=== PATIENT | male | born 1970 | race Caucasian/White ===

== ENCOUNTER 2022-03-02 21:10 | Inpatient (IN) | payer OTHER, SELFPAY ==
--- NOTE | ~2022-03-02 | MR_ITS ---
EXAMINATION: MR lumbar spine wo con DATE: 03/08/2022 12:06 INDICATION: Cauda equina syndrome. TECHNIQUE: Magnetic resonance imaging (MRI) of the lumbar spine was performed without intravenous con trast. Sequences included sagittal T2-weighted FSE, sagittal T2-weighted FS FSE, sagittal T1-weighted FSE, and axial T2-weighted FSE. COMPARISON: CT abdomen and pelvis 03/06/2022 FINDINGS: Bone alignment is normal. There are Schmorl's nodes at multiple levels. There are innumerab le scattered lesions of bone marrow replacement involving all bones. There is mildly decreased disc h eight at T11-T12, L1-L2, L3-L4, and L4-L5. At T10, the osseous metastatic disease extends into the ep idural space resulting in severe central canal stenosis, cord compression, and increased T2-weighted signal intensity in the spinal cord. There is a small focus of increased T2-weighted signal intensity in the spinal cord at L1. The conus medullaris is at L1-L2. The following disc levels are specifical ly discussed: L1-L2: There is a central extrusion. There is mild bilateral facet joint osteoarthritis. There is mil d left neural foraminal stenosis. There is mild central canal stenosis. L2-L3: The disc does not extend beyond the endplate margin. There is severe bilateral facet joint ost eoarthritis. There is no neural foraminal stenosis. There is no central canal stenosis. L3-L4: The disc is bulging. There is severe right and moderate left facet joint osteoarthritis. There is mild bilateral neural foraminal stenosis. There is mild central canal stenosis. L4-L5: The disc is bulging and has an annular fissure. There is mild bilateral facet joint osteoarthr itis. There is moderate bilateral neural foraminal stenosis. There is mild central canal stenosis. L5-S1: The disc does not extend beyond the endplate margin. There is mild bilateral facet joint osteo arthritis. There is no neural foraminal stenosis. There is no central canal stenosis. IMPRESSION: 1. Widespread osseous metastatic disease with epidural extension and spinal cord compression at T10. Increased signal in the cord at T10 may be edema or myelomalacia. Increased signal in the spinal cord at L1 is likely myelomalacia. I discussed this case with Dr. Quezada. Reviewed, dictated and finalized at location A. IMPRESSION: 1. Widespread osseous metastatic disease with epidural extension and spinal cor d compression at T10. Increased signal in the cord at T10 may be edema or myelo malacia. Increased signal in the spinal cord at L1 is likely myelomalacia. I di scussed this case with Dr. Quezada.
--- NOTE | ~2022-03-02 | CT_ITS ---
EXAMINATION: CT abdomen pelvis wo con DATE: 03/06/2022 11:27 INDICATION: Prostate cancer TECHNIQUE: Computed tomography (CT) of the abdomen and pelvis was performed without intravenous contr ast. Automated exposure control and iterative reconstruction technique were employed. The dose-length product was 1280.15 mGy-cm. COMPARISON: None FINDINGS: Small right pleural effusion. Regions of consolidation in the bilateral lower lobes with bronchovascu lar crowding consistent with atelectasis. Mild cardiomegaly. No pericardial effusion. Liver, gallblad kaylan, spleen, pancreas, bilateral adrenal glands and right kidney are normal. 5 mm U-shaped stone or p air of stones in a lower pole calyx of the left kidney. There is mild left hydroureteronephrosis extending to the ureterovesicular junction where there is a 1 mm stone. There is also thickening of the inferior bladder wall overlying the enlarged prostate and extending to the left ureterovesicular junction. Horne catheter in the bladder. There is subtle hazi ness to the fat abutting the enlarged prostate. Bowels including the appendix are normal. Small bilat eral fat-containing inguinal hernias. No free intraperitoneal gas or fluid. Pelvic lymphadenopathy in the bilateral obturator, internal, external and common iliac chains suspicious for metastatic diseas e. For reference there is a 4.2 x 4.0 cm lymph node/conglomeration of lymph nodes along the right ext ernal iliac chain and 3.6 x 2.6 cm lymph node along the left external iliac chain. Prominent expansil e mixed lytic and sclerotic bone lesions at the posterior right 10th rib. Likely pathologic fracture and a mixed lytic and sclerotic lesion at the lateral right eighth rib. Multiple additional subtle ly tic lesions at the T9, T10 and L1 vertebral bodies and in the pelvis IMPRESSION: 1. Prostatomegaly consistent with given history of prostate cancer and likely metastatic lymphadenopa thy in the pelvis and multiple metastatic bone lesions. 2. Atelectasis in the bilateral lower lobes with small right pleural effusion. 3. Mild cardiac likely. 4. Left-sided nephrolithiasis with 1 mm likely obstructing stone at the left ureterovesicular junctio n with mild left hydronephrosis. There is however also some wall thickening at the base of the bladde r extending to the left inguinal region which could also contribute to the obstruction and which coul d be related to local invasion of prostatic cancer. Reviewed, dictated and finalized at location B. IMPRESSION: 1. Prostatomegaly consistent with given history of prostate cancer and likely m etastatic lymphadenopathy in the pelvis and multiple metastatic bone lesions. 2. Atelectasis in the bilateral lower lobes with small right pleural effusion. 3. Mild cardiac likely. 4. Left-sided nephrolithiasis with 1 mm likely obstructing stone at the left ur eterovesicular junction with mild left hydronephrosis. There is however also so me wall thickening at the base of the bladder extending to the left inguinal re gion which could also contribute to the obstruction and which could be related to local invasion of prostatic cancer.
--- NOTE | ~2022-03-02 | NM_ITS ---
EXAMINATION: NM bone scan whole body DATE: 03/06/2022 14:27 INDICATION: Prostate cancer. TECHNIQUE: 25.3 mCi Tc-99m HDP was administered intravenously. Delayed whole-body scintigrams were o btained. COMPARISON: CT abdomen and pelvis 03/06/2022 FINDINGS: There are greater than 40 scattered foci of increased activity in the bones in the involvin g the spine, ribs, pelvis, proximal femora, scapulae, and right humerus correlating with predominantl y lytic bone lesions by CT, consistent with metastatic disease. IMPRESSION: 1. Widespread osseous metastatic disease. Reviewed, dictated and finalized at location A.
--- NOTE | ~2022-03-02 | CT_ITS ---
EXAMINATION: CT lumbar spine wo con DATE: 03/02/2022 21:48 INDICATION: Fall. Low back pain. TECHNIQUE: Computed tomography (CT) of the lumbar spine was performed without intravenous contrast. A utomated exposure control and iterative reconstruction technique were employed. Exam dose: 1189.63 m Gy-cm total exam DLP. COMPARISON: None FINDINGS: The lumbar vertebrae are normally aligned. No fracture or suspicious osteolytic or osteobla stic lesion is noted. There is mildly severe degenerative disc disease at L1-2, with prominent Schmorl's node at the left s uperior vertebral endplate of L2. Superimposed fracture at this area is not definitively excluded; co nsider MR lumbar spine correlation. Rounded approximately 1 cm subtle lucent area at the right anterosuperior aspect of the L4 vertebral body is noted, of uncertain significance. Consider MRI correlation. Small Schmorl's nodes are noted at L2-3 and L3-4. There is mild degenerative disc disease at L2-3 thr ough L5-S1. The sacroiliac joints are intact. IMPRESSION: Possible fracture of the left superior vertebral endplate at L2 at site of probable prom inent Schmorl's node. Consider MRI correlation. Moderately severe degenerative disc disease at L1-2. Mild degenerative disc disease of the remaining lumbar interspaces Nonspecific 1 cm subtle lucent area at right anterosuperior L4 vertebral body; MR correlation would b e helpful. Reviewed, dictated and finalized at Location A. Reviewed, dictated and finalized at location A. IMPRESSION: Possible fracture of the left superior vertebral endplate at L2 at site of probable prominent Schmorl's node. Consider MRI correlation. Moderately severe degenerative disc disease at L1-2. Mild degenerative disc dis ease of the remaining lumbar interspaces Nonspecific 1 cm subtle lucent area at right anterosuperior L4 vertebral body; MR correlation would be helpful.
[2022-03-02 21:10] VITALS: BP 143/82; PULSE 106; RESP 18; O2SAT 95
--- NOTE | 2022-03-02 21:18 | ED.FALL ---
HPI - Fall General Chief Complaint: Fall Stated Complaint: fall from walker onto buttocks and back pain History of Present Illness HPI Narrative: 51-year-old male presents the emergency room for cute onset of low back pain patient states about 2 weeks ago he was moving a with his family member, woke up the following day experiencing low back pain. Patient states at that time he was evaluated at another local emergency room, and was told that there were no acute findings. Patient states over the last few weeks, he has developed increasing lower back pain that radiates into both legs. Patient states the pain is worse with movement. Patient states 2 days ago he bought a walker to assist and ambulation. Patient also remarks that he is relying on his family to help with ADLs. Prior to arrival, patient states that he misstepped and fell on landing in a sitting position. Patient was nonambulatory at the scene of the fall. Patient states he also has a indwelling catheter, for urinary obstruction. States he is being evaluated for possible prostate cancer. Related Data Allergies Allergy/AdvReac Type Severity Reaction Status Date / Time No Known Allergies Allergy Unverified 03/07/17 10:47 Review of Systems Review of Systems: CONSTITUTIONAL: Denies fever, chills, or sweats. EYES: Denies visual changes, redness, or discharge. ENT: Denies rhinorrhea, congestion, sore throat, or otalgia. CARDIOVASCULAR: Denies chest pain, palpitations, or edema. RESPIRATORY: Denies cough or dyspnea. GASTROINTESTINAL: Denies abdominal pain, nausea, vomiting, or diarrhea. GENITOURINARY: Denies dysuria or hematuria. SKIN: Denies rash or itching. MUSCULOSKELETAL: Reports lower back pain NEUROLOGIC: Reports bilateral lower extremity paresthesias he is PSYCHIATRIC: Denies anxiety or depression. [facility] Past Medical History Medical History (Updated 03/02/22 @ 23:21 by Thai Grey, NGUYEN) BPH (benign prostatic hyperplasia) COPD (chronic obstructive pulmonary disease) Exam Narrative: GENERAL: Well-appearing, well-nourished, and in moderate distress. HEAD: Normocephalic, atraumatic. EYES: PERRLA and EOMI. CHEST: Clear to auscultation. No respiratory distress. No wheezes rales or rhonchi, 2 L nasal cannula HEART: Regular rate and rhythm. No murmur heard. Normal peripheral pulses. ABDOMEN: Soft, nontender, morbidly obese normal active bowel sounds. EXTREMITIES: Normal range of motion. No edema. BACK: Lumbar spine: Midline tenderness over L1-L3, no bony abnormalities, no step-offs, range of motion limited due to pain SKIN: Warm, dry, no rash. NEURO: No focal deficits. Alert and oriented x3. Cranial nerves II through XII intact; DTR's +2, no saddle anesthesia PSYCH: Normal mood and affect. Course Vital Signs Vital signs: Vital Signs Pulse Rate 106 H 03/02/22 21:10 Respiratory Rate 18 03/02/22 21:10 Blood Pressure 143/82 H 03/02/22 21:10 Pulse Oximetry 95 03/02/22 21:10 Oxygen Delivery Nasal Cannula 03/02/22 21:10 Oxygen Flow Rate 3 03/02/22 21:10 Pulse Rate 106 H 03/02/22 21:10 Respiratory Rate 18 03/02/22 21:10 Blood Pressure 143/82 H 03/02/22 21:10 Pulse Oximetry 95 03/02/22 21:10 Oxygen Delivery Nasal Cannula 03/02/22 21:10 Oxygen Flow Rate 3 03/02/22 21:10 MDM - Fall MDM Narrative Medical decision making narrative: 51-year-old male presented to emergency room for evaluation of low back pain following a fall. Patient states over the past couple of weeks he has been experiencing worsening low back pain that radiates down both legs. Patient states he recently has had to use a walker to get around, and is having difficulty performing his ADLs. Patient also states that he is being evaluated for possible prostate cancer, reporting that back in September of last year he was found to have a urinary obstruction with an elevated PSA. Patient states that he did not follow-up with those results and has since had a
[2022-03-02] MEDS: MORPHINE SULFATE (*CRX) 4 MG/ML INJ IV PUSH (21:52)
[2022-03-02] MEDS: ONDANSETRON INJ 4 MG/2 ML VIAL IV PUSH (21:52)
[2022-03-02] MEDS: SODIUM CHLORIDE 0.9% IV 1,000 ML 150 ML IV CONT (21:52)
[2022-03-02 22:00] LABS: Basophils Absolute Auto 0.1 K/mm3 (0.0-0.1); Eosinophils Absolute Auto 0.2 K/mm3 (0-0.3); Eosinophils Percent Auto 1.3 % (0-4.4); Hematocrit 42.8 % (42.0-52.0); Hemoglobin 13.4 g/dL (14.0-18.0); Immature Granulocyte Absolute 0.16 K/mm3 (0.00-0.031); Immature Granulocyte Percent A 1.3 % (0-0.5); Lymphocytes Absolute Auto 1.72 K/mm3 (0.9-3.2); Lymphocytes Percent Auto 13.6 % (18.3-44.2); Mean Corpuscular HGB Conc 31.3 g/dl (32-36); Mean Platelet Volume 9.7 fl (7.4-10.4); Monocytes Absolute Auto 0.9 K/mm3 (0.1-0.6); Monocytes Percent Auto 6.7 % (2.6-8.5); Neutrophils Absolute Auto 9.6 K/mm3 (1.3-6.7); Neutrophils Percent Auto 76.1 % (45.5-73.1); Platelet Count Result 257 k/mm3 (150-375); Red Blood Count 4.46 M/mm3 (4.6-6.20); Red Cell Distribution Width 16.3 % (11.5-14.5); White Blood Count 12.6 K/mm3 (4.5-10.0)
[2022-03-02 22:32] LABS: Alanine Aminotransferase 16 U/L (6-50); Albumin Level 4.3 g/dL (3.5-5.1); Alkaline Phosphatase 173 U/L (38-126); Anion Gap 11 mmol/L (8-16); Aspartate Amino Transferase 27 U/L (17-59); Bilirubin,Total 0.5 mg/dL (0.2-1.3); Blood Urea Nitrogen 15 mg/dL (9-20); Calcium 9.5 mg/dL (8.4-10.2); Carbon Dioxide 23 mmol/L (22-30); Chloride 104 mmol/L (98-107); Estimated CRCL calculation 114 ml/min; Estimated Glomerular Filt Rate > 60; Glucose 102 mg/dL (65-110); Potassium 4.1 mmol/L (3.4-5.0); Sodium 138 mmol/L (137-145)
[2022-03-02 23:00] LABS: Appearance Urine Cloudy (Clear); Bilirubin Urine Negative (Negative); Blood Urine 3+ (Negative); Color Urine Yellow (Yellow); Glucose Urine UA Negative (Negative); Ketones Urine Negative (Negative); Leukocyte Esterase Ur 1+ LEU/UL (Negative); Nitrate Urine Negative (Negative); Protein Urine 2+ mg/dL (Negative); Urobilinogen Urine 0.2 mg/dL (<2.0); pH Urine 5.5 (5.0-9.0)
[2022-03-02 23:06] LABS: Bacteria Urine 2+ /hpf; Budding Yeast Urine Present /hpf; Mucus Urine Rare /lpf; RBC Urine >75 /hpf (0-2); WBC Urine >75 /hpf
[2022-03-02] MEDS: MORPHINE SULFATE (*CRX) 2 MG/ML INJ IV PUSH (23:48)
[2022-03-03] VITALS (10 sets, daily range): BP systolic 102–133; BP diastolic 70–76; PULSE 89–111; RESP 14–25; TEMP 36.3–37.3; O2SAT 90–98; BMI 36.8
[2022-03-03 00:25] LABS: Add Urine Microscopic? YES
--- NOTE | 2022-03-03 01:05 | PC.NURSE ---
03/03/22 0103 baldo at pt's bedside verbal orders given.
--- NOTE | 2022-03-03 01:11 | PM.IMHP ---
H&P: [facility] History of Present Illness Date/Time: 03/03/22 01:11 Chief Complaint: low back pain Narrative: 51-year-old male with past medical history significant for BPH with severely elevated PSA in the past, COPD is presenting with about a 2 week history of progressively worsening low back pain. He states he has been to another ER couple different times in been sent home because there were no acute findings. He states the pain does radiate down into his legs and is worse with movement. It is quite severe in his mid back. About 2 days ago he actually about a walker due to his difficulty ambulating. He states he has also relying on his family take care of his ADLs secondary to the severe pain. Patient states he also has an indwelling Horne catheter secondary to chronic urinary obstruction. Patient states his PSA was severely elevated he is being worked up for possible prostate cancer. Patient had mild leukocytosis of 12.6. CMP was essentially benign with an elevation in the alkaline phosphatase of 173. Urinalysis was abnormal and suggestive of possible UTI. Follow-up urine culture. Lumbar spine CT was ordered and report is pending. Patient states he is unable to get MRI due to his claustrophobia. He insists he would need an open MRI have any further evaluation of his lumbar spine with MRI. Review of Systems Review of Systems: Twelve point review of systems was reviewed and is negative except as noted in the HPI [facility] Past Medical History Medical History BPH (benign prostatic hyperplasia) COPD (chronic obstructive pulmonary disease) Social History Social History Smoking status: Former smoker Second hand tobacco smoke exposure: No Alcohol intake: former Substance use: former Spiritual care concerns: No Meds Home Medications and Allergies Home Medications Medication Instructions Recorded Confirmed Type albuterol sulfate 90 mcg/actuation 2 inh inhalation BID PRN Shortness 03/03/22 03/03/22 History aerosol inhaler Of Breath Or Wheezing fluticasone propionate 45 2 inh inhalation BID 03/03/22 03/03/22 History mcg-salmeterol 21 mcg/actuation HFA inhaler (Advair HFA) tamsulosin 0.4 mg capsule 0.4 cap PO BID 03/03/22 03/03/22 History Allergies Allergy/AdvReac Type Severity Reaction Status Date / Time No Known Allergies Allergy Unverified 03/07/17 10:47 Vital Signs Vital Signs - 24 hr 03/02/22 21:10 03/03/22 00:26 03/03/22 00:34 Temperature 98.3 F Pulse Rate 106 H 100 105 H Respiratory Rate 18 20 25 H Blood Pressure 143/82 H 133/70 102/74 Pulse Oximetry 95 95 97 Oxygen Delivery Nasal Cannula Oxygen Flow Rate 3 Exam Narrative: General: Patient resting comfortably in bed, no acute distress, Does appear to be uncomfortable when asked to participate and lower extremity testing HEENT: Atraumatic, normocephalic, mucous membranes moist CV: Regular rate and rhythm, S1, S2, no murmurs rubs or gallops noted Lungs: Clear to auscultation bilaterally, no rales or crackles noted, no wheezes, good air entry Abdomen: Soft, nontender, nondistended Extremities: Normal to inspection, no edema noted Skin: No rashes noted, no lesions or wounds seen Psych: Euthymic, normal affect Neuro: Cranial nerves 2-12 grossly intact, strength 5/5 upper and lower extremities noted H&P: Results Labs Labs: Short CBC 03/02/22 Range/Units 21:55 WBC 12.6 H (4.5-10.0) K/mm3 Hgb 13.4 L (14.0-18.0) g/dL Hct 42.8 (42.0-52.0) % Plt Count 257 (150-375) k/mm3 BMP 03/02/22 22:17 Sodium 138 Potassium 4.1 Chloride 104 Carbon Dioxide 23 BUN 15 Creatinine 0.80 Glucose 102 Calcium 9.5 Liver Function 03/02/22 Range/Units 22:17 Total Bilirubin 0.5 (0.2-1.3) mg/dL AST 27 (17-59) U/L ALT 16 (6-50) U/L Alkaline Phosphatase 173 H (38-1
--- NOTE | 2022-03-03 01:13 | ADMGEN ---
This patient, [place], was admitted to 3 Med Surg Room 328-01. Patient/family oriented to hospital policies and general routines including ID bracelet, bed and alarms, visiting hours, pain management, procedures, bathroom and other care routines, personal items, smoking policy, room service/diet, and visiting hours. Information on how to activate the Rapid Response Team has been discussed. Patient/Family are encouraged to report perceived risks to care and to ask questions if they do not understand what they are told or what they should do.
--- NOTE | 2022-03-03 01:32 | PC.NURSE ---
03/03/22 0103 while in pt's room baldo informed of yeast in pt's groin area.
[2022-03-03] MEDS: methocarbamoL 750 MG TABLET PO ×4 (02:51→21:01)
--- NOTE | 2022-03-03 03:50 | PC.NURSE ---
03/03/22 0350 kpad not available on floor at this time.
[2022-03-03] MEDS: ALBUTEROL SULFATE (*SP) AEROSOL 1 PUFF 2 PUFF INHALATION ×2 (07:52→20:51)
[2022-03-03] MEDS: FLUTICASONE/SALMETEROL 45-21 MCG INHALER 1 PUFF 2 PUFF INHALATION ×2 (07:53→20:42)
[2022-03-03] MEDS: MICONAZOLE NITRATE 2% CREAM 30 GM TUBE 1 APPLIC TOPICAL ×2 (08:11→21:01)
[2022-03-03] MEDS: LIDOCAINE 5% PATCH 1 PATCH TRANSDERM (08:11)
[2022-03-03] MEDS: TAMSULOSIN HCL 0.4 MG CAPSULE PO ×2 (08:11→21:01)
--- NOTE | 2022-03-03 08:39 | PM.IMPN ---
Progress Note: A&P Assessment and Plan (1) Abnormal urinalysis: Code(s): R82.90 - Unspecified abnormal findings in urine <Lucretia Maki PA-C - Last Filed: 03/03/22 15:41> Status: Acute <Lucretia Maki PA-C - Last Filed: 03/03/22 15:41> Assessment and Plan: UA with protein, blood, leuk esterase, more than 75 WBC/RBC, bacteria, and budding yeast. Patient given 1 dose of Rocephin in the ER, will continue empirically until cultures and sensitivities returned. -03/03- Mild Leukocytosis on admission. Continue IV rocephin pending C&S. Patient's last catheter change was approximately 1 month ago, will have this changed while here. Consulted urology, as patient had a coude placed by urology previously. Dr. Montero advised to obtain PSA and testosterone, they will exchange coude catheter in the AM. Repeat labs in AM. <Lucretia Maki PA-C - Last Filed: 03/03/22 15:41> (2) Low back pain: Code(s): M54.50 - Low back pain, unspecified <Lucretia Maki PA-C - Last Filed: 03/03/22 15:41> Status: Acute <Lucretia Maki PA-C - Last Filed: 03/03/22 15:41> Assessment and Plan: - 03/02- Lidoderm patch, heating pad, robaxin, check MRI lumbar spine. - 03/03- CT Lumbar spine showed: Possible fracture of the left superior vertebral endplate at L2 at site of probable prominent Schmorl's node. Consider MRI correlation. Moderately severe degenerative disc disease at L1-2. Mild degenerative disc disease of the remaining lumbar interspaces Nonspecific 1 cm subtle lucent area at right anterosuperior L4 vertebral body; MR correlation would be helpful. Patient has refused MRI unless he can obtain an open MRI, even with sedation offered. Pain is under control at this time. Will continue to monitor overnight. Will reapproach patient in the morning, may need to consider transfer to tertiary care center. <Lucretia Maki PA-C - Last Filed: 03/03/22 15:41> (3) BPH (benign prostatic hyperplasia): Code(s): N40.0 - Benign prostatic hyperplasia without lower urinary tract symptoms <Lucretia Maki PA-C - Last Filed: 03/03/22 15:41> Status: Acute <MAGDY RoldanC - Last Filed: 03/03/22 15:41> Assessment and Plan: -03/02- Check PSA, concern for PMH PSA CA -03/03- Following PSA, testosterone ordered, pending. <Lucretia Maki PA-C - Last Filed: 03/03/22 15:41> (4) COPD (chronic obstructive pulmonary disease): Code(s): J44.9 - Chronic obstructive pulmonary disease, unspecified <Lucretia Maki PA-C - Last Filed: 03/03/22 15:41> Status: Acute <MAGDY RoldanC - Last Filed: 03/03/22 15:41> Assessment and Plan: -03/02- breathing treatments + IS, hold off on steroids, no wheezing noted, appears at baseline, uses 3L at home with exertion at baseline -03/03- Patient at baseline using 3 L supplemental O2 as he does at home, Continue home inhaler therapy. <Lucretia Maki PA-C - Last Filed: 03/03/22 15:41> (5) DVT prophylaxis: Code(s): Z29.9 - Encounter for prophylactic measures, unspecified <MAGDY RoldanC - Last Filed: 03/03/22 15:41> Status: Acute <Lucretia Maki PA-C - Last Filed: 03/03/22 15:41> Assessment and Plan: Lovenox. Renal Functions normal. <Lucretia Maki PA-C - Last Filed: 03/03/22 15:41> Subjective Date/time seen: 03/03/22 08:39 51-year-old male with past medical history significant for?BPH with severely elevated PSA in the past, COPD is presenting with about a 2 week history of progressively worsening low back pain.? Patient reports worsening back pain over the past week. Specifically muscle spasms of lower back that seemed to radiate from the legs up to the lower back. He states his lower extremities are numb, he does endorse saddle anesthesia, but denies incontinence. He denies any precipitating event, fall, injury, etc. he denies chest pain, shortness a breath, fev
[2022-03-03] MEDS: ENOXAPARIN 40 MG/0.4 ML SYRINGE SUB-Q (09:33)
--- NOTE | 2022-03-03 09:43 | PCPTNOTE ---
Addendum entered by Magaly Baird, PT 03/03/22 09:48: 950- Zuly reports she talked with dr and they want the results of the CT scan before they take off the bed rest orders Original Note: attempted PT evaluation 2x this AM: 830 was sleeping and unarousable; at 945- pt refused, stated having spasms and pain in his legs and does not want to do anything; stated cannot move his legs and wants dr to check him; discussed pt with GITA De Jesus;
--- NOTE | 2022-03-03 10:02 | PCOTNOTE ---
OT orders received. Per RN, patient to have a CT of his back before bedrest orders are removed and therapy attempts to get him up. Will follow.
[2022-03-03 13:28] LABS: Basophils Absolute Auto 0.1 K/mm3 (0.0-0.1); Basophils Percent Auto 0.8 % (0.2-1.2); Eosinophils Absolute Auto 0.2 K/mm3 (0-0.3); Eosinophils Percent Auto 2.1 % (0-4.4); Hematocrit 40.8 % (42.0-52.0); Hemoglobin 12.4 g/dL (14.0-18.0); Immature Granulocyte Absolute 0.12 K/mm3 (0.00-0.031); Immature Granulocyte Percent A 1.2 % (0-0.5); Lymphocytes Absolute Auto 1.33 K/mm3 (0.9-3.2); Lymphocytes Percent Auto 13.8 % (18.3-44.2); Mean Corpuscular HGB Conc 30.4 g/dl (32-36); Mean Corpuscular Hemoglobin 29.7 pg (26-34); Mean Corpuscular Volume 97.6 fl (80-100); Mean Platelet Volume 9.6 fl (7.4-10.4); Monocytes Absolute Auto 0.9 K/mm3 (0.1-0.6); Monocytes Percent Auto 8.8 % (2.6-8.5); Neutrophils Absolute Auto 7.1 K/mm3 (1.3-6.7); Neutrophils Percent Auto 73.3 % (45.5-73.1); Platelet Count Result 240 k/mm3 (150-375); Red Blood Count 4.18 M/mm3 (4.6-6.20); Red Cell Distribution Width 16.5 % (11.5-14.5); White Blood Count 9.7 K/mm3 (4.5-10.0)
[2022-03-03 13:39] LABS: Alanine Aminotransferase 13 U/L (6-50); Albumin Level 4.4 g/dL (3.5-5.1); Alkaline Phosphatase 158 U/L (38-126); Anion Gap 7 mmol/L (8-16); Aspartate Amino Transferase 24 U/L (17-59); Bilirubin,Total 0.5 mg/dL (0.2-1.3); Blood Urea Nitrogen 13 mg/dL (9-20); Carbon Dioxide 29 mmol/L (22-30); Chloride 101 mmol/L (98-107); Estimated CRCL calculation 100 ml/min; Estimated Glomerular Filt Rate > 60; Glucose 113 mg/dL (65-110); Potassium 4.1 mmol/L (3.4-5.0); Sodium 137 mmol/L (137-145)
[2022-03-04] VITALS (7 sets, daily range): BP systolic 117–129; BP diastolic 64–79; PULSE 95–114; RESP 14–18; TEMP 36.3–36.9; O2SAT 93–97
[2022-03-04] MEDS: methocarbamoL 750 MG TABLET PO ×3 (04:11→20:11)
[2022-03-04 05:57] LABS: Basophils Absolute Auto 0.1 K/mm3 (0.0-0.1); Basophils Percent Auto 0.8 % (0.2-1.2); Eosinophils Absolute Auto 0.3 K/mm3 (0-0.3); Eosinophils Percent Auto 2.5 % (0-4.4); Hematocrit 38.8 % (42.0-52.0); Hemoglobin 12.3 g/dL (14.0-18.0); Immature Granulocyte Absolute 0.12 K/mm3 (0.00-0.031); Immature Granulocyte Percent A 1.2 % (0-0.5); Lymphocytes Absolute Auto 1.58 K/mm3 (0.9-3.2); Lymphocytes Percent Auto 15.6 % (18.3-44.2); Mean Corpuscular HGB Conc 31.7 g/dl (32-36); Mean Corpuscular Hemoglobin 30.2 pg (26-34); Mean Corpuscular Volume 95.3 fl (80-100); Mean Platelet Volume 9.7 fl (7.4-10.4); Monocytes Absolute Auto 0.8 K/mm3 (0.1-0.6); Monocytes Percent Auto 7.5 % (2.6-8.5); Neutrophils Absolute Auto 7.3 K/mm3 (1.3-6.7); Neutrophils Percent Auto 72.4 % (45.5-73.1); Platelet Count Result 228 k/mm3 (150-375); Red Blood Count 4.07 M/mm3 (4.6-6.20); Red Cell Distribution Width 16.3 % (11.5-14.5); White Blood Count 10.1 K/mm3 (4.5-10.0)
[2022-03-04 06:12] LABS: Alanine Aminotransferase 14 U/L (6-50); Alkaline Phosphatase 164 U/L (38-126); Anion Gap 11 mmol/L (8-16); Aspartate Amino Transferase 21 U/L (17-59); Bilirubin,Total 0.3 mg/dL (0.2-1.3); Blood Urea Nitrogen 12 mg/dL (9-20); Calcium 9.1 mg/dL (8.4-10.2); Carbon Dioxide 23 mmol/L (22-30); Chloride 102 mmol/L (98-107); Estimated CRCL calculation 112 ml/min; Estimated Glomerular Filt Rate > 60; Glucose 154 mg/dL (65-110); Potassium 3.9 mmol/L (3.4-5.0); Sodium 136 mmol/L (137-145)
[2022-03-04] MEDS: FLUTICASONE/SALMETEROL 45-21 MCG INHALER 1 PUFF 2 PUFF INHALATION ×2 (07:58→21:08)
[2022-03-04] MEDS: ENOXAPARIN 40 MG/0.4 ML SYRINGE SUB-Q (08:26)
[2022-03-04] MEDS: TAMSULOSIN HCL 0.4 MG CAPSULE PO ×2 (08:26→20:02)
[2022-03-04] MEDS: MICONAZOLE NITRATE 2% CREAM 30 GM TUBE 1 APPLIC TOPICAL ×2 (08:27→20:03)
[2022-03-04] MEDS: LIDOCAINE 5% PATCH 1 PATCH TRANSDERM ×2 (08:27→10:09)
--- NOTE | 2022-03-04 09:57 | PC.NURSE ---
Spoke with doctor Ross about patients pain. Mention that I had already applied the lidocaine patch per MAR instruction. Doctor Vandana said that it is okay to apply up to 3 patches and was going to add another order for two more patches to be applied this morning.
--- NOTE | 2022-03-04 10:04 | PCOTNOTE ---
PT Spoke with Dr. Ross. Per Dr. Ross hold off on therapy for today. Per RN, patient's pain not well controlled at this time. Will follow.
[2022-03-04] MEDS: GABAPENTIN 300 MG CAPSULE PO ×3 (10:08→16:58)
[2022-03-04] MEDS: DOCUSATE SODIUM 100 MG CAPSULE PO ×2 (10:08→20:02)
--- NOTE | 2022-03-04 13:14 | PM.IMPN ---
Progress Note: A&P Assessment and Plan (1) Abnormal urinalysis: Code(s): R82.90 - Unspecified abnormal findings in urine Status: Acute Assessment and Plan: UA with protein, blood, leuk esterase, more than 75 WBC/RBC, bacteria, and budding yeast. Patient given 1 dose of Rocephin in the ER, will continue empirically until cultures and sensitivities returned. -03/03- Mild Leukocytosis on admission. Continue IV rocephin pending C&S. Patient's last catheter change was approximately 1 month ago, will have this changed while here. Consulted urology, as patient had a coude placed by urology previously. Dr. Montero advised to obtain PSA and testosterone, they will exchange coude catheter in the AM. Repeat labs in AM. 03/04/2022 interval history: patient continue to complain of low back pain and numbness in lower extremity, is refusing MRI, because is unable to lay flat due to his pain month the pain is controlled we may be able to do MRI, to controlled patient pain start the patient on methylprednisone 60 mg q.8, gabapentin 300 mg q.8, apply 3 Lidoderm patches, and Colace, patient also has a history of COPD will continue steroid inhaler and add DuoNeb, will continue to monitor (2) Low back pain: Code(s): M54.50 - Low back pain, unspecified Status: Acute Assessment and Plan: - 03/02- Lidoderm patch, heating pad, robaxin, check MRI lumbar spine. - 03/03- CT Lumbar spine showed: Possible fracture of the left superior vertebral endplate at L2 at site of probable prominent Schmorl's node. Consider MRI correlation. Moderately severe degenerative disc disease at L1-2. Mild degenerative disc disease of the remaining lumbar interspaces Nonspecific 1 cm subtle lucent area at right anterosuperior L4 vertebral body; MR correlation would be helpful. Patient has refused MRI unless he can obtain an open MRI, even with sedation offered. Pain is under control at this time. Will continue to monitor overnight. Will reapproach patient in the morning, may need to consider transfer to tertiary care center. (3) BPH (benign prostatic hyperplasia): Code(s): N40.0 - Benign prostatic hyperplasia without lower urinary tract symptoms Status: Acute Assessment and Plan: -03/02- Check PSA, concern for PMH PSA CA -03/03- Following PSA, testosterone ordered, pending. (4) COPD (chronic obstructive pulmonary disease): Code(s): J44.9 - Chronic obstructive pulmonary disease, unspecified Status: Acute Assessment and Plan: -03/02- breathing treatments + IS, hold off on steroids, no wheezing noted, appears at baseline, uses 3L at home with exertion at baseline -03/03- Patient at baseline using 3 L supplemental O2 as he does at home, Continue home inhaler therapy. (5) DVT prophylaxis: Code(s): Z29.9 - Encounter for prophylactic measures, unspecified Status: Acute Assessment and Plan: Lovenox. Renal Functions normal. Subjective Date/time seen: 03/04/22 13:14 ?03/03- Sensation was intact in bilateral lower extremities during physical exam. Patient is able to move lower extremities against light resistance, but he does so with some tenderness and pain.?Pain is under control at this time.?Patient denies loss of bowel continence? though he does endorse a sensation of 'being swollen' around his hips and groin. CT Lumbar spine showed:?Possible fracture of the left superior vertebral endplate at L2 at site of probable prominent Schmorl's node. Consider MRI correlation. Moderately severe degenerative disc disease at L1-2. Mild degenerative disc disease of the remaining lumbar interspaces. Nonspecific 1 cm subtle lucent area at right anterosuperior L4 vertebral body; MR correlation would be helpful. 03/04/2022 interval history: patient continue to complain of low back pain and numbness in lower extremity, is refusing MRI, because is unable to lay flat due to his pain month the pain is controlled we may b
[2022-03-04] MEDS: methylPREDNISolone SOD SUCC 125 MG VIAL 60 MG IV PUSH (13:57)
--- NOTE | 2022-03-04 14:01 | WPDURCON ---
Assessment and Plan Assessment and plan (1) BPH (benign prostatic hyperplasia): Code(s): N40.0 - Benign prostatic hyperplasia without lower urinary tract symptoms Status: Acute (2) Elevated PSA: Code(s): R97.20 - Elevated prostate specific antigen [PSA] Status: Acute (3) Urinary retention: Code(s): R33.9 - Retention of urine, unspecified Status: Acute (4) Yeast UTI: Code(s): B37.49 - Other urogenital candidiasis Status: Acute Plan 51-year-old gentleman with indwelling catheter and urinary tract infection with yeast. I am concerned that he has metastatic prostate cancer that are the underlying cause of his urinary retention as well as possibly also his fracture. - Horne catheter exchanged at bedside today. - Recommend treatment of yeast UTI with antifungal - PSA and testosterone ordered, results pending. based on these results, consider prostate biopsy and/or androgen deprivation therapy - consider medical oncology and neurosurgical consultation Urology Consult Note HPI Date Seen: 03/04/22 Requesting Physician: Lucretia Maki PA-C Primary Care Provider: SALES ADMINISTRATOR PHYSICIAN Consult Narrative Narrative: [place] is a 51 year old male who presented to the emergency department with a 2 week history of back pain and recent fall. The patient has been admitted to [facility] intermittently over the course of the past 6 months. upon my review of records it appears he was seen by Urology in December of 2020 when he was admitted for hematuria. The patient was found to have a very high PSA at that time ( 396ng/dL). the patient was subsequently admitted in February of [address] scan showed retroperitoneal lymphadenopathy concerning for possible metastatic disease, it does not appear that Urology was consulted at that time. patient states he is scheduled in the next 2 weeks for outpatient prostate biopsy with Dr. Gonzalez. upon admission the patient was found to have a possible fracture at L2. The patient has been managed with a coude catheter to your to urinary retention and Urology was consulted to evaluate the patient for Horne catheter change and assessment. [facility] Past Medical History Medical History BPH (benign prostatic hyperplasia) COPD (chronic obstructive pulmonary disease) Social History Social History Smoking status: Former smoker Second hand tobacco smoke exposure: No Alcohol intake: former Substance use: former Spiritual care concerns: No Meds Home Medications and Allergies Home Medications Medication Instructions Recorded Confirmed Type albuterol sulfate 90 mcg/actuation 2 inh inhalation BID PRN Shortness 03/03/22 03/03/22 History aerosol inhaler Of Breath Or Wheezing fluticasone propionate 45 2 inh inhalation BID 03/03/22 03/03/22 History mcg-salmeterol 21 mcg/actuation HFA inhaler (Advair HFA) tamsulosin 0.4 mg capsule 0.4 cap PO BID 03/03/22 03/03/22 History Allergies Allergy/AdvReac Type Severity Reaction Status Date / Time No Known Allergies Allergy Unverified 03/07/17 10:47 Vital Signs Vital Signs - 24 hr 03/03/22 20:43 03/03/22 22:00 03/03/22 20:00 Temperature 37.3 C Pulse Rate 99 Respiratory Rate 20 Blood Pressure 129/72 Pulse Oximetry 95 98 98 Oxygen Delivery Nasal Cannula Oxygen Flow Rate 3 3 03/04/22 06:00 03/04/22 07:58 Temperature 36.9 C Pulse Rate 95 Respiratory Rate 16 Blood Pressure 129/79 Pulse Oximetry 97 95 Oxygen Delivery Oxygen Flow Rate 3 Exam Narrative: the patient is awake he is alert. His breathing is unlabored. His abdomen is soft non distended. The patient has a Horne catheter in place. Digital rectal exam reveals a firm /nodular prostate procedure: The patient has pre-existing Horne cathet
[2022-03-04] MEDS: FLUCONAZOLE 100 MG/NACL 50 ML 100 MG/50 ML BTL 50 MG IVPB (14:50)
[2022-03-04 16:37] LABS: Glucose Point of Care 172 mg/dl (65-105)
[2022-03-04 20:30] LABS: Glucose Point of Care 244 mg/dl (65-105)
[2022-03-04] MEDS: ALBUTEROL SULFATE NEB 2.5 MG/3 ML INH INHALATION (21:08)
[2022-03-04] MEDS: IPRATROPIUM BR 0.02% INH SOLN 0.5 MG/2.5 ML VIAL INHALATION (21:08)
[2022-03-04] MEDS: HYDROcodone/acetaminophen (*CRX) 5-325 MG TABLET 1 TAB PO (21:59)
[2022-03-05] VITALS (18 sets, daily range): BP systolic 105–123; BP diastolic 60–92; PULSE 90–105; RESP 13–22; TEMP 36.2–36.9; O2SAT 94–100
--- NOTE | 2022-03-05 04:40 | PC.NURSE ---
03/05/22 0440 entered pt's room while making rounds pt noncompliant with keeping nasal cannula on. asked pt if he would like to have a nebulizer treatment pt states maybe later. pt denies sob. pt requesting pain med at this time.
[2022-03-05] MEDS: HYDROcodone/acetaminophen (*CRX) 5-325 MG TABLET 1 TAB PO ×2 (04:44→15:57)
[2022-03-05 07:04] LABS: Basophils Percent Auto 0.2 % (0.2-1.2); Hematocrit 37.9 % (42.0-52.0); Hemoglobin 11.7 g/dL (14.0-18.0); Immature Granulocyte Absolute 0.12 K/mm3 (0.00-0.031); Immature Granulocyte Percent A 1.2 % (0-0.5); Lymphocytes Absolute Auto 0.78 K/mm3 (0.9-3.2); Lymphocytes Percent Auto 8.1 % (18.3-44.2); Mean Corpuscular HGB Conc 30.9 g/dl (32-36); Mean Corpuscular Hemoglobin 29.7 pg (26-34); Mean Corpuscular Volume 96.2 fl (80-100); Mean Platelet Volume 10.1 fl (7.4-10.4); Monocytes Absolute Auto 0.7 K/mm3 (0.1-0.6); Monocytes Percent Auto 7.2 % (2.6-8.5); Neutrophils Percent Auto 83.3 % (45.5-73.1); Platelet Count Result 233 k/mm3 (150-375); Red Blood Count 3.94 M/mm3 (4.6-6.20); Red Cell Distribution Width 15.9 % (11.5-14.5); White Blood Count 9.6 K/mm3 (4.5-10.0)
[2022-03-05 07:17] LABS: Alanine Aminotransferase 14 U/L (6-50); Alkaline Phosphatase 149 U/L (38-126); Anion Gap 8 mmol/L (8-16); Aspartate Amino Transferase 18 U/L (17-59); Bilirubin,Total 0.3 mg/dL (0.2-1.3); Blood Urea Nitrogen 15 mg/dL (9-20); Calcium 8.9 mg/dL (8.4-10.2); Carbon Dioxide 26 mmol/L (22-30); Chloride 101 mmol/L (98-107); Estimated CRCL calculation 112 ml/min; Estimated Glomerular Filt Rate > 60; Glucose 196 mg/dL (65-110); Potassium 4.2 mmol/L (3.4-5.0); Sodium 135 mmol/L (137-145)
[2022-03-05 07:38] LABS: Glucose Point of Care 201 mg/dl (65-105)
--- NOTE | 2022-03-05 08:25 | PCOTNOTE ---
Attempted to see pt. for evaluation. Per nurse, pt. currently being taken for procedure. Following.
--- NOTE | 2022-03-05 08:42 | WPDUROPN2 ---
Progress Note: A&P Assessment and Plan (1) Urinary retention: Code(s): R33.9 - Retention of urine, unspecified Status: Acute Assessment and Plan: Keep hernandez in place at this time, continue Tamsulosin. (2) Elevated PSA: Code(s): R97.20 - Elevated prostate specific antigen [PSA] Status: Acute Assessment and Plan: Will proceed with a prostate biopsy this morning with Dr. Abbott to confirm what is suspected prostate cancer with metastatic disease per discussion and recommendation with Dr. Maria C Montero. The patient understands the risks of the procedure and wishes to proceed. Will await the biopsy results and consultation recommendations from oncology. (3) BPH (benign prostatic hyperplasia): Code(s): N40.0 - Benign prostatic hyperplasia without lower urinary tract symptoms Status: Acute Subjective Subjective Date/Time Seen: 03/05/22 08:42 The patient and I have discussed the need for a prostate biopsy this morning at the bedside. He has one scheduled as an outpatient, however while in house, we will proceed to get a definitive diagnosis. Oncology has also been consulted to see the patient for further recommendation. Review of Systems Cardiovascular: Comments: No chest Pain Respiratory: Comments: No difficulty breathing, patient has nasal 02. Gastrointestinal: Comments: Denies Abdominal Pain. Genitourinary: Comments: Has a hernandez catheter in place, draining to gravity. Exam Resp: Effort & Inspection: normal respiratory effort (with nasal cannula 02) Cardio: Rate: tachycardic GI: GI Palp: Yes Soft to palpation and No Tenderness to palpation present (GI) Urinary Catheter: Urinary Catheter: patent and draining and urine clear Objective Data Vital Signs Vital Signs: Vital Signs - 24 hr 03/04/22 14:00 03/04/22 20:00 03/04/22 21:09 Temperature 97.4 F L Pulse Rate 103 H Respiratory Rate 18 Blood Pressure 117/79 Pulse Oximetry 95 95 93 Oxygen Delivery Nasal Cannula Oxygen Flow Rate 3 3 03/04/22 21:09 03/04/22 21:20 03/04/22 22:00 Temperature 98.0 F Pulse Rate 106 H 103 H 114 H Respiratory Rate 16 14 16 Blood Pressure 118/64 Pulse Oximetry 94 Oxygen Delivery Oxygen Flow Rate 03/05/22 06:00 03/05/22 08:30 Temperature 97.2 F L Pulse Rate 103 H Respiratory Rate 16 Blood Pressure 116/64 Pulse Oximetry 96 94 Oxygen Delivery Oxygen Flow Rate 3 Intake/Output Intake/Output: Intake & Output 03/02/22 03/03/22 03/04/22 03/05/22 23:59 23:59 23:59 23:59 Intake Total 694 1220 750 Output Total 1050 975 750 Balance -356 245 0 Meds/Results Medications: Active Medications Generic Name Dose Route Start Last Admin Trade Name Freq PRN Reason Stop Dose Admin Acetaminophen 650 mg 03/04/22 21:20 Acetaminophen 325 Mg Tablet PO Q6H PRN Mild Pain (1-3) or Fever Hydrocodone Bitart/Acetaminophen 1 tab 03/04/22 21:29 03/05/22 04:44 Hydrocodone/Acetaminophen (*Crx) 5-325 Mg Tablet PO 1 tab Q6H PRN Administration Pain Rated 4-6 Albuterol 2 puff 03/03/22 01:11 03/03/22 20:51 Albuterol Sulfate (*Sp) Aerosol 1 Puff INHALATION 2 puff BID PRN Administration Shortness Of Breath Or Wheezing Albuterol 2.5 mg 03/04/22 09:44 03/04/22 21:08 Albuterol Sulfate Neb 2.5 Mg/3 Ml Inh INHALATION 2.5 mg Q6HRT PRN Administration Shortness Of Breath Dextrose 12.5 gm 03/04/22 13:38 Dextrose 50% 25 Gm/50 Ml Syringe IV PUSH PRN PRN Hypoglycemia Protocol Docusate Sodium 100 mg 03/04/22 09:00 03/04/22 20:02 Docusate Sodium 100 Mg Capsule PO 100 mg Q12HR NAWAF Administration Enoxaparin Sodium 40 mg 03/03/22 09:00 03/04/22 08:26 Enoxaparin 40 Mg/0.4 Ml Syringe SUB-Q 40 mg DAILY NAWAF Administration Gabapentin 300 mg 03/04/22 09:00 03/04/22 16:58 Gabapentin 300 Mg Capsule PO 300 mg TID NAWAF Administration Glucagon 1
--- NOTE | 2022-03-05 08:45 | PC.NURSE ---
To OR via bed.
--- NOTE | 2022-03-05 08:56 | WPDANESEPPF ---
Anes - Initial Pre Proc Eval Procedure: Operation Date: 03/05/22 09:00 Proposed Procedures p Prostate Biopsy - Chaparro Abbott MD Date/Time: 03/05/22 08:56 Surgeon: Lucretia Maki PA-C Pre Op Diagnosis: Failure to Thrive Patient Data Age: 51 Gender: M Height: 1.73 m Weight: 109.8 kg Last Vital Signs Temp 36.2 C L 03/05/22 06:00 Pulse 103 H 03/05/22 06:00 Resp 16 03/05/22 06:00 BP 116/64 03/05/22 06:00 Pulse Ox 94 03/05/22 08:30 O2 Del Method Nasal Cannula 03/04/22 20:00 O2 Flow Rate 3 03/05/22 08:30 Allergies Allergy/AdvReac Type Severity Reaction Status Date / Time No Known Allergies Allergy Unverified 03/07/17 10:47 Home Medications Medication Instructions Recorded Confirmed Type albuterol sulfate 90 mcg/actuation 2 inh inhalation BID PRN Shortness 03/03/22 03/03/22 History aerosol inhaler Of Breath Or Wheezing fluticasone propionate 45 2 inh inhalation BID 03/03/22 03/03/22 History mcg-salmeterol 21 mcg/actuation HFA inhaler (Advair HFA) tamsulosin 0.4 mg capsule 0.4 cap PO BID 03/03/22 03/03/22 History Laboratory Tests 03/04/22 03/04/22 03/05/22 16:25 20:22 06:22 WBC 9.6 K/mm3 K/mm3 (4.5-10.0) RBC 3.94 M/mm3 L M/mm3 (4.6-6.20) Hgb 11.7 g/dL L g/dL (14.0-18.0) Hct 37.9 % L % (42.0-52.0) MCV 96.2 fl fl (80-100) MCH 29.7 pg pg (26-34) MCHC 30.9 g/dl L g/dl (32-36) RDW 15.9 % H % (11.5-14.5) Plt Count 233 k/mm3 k/mm3 (150-375) MPV 10.1 fl fl (7.4-10.4) Immature Gran % (Auto) 1.2 % H % (0-0.5) Neut % (Auto) 83.3 % H % (45.5-73.1) Lymph % (Auto) 8.1 % L % (18.3-44.2) Morrow % (Auto) 7.2 % % (2.6-8.5) Eos % (Auto) 0.0 % % (0-4.4) Baso % (Auto) 0.2 % % (0.2-1.2) Lymph # (Auto) 0.78 K/mm3 L K/mm3 (0.9-3.2) Morrow # (Auto) 0.7 K/mm3 H K/mm3 (0.1-0.6) Eos # (Auto) 0.0 K/mm3 K/mm3 (0-0.3) Baso # (Auto) 0.0 K/mm3 K/mm3 (0.0-0.1) Abs Immat Gran (auto) 0.12 K/mm3 H K/mm3 (0.00-0.031) Absolute Neuts (auto) 8.0 K/mm3 H K/mm3 (1.3-6.7) Absolute Nucleated RBC 0.0 K/mm3 K/mm3 (0.0-0.012) Nucleated RBC % 0.0 % % (0.0-0.2) Sodium Potassium Chloride Carbon Dioxide Anion Gap BUN Creatinine Estim Creat Clear Calc Estimated GFR Glucose POC Capillary Glucose 172 mg/dl H mg/dl 244 mg/dl H mg/dl (65-105) (65-105) Calcium Total Bilirubin AST ALT Alkaline Phosphatase Total Protein Albumin 03/05/22 03/05/22 06:22 07:29 WBC RBC Hgb Hct MCV MCH MCHC RDW Plt Count MPV Immature Gran % (Auto) Neut % (Auto) Lymph % (Auto) Morrow % (Auto) Eos % (Auto) Baso % (Auto) Lymph # (Auto) Morrow # (Auto) Eos # (Auto) Baso # (Auto) Abs Immat Gran (auto) Absolute Neuts (auto) Absolute Nucleated RBC Nucleated RBC % Sodium 135 mmol/L L mmol/L (137-145) Potassium 4.2 mmol/L mmol/L (3.4-5.0) Chloride 101 mmol/L mmol/L (98-107) Carbon Dioxide 26 mmol/L mmol/L (22-30) Anion Gap 8 mmol/L mmol/L (8-16) BUN 15 mg/dL mg/dL (9-20) Creatinine 0.80 mg/dL mg/dL (0.7-1.3) Estim Creat Clear Calc 112 ml/min ml/min Estimated GFR > 60 (59 - ) Glucose 196 mg/dL H mg/dL (65-110) POC Capillary Glucose 201 mg/dl H mg/dl (65-105) Calcium 8.9 mg/dL mg/dL (8.4-10.2) Total Bilirubin 0.3
[2022-03-05] MEDS: LACTATED RINGERS 1,000 ML 30 ML IV CONT (09:00)
[2022-03-05] MEDS: FLUCONAZOLE 100 MG/NACL 50 ML 100 MG/50 ML BTL 50 MG IVPB (09:08)
--- NOTE | 2022-03-05 09:26 | WPDHPUPDATE1 ---
History and Physical Update Update Date/Time: 03/05/22 09:26 History and Physical has been reviewed, including an updated exam of the patient. There are NO changes in the patient's condition. Risks, benefits, and alternatives have been discussed and questions answered. Patient agrees to proceed with procedure. Proceed with trus , prostate biopsy
--- NOTE | 2022-03-05 09:33 | SUR.PREOP ---
[id number] DOES NOT WANT BROTHERAP NOTIFIED-STATES HE'S AT WORK AND CAN'T DO ANYTHING ANYWAY-I WILL CALL HIM WHEN I'M DONE.
--- NOTE | 2022-03-05 10:06 | W.PM.PROC2 ---
Procedure Note - Detailed Date of Procedure 03/05/22 Pre-op Diagnosis , elevated PSA Post-op Diagnosis Same Procedure Performed Transrectal ultrasound with prostate biopsy Surgeon Chaparro Abbott MD Anesthesia General Description of Procedure Patient is taken the operative suite placed in the lateral decubitus position. Once anesthesia was obtained he transrectal ultrasound probe was inserted. Volume was approximately 72 cc. Twelve cores were taken standard fashion. Patient tolerated procedure well without any complications taken recovery stable condition. Estimated Blood Loss 0 Urine Output 225 Pathology Yes Complications No immediate complications Condition Stable Disposition PACU
[2022-03-05 10:21] LABS: Glucose Point of Care 126 mg/dl (65-105)
[2022-03-05] MEDS: fentaNYL CITRATE INJ (*CRX) 100 MCG/2 ML VIAL 25 MCG IV PUSH ×2 (10:35→10:59)
--- NOTE | 2022-03-05 11:22 | PC.NURSE ---
Back from OR via bed.
[2022-03-05] MEDS: GABAPENTIN 300 MG CAPSULE PO ×3 (11:29→20:54)
[2022-03-05] MEDS: TAMSULOSIN HCL 0.4 MG CAPSULE PO ×2 (11:30→20:54)
[2022-03-05] MEDS: LIDOCAINE 5% PATCH 2 PATCH TRANSDERM (11:30)
[2022-03-05] MEDS: DOCUSATE SODIUM 100 MG CAPSULE PO ×2 (11:31→20:54)
[2022-03-05] MEDS: MICONAZOLE NITRATE 2% CREAM 30 GM TUBE 1 APPLIC TOPICAL ×2 (11:32→20:55)
[2022-03-05] MEDS: methocarbamoL 750 MG TABLET PO ×3 (11:35→23:05)
[2022-03-05 11:53] LABS: Glucose Point of Care 152 mg/dl (65-105)
--- NOTE | 2022-03-05 14:41 | PM.IMPN ---
Progress Note: A&P Assessment and Plan (1) Abnormal urinalysis: Code(s): R82.90 - Unspecified abnormal findings in urine Status: Acute Assessment and Plan: UA with protein, blood, leuk esterase, more than 75 WBC/RBC, bacteria, and budding yeast. Patient given 1 dose of Rocephin in the ER, will continue empirically until cultures and sensitivities returned. -03/03- Mild Leukocytosis on admission. Continue IV rocephin pending C&S. Patient's last catheter change was approximately 1 month ago, will have this changed while here. Consulted urology, as patient had a coude placed by urology previously. Dr. Montero advised to obtain PSA and testosterone, they will exchange coude catheter in the AM. Repeat labs in AM. 03/04/2022 interval history: patient continue to complain of low back pain and numbness in lower extremity, is refusing MRI, because is unable to lay flat due to his pain month the pain is controlled we may be able to do MRI, to controlled patient pain start the patient on methylprednisone 60 mg q.8, gabapentin 300 mg q.8, apply 3 Lidoderm patches, and Colace, patient also has a history of COPD will continue steroid inhaler and add DuoNeb, will continue to monitor. 03/05/2022 interval history: patient continue to complain of low back pain and numbness in lower extremity, is refusing MRI, because is unable to lay flat due to his pain, once the pain is controlled we may be able to do MRI, to controlled patient pain start the patient on methylprednisone 60 mg q.8, gabapentin 300 mg q.8, apply 3 Lidoderm patches, and Colace, stopped methylprednisone as patient urine is positive for yeast, patient also has a history of COPD will continue steroid inhaler and add DuoNeb, will continue to monitor, pn 03/[address] Montero suspect patient has prostate cancer to further evaluate ordered prostate biopsy which patient had it today, PSA and testosterone levels are pending. also consulted Dr. Pena oncologist for further recommendation. (2) Low back pain: Code(s): M54.50 - Low back pain, unspecified Status: Acute Assessment and Plan: - 03/02- Lidoderm patch, heating pad, robaxin, check MRI lumbar spine. - 03/03- CT Lumbar spine showed: Possible fracture of the left superior vertebral endplate at L2 at site of probable prominent Schmorl's node. Consider MRI correlation. Moderately severe degenerative disc disease at L1-2. Mild degenerative disc disease of the remaining lumbar interspaces Nonspecific 1 cm subtle lucent area at right anterosuperior L4 vertebral body; MR correlation would be helpful. Patient has refused MRI unless he can obtain an open MRI, even with sedation offered. Pain is under control at this time. Will continue to monitor overnight. Will reapproach patient in the morning, may need to consider transfer to tertiary care center. (3) BPH (benign prostatic hyperplasia): Code(s): N40.0 - Benign prostatic hyperplasia without lower urinary tract symptoms Status: Acute Assessment and Plan: -03/02- Check PSA, concern for PMH PSA CA -03/03- Following PSA, testosterone ordered, pending. (4) COPD (chronic obstructive pulmonary disease): Code(s): J44.9 - Chronic obstructive pulmonary disease, unspecified Status: Acute Assessment and Plan: -03/02- breathing treatments + IS, hold off on steroids, no wheezing noted, appears at baseline, uses 3L at home with exertion at baseline -03/03- Patient at baseline using 3 L supplemental O2 as he does at home, Continue home inhaler therapy. (5) DVT prophylaxis: Code(s): Z29.9 - Encounter for prophylactic measures, unspecified Status: Acute Assessment and Plan: Lovenox. Renal Functions normal. Subjective Date/time seen: 03/05/22 14:41 03/05/2022 interval history: patient continue to complain of low back pain and numbness in lower extremity, is refusing MRI, because is unable to lay flat due to
[2022-03-05 16:39] LABS: Glucose Point of Care 130 mg/dl (65-105)
--- NOTE | 2022-03-05 16:40 | PCPTNOTE ---
Unable to see patient until ortho consult - ortho consult needed to determine if Lumbar spine fracture is stable to move patient without back brace. RN aware and is going to contact hospitalist about possible ortho consult/directions on safely mobility. Will follow.
--- NOTE | 2022-03-05 18:29 | PDONCCN ---
HPI - Date of Consult Date/Time: 03/05/22 18:29 Requesting Physician: Lucretia Maki PA-C Primary Care Provider: RADIOCHEMICAL TECHNICIAN PHYSICIAN - Consult Narrative Reason for consult: Likely prostate cancer with bone metastasis. Narrative: [place] is a 51 year old male with history of smoking and COPD as well as history of BPH came into the hospital with sudden onset of bilateral lower extremity numbness and back pain. He remember episode of while and cough 3 weeks prior to that with resultant back pain. According to Urology note patient PSA was significantly elevated in the past. CT lumbar spine was done on March 02 that showed possible fracture of the left superior vertebral endplate at L2 with severe degenerative disc disease of L1-L2. According to Urology note patient was seen by Urology in December of 2020 due to hematuria and found to have PSA of 396 at that time. He was subsequently admitted to the hospital in February of [address] scan at that time showed retroperitoneal lymphadenopathy. Review of Systems - Review of Systems All systems reviewed & are unremarkable except as noted in [facility] and [facility] Medical History: Medical History (Last Reviewed 03/05/22 @ 08:59 by Narendra Doss MD) BPH (benign prostatic hyperplasia) COPD (chronic obstructive pulmonary disease) - Social History Social History: Social History (Last Reviewed 03/05/22 @ 08:59 by Narendra Doss MD) Alcohol Use: Alcohol intake: former Substance Use: Substance use: former Others: Spiritual care concerns: No Smoking Status: Smoking status: Former smoker Second hand tobacco smoke exposure: No Meds Home Medications Medication Instructions Recorded Confirmed Type albuterol sulfate 90 mcg/actuation 2 inh inhalation BID PRN Shortness 03/03/22 03/03/22 History aerosol inhaler Of Breath Or Wheezing fluticasone propionate 45 2 inh inhalation BID 03/03/22 03/03/22 History mcg-salmeterol 21 mcg/actuation HFA inhaler (Advair HFA) tamsulosin 0.4 mg capsule 0.4 cap PO BID 03/03/22 03/03/22 History Allergies Allergy/AdvReac Type Severity Reaction Status Date / Time No Known Allergies Allergy Unverified 03/07/17 10:47 Results - Labs CBC & Chem 7: 03/05/22 06:22 03/05/22 06:22 Labs: Short CBC 03/05/22 Range/Units 06:22 WBC 9.6 (4.5-10.0) K/mm3 Hgb 11.7 L (14.0-18.0) g/dL Hct 37.9 L (42.0-52.0) % Plt Count 233 (150-375) k/mm3 BMP 03/05/22 06:22 Sodium 135 L Potassium 4.2 Chloride 101 Carbon Dioxide 26 BUN 15 Creatinine 0.80 Glucose 196 H Calcium 8.9 Liver Function 03/05/22 Range/Units 06:22 Total Bilirubin 0.3 (0.2-1.3) mg/dL AST 18 (17-59) U/L ALT 14 (6-50) U/L Alkaline Phosphatase 149 H (38-126) U/L Albumin 4.0 (3.5-5.1) g/dL Assessment and Plan - Additional Plan Likely metastatic prostate cancer. Patient is a 51-year-old male with history of BPH. He now came into the hospital with bilateral lower extremity weakness and numbness as well as lower back pain that started after episode of while and cough [address] lumbar spine finding noted. According to the Urology note patient was seen by the Urology in December of 2020 with hematuria and found to have PSA of 396. CT scan done at that time showed retroperitoneal lymphadenopathy. Patient had prostate biopsy done today and pathology report is pending. PSA and Testosterone level has been ordered and pending. I have provided him my office information for follow-up and management of likely prostate cancer. I will also order bone scan as well as CT abdomen and pelvis at this time. I have answered all the questions to patient's satisfaction. Exam - Vital Signs Vital Signs - 24 hr 03/04/22 20:00 03/04/22 21:09 03/04/22 21:09 Temperature Pulse Rate 106 H Respiratory Rate 16 Blood Pressure Pulse Oximetry 95 93
[2022-03-05 19:49] LABS: PSA, Free >17.00 ng/mL
[2022-03-05] MEDS: ALBUTEROL SULFATE NEB 2.5 MG/3 ML INH INHALATION (20:33)
[2022-03-05] MEDS: IPRATROPIUM BR 0.02% INH SOLN 0.5 MG/2.5 ML VIAL INHALATION (20:33)
[2022-03-05] MEDS: FLUTICASONE/SALMETEROL 45-21 MCG INHALER 1 PUFF 2 PUFF INHALATION (20:33)
[2022-03-05 21:24] LABS: Glucose Point of Care 136 mg/dl (65-105)
[2022-03-06] VITALS (8 sets, daily range): BP systolic 101–124; BP diastolic 71–75; PULSE 98–103; RESP 16–22; TEMP 36.4–36.7; O2SAT 92–95
[2022-03-06] MEDS: HYDROcodone/acetaminophen (*CRX) 5-325 MG TABLET 1 TAB PO ×3 (04:02→17:58)
[2022-03-06 06:40] LABS: Basophils Absolute Auto 0.1 K/mm3 (0.0-0.1); Basophils Percent Auto 0.8 % (0.2-1.2); Eosinophils Absolute Auto 0.4 K/mm3 (0-0.3); Eosinophils Percent Auto 3.7 % (0-4.4); Hematocrit 37.7 % (42.0-52.0); Hemoglobin 11.4 g/dL (14.0-18.0); Immature Granulocyte Absolute 0.08 K/mm3 (0.00-0.031); Immature Granulocyte Percent A 0.8 % (0-0.5); Lymphocytes Absolute Auto 1.63 K/mm3 (0.9-3.2); Lymphocytes Percent Auto 16.3 % (18.3-44.2); Mean Corpuscular HGB Conc 30.2 g/dl (32-36); Mean Corpuscular Hemoglobin 30.1 pg (26-34); Mean Corpuscular Volume 99.5 fl (80-100); Mean Platelet Volume 10.1 fl (7.4-10.4); Monocytes Absolute Auto 0.8 K/mm3 (0.1-0.6); Neutrophils Percent Auto 70.4 % (45.5-73.1); Platelet Count Result 218 k/mm3 (150-375); Red Blood Count 3.79 M/mm3 (4.6-6.20); Red Cell Distribution Width 16.1 % (11.5-14.5)
[2022-03-06 06:54] LABS: Alanine Aminotransferase 25 U/L (6-50); Albumin Level 3.7 g/dL (3.5-5.1); Alkaline Phosphatase 146 U/L (38-126); Anion Gap 9 mmol/L (8-16); Aspartate Amino Transferase 30 U/L (17-59); Bilirubin,Total 0.3 mg/dL (0.2-1.3); Blood Urea Nitrogen 21 mg/dL (9-20); Calcium 8.8 mg/dL (8.4-10.2); Carbon Dioxide 26 mmol/L (22-30); Chloride 99 mmol/L (98-107); Estimated CRCL calculation 100 ml/min; Estimated Glomerular Filt Rate > 60; Glucose 116 mg/dL (65-110); Potassium 4.5 mmol/L (3.4-5.0); Sodium 134 mmol/L (137-145)
[2022-03-06 08:12] LABS: Glucose Point of Care 114 mg/dl (65-105)
--- NOTE | 2022-03-06 08:22 | PCOTNOTE ---
Spoke with Dr. Quezada regarding pt.'s possible fracture of the left superior vertebral endplate at L2 and additional likely prostate cancer with bone metastasis. Per Dr. Quezada, the is not contraindication for mobilizing pt. pending full body bone scan which was ordered yesterday
[2022-03-06] MEDS: ALBUTEROL SULFATE NEB 2.5 MG/3 ML INH INHALATION (08:35)
[2022-03-06] MEDS: IPRATROPIUM BR 0.02% INH SOLN 0.5 MG/2.5 ML VIAL INHALATION (08:35)
[2022-03-06] MEDS: FLUTICASONE/SALMETEROL 45-21 MCG INHALER 1 PUFF 2 PUFF INHALATION ×2 (08:36→21:07)
[2022-03-06] MEDS: GABAPENTIN 300 MG CAPSULE PO ×3 (09:53→17:54)
[2022-03-06] MEDS: methocarbamoL 750 MG TABLET PO ×2 (09:53→13:33)
[2022-03-06] MEDS: DOCUSATE SODIUM 100 MG CAPSULE PO ×2 (09:53→20:09)
[2022-03-06] MEDS: TAMSULOSIN HCL 0.4 MG CAPSULE PO ×2 (09:53→20:10)
[2022-03-06] MEDS: LIDOCAINE 5% PATCH 2 PATCH TRANSDERM (09:54)
[2022-03-06] MEDS: FLUCONAZOLE 100 MG/NACL 50 ML 100 MG/50 ML BTL 50 MG IVPB (09:54)
[2022-03-06] MEDS: ENOXAPARIN 40 MG/0.4 ML SYRINGE SUB-Q (09:55)
[2022-03-06] MEDS: MICONAZOLE NITRATE 2% CREAM 30 GM TUBE 1 APPLIC TOPICAL ×2 (09:55→20:09)
[2022-03-06 11:53] LABS: Glucose Point of Care 125 mg/dl (65-105)
--- NOTE | 2022-03-06 12:02 | PM.IMPN ---
Progress Note: A&P Assessment and Plan (1) Abnormal urinalysis: Code(s): R82.90 - Unspecified abnormal findings in urine Status: Acute Assessment and Plan: Continue IV antibiotics (2) Low back pain: Code(s): M54.50 - Low back pain, unspecified Status: Acute Assessment and Plan: CT Lumbar spine showed: Possible fracture of the left superior vertebral endplate at L2 at site of probable prominent Schmorl's node. Consider MRI correlation. Moderately severe degenerative disc disease at L1-2. Mild degenerative disc disease of the remaining lumbar interspaces Nonspecific 1 cm subtle lucent area at right anterosuperior L4 vertebral body; MR correlation would be helpful. Patient has refused MRI unless he can obtain an open MRI, even with sedation offered. Pain is under control at this time. ? metastatic disease - oncology consult (3) BPH (benign prostatic hyperplasia): Code(s): N40.0 - Benign prostatic hyperplasia without lower urinary tract symptoms Status: Acute Assessment and Plan: elevated psa sp bx - await results (4) COPD (chronic obstructive pulmonary disease): Code(s): J44.9 - Chronic obstructive pulmonary disease, unspecified Status: Acute Assessment and Plan: continue breathing treatments supplemental oxygen as needed (5) DVT prophylaxis: Code(s): Z29.9 - Encounter for prophylactic measures, unspecified Status: Acute Assessment and Plan: Lovenox. Renal Functions normal. Subjective Date/time seen: 03/06/22 12:02 Exam Narrative: moderately obese Patient is comfortable, NAD HEENT: eyes are clear and none icteric LUNGS: normal respiratory effort ABD: distended Lower extremities: no edema SKIN: nonjaundiced Neuro: grossly intact. Objective Data Vital Signs Vital Signs: Vital Signs - 24 hr 03/05/22 13:51 03/05/22 20:34 03/05/22 20:35 Temperature 98.0 F Pulse Rate 94 99 Respiratory Rate 20 18 Blood Pressure 123/72 Pulse Oximetry 97 95 Oxygen Delivery Nasal Cannula Oxygen Flow Rate 3 03/05/22 20:46 03/05/22 22:00 03/05/22 20:00 Temperature 97.4 F L Pulse Rate 101 H 99 Respiratory Rate 16 16 Blood Pressure 107/60 Pulse Oximetry 95 95 Oxygen Delivery Nasal Cannula Oxygen Flow Rate 3 03/06/22 05:39 03/06/22 08:36 03/06/22 08:38 Temperature 97.6 F Pulse Rate 98 98 98 Respiratory Rate 16 18 18 Blood Pressure 122/74 Pulse Oximetry 95 93 Oxygen Delivery Nasal Cannula Oxygen Flow Rate 3 03/06/22 08:47 Temperature Pulse Rate 100 Respiratory Rate 18 Blood Pressure Pulse Oximetry Oxygen Delivery Oxygen Flow Rate Intake/Output Intake/Output: Intake & Output 03/03/22 03/04/22 03/05/22 03/06/22 23:59 23:59 23:59 23:59 Intake Total 694 1270 3200 2160 Output Total 8594 212 0989 850 Balance -268 452 7677 1310 Meds/Results Medications: Active Medications Generic Name Dose Route Start Last Admin Trade Name Freq PRN Reason Stop Dose Admin Acetaminophen 650 mg 03/04/22 21:20 Acetaminophen 325 Mg Tablet PO Q6H PRN Mild Pain (1-3) or Fever Hydrocodone Bitart/Acetaminophen 1 tab 03/04/22 21:29 03/06/22 09:53 Hydrocodone/Acetaminophen (*Crx) 5-325 Mg Tablet PO 1 tab Q6H PRN Administration Pain Rated 4-6 Albuterol 2 puff 03/03/22 01:11 03/03/22 20:51 Albuterol Sulfate (*Sp) Aerosol 1 Puff INHALATION 2 puff BID PRN Administration Shortness Of Breath Or Wheezing Albuterol 2.5 mg 03/04/22 09:44 03/06/22 08:35 Albuterol Sulfate Neb 2.5 Mg/3 Ml Inh INHALATION 2.5 mg Q6HRT PRN Administration Shortness Of Breath Dextrose 12.5 gm 03/04/22 13:38 Dextrose 50% 25 Gm/50 Ml Syringe IV PUSH PRN PRN Hypoglycemia Protocol Docusate Sodium 100 mg 03/04/22 09:00 03/06/22 09:53 Docusate Sodium 100 Mg Capsule PO 100 mg Q12HR NAWAF Administration Enoxaparin Sod
--- NOTE | 2022-03-06 12:57 | PCOTNOTE ---
Attempted to see Pt. for occupational therapy evaluation. Pt. requests to hold off until tomorrow morning for evaluation, as he is still in considerable pain and has to go through multiple tests today, resulting in fatigue. Will follow.
[2022-03-06] MEDS: MORPHINE SULFATE (*CRX) 4 MG/ML INJ IV PUSH ×2 (13:34→18:33)
--- NOTE | 2022-03-06 14:40 | PCPTNOTE ---
Attempted to see Pt. for physical therapy evaluation. Pt. requests to hold off until tomorrow morning for evaluation, as he is still in considerable pain and has to go through multiple tests today, resulting in fatigue. Will follow.
--- NOTE | 2022-03-06 15:47 | WPDUROPN2 ---
Progress Note: A&P Assessment and Plan (1) Urinary retention: Code(s): R33.9 - Retention of urine, unspecified Status: Acute Assessment and Plan: Continue chronic hernandez with monthly changes. (2) BPH (benign prostatic hyperplasia): Code(s): N40.0 - Benign prostatic hyperplasia without lower urinary tract symptoms Status: Acute Assessment and Plan: Continue Tamsulosin. (3) Low back pain: Code(s): M54.50 - Low back pain, unspecified Status: Acute Assessment and Plan: Likely secondary to osseous metastatic disease as seen on bone scan. (4) Elevated PSA: Code(s): R97.20 - Elevated prostate specific antigen [PSA] Status: Acute Assessment and Plan: >500, prostate biopsy results pending. Oncology ordered a CT/Bone scan to stage, appreciate their recommendations. At this time, the patient will continue to follow with Oncology recommendations and f/u with Dr. Gonzalez and [place] for further urologic needs. No further evaluation from a urologic standpoint at this time. Subjective Subjective Date/Time Seen: 03/06/22 15:47 POD #1 Prostate Biopsy The patient is stable, he notes concern for having tingling and numbness in both lower extremities as well as inability to ambulate suddenly. He was ambulating prior to his admission and suddenly cannot move his legs. He also continues to c/o low back pain. Unfortunately his PSA came back at >500. Oncology has seen him and ordered a CT scan/Bone scan to stage him. He was scheduled to see DR. Gonzalez for a biopsy at our [place] location in two weeks. He denies gross hematuria at this time. Review of Systems Cardiovascular: Cardiovascular: Denies chest pain Respiratory: Respiratory: Denies dyspnea Gastrointestinal: Gastrointestinal: Denies abdominal pain, Denies nausea and Denies vomiting Genitourinary: Genitourinary: Denies hematuria and Denies flank pain Musculoskeletal: Musculoskeletal: Reports back pain Neurologic: Reports frequent falls, Reports lack of coordination, Reports numbness, Reports radicular pain, Reports tingling and Reports other Exam Resp: Effort & Inspection: normal respiratory effort Cardio: Rate: regular rate GI: GI Palp: No Soft to palpation and No Tenderness to palpation present (GI) : General: Yes no CVA tenderness Urinary Catheter: Urinary Catheter: patent and draining and urine clear Neuro: Sensory Exam: Abnormal lower extremity sensory exam (decreased sensation bilaterally, left >right) Extrem: Right lower extremity: lower leg Details: other (unable to move his legs upon examination); no tenderness; no edema Left lower extremity: no edema Objective Data Vital Signs Vital Signs: Vital Signs - 24 hr 03/05/22 20:34 03/05/22 20:35 03/05/22 20:46 Temperature Pulse Rate 99 101 H Respiratory Rate 18 16 Blood Pressure Pulse Oximetry 95 Oxygen Delivery Nasal Cannula Oxygen Flow Rate 3 03/05/22 22:00 03/05/22 20:00 03/06/22 05:39 Temperature 97.4 F L 97.6 F Pulse Rate 99 98 Respiratory Rate 16 16 Blood Pressure 107/60 122/74 Pulse Oximetry 95 95 95 Oxygen Delivery Nasal Cannula Oxygen Flow Rate 3 03/06/22 08:36 03/06/22 08:38 03/06/22 08:47 Temperature Pulse Rate 98 98 100 Respiratory Rate 18 18 18 Blood Pressure Pulse Oximetry 93 Oxygen Delivery Nasal Cannula Oxygen Flow Rate 3 03/06/22 09:53 03/06/22 14:00 Temperature 97.7 F Pulse Rate 103 H Respiratory Rate 22 H Blood Pressure 124/71 Pulse Oximetry 93 94 Oxygen Delivery Nasal Cannula Oxygen Flow Rate 3 Intake/Output Intake/Output: Intake & Output 03/03/22 03/04/22 03/05/22 03/06/22 23:59 23:59 23:59 23:59 Intake Total 694 1270 3200 2400 Output Total 9196 762 2968 1500 Balance -952 468 2474 900 Meds/Results Medications: Active Medications Generic Name Dose Route Start Last Admin Trade Name Freq PRN Reason Stop Dose Admin
[2022-03-06 16:55] LABS: Glucose Point of Care 125 mg/dl (65-105)
[2022-03-06] MEDS: ALBUTEROL SULFATE (*SP) AEROSOL 1 PUFF 2 PUFF INHALATION (21:08)
[2022-03-06 21:16] LABS: Glucose Point of Care 113 mg/dl (65-105)
[2022-03-07] VITALS (8 sets, daily range): BP systolic 102–131; BP diastolic 61–62; PULSE 92–104; RESP 16–20; TEMP 36.6–36.9; O2SAT 90–95
[2022-03-07] MEDS: methocarbamoL 750 MG TABLET PO ×5 (00:38→20:37)
[2022-03-07] MEDS: HYDROcodone/acetaminophen (*CRX) 5-325 MG TABLET 1 TAB PO ×3 (00:39→18:27)
[2022-03-07] MEDS: MORPHINE SULFATE (*CRX) 4 MG/ML INJ IV PUSH ×2 (03:35→09:33)
[2022-03-07 06:55] LABS: Basophils Absolute Auto 0.1 K/mm3 (0.0-0.1); Basophils Percent Auto 0.6 % (0.2-1.2); Eosinophils Absolute Auto 0.5 K/mm3 (0-0.3); Eosinophils Percent Auto 4.8 % (0-4.4); Hematocrit 37.8 % (42.0-52.0); Hemoglobin 11.9 g/dL (14.0-18.0); Immature Granulocyte Absolute 0.11 K/mm3 (0.00-0.031); Immature Granulocyte Percent A 1.2 % (0-0.5); Lymphocytes Absolute Auto 1.69 K/mm3 (0.9-3.2); Lymphocytes Percent Auto 18.1 % (18.3-44.2); Mean Corpuscular HGB Conc 31.5 g/dl (32-36); Mean Corpuscular Hemoglobin 30.4 pg (26-34); Mean Corpuscular Volume 96.4 fl (80-100); Mean Platelet Volume 10.1 fl (7.4-10.4); Monocytes Absolute Auto 0.7 K/mm3 (0.1-0.6); Monocytes Percent Auto 7.8 % (2.6-8.5); Neutrophils Absolute Auto 6.3 K/mm3 (1.3-6.7); Neutrophils Percent Auto 67.5 % (45.5-73.1); Platelet Count Result 235 k/mm3 (150-375); Red Blood Count 3.92 M/mm3 (4.6-6.20); Red Cell Distribution Width 16.2 % (11.5-14.5); White Blood Count 9.4 K/mm3 (4.5-10.0)
[2022-03-07] MEDS: IPRATROPIUM BR 0.02% INH SOLN 0.5 MG/2.5 ML VIAL INHALATION (08:03)
[2022-03-07] MEDS: ALBUTEROL SULFATE NEB 2.5 MG/3 ML INH INHALATION (08:03)
[2022-03-07] MEDS: FLUTICASONE/SALMETEROL 45-21 MCG INHALER 1 PUFF 2 PUFF INHALATION ×2 (08:03→20:34)
[2022-03-07 08:24] LABS: Glucose Point of Care 143 mg/dl (65-105)
[2022-03-07] MEDS: FLUCONAZOLE 100 MG/NACL 50 ML 100 MG/50 ML BTL 50 MG IVPB (09:39)
[2022-03-07] MEDS: ENOXAPARIN 40 MG/0.4 ML SYRINGE SUB-Q (09:40)
[2022-03-07] MEDS: DOCUSATE SODIUM 100 MG CAPSULE PO ×2 (09:40→20:38)
[2022-03-07] MEDS: TAMSULOSIN HCL 0.4 MG CAPSULE PO ×2 (09:40→20:38)
[2022-03-07] MEDS: MICONAZOLE NITRATE 2% CREAM 30 GM TUBE 1 APPLIC TOPICAL ×2 (09:41→20:38)
--- NOTE | 2022-03-07 10:24 | PCOTNOTE ---
Attempted OT evaluation, patient declined participating with therapy at this time reports not feeling well. Patient reports wants to attempt therapy this afternoon. Will follow.
--- NOTE | 2022-03-07 10:28 | PCPTNOTE ---
Attempted PT evaluation, patient declined participating with therapy at this time reports not feeling well. Patient reports wants to attempt therapy this afternoon. Will follow.
--- NOTE | 2022-03-07 11:16 | PM.IMPN ---
Progress Note: A&P Assessment and Plan (1) Abnormal urinalysis: Code(s): R82.90 - Unspecified abnormal findings in urine Status: Acute Assessment and Plan: Continue IV antibiotics (2) Low back pain: Code(s): M54.50 - Low back pain, unspecified Status: Acute Assessment and Plan: Again, patient has refused MRI secondary to pain and anxiety. Likely metastatic disease from prostate- oncology consult will await their plans. (3) BPH (benign prostatic hyperplasia): Code(s): N40.0 - Benign prostatic hyperplasia without lower urinary tract symptoms Status: Acute Assessment and Plan: Biopsy results pending. (4) COPD (chronic obstructive pulmonary disease): Code(s): J44.9 - Chronic obstructive pulmonary disease, unspecified Status: Acute Assessment and Plan: continue breathing treatments supplemental oxygen as needed Appears stable (5) DVT prophylaxis: Code(s): Z29.9 - Encounter for prophylactic measures, unspecified Status: Acute Assessment and Plan: Lovenox. Renal Functions normal. Subjective Date/time seen: 03/07/22 11:16 Pain is a little better still unable to stand or get out of bed. Exam Narrative: moderately obese Patient is comfortable, NAD HEENT: eyes are clear and none icteric LUNGS: normal respiratory effort ABD: distended Lower extremities: no edema SKIN: nonjaundiced Neuro: grossly intact. Objective Data Vital Signs Vital Signs: Vital Signs - 24 hr 03/06/22 14:00 03/06/22 21:10 03/06/22 22:00 Temperature 97.7 F 98.0 F Pulse Rate 103 H 100 Respiratory Rate 22 H 20 Blood Pressure 124/71 101/75 Pulse Oximetry 94 92 93 Oxygen Delivery Nasal Cannula Oxygen Flow Rate 3 03/07/22 05:53 03/07/22 08:07 03/07/22 08:07 Temperature 98.5 F Pulse Rate 103 H 99 Respiratory Rate 18 20 Blood Pressure 102/61 Pulse Oximetry 91 90 Oxygen Delivery Nasal Cannula Oxygen Flow Rate 3 03/07/22 08:24 Temperature Pulse Rate 104 H Respiratory Rate 20 Blood Pressure Pulse Oximetry Oxygen Delivery Oxygen Flow Rate Intake/Output Intake/Output: Intake & Output 03/04/22 03/05/22 03/06/22 03/07/22 23:59 23:59 23:59 23:59 Intake Total 1270 3200 2690 410 Output Total 975 1800 3300 1000 Balance 295 5079 -924 -142 Meds/Results Medications: Active Medications Generic Name Dose Route Start Last Admin Trade Name Freq PRN Reason Stop Dose Admin Acetaminophen 650 mg 03/04/22 21:20 Acetaminophen 325 Mg Tablet PO Q6H PRN Mild Pain (1-3) or Fever Hydrocodone Bitart/Acetaminophen 1 tab 03/04/22 21:29 03/07/22 00:39 Hydrocodone/Acetaminophen (*Crx) 5-325 Mg Tablet PO 1 tab Q6H PRN Administration Pain Rated 4-6 Albuterol 2 puff 03/03/22 01:11 03/06/22 21:08 Albuterol Sulfate (*Sp) Aerosol 1 Puff INHALATION 2 puff BID PRN Administration Shortness Of Breath Or Wheezing Albuterol 2.5 mg 03/04/22 09:44 03/07/22 08:03 Albuterol Sulfate Neb 2.5 Mg/3 Ml Inh INHALATION 2.5 mg Q6HRT PRN Administration Shortness Of Breath Dextrose 12.5 gm 03/04/22 13:38 Dextrose 50% 25 Gm/50 Ml Syringe IV PUSH PRN PRN Hypoglycemia Protocol Docusate Sodium 100 mg 03/04/22 09:00 03/07/22 09:40 Docusate Sodium 100 Mg Capsule PO 100 mg Q12HR NAWAF Administration Enoxaparin Sodium 40 mg 03/03/22 09:00 03/07/22 09:40 Enoxaparin 40 Mg/0.4 Ml Syringe SUB-Q 40 mg DAILY NAWAF Administration Gabapentin 300 mg 03/04/22 09:00 03/07/22 09:41 Gabapentin 300 Mg Capsule PO Not Given TID NAWAF Glucagon 1 mg 03/04/22 13:38 Glucagon For Inj 1 Mg Vial IM PRN PRN Hypoglycemia Protocol Glucose 15 gm 03/04/22 13:38 Glucose Oral Gel 15 Gm Of Glucse In 37.5 Gm Tube PO PRN PRN Hypoglycemia Protocol Ceftriaxone Sodium/Dextrose 1 gm in 50 mls @ 100 mls/hr
[2022-03-07 11:59] LABS: Glucose Point of Care 111 mg/dl (65-105)
--- NOTE | 2022-03-07 13:19 | PDRADONCCN ---
Recommendations Would recommend MRI lumbar spine and sacrum--under sedation if necessary--to rule out cauda equina syndrome. If cauda equina is confirmed, neurosurgical or ortho-spine consult should be obtained. Despite his diabetes, I think he might benefit from initiating dexamethasone (4 mg TID). He will eventually require a course of radiotherapy as an outpatient. I would recommend 30 Gy in 10 fractions. We discussed the logistics of therapy, including the acute and chronic side effects of fatigue, skin reaction, diarrhea, kidney damage, bowel damage, and fibrosis. Call with questions, Guzman Hansen MD, PhD [phone] Impression Presumed stage IV prostate cancer. Osseous metastasis in the lumbar spine and current neurologic symptoms raise concern for cauda equine syndrome. [facility] - Date/Time Seen 03/07/22 13:19 - Identifying Data 51 y/o with presumed stage IV prostate cancer. - History of Present Illness Patient's history dates to late last year when he developed urinary obstruction on two occasions. This was managed with catheterization, but he had difficulty following up with Urology for insurance and a multitude of other reasons. He was told there was concern for prostate cancer at that time. Subsequently, he experienced the onset of significant low back pain that was accompanied with leg numbness bilaterally. He also has right leg weakness, though admits this might be from pain. He has been admitted to pain control and imaging workup has revealed an enlarged prostate gland, significant adenopathy, and multifocal osseous metastasis, including disease in the lumbar spine. He denies bowel or bladder incontinence. He has refused an MRI because of anxiety and leg spasm. - Medical History Medical History (Last Reviewed 03/05/22 @ 08:59 by Narendra Doss MD) BPH (benign prostatic hyperplasia) COPD (chronic obstructive pulmonary disease) - Social History Social History (Last Reviewed 03/05/22 @ 08:59 by Narendra Doss MD) Alcohol Use: Alcohol intake: former Substance Use: Substance use: former Others: Spiritual care concerns: No Smoking Status: Smoking status: Former smoker Second hand tobacco smoke exposure: No - Medications Active Medications Generic Name Dose Route Start Last Admin Trade Name Freq PRN Reason Stop Dose Admin Acetaminophen 650 mg 03/04/22 21:20 Acetaminophen 325 Mg Tablet PO Q6H PRN Mild Pain (1-3) or Fever Hydrocodone Bitart/Acetaminophen 1 tab 03/04/22 21:29 03/07/22 12:23 Hydrocodone/Acetaminophen (*Crx) 5-325 Mg Tablet PO 1 tab Q6H PRN Administration Pain Rated 4-6 Albuterol 2 puff 03/03/22 01:11 03/06/22 21:08 Albuterol Sulfate (*Sp) Aerosol 1 Puff INHALATION 2 puff BID PRN Administration Shortness Of Breath Or Wheezing Albuterol 2.5 mg 03/04/22 09:44 03/07/22 08:03 Albuterol Sulfate Neb 2.5 Mg/3 Ml Inh INHALATION 2.5 mg Q6HRT PRN Administration Shortness Of Breath Bicalutamide 50 mg 03/08/22 09:00 Bicalutamide (*Chemo) 50 Mg Tablet PO QAM NAWAF Dextrose 12.5 gm 03/04/22 13:38 Dextrose 50% 25 Gm/50 Ml Syringe IV PUSH PRN PRN Hypoglycemia Protocol Docusate Sodium 100 mg 03/04/22 09:00 03/07/22 09:40 Docusate Sodium 100 Mg Capsule PO 100 mg Q12HR NAWAF Administration Enoxaparin Sodium 40 mg 03/03/22 09:00 03/07/22 09:40 Enoxaparin 40 Mg/0.4 Ml Syringe SUB-Q 40 mg DAILY NAWAF Administration Gabapentin 300 mg 03/04/22 09:00 03/07/22 12:24 Gabapentin 300 Mg Capsule PO Not Given TID NAWAF Glucagon 1 mg 03/04/22 13:38 Glucagon For Inj 1 Mg Vial IM PRN PRN Hypoglycemia Protocol Glucose 15 gm 03/04/22 13:38 Glucose Oral Gel 15 Gm Of Glucse In 37.5 Gm Tube PO PRN PRN Hypoglycemia Protocol Ceftriaxone Sodium/Dextrose 1 gm in 50 mls @ 100 mls/hr 05
[2022-03-07] MEDS: MORPHINE SULFATE (*CRX) 15 MG TABCR PO ×2 (15:07→20:38)
[2022-03-07 16:41] LABS: Glucose Point of Care 116 mg/dl (65-105)
[2022-03-07 17:41] LABS: Testosterone Free 21.8 pg/mL (35.0-155.0); Testosterone Total 104 ng/dL (250-1100)
[2022-03-07 21:07] LABS: Glucose Point of Care 124 mg/dl (65-105)
[2022-03-08] VITALS (7 sets, daily range): BP systolic 105–131; BP diastolic 70–86; PULSE 96–100; RESP 16–20; TEMP 36.4–37.2; O2SAT 93–96; BMI 11.0
[2022-03-08] MEDS: HYDROcodone/acetaminophen (*CRX) 5-325 MG TABLET 1 TAB PO (01:51)
[2022-03-08] MEDS: methocarbamoL 750 MG TABLET PO ×2 (04:02→09:38)
[2022-03-08 06:16] LABS: Basophils Absolute Auto 0.1 K/mm3 (0.0-0.1); Basophils Percent Auto 0.5 % (0.2-1.2); Eosinophils Absolute Auto 0.4 K/mm3 (0-0.3); Eosinophils Percent Auto 4.3 % (0-4.4); Hematocrit 37.9 % (42.0-52.0); Hemoglobin 11.7 g/dL (14.0-18.0); Immature Granulocyte Absolute 0.12 K/mm3 (0.00-0.031); Immature Granulocyte Percent A 1.2 % (0-0.5); Lymphocytes Absolute Auto 1.81 K/mm3 (0.9-3.2); Lymphocytes Percent Auto 18.8 % (18.3-44.2); Mean Corpuscular HGB Conc 30.9 g/dl (32-36); Mean Corpuscular Hemoglobin 29.6 pg (26-34); Mean Corpuscular Volume 95.9 fl (80-100); Monocytes Absolute Auto 0.8 K/mm3 (0.1-0.6); Monocytes Percent Auto 7.8 % (2.6-8.5); Neutrophils Absolute Auto 6.5 K/mm3 (1.3-6.7); Neutrophils Percent Auto 67.4 % (45.5-73.1); Platelet Count Result 223 k/mm3 (150-375); Red Blood Count 3.95 M/mm3 (4.6-6.20); White Blood Count 9.6 K/mm3 (4.5-10.0)
[2022-03-08 08:21] LABS: Glucose Point of Care 112 mg/dl (65-105)
[2022-03-08] MEDS: IPRATROPIUM BR 0.02% INH SOLN 0.5 MG/2.5 ML VIAL INHALATION ×2 (08:48→15:31)
[2022-03-08] MEDS: ALBUTEROL SULFATE NEB 2.5 MG/3 ML INH INHALATION ×2 (08:49→15:31)
[2022-03-08] MEDS: FLUTICASONE/SALMETEROL 45-21 MCG INHALER 1 PUFF 2 PUFF INHALATION (08:50)
[2022-03-08] MEDS: MORPHINE SULFATE (*CRX) 15 MG TABCR PO (09:36)
[2022-03-08] MEDS: ENOXAPARIN 40 MG/0.4 ML SYRINGE SUB-Q (09:38)
[2022-03-08] MEDS: GABAPENTIN 300 MG CAPSULE PO ×2 (09:38→13:47)
[2022-03-08] MEDS: FLUCONAZOLE 100 MG/NACL 50 ML 100 MG/50 ML BTL 50 MG IVPB (09:38)
[2022-03-08] MEDS: DOCUSATE SODIUM 100 MG CAPSULE PO (09:39)
[2022-03-08] MEDS: polyethylene glycoL 3350 17 GM POWD.PACK PO (09:39)
[2022-03-08] MEDS: BICALUTAMIDE (*CHEMO) 50 MG TABLET PO (09:39)
[2022-03-08] MEDS: TAMSULOSIN HCL 0.4 MG CAPSULE PO (09:41)
--- NOTE | 2022-03-08 10:51 | PM.IMPN ---
Progress Note: A&P Assessment and Plan (1) Abnormal urinalysis: Code(s): R82.90 - Unspecified abnormal findings in urine Status: Acute Assessment and Plan: Continue IV antibiotics Continue IV antifungal (2) Low back pain: Code(s): M54.50 - Low back pain, unspecified Status: Acute Assessment and Plan: Likely metastatic disease from prostate- oncology consult will await their plans. Discussed with patient today pretreating him with pain medication prior to MRI is agreeable to try in get MRI again. (3) BPH (benign prostatic hyperplasia): Code(s): N40.0 - Benign prostatic hyperplasia without lower urinary tract symptoms Status: Acute Assessment and Plan: Biopsy results pending. Per Oncology (4) COPD (chronic obstructive pulmonary disease): Code(s): J44.9 - Chronic obstructive pulmonary disease, unspecified Status: Acute Assessment and Plan: continue breathing treatments supplemental oxygen as needed Appears stable (5) DVT prophylaxis: Code(s): Z29.9 - Encounter for prophylactic measures, unspecified Status: Acute Assessment and Plan: Lovenox. Renal Functions normal. Subjective Date/time seen: 03/08/22 10:51 Pain is slightly better controlled Exam Narrative: moderately obese Patient is comfortable, NAD HEENT: eyes are clear and none icteric LUNGS: normal respiratory effort ABD: distended Lower extremities: no edema SKIN: nonjaundiced Neuro: grossly intact. Objective Data Vital Signs Vital Signs: Vital Signs - 24 hr 03/07/22 14:18 03/07/22 20:37 03/07/22 20:37 Temperature 97.9 F Pulse Rate 98 93 93 Respiratory Rate 20 18 Blood Pressure 131/62 Pulse Oximetry 92 93 Oxygen Delivery Nasal Cannula Oxygen Flow Rate 2 03/07/22 21:54 03/07/22 20:00 03/08/22 05:42 Temperature 98.0 F 99.0 F Pulse Rate 92 92 96 Respiratory Rate 16 16 16 Blood Pressure 122/62 131/86 Pulse Oximetry 95 95 93 Oxygen Delivery Nasal Cannula Oxygen Flow Rate 3 03/08/22 08:51 03/08/22 08:53 03/08/22 08:58 Temperature Pulse Rate 100 100 100 Respiratory Rate 20 20 20 Blood Pressure Pulse Oximetry 96 Oxygen Delivery Nasal Cannula Oxygen Flow Rate 3 Intake/Output Intake/Output: Intake & Output 05/31/22 03/06/22 03/07/22 03/08/22 23:59 23:59 23:59 23:59 Intake Total 3200 2690 1440 1350 Output Total 1800 3300 9488 1754 Balance 6414 -214 -210 -023 Meds/Results Medications: Active Medications Generic Name Dose Route Start Last Admin Trade Name Freq PRN Reason Stop Dose Admin Acetaminophen 650 mg 03/04/22 21:20 Acetaminophen 325 Mg Tablet PO Q6H PRN Mild Pain (1-3) or Fever Hydrocodone Bitart/Acetaminophen 1 tab 03/04/22 21:29 03/08/22 01:51 Hydrocodone/Acetaminophen (*Crx) 5-325 Mg Tablet PO 1 tab Q6H PRN Administration Pain Rated 4-6 Albuterol 2 puff 03/03/22 01:11 03/06/22 21:08 Albuterol Sulfate (*Sp) Aerosol 1 Puff INHALATION 2 puff BID PRN Administration Shortness Of Breath Or Wheezing Albuterol 2.5 mg 03/04/22 09:44 03/08/22 08:49 Albuterol Sulfate Neb 2.5 Mg/3 Ml Inh INHALATION 2.5 mg Q6HRT PRN Administration Shortness Of Breath Bicalutamide 50 mg 03/08/22 09:00 03/08/22 09:39 Bicalutamide (*Chemo) 50 Mg Tablet PO 50 mg QAM NAWAF Administration Dexamethasone 6 mg 03/08/22 08:00 Dexamethasone 2 Mg Tablet PO 03/17/22 08:01 DAILY@0800 NAWAF Dextrose 12.5 gm 03/04/22 13:38 Dextrose 50% 25 Gm/50 Ml Syringe IV PUSH PRN PRN Hypoglycemia Protocol Docusate Sodium 100 mg 03/04/22 09:00 03/08/22 09:39 Docusate Sodium 100 Mg Capsule PO 100 mg Q12HR NAWAF Administration Enoxaparin Sodium 40 mg 03/03/22 09:00 03/08/22 09:38 Enoxaparin 40 Mg/0.4 Ml Syringe SUB-Q 40 mg DAILY NAWAF Administration Gabapentin 300 mg 03/04/22 09:00 03/08/22 09:38
[2022-03-08] MEDS: HYDROmorphone HCL INJ (*CRX) 1 MG/ML SYR IV PUSH (11:23)
[2022-03-08] MEDS: DEXAMETHASONE 2 MG TABLET 6 MG PO (11:23)
--- NOTE | 2022-03-08 12:47 | PC.NURSE ---
Stephenie with [facility] in [place], [place] called to confirm transfer per Dr. Hansen request. RN provided date of admission, set of vital signs, and phone number for unit.
--- NOTE | 2022-03-08 13:10 | PM.TDS ---
Transfer Discharge Sum: Prov Provider Date of admission: 03/04/22 14:53 Primary care physician: CLIENT DIRECTOR PHYSICIAN Admitting clinician: Flaca Nelson DO Consults: 03/03/22 Consult to Physician Routine Comment: SPOKE TO COLTEN@[phone]([place],)md called back Consulting Provider: Maria C Montero scallop cutter/MD group to consult: Urology Reason for consultation: Coude catheter placement/ UTI Has provider been notified: Yes 03/04/22 14:22 Consult to Physician Routine Comment: Spoke w/ 08:20 (, ) Consulting Provider: Andrew Pena scallop cutter/MD group to consult: Dr. Pena oncologist Reason for consultation: prostate cancer Has provider been notified: Yes 03/07/22 Consult to Physician Routine Comment: spoke to dr @[phone] (,) Consulting Provider: Guzman Hansen scallop cutter/MD group to consult: Dr Oswaldo Hansen (Rad/Onc) Reason for consultation: bone mets with pain Has provider been notified: Yes DS: Admitting Diagnosis Discharge Date March 08, 2022 Admitting Diagnosis Prostate cancer with metastatic disease DS: Discharge Diagnosis Discharge Diagnosis (1) Abnormal urinalysis: Code(s): R82.90 - Unspecified abnormal findings in urine Status: Acute Assessment and Plan: Continue IV antibiotics -Rocephin day 5 completed Have written already received 5 days of IV fluconazole. Urine culture did grow Letty. Question significance. (2) Low back pain: Code(s): M54.50 - Low back pain, unspecified Status: Acute Assessment and Plan: Likely metastatic disease from prostate- oncology consult will await their plans. MRI noted showed T10 soft tissue mass with spinal cord compression. Transfer to [facility] for evaluation by Radiation Oncology and Neurosurgery (3) BPH (benign prostatic hyperplasia): Code(s): N40.0 - Benign prostatic hyperplasia without lower urinary tract symptoms Status: Acute Assessment and Plan: Biopsy results pending. Per Oncology prostate cancer noted (4) COPD (chronic obstructive pulmonary disease): Code(s): J44.9 - Chronic obstructive pulmonary disease, unspecified Status: Acute Assessment and Plan: continue breathing treatments supplemental oxygen as needed Appears stable (5) DVT prophylaxis: Code(s): Z29.9 - Encounter for prophylactic measures, unspecified Status: Acute Assessment and Plan: Lovenox. Renal Functions normal. Transfer Discharge Sum: Med Medications Active and Home Medications: Home Medications albuterol sulfate 90 mcg/actuation aerosol inhaler 2 inh inhalation BID PRN Shortness Of Breath Or Wheezing 03/03/22 [History Confirmed 03/03/22] fluticasone propionate 45 mcg-salmeterol 21 mcg/actuation HFA inhaler (Advair HFA) 2 inh inhalation BID 03/03/22 [History Confirmed 03/03/22] tamsulosin 0.4 mg capsule 0.4 cap PO BID 03/03/22 [History Confirmed 03/03/22] hydrocodone 5 mg-acetaminophen 325 mg tablet 1 tablet PO Q6H 10 days #10 tabs 03/08/22 [Rx] morphine 15 mg tablet,extended release 15 mg PO Q12HR #10 tabs 03/08/22 [Rx] Active Medications Acetaminophen (Acetaminophen 325 Mg Tablet) 650 mg PO Q6H PRN PRN Reason: Mild Pain (1-3) or Fever Hydrocodone Bitart/Acetaminophen (Hydrocodone/Acetaminophen (*Crx) 5-325 Mg Tablet) 1 tab PO Q6H PRN PRN Reason: Pain Rated 4-6 Last Admin: 03/08/22 01:51 Dose: 1 tab Albuterol (Albuterol Sulfate (*Sp) Aerosol 1 Puff) 2 puff INHALATION BID PRN PRN Reason: Shortness Of Breath Or Wheezing Last Admin: 03/06/22 21:08 Dose: 2 puff Albuterol (Albuterol Sulfate Neb 2.5 Mg/3 Ml Inh) 2.5 mg INHALATION Q6HRT PRN PRN Reason: Shortness Of Breath Last Admin: 03/08/22 08:49 Dose: 2.5 mg Bicalutamide (Bicalutamide (*Chemo) 50 Mg Tablet) 50 mg PO QAM NAWAF Last Admin: 03/08/22 09:39 Dose: 50 mg Dexamethasone (Dexamethasone 4 Mg Tablet) 4 mg PO TID [facility] Stop: 03/11/22 13:01 Dextrose (Dextrose 50% 25 Gm/50 Ml Sy
[2022-03-08 13:44] LABS: Glucose Point of Care 163 mg/dl (65-105)
[2022-03-08] MEDS: MICONAZOLE NITRATE 2% CREAM 30 GM TUBE 1 APPLIC TOPICAL (13:48)
--- NOTE | 2022-03-08 14:56 | WPDUROPN2 ---
Progress Note: A&P Assessment and Plan (1) Elevated PSA: Code(s): R97.20 - Elevated prostate specific antigen [PSA] Status: Acute (2) Prostate cancer metastatic to bone: Code(s): C61 - Malignant neoplasm of prostate; C79.51 - Secondary malignant neoplasm of bone Status: Acute Assessment and Plan: Patient to start Casodex 50mg and follow up with Dr. Gonzalez for cancer consultation at [place]. He will also follow up with Onoclogy. No further evaluation from a urologic standpoint, ok to transfer to [facility] for further evaluation by neuro surgery for his spinal compression. He will keep hernandez in place and continue monthly catheter changes. Subjective Subjective Date/Time Seen: 03/08/22 14:56 Patient is s/p prostate biopsy. His pathology report unfortunately showed 12 out of 12 positive cores with irlanda scores measuring 8-9 in each one. He is being seen by radiation oncology and oncology for his diagnosed metastatic prostate cancer. He continues to have low back pain. I have had a discussion with Dr. Gonzalez about his case, and he states he has tried several times to schedule a prostate biopsy in the office at [place], but he continues to reschedule and is non compliant. Dr. Gonzalez is aware that his biopsy has been done and with the results. The patient had a lumbar spine MRI that shows compression at the T10 level. Review of Systems Cardiovascular: Cardiovascular: Denies chest pain Respiratory: Respiratory: Reports no additional respiratory complaints Gastrointestinal: Gastrointestinal: Denies nausea and Denies vomiting Genitourinary: Genitourinary: Denies hematuria Musculoskeletal: Musculoskeletal: Reports back pain Exam Resp: Effort & Inspection: normal respiratory effort Cardio: Rate: regular rate GI: GI Palp: Yes Soft to palpation and No Tenderness to palpation present (GI) : General: Yes no CVA tenderness Urinary Catheter: Urinary Catheter: patent and draining and urine clear Extrem: General: no edema Objective Data Vital Signs Vital Signs: Vital Signs - 24 hr 03/07/22 20:37 03/07/22 20:37 03/07/22 21:54 Temperature 98.0 F Pulse Rate 93 93 92 Respiratory Rate 18 16 Blood Pressure 122/62 Pulse Oximetry 93 95 Oxygen Delivery Nasal Cannula Oxygen Flow Rate 2 03/07/22 20:00 03/08/22 05:42 03/08/22 08:51 Temperature 99.0 F Pulse Rate 92 96 100 Respiratory Rate 16 16 20 Blood Pressure 131/86 Pulse Oximetry 95 93 Oxygen Delivery Nasal Cannula Oxygen Flow Rate 3 03/08/22 08:53 03/08/22 08:58 03/08/22 08:00 Temperature Pulse Rate 100 100 Respiratory Rate 20 20 Blood Pressure Pulse Oximetry 96 96 Oxygen Delivery Nasal Cannula Nasal Cannula Oxygen Flow Rate 3 3 Intake/Output Intake/Output: Intake & Output 03/05/22 03/06/22 03/07/22 03/08/22 23:59 23:59 23:59 23:59 Intake Total 3200 2690 1440 1590 Output Total 1800 3300 2275 1750 Balance 8244 -718 -835 -160 Meds/Results Medications: Active Medications Generic Name Dose Route Start Last Admin Trade Name Freq PRN Reason Stop Dose Admin Acetaminophen 650 mg 03/04/22 21:20 Acetaminophen 325 Mg Tablet PO Q6H PRN Mild Pain (1-3) or Fever Hydrocodone Bitart/Acetaminophen 1 tab 03/04/22 21:29 03/08/22 01:51 Hydrocodone/Acetaminophen (*Crx) 5-325 Mg Tablet PO 1 tab Q6H PRN Administration Pain Rated 4-6 Albuterol 2 puff 03/03/22 01:11 03/06/22 21:08 Albuterol Sulfate (*Sp) Aerosol 1 Puff INHALATION 2 puff BID PRN Administration Shortness Of Breath Or Wheezing Albuterol 2.5 mg 03/04/22 09:44 03/08/22 08:49 Albuterol Sulfate Neb 2.5 Mg/3 Ml Inh INHALATION 2.5 mg Q6HRT PRN Administration Shortness Of Breath Bicalutamide 50 mg 03/08/22 09:00 03/08/22 09:39 Bicalutamide (*Chemo) 50 Mg Tablet PO 50 mg QAM NAWAF Administration Dexamethasone 4 mg 03/08/22 17:00 Dexamethasone 4 Mg Tablet PO
--- NOTE | 2022-03-08 22:37 | PCCCNOTE ---
On 03/08/22, the student, Neli Castillo, provided care and completed [facility] documentation on this patient. I have reviewed the student's documentation and agree with the findings.
== END 2022-03-08 16:30 | disposition short-term general hospital (02) | DRG 723 ==
LOC: ANHED 23:21 → ANH3MEDSUR 03-03 00:14
PROVIDERS: Family Medicine; Student in an Organized Health Care Education/Training Program; Urology; Admitting Provider Student in an Organized Health Care Education/Training Program; Emergency Provider Nurse Practitioner Family; Visit Provider Chiropractor
PROC: 0VB08ZX Excision of Prostate, Via Natural or Artificial Opening Endoscopic, Diagnostic (ICD-10-PCS; CPT 55700; principal; 2022-03-05 09:00)
DX: C61 Malignant neoplasm of prostate (principal); N13.8 Other obstructive and reflux uropathy; B37.49 Other urogenital candidiasis; C79.51 Secondary malignant neoplasm of bone; G95.29 Other cord compression; M54.59 Other low back pain; N40.1 Benign prostatic hyperplasia with lower urinary tract symptoms; R33.8 Other retention of urine; J44.9 Chronic obstructive pulmonary disease, unspecified; F40.240 Claustrophobia; R97.20 Elevated prostate specific antigen [PSA]; R62.7 Adult failure to thrive; E11.9 Type 2 diabetes mellitus without complications; Z79.899 Other long term (current) drug therapy; Z87.891 Personal history of nicotine dependence
CPT/HCPCS: 36415; 72131; 72148; 74176; 78306; 80053; 81001; 82948; 84153; 84154; 84402; 84403; 85025; 87086; 87088; 87106; 94640; 96361; 96365; 96372; 96374; 96375; 96376; 97162; 97166; 99285; A9270; A9561; G0378; G0416; J0696; J1100; J1170; J1450; J1650; J2270; J2405; J2704; J2930; J3010; J7030; J7120; J8540

== ENCOUNTER 2022-05-12 09:02 | Inpatient (IN) | payer OTHER, SELFPAY ==
[2022-05-12] VITALS (14 sets, daily range): BP systolic 103–121; BP diastolic 71–79; PULSE 86–110; RESP 15–24; TEMP 35.9–37.3; O2SAT 91–96; BMI 35.2
--- NOTE | ~2022-05-12 | XR_ITS ---
XR chest 2V DATE: 05/12/2022 09:51 INDICATION: . Weakness, shortness of breath. History of COPD. TECHNIQUE: 11/04/2016 PA and lateral chest COMPARISON: 11/04/2016 PA and lateral chest FINDINGS: Cardiomegaly. There is left ventricular enlargement. Mild infiltrate or atelectasis at the lung bases. Pedicle screws and rods are noted in the lower thoracic spine from T8 to T12. Diffuse osteopenia. IMPRESSION: Cardiomegaly Mild infiltrate or atelectasis at the lung bases Reviewed, dictated and finalized at location [facility].
--- NOTE | ~2022-05-12 | CT_ITS ---
EXAMINATION: CT brain wo con DATE: 05/12/2022 10:21 INDICATION: Altered mental state. History of metastatic bone cancer. TECHNIQUE: Computed tomography (CT) of the head was performed without intravenous contrast. The mA wa s adjusted according to patient size. Iterative reconstruction technique was employed. Exam dose: 60 5.33 mGy-cm total exam DLP. COMPARISON: None FINDINGS: There is a prominent subacute or old infarct in the posterior left temporal, occipital and parietal region within the middle cerebral artery distribution. No intracranial mass lesion or hemorrhage, midline shift or mass effect. Cerebral atherosclerosis. Nonspecific diminished attenuation cerebral white matter, likely due to chr onic small vessel ischemic changes. No subdural or epidural hematoma. Partial opacification of the mastoid air cells. Included paranasal sinuses are unremarkable. No skull fracture is detected. IMPRESSION: Posterior left temporal, parietal and occipital infarct, subacute or old, within middle cerebral artery territory Cerebral atherosclerosis and chronic small vessel ischemic changes of the cerebral white matter Reviewed, dictated and finalized at [facility]. Reviewed, dictated and finalized at location [facility]. IMPRESSION: Posterior left temporal, parietal and occipital infarct, subacute or old, within middle cerebral artery territory Cerebral atherosclerosis and chronic small vessel ischemic changes of the cereb ral white matter
--- NOTE | 2022-05-12 09:16 | ECG_ITS ---
Measurements Intervals [place] Rate: 109 P: 39 NM: 139 QRS: -14 QRSD: 107 T: 69 QT: 358 QTc: 483 Interpretive Statements SINUS TACHYCARDIA WITH FREQUENT VENTRICULAR PREMATURE COMPLEXES NONSPECIFIC INTRAVENTRICULAR CONDUCTION DELAY NONSPECIFIC T-WAVE ABNORMALITY ABNORMAL RHYTHM ECG NO PREVIOUS ECG AVAILABLE FOR COMPARISON Electronically Signed On 05-13-2022 14:08:27 CDT by Danis Alonso M.D.
[2022-05-12 09:47] LABS: Basophils Absolute Auto 0.1 K/mm3 (0.0-0.1); Basophils Percent Auto 0.6 % (0.2-1.2); Eosinophils Percent Auto 0.1 % (0-4.4); Hematocrit 30.6 % (42.0-52.0); Hemoglobin 8.9 g/dL (14.0-18.0); Immature Granulocyte Percent A 1.9 % (0-0.5); Lymphocytes Absolute Auto 1.15 K/mm3 (0.9-3.2); Lymphocytes Percent Auto 10.7 % (18.3-44.2); Mean Corpuscular HGB Conc 29.1 g/dl (32-36); Mean Corpuscular Hemoglobin 28.7 pg (26-34); Mean Corpuscular Volume 98.7 fl (80-100); Monocytes Absolute Auto 1.2 K/mm3 (0.1-0.6); Monocytes Percent Auto 10.9 % (2.6-8.5); Neutrophils Absolute Auto 8.1 K/mm3 (1.3-6.7); Neutrophils Percent Auto 75.8 % (45.5-73.1); Nucleated Red Blood Cells Perc 0.3 % (0.0-0.2); Platelet Count Result 393 k/mm3 (150-375); Red Cell Distribution Width 21.3 % (11.5-14.5); White Blood Count 10.7 K/mm3 (4.5-10.0)
[2022-05-12 09:50] LABS: Add Urine Microscopic? YES; Appearance Urine Turbid (Clear); Bilirubin Urine 3+ (Negative); Blood Urine 3+ (Negative); Color Urine Red (Yellow); Glucose Urine UA Trace mg/dL (Negative); Ketones Urine 2+ mg/dL (Negative); Leukocyte Esterase Ur 3+ LEU/UL (Negative); Nitrate Urine Positive (Negative); Protein Urine 3+ mg/dL (Negative); pH Urine 8.5 (5.0-9.0)
[2022-05-12 09:59] LABS: Alanine Aminotransferase 40 U/L (6-50); Albumin Level 3.7 g/dL (3.5-5.1); Alkaline Phosphatase 881 U/L (38-126); Anion Gap 13 mmol/L (8-16); Aspartate Amino Transferase 82 U/L (17-59); Blood Urea Nitrogen 50 mg/dL (9-20); Calcium 7.1 mg/dL (8.4-10.2); Carbon Dioxide 25 mmol/L (22-30); Chloride 94 mmol/L (98-107); Estimated CRCL calculation 68 ml/min; Estimated Glomerular Filt Rate 49; Glucose 130 mg/dL (65-110); Potassium 3.8 mmol/L (3.4-5.0); RBC Urine >75 /hpf (0-2); Sodium 132 mmol/L (137-145); WBC Urine >75 /hpf
--- NOTE | 2022-05-12 10:13 | ED.GENADULT ---
HPI - General Adult General Chief complaint: Weakness Stated complaint: AMS Time Seen by Provider: 05/12/22 09:29 Source: patient and old records reviewed Mode of arrival: EMS Limitations: no limitations History of Present Illness HPI narrative: Patient is a 51 y/o male who presents to the ED via EMS w/ c/o AMS. Patient is a resident of local assisted living facility. Per records, patient was recently admitted here for possible fdc placement, back pain, increased risk of falls. He was found to have diffuse metastatic lung cancer via lumbar spine MRI. He was transferred to [facility] for neurosurgery evaluation d/t spinal cord compression. He had surgery on his thoracic spine while there. Patient was noted to have a stroke later throughout his hospitalization in the left MCA territory. Patient presents to ED today with report of altered mental status. Assisted living facility reported patient was altered, tachypneic, diaphoretic. He does chronically wear 3 L nasal cannula which was increased to 4 L by fdc. EMS was then called. Patient currently A&O x3. He has no complaints at this time. Does report pain to buttocks. Has chronic wounds. Patient has chronic indwelling Horne catheter. Changed upon arrival. Related Data Home Medications Medication Instructions Recorded Confirmed albuterol sulfate 90 mcg/actuation 2 inh inhalation BID PRN Shortness 03/03/22 05/12/22 aerosol inhaler Of Breath Or Wheezing apixaban 5 mg tablet (Eliquis) 5 mg PO BID 05/12/22 05/12/22 ascorbate calcium (vitamin C) 500 500 mg PO BID 05/12/22 05/12/22 mg capsule atorvastatin 40 mg tablet 80 mg PO HS 05/12/22 05/12/22 clopidogrel 75 mg tablet (Plavix) 75 mg PO DAILY 05/12/22 05/12/22 colchicine 0.6 mg capsule 0.6 mg PO BID 05/12/22 05/12/22 cyclobenzaprine 10 mg tablet 10 mg PO TID 05/12/22 05/12/22 fluticasone furoate 200 1 inh inhalation DAILY 05/12/22 05/12/22 mcg-vilanterol 25 mcg/dose inhalation powder (Breo Ellipta) furosemide 20 mg tablet (Lasix) 20 mg PO DAILY 05/12/22 05/12/22 lactulose 10 gram/15 mL oral 15 ml PO BID 05/12/22 05/12/22 solution mirtazapine 15 mg tablet (Remeron) 15 mg PO HS 05/12/22 05/12/22 Allergies Allergy/AdvReac Type Severity Reaction Status Date / Time No Known Allergies Allergy Unverified 03/07/17 10:47 Review of Systems Review of Systems: CONSTITUTIONAL: Reports diaphoresis. RESPIRATORY: Reports SOB. MUSCULOSKELETAL: Reports back pain/ buttock pain. NEUROLOGIC: Reports AMS. All systems reviewed & are unremarkable except as noted in HPI and below PMFSH Past Medical History Medical History BPH (benign prostatic hyperplasia) COPD (chronic obstructive pulmonary disease) Prostate cancer metastatic to bone Surgical History Surgical History (Updated 05/12/22 @ 10:13 by Bing Maldonado PA-C) History of spinal surgery Social History Social History Smoking status: Former smoker Second hand tobacco smoke exposure: No Alcohol intake: former Substance use: former Spiritual care concerns: No Exam Narrative: GENERAL: Chronically ill appearing, well-nourished, non-toxic, in no acute distress. HEAD: Normocephalic, atraumatic. EYES: PERRL/EOMI, conjunctivae clear bilaterally. NECK: Supple. No adenopathy, no masses. RESPIRATORY: Airway patent, respirations nonlabored. Borderline tachypneic. Clear to auscultation bilaterally, no rales, rhonchi, wheezing. CARDIOVASCULAR: Tachycardic with regular rhythm without murmurs, rubs, or gallops. Peripheral pulses 2+ and equal bilaterally. ABDOMINAL: Soft, nontender, nondistended, no hepatosplenomegaly. Normoactive BS. MUSCULOSKELETAL: Moves all extremities. Strength/ROM intact without gross deformities. Decreased strength in LLE, which patient reports is residual from recent stroke. TSLO brace. SKIN: Warm, diaphoretic, normal
[2022-05-12 10:27] LABS: Anisocytosis 1+ (NORMAL); Ovalocytes 1+ (NORMAL); Platelet Estimate Adequate (Adequate)
[2022-05-12 10:53] LABS: SARS-CoV-2 RNA PCR Negative
[2022-05-12] MEDS: SODIUM CHLORIDE 0.9% IV 1,000 ML 999 ML IV CONT (11:38)
--- NOTE | 2022-05-12 18:16 | PM.IMHP ---
H&P: HPI History of Present Illness Date/Time: 05/12/22 18:16 Chief Complaint: AMS Narrative: ED-HPI narrative: Patient is a 51 y/o male who presents to the ED via EMS w/ c/o AMS.? Patient is a resident of local assisted living facility.? Per records, patient was recently admitted here for possible halfway placement, back pain, increased risk of falls.? He was found to have diffuse metastatic lung cancer via lumbar spine MRI.? He was transferred to [facility] for neurosurgery evaluation.? He had surgery on his thoracic spine while there.? Patient was noted to have a stroke later throughout his hospitalization and left MCA territory.? Patient presents to ED today with report of altered mental status.? Assisted living facility reported patient was altered, tachypneic, diaphoretic.? He does chronically wear 3 L nasal cannula which was increased to 4 L by halfway.? EMS was then called.? Patient currently A&O x3.? He has no complaints at this time. Does report pain to buttocks. Patient has chronic indwelling Horne catheter. Changed upon arrival. up in to see the patient twice he is quite somnolent unable to provide any review of symptom or history most of the history is recorded from electronic chart and ER notes, patient is resident of assisted living, and sent to ER for AMS, etiology is uncertain, his CT of head does not any acute injury, he CXR does not show any acute cardiopulmonary process, his Bun and creatinine are elevated suggesting patient is dehydrated and patient being hydrated, will continue to monitor, have wound nurse evalute patient as patient has sacral wound, will have PT/ OT evaluate the patient and treat. Patient has malignant neoplasm of prostate and chronic Horne which was replaced in ER, his urine is positive for nitrate and significant WBC patient being treated with ceftriaxone, will follow up on urine and blood culture, will have PT/OT evaluate the patient, will continue to monitor and follow up. patient admitted as observation status Review of Systems Review of Systems: ROS unobtainable: Yes unobtainable due to medical condition PMFSH Past Medical History Medical History BPH (benign prostatic hyperplasia) COPD (chronic obstructive pulmonary disease) Prostate cancer metastatic to bone Surgical History Surgical History (Updated 05/12/22 @ 10:13 by Bing Maldonado PA-C) History of spinal surgery Social History Social History Smoking status: Former smoker Second hand tobacco smoke exposure: No Alcohol intake: former Substance use: former Spiritual care concerns: No Meds Home Medications and Allergies Home Medications Medication Instructions Recorded Confirmed Type albuterol sulfate 90 mcg/actuation 2 inh inhalation BID PRN Shortness 03/03/22 05/12/22 History aerosol inhaler Of Breath Or Wheezing docusate sodium 100 mg capsule 100 mg PO Q12HR PRN Constipation 03/08/22 05/12/22 Rx #10 caps hydrocodone 5 mg-acetaminophen 325 1 tablet PO Q6H 10 days #10 tabs 03/08/22 05/12/22 Rx mg tablet apixaban 5 mg tablet (Eliquis) 5 mg PO BID 05/12/22 05/12/22 History ascorbate calcium (vitamin C) 500 500 mg PO BID 05/12/22 05/12/22 History mg capsule atorvastatin 40 mg tablet 80 mg PO HS 05/12/22 05/12/22 History clopidogrel 75 mg tablet (Plavix) 75 mg PO DAILY 05/12/22 05/12/22 History colchicine 0.6 mg capsule 0.6 mg PO BID 05/12/22 05/12/22 History cyclobenzaprine 10 mg tablet 10 mg PO TID 05/12/22 05/12/22 History fluticasone furoate 200 1 inh inhalation DAILY 05/12/22 05/12/22 History mcg-vilanterol 25 mcg/dose inhalation powder (Breo Ellipta) furosemide 20 mg tablet (Lasix) 20 mg PO DAILY 05/12/22 05/12/22 History lactulose 10 gram/15 mL oral 15 ml PO BID 05/12/22 05/12/22 History solution mirtazapine 15 mg tablet (Remeron) 15 mg PO HS 05/12/22 05/12/22 Hist
[2022-05-12] MEDS: HYDROcodone/acetaminophen (*CRX) 5-325 MG TABLET 1 TAB PO (18:59)
[2022-05-12] MEDS: MIRTAZAPINE 15 MG TABLET PO (20:37)
[2022-05-12] MEDS: ATORVASTATIN 40 MG TABLET 80 MG PO (20:37)
[2022-05-12] MEDS: APIXABAN 5 MG TABLET PO (20:38)
[2022-05-13] VITALS (12 sets, daily range): BP systolic 101–125; BP diastolic 55–79; PULSE 91–95; RESP 14–18; TEMP 36.3–36.8; O2SAT 94–95; BMI 35.2
[2022-05-13] MEDS: HYDROcodone/acetaminophen (*CRX) 5-325 MG TABLET 1 TAB PO ×5 (00:34→23:58)
[2022-05-13 06:47] LABS: Hematocrit 29.7 % (42.0-52.0); Hemoglobin 8.5 g/dL (14.0-18.0); Mean Corpuscular HGB Conc 28.6 g/dl (32-36); Mean Corpuscular Hemoglobin 28.1 pg (26-34); Mean Corpuscular Volume 98.3 fl (80-100); Mean Platelet Volume 10.1 fl (7.4-10.4); Platelet Count Result 355 k/mm3 (150-375); Red Blood Count 3.02 M/mm3 (4.6-6.20); Red Cell Distribution Width 21.2 % (11.5-14.5); White Blood Count 8.2 K/mm3 (4.5-10.0)
[2022-05-13 06:53] LABS: Alanine Aminotransferase 48 U/L (6-50); Albumin Level 3.3 g/dL (3.5-5.1); Alkaline Phosphatase 770 U/L (38-126); Anion Gap 11 mmol/L (8-16); Aspartate Amino Transferase 70 U/L (17-59); Bilirubin,Total 0.5 mg/dL (0.2-1.3); Blood Urea Nitrogen 36 mg/dL (9-20); Calcium 7.7 mg/dL (8.4-10.2); Carbon Dioxide 27 mmol/L (22-30); Chloride 95 mmol/L (98-107); Estimated CRCL calculation 123 ml/min; Estimated Glomerular Filt Rate > 60; Glucose 117 mg/dL (65-110); Magnesium 2.2 mg/dL (1.6-2.3); Potassium 3.2 mmol/L (3.4-5.0); Sodium 133 mmol/L (137-145)
[2022-05-13] MEDS: POTASSIUM CHLORIDE 20 MEQ TABLET 40 MEQ PO (08:33)
[2022-05-13] MEDS: CYCLOBENZAPRINE HCL 10 MG TABLET PO ×3 (08:34→17:06)
[2022-05-13] MEDS: COLCHICINE 0.6 MG TABLET PO ×2 (08:34→17:07)
[2022-05-13] MEDS: APIXABAN 5 MG TABLET PO ×2 (08:34→20:17)
[2022-05-13] MEDS: LACTULOSE 20 GM/30 ML UDC 15 GM PO ×2 (08:34→17:06)
[2022-05-13] MEDS: CLOPIDOGREL BISULFATE 75 MG TABLET PO (08:34)
[2022-05-13] MEDS: FUROSEMIDE 20 MG TABLET PO (08:34)
[2022-05-13] MEDS: ASCORBIC ACID 500 MG TABLET PO ×2 (08:34→17:06)
--- NOTE | 2022-05-13 11:48 | PM.IMPN ---
Progress Note: A&P Assessment and Plan (1) Altered mental status: Qualifiers: Altered mental status type: unspecified Qualified Code(s): R41.82 - Altered mental status, unspecified Code(s): R41.82 - Altered mental status, unspecified Status: Acute Assessment and Plan: ED-[facility] narrative: Patient is a 51 y/o male who presents to the ED via EMS w/ c/o AMS.? Patient is a resident of local assisted living facility.? Per records, patient was recently admitted here for possible custodial placement, back pain, increased risk of falls.? He was found to have diffuse metastatic lung cancer via lumbar spine MRI.? He was transferred to [facility] for neurosurgery evaluation.? He had surgery on his thoracic spine while there.? Patient was noted to have a stroke later throughout his hospitalization and left MCA territory.? Patient presents to ED today with report of altered mental status.? Assisted living facility reported patient was altered, tachypneic, diaphoretic.? He does chronically wear 3 L nasal cannula which was increased to 4 L by custodial.? EMS was then called.? Patient currently A&O x3.? He has no complaints at this time. Does report pain to buttocks. Patient has chronic indwelling Horne catheter. Changed upon arrival. up in to see the patient twice he is quite somnolent unable to provide any review of symptom or history most of the history is recorded from electronic chart and ER notes, patient is resident of assisted living, and sent to ER for AMS, etiology is uncertain, his CT of head does not any acute injury, he CXR does not show any acute cardiopulmonary process, his Bun and creatinine are elevated suggesting patient is dehydrated and patient being hydrated, will continue to monitor, have wound nurse evalute patient as patient has sacral wound, will have PT/ OT evaluate the patient and treat. Patient has malignant neoplasm of prostate and chronic Horne which was replaced in ER, his urine is positive for nitrate and significant WBC patient being treated with ceftriaxone, will follow up on urine and blood culture, will have PT/OT evaluate the patient, will continue to monitor and follow up. 05/13/2022 interval history: today patient is awake he is poor historain unable to provide any review of symptom or history most of the history is recorded from electronic chart and ER notes, patient is resident of assisted living, and sent to ER for AMS, etiology is uncertain, his CT of head does not any acute injury, he CXR does not show any acute cardiopulmonary process, his Bun and creatinine are elevated suggesting patient is dehydrated and patient being hydrated, patient BUN and creatine are improving today 36/0.8 compared to 50/1.5 upon arrival will continue to monitor, will have wound nurse evalaute patient as patient has a sacral wound, will have PT/ OT evaluate the patient and treat. Patient has malignant neoplasm of prostate and chronic Horne which was replaced in ER, his urine is positive for nitrate and significant WBC patient being treated with ceftriaxone, will follow up on urine and blood culture, will have PT/OT evaluate the patient, will continue to monitor and follow up. (2) Urinary tract infection: Qualifiers: Hematuria presence: with hematuria Urinary tract infection type: acute cystitis Qualified Code(s): N30.01 - Acute cystitis with hematuria Code(s): N39.0 - Urinary tract infection, site not specified Status: Acute Assessment and Plan: patient with history of prostate cancer chronic indwelling catheter urine is suspicious for UTI being treated with Rocephin will follow-up on urine culture sensitivity (3) Acute kidney injury: Code(s): N17.9 - Acute kidney failure, unspecified Status: Acute Assessment and Plan: patient with elevated BUN and creatinine pre renal azotemia most likely secondary to dehydration patient is being hydrated (4) Hypocalcemia: C
[2022-05-13 11:53] LABS: Anion Gap 7 mmol/L (8-16); Blood Urea Nitrogen 31 mg/dL (9-20); Calcium 7.8 mg/dL (8.4-10.2); Carbon Dioxide 31 mmol/L (22-30); Chloride 95 mmol/L (98-107); Estimated CRCL calculation 160 ml/min; Estimated Glomerular Filt Rate > 60; Glucose 122 mg/dL (65-110); Potassium 3.5 mmol/L (3.4-5.0); Sodium 133 mmol/L (137-145)
[2022-05-13] MEDS: CALCIUM CARBONATE (TUMS) 500 MG (200 MG ELEMENTAL) PO (12:09)
[2022-05-13 12:16] LABS: Troponin I 0.041 ng/mL (0.000-0.034)
--- NOTE | 2022-05-13 13:26 | PC.NURSE ---
at 1113 this nurse was alerted by fire extinguisher charger, Columba Nelson that monitor was showing vtach on pt. This nursed assessed pt and found him to be asymptomatic besides slightly diaphoretic, in which pt has been since my shift. was called at 1116 to make aware. MD ordered labs STAT on pt. Labs were performed. MD aware of results. No new orders beside to monitor pt.
[2022-05-13] MEDS: FLUTICASONE/SALMETEROL 230-21 MCG INHALER 1 PUFF 2 PUFF INHALATION ×2 (14:35→19:52)
--- NOTE | 2022-05-13 19:35 | PM.CNGS ---
Assessment and Plan Assessment and plan (1) Decubitus ulcer of sacral area: Qualifiers: Pressure injury stage: unspecified pressure injury stage Qualified Code(s): L89.159 - Pressure ulcer of sacral region, unspecified stage Code(s): L89.159 - Pressure ulcer of sacral region, unspecified stage Status: Acute Assessment and Plan: The sacral decubitus ulcer does not appear to require surgical debridement at this time. Will continue with enzymatic debridement with Santyl and treatment to the ariane-area with antifungal skin barrier. I will continue to follow along with the wound care and discuss any further treatment if wound is changing. (2) Altered mental status: Qualifiers: Altered mental status type: unspecified Qualified Code(s): R41.82 - Altered mental status, unspecified Code(s): R41.82 - Altered mental status, unspecified Status: Acute (3) Urinary tract infection: Qualifiers: Hematuria presence: with hematuria Urinary tract infection type: acute cystitis Qualified Code(s): N30.01 - Acute cystitis with hematuria Code(s): N39.0 - Urinary tract infection, site not specified Status: Acute (4) Prostate cancer metastatic to bone: Code(s): C61 - Malignant neoplasm of prostate; C79.51 - Secondary malignant neoplasm of bone Status: Acute History of Present Illness Consult details Consult date: 05/13/22 Reason for consult: wound care (Sacral wound) Requesting physician: Esperanza Ross MD Narrative: This is a 51-year-old man who I am asked to see for assistance with wound care. He presented to the emergency department yesterday from his assisted living facility with complaints of weakness. He was complaining of some pain in the sacral region and has a known wound that has been treated. He was hospitalized 2 months ago with metastatic cancer and was treated at [facility] in [place]. He suffered a stroke while hospitalized and has some limited mobility since then. He denies any fevers or any other complaints with the wound at this time. Review of Systems Review of Systems: All systems reviewed & are unremarkable except as noted in HPI and below Constitutional: Constitutional: Denies chills and Denies fever(s) Cardiovascular: Cardiovascular: Denies chest pain and Denies dyspnea Respiratory: Respiratory: Denies dyspnea Gastrointestinal: Gastrointestinal: Denies abdominal pain and Denies change in bowel habits Integumentary/Breasts: Skin/Breast: Reports as per [facility] Past Medical History Medical History BPH (benign prostatic hyperplasia) COPD (chronic obstructive pulmonary disease) Prostate cancer metastatic to bone Surgical History Surgical History History of spinal surgery Social History Social History Smoking status: Former smoker Second hand tobacco smoke exposure: No Alcohol intake: former Substance use: former Spiritual care concerns: No Meds Home Medications and Allergies Home Medications Medication Instructions Recorded Confirmed Type albuterol sulfate 90 mcg/actuation 2 inh inhalation BID PRN Shortness 03/03/22 05/12/22 History aerosol inhaler Of Breath Or Wheezing docusate sodium 100 mg capsule 100 mg PO Q12HR PRN Constipation 03/08/22 05/12/22 Rx #10 caps hydrocodone 5 mg-acetaminophen 325 1 tablet PO Q6H 10 days #10 tabs 03/08/22 05/12/22 Rx mg tablet apixaban 5 mg tablet (Eliquis) 5 mg PO BID 05/12/22 05/12/22 History ascorbate calcium (vitamin C) 500 500 mg PO BID 05/12/22 05/12/22 History mg capsule atorvastatin 40 mg tablet 80 mg PO HS 05/12/22 05/12/22 History clopidogrel 75 mg tablet (Plavix) 75 mg PO DAILY 05/12/22 05/12/22 History colchicine 0.6 mg capsule 0.6 mg PO BID 05/12/22 05/12/22 Histor
[2022-05-13] MEDS: MIRTAZAPINE 15 MG TABLET PO (20:17)
[2022-05-13] MEDS: ATORVASTATIN 40 MG TABLET 80 MG PO (20:17)
[2022-05-14] VITALS (11 sets, daily range): BP systolic 111–124; BP diastolic 59–61; PULSE 89–104; RESP 17–20; TEMP 36.2–37; O2SAT 93–98
[2022-05-14] MEDS: HYDROcodone/acetaminophen (*CRX) 5-325 MG TABLET 1 TAB PO ×2 (05:50→23:50)
[2022-05-14 06:27] LABS: Alanine Aminotransferase 41 U/L (6-50); Albumin Level 3.2 g/dL (3.5-5.1); Alkaline Phosphatase 669 U/L (38-126); Anion Gap 8 mmol/L (8-16); Aspartate Amino Transferase 56 U/L (17-59); Bilirubin,Total 0.6 mg/dL (0.2-1.3); Blood Urea Nitrogen 17 mg/dL (9-20); Calcium 8.1 mg/dL (8.4-10.2); Carbon Dioxide 31 mmol/L (22-30); Chloride 96 mmol/L (98-107); Estimated CRCL calculation 189 ml/min; Estimated Glomerular Filt Rate > 60; Glucose 103 mg/dL (65-110); Magnesium 2.1 mg/dL (1.6-2.3); Sodium 135 mmol/L (137-145)
[2022-05-14 06:34] LABS: Hematocrit 28.9 % (42.0-52.0); Hemoglobin 8.5 g/dL (14.0-18.0); Mean Corpuscular HGB Conc 29.4 g/dl (32-36); Mean Corpuscular Volume 98.6 fl (80-100); Mean Platelet Volume 10.4 fl (7.4-10.4); Platelet Count Result 317 k/mm3 (150-375); Red Blood Count 2.93 M/mm3 (4.6-6.20); Red Cell Distribution Width 21.2 % (11.5-14.5); White Blood Count 7.7 K/mm3 (4.5-10.0)
[2022-05-14] MEDS: POTASSIUM CHLORIDE 20 MEQ TABLET 40 MEQ PO (09:16)
[2022-05-14] MEDS: ASCORBIC ACID 500 MG TABLET PO (09:19)
[2022-05-14] MEDS: CALCIUM CARBONATE (TUMS) 500 MG (200 MG ELEMENTAL) PO (09:19)
[2022-05-14] MEDS: CYCLOBENZAPRINE HCL 10 MG TABLET PO (09:19)
[2022-05-14] MEDS: COLLAGENASE OINT 30 GM TUBE 1 APPLIC TOPICAL (09:19)
[2022-05-14] MEDS: APIXABAN 5 MG TABLET PO (09:19)
[2022-05-14] MEDS: FUROSEMIDE 20 MG TABLET PO (09:20)
[2022-05-14] MEDS: COLCHICINE 0.6 MG TABLET PO (09:20)
[2022-05-14] MEDS: CLOPIDOGREL BISULFATE 75 MG TABLET PO (09:20)
[2022-05-14] MEDS: LACTULOSE 20 GM/30 ML UDC 15 GM PO (09:20)
[2022-05-14] MEDS: cefTRIAXone 2 GM in SODIUM CHLORIDE 0.9% IV 100 ML 200 ML IVPB (09:21)
--- NOTE | 2022-05-14 11:46 | PC.NURSE ---
at 0950, while this nurse was doing rounds, I noticed pt was slightly more diaphoretic than he was yesterday. I made a statement about him being sweaty and pt made the statement that he doesn't want to . I did a neuro assessment and found pt to be confused and fearful. Pt became agitated and ripped out IV in front of me stating that he was denying all care since I wanted him to . Even though pt was confused, I tried to educate pt that I was just in there to check on him for his safety and the IV was there to make sure he could get his antibiotics. Pt eventually calmed down and I was able to place a new IV. New IV is charted.
--- NOTE | 2022-05-14 12:34 | PM.IMPN ---
Progress Note: A&P Assessment and Plan (1) Altered mental status: Qualifiers: Altered mental status type: unspecified Qualified Code(s): R41.82 - Altered mental status, unspecified Code(s): R41.82 - Altered mental status, unspecified Status: Acute Assessment and Plan: ED-[facility] narrative: Patient is a 51 y/o male who presents to the ED via EMS w/ c/o AMS.? Patient is a resident of local assisted living facility.? Per records, patient was recently admitted here for possible prison placement, back pain, increased risk of falls.? He was found to have diffuse metastatic lung cancer via lumbar spine MRI.? He was transferred to [facility] for neurosurgery evaluation.? He had surgery on his thoracic spine while there.? Patient was noted to have a stroke later throughout his hospitalization and left MCA territory.? Patient presents to ED today with report of altered mental status.? Assisted living facility reported patient was altered, tachypneic, diaphoretic.? He does chronically wear 3 L nasal cannula which was increased to 4 L by prison.? EMS was then called.? Patient currently A&O x3.? He has no complaints at this time. Does report pain to buttocks. Patient has chronic indwelling Horne catheter. Changed upon arrival. up in to see the patient twice he is quite somnolent unable to provide any review of symptom or history most of the history is recorded from electronic chart and ER notes, patient is resident of assisted living, and sent to ER for AMS, etiology is uncertain, his CT of head does not any acute injury, he CXR does not show any acute cardiopulmonary process, his Bun and creatinine are elevated suggesting patient is dehydrated and patient being hydrated, will continue to monitor, have wound nurse evalute patient as patient has sacral wound, will have PT/ OT evaluate the patient and treat. Patient has malignant neoplasm of prostate and chronic Horne which was replaced in ER, his urine is positive for nitrate and significant WBC patient being treated with ceftriaxone, will follow up on urine and blood culture, will have PT/OT evaluate the patient, will continue to monitor and follow up. 05/13/2022 interval history: today patient is awake he is poor historain unable to provide any review of symptom or history most of the history is recorded from electronic chart and ER notes, patient is resident of assisted living, and sent to ER for AMS, etiology is uncertain, his CT of head does not any acute injury, he CXR does not show any acute cardiopulmonary process, his Bun and creatinine are elevated suggesting patient is dehydrated and patient being hydrated, patient BUN and creatine are improving today 36/0.8 compared to 50/1.5 upon arrival will continue to monitor, will have wound nurse evalaute patient as patient has a sacral wound, will have PT/ OT evaluate the patient and treat. Patient has malignant neoplasm of prostate and chronic Horne which was replaced in ER, his urine is positive for nitrate and significant WBC patient being treated with ceftriaxone, will follow up on urine and blood culture, will have PT/OT evaluate the patient, will continue to monitor and follow up. 05/14/2022 interval history: today patient is awake he is poor historain unable to provide any review of symptom or history most of the history is recorded from electronic chart and ER notes, patient is resident of assisted living, and sent to ER for AMS, etiology is uncertain, his CT of head does not any acute injury, he CXR does not show any acute cardiopulmonary process, his Bun and creatinine are elevated suggesting patient is dehydrated and patient being hydrated, patient BUN and creatine are improving today 17/0.5 compared to 50/1.5 upon arrival will continue to monitor, will have wound nurse evalaute patient as patient has a sacral wound, will have PT/ OT evaluate the patient and treat. Patient has malignant neoplasm of prostate and chronic Horne whi
--- NOTE | 2022-05-14 17:10 | PC.NURSE ---
at 1320 found pt with iv in bed discontinued with catheter intact. pt states he needed it out of him. a new iv was place at 1355. at 1700 when this nurse was passing meds, i noticed iv was discontinued and sitting on bedside table. md aware pt has no IV access
[2022-05-14] MEDS: OLANZapine 10 MG INJ VIAL 5 MG IM (17:34)
[2022-05-14] MEDS: WATER, STERILE FOR INJECTION 10 ML VIAL XX (17:56)
--- NOTE | 2022-05-14 18:08 | PC.NURSE ---
pt has been increasingly confused, combative, and agitated and refusing all care and meds today. at [address] Ross to inform him about pt screaming help , and how pt was fearful and agitated. pt states he is scared because you are trying to kill me and give me someone else's meds. Dr. Ross gave me an order for 5mg IM injection for zyprexa. zyprexa was administered at 1734. will continue to monitor pt
[2022-05-14] MEDS: FLUTICASONE/SALMETEROL 230-21 MCG INHALER 1 PUFF 2 PUFF INHALATION (20:11)
[2022-05-15] VITALS (10 sets, daily range): BP systolic 103–144; BP diastolic 54–81; PULSE 81–100; RESP 16–18; TEMP 36.1–36.8; O2SAT 92–100
--- NOTE | 2022-05-15 04:37 | PC.NURSE ---
Pt is being confused all night. Unable to perform pt care, he was combative for part of the shift. will continue to monitor
[2022-05-15] MEDS: HYDROcodone/acetaminophen (*CRX) 5-325 MG TABLET 1 TAB PO (05:24)
[2022-05-15] MEDS: COLLAGENASE OINT 30 GM TUBE 1 APPLIC TOPICAL (07:00)
[2022-05-15 07:26] LABS: Mean Corpuscular HGB Conc 29.4 g/dl (32-36); Mean Corpuscular Hemoglobin 28.6 pg (26-34); Mean Corpuscular Volume 97.1 fl (80-100); Mean Platelet Volume 10.2 fl (7.4-10.4); Platelet Count Result 377 k/mm3 (150-375); Red Cell Distribution Width 20.9 % (11.5-14.5)
[2022-05-15 07:53] LABS: Alanine Aminotransferase 39 U/L (6-50); Albumin Level 3.4 g/dL (3.5-5.1); Alkaline Phosphatase 751 U/L (38-126); Anion Gap 8 mmol/L (8-16); Aspartate Amino Transferase 51 U/L (17-59); Bilirubin,Total 0.8 mg/dL (0.2-1.3); Blood Urea Nitrogen 7 mg/dL (9-20); Calcium 8.4 mg/dL (8.4-10.2); Carbon Dioxide 33 mmol/L (22-30); Chloride 97 mmol/L (98-107); Estimated CRCL calculation 189 ml/min; Estimated Glomerular Filt Rate > 60; Glucose 117 mg/dL (65-110); Magnesium 2.1 mg/dL (1.6-2.3); Potassium 2.5 mmol/L (3.4-5.0); Sodium 138 mmol/L (137-145)
[2022-05-15] MEDS: FLUTICASONE/SALMETEROL 230-21 MCG INHALER 1 PUFF 2 PUFF INHALATION ×2 (08:15→20:03)
[2022-05-15] MEDS: HALOPERIDOL LACTATE 5 MG/ML VIAL IM (08:32)
[2022-05-15] MEDS: POTASSIUM CHLORIDE 20 MEQ PACKET (FOR LIQUID) 40 MEQ PO (08:33)
--- NOTE | 2022-05-15 10:00 | PC.NURSE ---
at 0945 pt was heard yelling out from his room. LEVEL VIAL SETTER Georgette Hernández went into room and found pt to have a butter knife to neck actively trying to cut himself. The LEVEL VIAL SETTER took knife away from pt. this nurse was called in and immediately assessed pt. pt was found to have slight redness to the anterior neck but no open areas. His curtain and bedside table were then moved away from bed. I did a columbia scale on pt and he scored high risk. LEVEL VIAL SETTER stayed in room to watch pt as I called and spoke to Dr. Quezada to inform him of the situation. Damien asked that I called the household appliance assembler, Brianna and ask that she call him. I called Brianna, told her of the situation and then informed her that Damien wants her to call him. She stated that she will call him at that time. The LEVEL VIAL SETTER has been sitting in there watching him since the SI attempt. Brianna, household appliance assembler, called back after she spoke with Damien and she informed the charge that he will still be on our floor with suicide precautions. Pt behavior has been increasingly agitated since yesterday 05/14/22 and refusing all care, including meds. Pt is refusing IV access and takes them out when inserted. Pt has no IV access. Pt had a critical lab on k+ 2.5. I have an order for IV potassium which pt refuses and refuses any IV insertion. He has pulled out many IVs since yesterday which have been charted. Damien was notified that pt does not have IV access and refuses to have one placed. Once aware, Damien made the potassium order to 40meq PO. Will attempt to have pt take PO potassium and will continue to monitor pt.
--- NOTE | 2022-05-15 10:40 | PC.NURSE ---
At 1040 I called pt MADELINE, González Hernandez, and informed him of the SI attempt by pt this morning. MADELINE said that he will he at the hospital this afternoon after he gets off of work.
--- NOTE | 2022-05-15 13:06 | PM.IMPN ---
Progress Note: A&P Assessment and Plan (1) Altered mental status: Qualifiers: Altered mental status type: unspecified Qualified Code(s): R41.82 - Altered mental status, unspecified Code(s): R41.82 - Altered mental status, unspecified Status: Acute Assessment and Plan: Still having some agitation. (2) Urinary tract infection: Qualifiers: Hematuria presence: with hematuria Urinary tract infection type: acute cystitis Qualified Code(s): N30.01 - Acute cystitis with hematuria Code(s): N39.0 - Urinary tract infection, site not specified Status: Acute Assessment and Plan: patient with history of prostate cancer chronic indwelling catheter urine is suspicious for UTI being treated with Rocephin will follow-up on urine culture sensitivity (3) Acute kidney injury: Code(s): N17.9 - Acute kidney failure, unspecified Status: Acute Assessment and Plan: Monitor electrolytes. Monitor creatinine (4) Hypocalcemia: Code(s): E83.51 - Hypocalcemia Status: Acute Assessment and Plan: Monitor (5) Prostate cancer metastatic to bone: Code(s): C61 - Malignant neoplasm of prostate; C79.51 - Secondary malignant neoplasm of bone Status: Acute Assessment and Plan: patient is seen by Urology and Oncology remains clinically stable no acute management needed. Subjective Date/time seen: 05/15/22 13:06 No complaints Exam Narrative: Appears chronically ill Patient is comfortable, NAD HEENT: eyes are clear and none icteric LUNGS: normal respiratory effort ABD: distended Lower extremities: no edema SKIN: nonjaundiced Neuro: grossly intact. Objective Data Vital Signs Vital Signs: Vital Signs - 24 hr 05/14/22 16:00 05/14/22 20:11 05/14/22 20:00 Temperature Pulse Rate 104 H 98 Respiratory Rate Blood Pressure Pulse Oximetry 96 Oxygen Delivery High Flow Nasal Cannula Oxygen Flow Rate 6 05/14/22 23:15 05/15/22 00:00 05/15/22 04:00 Temperature 97.1 F L Pulse Rate 97 98 90 Respiratory Rate 17 Blood Pressure 124/61 Pulse Oximetry 98 Oxygen Delivery Oxygen Flow Rate 05/15/22 06:00 05/14/22 20:50 05/15/22 08:16 Temperature 97.0 F L Pulse Rate 100 Respiratory Rate 16 Blood Pressure 144/81 H Pulse Oximetry 92 94 92 Oxygen Delivery High Flow Nasal Cannula High Flow Nasal Cannula Oxygen Flow Rate 5 5 05/15/22 08:00 Temperature Pulse Rate Respiratory Rate Blood Pressure Pulse Oximetry 92 Oxygen Delivery High Flow Nasal Cannula Oxygen Flow Rate 5 Intake/Output Intake/Output: Intake & Output 05/12/22 05/13/22 05/14/22 05/15/22 23:59 23:59 23:59 23:59 Intake Total 2024 1094 1000 350 Output Total 500 1450 1650 1000 Balance 1524 -356 -650 -650 Meds/Results Medications: Active Medications Generic Name Dose Route Start Last Admin Trade Name Freq PRN Reason Stop Dose Admin Hydrocodone Bitart/Acetaminophen 1 tab 05/12/22 18:20 05/15/22 05:24 Hydrocodone/Acetaminophen (*Crx) 5-325 Mg Tablet PO 1 tab Q6HR NAWAF Administration Albuterol 2 puff 05/12/22 18:18 Albuterol Sulfate (*Sp) Aerosol 1 Puff INHALATION Q12HRT PRN Shortness Of Breath Or Wheezing Apixaban 5 mg 05/12/22 21:00 05/14/22 21:18 Apixaban 5 Mg Tablet PO Not Given Q12HR NAWAF Ascorbic Acid 500 mg 05/13/22 09:00 05/14/22 17:17 Ascorbic Acid 500 Mg Tablet PO 06/12/22 08:59 Not Given BID NAWAF Atorvastatin Calcium 80 mg 05/12/22 21:00 05/14/22 21:18 Atorvastatin 40 Mg Tablet PO Not Given HS NAWAF Calcium Carbonate 200 mg 05/13/22 12:00 05/14/22 09:19 Calcium Carbonate (Tums) 500 Mg (200 Mg Elemental) PO 200 mg DAILY@0800 NAWAF Administration Clopidogrel Bisulfate 75 mg 05/13/22 09:00 05/14/22 09:20 Clopidogrel Bisulfate 75 Mg Tablet PO 75 mg DAILY NAWAF Administration Colchicine 0.6 mg 05/13/22 09:00
[2022-05-15 16:10] LABS: Potassium 2.6 mmol/L (3.4-5.0)
[2022-05-15] MEDS: POTASSIUM CHLORIDE 20 MEQ TABLET 40 MEQ PO (18:11)
[2022-05-15] MEDS: MIRTAZAPINE 15 MG TABLET PO (20:20)
[2022-05-15] MEDS: ATORVASTATIN 40 MG TABLET 80 MG PO (20:20)
[2022-05-15] MEDS: APIXABAN 5 MG TABLET PO (20:20)
[2022-05-16] VITALS (11 sets, daily range): BP systolic 105–118; BP diastolic 64–71; PULSE 92–104; RESP 16–20; TEMP 36.1–36.6; O2SAT 95–100
[2022-05-16] MEDS: HYDROcodone/acetaminophen (*CRX) 5-325 MG TABLET 1 TAB PO ×5 (00:45→23:42)
[2022-05-16 07:20] LABS: Hematocrit 33.5 % (42.0-52.0); Hemoglobin 9.7 g/dL (14.0-18.0); Mean Corpuscular Hemoglobin 28.4 pg (26-34); Mean Corpuscular Volume 98.2 fl (80-100); Mean Platelet Volume 10.6 fl (7.4-10.4); Platelet Count Result 409 k/mm3 (150-375); Red Blood Count 3.41 M/mm3 (4.6-6.20); Red Cell Distribution Width 20.9 % (11.5-14.5); White Blood Count 8.9 K/mm3 (4.5-10.0)
[2022-05-16 07:55] LABS: Alanine Aminotransferase 32 U/L (6-50); Alkaline Phosphatase 711 U/L (38-126); Anion Gap 6 mmol/L (8-16); Aspartate Amino Transferase 40 U/L (17-59); Bilirubin,Total 0.6 mg/dL (0.2-1.3); Blood Urea Nitrogen 7 mg/dL (9-20); Calcium 7.9 mg/dL (8.4-10.2); Carbon Dioxide 36 mmol/L (22-30); Chloride 99 mmol/L (98-107); Estimated CRCL calculation 189 ml/min; Estimated Glomerular Filt Rate > 60; Glucose 97 mg/dL (65-110); Magnesium 2.2 mg/dL (1.6-2.3); Sodium 141 mmol/L (137-145)
[2022-05-16] MEDS: CLOPIDOGREL BISULFATE 75 MG TABLET PO (09:10)
[2022-05-16] MEDS: POTASSIUM CHLORIDE 20 MEQ TABLET 40 MEQ PO (09:10)
[2022-05-16] MEDS: APIXABAN 5 MG TABLET PO ×2 (09:10→20:08)
[2022-05-16] MEDS: FUROSEMIDE 20 MG TABLET PO (09:10)
[2022-05-16] MEDS: COLCHICINE 0.6 MG TABLET PO ×2 (09:12→17:30)
[2022-05-16] MEDS: CYCLOBENZAPRINE HCL 10 MG TABLET PO ×3 (09:12→17:30)
[2022-05-16] MEDS: LACTULOSE 20 GM/30 ML UDC 15 GM PO ×2 (09:13→17:29)
[2022-05-16] MEDS: COLLAGENASE OINT 30 GM TUBE 1 APPLIC TOPICAL (09:14)
[2022-05-16] MEDS: FLUTICASONE/SALMETEROL 230-21 MCG INHALER 1 PUFF 2 PUFF INHALATION ×2 (09:18→20:43)
--- NOTE | 2022-05-16 11:49 | PM.IMPN ---
Progress Note: A&P Assessment and Plan (1) Altered mental status: Qualifiers: Altered mental status type: unspecified Qualified Code(s): R41.82 - Altered mental status, unspecified Code(s): R41.82 - Altered mental status, unspecified Status: Acute Assessment and Plan: Agitation is improved. (2) Urinary tract infection: Qualifiers: Hematuria presence: with hematuria Urinary tract infection type: acute cystitis Qualified Code(s): N30.01 - Acute cystitis with hematuria Code(s): N39.0 - Urinary tract infection, site not specified Status: Acute Assessment and Plan: patient with history of prostate cancer chronic indwelling catheter urine is suspicious for UTI being treated with Rocephin will follow-up on urine culture sensitivity Rocephin and transitioned to Omnicef (3) Acute kidney injury: Code(s): N17.9 - Acute kidney failure, unspecified Status: Acute Assessment and Plan: Monitor electrolytes. Monitor creatinine (4) Hypocalcemia: Code(s): E83.51 - Hypocalcemia Status: Acute Assessment and Plan: Monitor (5) Prostate cancer metastatic to bone: Code(s): C61 - Malignant neoplasm of prostate; C79.51 - Secondary malignant neoplasm of bone Status: Acute Assessment and Plan: patient is seen by Urology and Oncology remains clinically stable no acute management needed. (6) Hypokalemia: Code(s): E87.6 - Hypokalemia Status: Acute Assessment and Plan: Replace and monitor Subjective Date/time seen: 05/16/22 11:49 Less agitated today. Agreeable to have the IV placed. Exam Narrative: Appears chronically ill Patient is comfortable, NAD HEENT: eyes are clear and none icteric LUNGS: normal respiratory effort ABD: distended Lower extremities: no edema SKIN: nonjaundiced Neuro: grossly intact. Objective Data Vital Signs Vital Signs: Vital Signs - 24 hr 05/15/22 14:42 05/15/22 16:00 05/15/22 20:06 Temperature 98.3 F Pulse Rate 95 81 Respiratory Rate 16 Blood Pressure 133/75 Pulse Oximetry 100 93 Oxygen Delivery High Flow Nasal Cannula Oxygen Flow Rate 6 05/15/22 20:21 05/15/22 20:00 05/16/22 00:00 Temperature 97.3 F L Pulse Rate 94 93 Respiratory Rate 18 Blood Pressure 103/54 L Pulse Oximetry 99 99 Oxygen Delivery High Flow Nasal Cannula Oxygen Flow Rate 5 05/15/22 20:00 05/16/22 05:30 05/16/22 04:00 Temperature 97.6 F Pulse Rate 96 100 104 H Respiratory Rate 20 Blood Pressure 118/64 Pulse Oximetry 95 Oxygen Delivery Oxygen Flow Rate 05/16/22 09:23 05/16/22 08:00 Temperature Pulse Rate 96 Respiratory Rate Blood Pressure Pulse Oximetry 95 95 Oxygen Delivery High Flow Nasal Cannula High Flow Nasal Cannula Oxygen Flow Rate 5 4 Intake/Output Intake/Output: Intake & Output 05/13/22 05/14/22 05/15/22 05/16/22 23:59 23:59 23:59 23:59 Intake Total 1094 1000 350 300 Output Total 1450 1650 2159 450 Balance -356 -650 -1650 -150 Meds/Results Medications: Active Medications Generic Name Dose Route Start Last Admin Trade Name Freq PRN Reason Stop Dose Admin Hydrocodone Bitart/Acetaminophen 1 tab 05/12/22 18:20 05/16/22 06:22 Hydrocodone/Acetaminophen (*Crx) 5-325 Mg Tablet PO 1 tab Q6HR NAWAF Administration Albuterol 2 puff 05/12/22 18:18 Albuterol Sulfate (*Sp) Aerosol 1 Puff INHALATION Q12HRT PRN Shortness Of Breath Or Wheezing Apixaban 5 mg 05/12/22 21:00 05/16/22 09:10 Apixaban 5 Mg Tablet PO 5 mg Q12HR NAWAF Administration Ascorbic Acid 500 mg 05/13/22 09:00 05/16/22 09:16 Ascorbic Acid 500 Mg Tablet PO 06/12/22 08:59 Not Given BID NAWAF Atorvastatin Calcium 80 mg 05/12/22 21:00 05/15/22 20:20 Atorvastatin 40 Mg Tablet PO 80 mg HS NAWAF Administration Calcium Carbonate 200 mg 05/13/22 12:00 05/16/22 09:17 Calcium Carbonate
[2022-05-16] MEDS: POTASSIUM CHLORIDE INJ 40 MEQ in SODIUM CHLORIDE 0.9% IV 500 ML 130 MEQ IVPB (12:43)
[2022-05-16] MEDS: CEFDINIR 300 MG CAPSULE PO ×2 (13:03→20:08)
--- NOTE | 2022-05-16 14:20 | PC.NURSE ---
pt much more cooperative today. pt calm in bed and has been accepting of all care.
[2022-05-16] MEDS: ASCORBIC ACID 500 MG TABLET PO (17:30)
[2022-05-16] MEDS: ATORVASTATIN 40 MG TABLET 80 MG PO (20:08)
[2022-05-16] MEDS: MIRTAZAPINE 15 MG TABLET PO (20:08)
[2022-05-16 20:54] LABS: Potassium 3.2 mmol/L (3.4-5.0)
[2022-05-17] VITALS (9 sets, daily range): BP systolic 114–115; BP diastolic 75–85; PULSE 95–103; RESP 16–18; TEMP 36.5–36.7; O2SAT 94–96
[2022-05-17] MEDS: HYDROcodone/acetaminophen (*CRX) 5-325 MG TABLET 1 TAB PO ×2 (05:49→12:08)
[2022-05-17 06:22] LABS: Hematocrit 33.3 % (42.0-52.0); Hemoglobin 9.4 g/dL (14.0-18.0); Mean Corpuscular HGB Conc 28.2 g/dl (32-36); Mean Corpuscular Hemoglobin 28.4 pg (26-34); Mean Corpuscular Volume 100.6 fl (80-100); Mean Platelet Volume 10.1 fl (7.4-10.4); Platelet Count Result 388 k/mm3 (150-375); Red Blood Count 3.31 M/mm3 (4.6-6.20); Red Cell Distribution Width 21.4 % (11.5-14.5); White Blood Count 7.4 K/mm3 (4.5-10.0)
[2022-05-17 06:38] LABS: Alanine Aminotransferase 27 U/L (6-50); Alkaline Phosphatase 863 U/L (38-126); Anion Gap 5 mmol/L (8-16); Aspartate Amino Transferase 31 U/L (17-59); Bilirubin,Total 0.6 mg/dL (0.2-1.3); Blood Urea Nitrogen 8 mg/dL (9-20); Calcium 7.4 mg/dL (8.4-10.2); Carbon Dioxide 35 mmol/L (22-30); Chloride 100 mmol/L (98-107); Estimated CRCL calculation 160 ml/min; Estimated Glomerular Filt Rate > 60; Glucose 86 mg/dL (65-110); Potassium 3.1 mmol/L (3.4-5.0); Sodium 140 mmol/L (137-145)
[2022-05-17 07:30] LABS: Potassium 2.5 mmol/L (3.4-5.0)
[2022-05-17] MEDS: FLUTICASONE/SALMETEROL 230-21 MCG INHALER 1 PUFF 2 PUFF INHALATION (08:06)
[2022-05-17] MEDS: CYCLOBENZAPRINE HCL 10 MG TABLET PO ×2 (08:25→12:10)
[2022-05-17] MEDS: POTASSIUM CHLORIDE 20 MEQ PACKET (FOR LIQUID) 40 MEQ PO (08:25)
[2022-05-17] MEDS: CALCIUM CARBONATE (TUMS) 500 MG (200 MG ELEMENTAL) PO (08:25)
[2022-05-17] MEDS: CEFDINIR 300 MG CAPSULE PO (08:25)
[2022-05-17] MEDS: COLCHICINE 0.6 MG TABLET PO (08:25)
[2022-05-17] MEDS: APIXABAN 5 MG TABLET PO (08:25)
[2022-05-17] MEDS: ASCORBIC ACID 500 MG TABLET PO (08:26)
[2022-05-17] MEDS: LACTULOSE 20 GM/30 ML UDC 15 GM PO (08:26)
[2022-05-17] MEDS: FUROSEMIDE 20 MG TABLET PO (08:26)
[2022-05-17] MEDS: CLOPIDOGREL BISULFATE 75 MG TABLET PO (08:26)
[2022-05-17] MEDS: COLLAGENASE OINT 30 GM TUBE 1 APPLIC TOPICAL (08:27)
--- NOTE | 2022-05-17 09:40 | PCNFU ---
Nutrition Follow-Up Complete: Increased nutrient needs related to wound healing as evidenced by pressure ulcer to buttocks Goal:Promote wound healing PO intake 75% of meals Pt current nutrition is Regular, YUNG BID for wound healing. Nutrition recommendation: Add Ensure compact BID Last recorded weight is 118 kg - stable. Bowel Motility: +BM 05/16 Labs Reviewed: hgb:9.4, HCT:33.3, alb:3.0, K:3.1, BUN:8, Cr:0.6 Meds Noted: eliquis, lasix, remeron Skin: unstageable to Left buttocks Additional Notes: Pt continues on a regular diet, intake 25% of meals. Recommend to add Ensure compact BID for an additional 220kcals, 9g protein per shake to increase caloric intake. Monitor intake, wt, labs, skin. Follow up in 5 days.
[2022-05-17 11:12] LABS: Potassium 3.7 mmol/L (3.4-5.0)
--- NOTE | 2022-05-17 12:20 | PM.DS ---
DS: Admitting Diagnosis Discharge Date May 17, 2022 Admitting Diagnosis UTI DS: Discharge Diagnosis Discharge Diagnosis (1) Altered mental status: Qualifiers: Altered mental status type: unspecified Qualified Code(s): R41.82 - Altered mental status, unspecified Code(s): R41.82 - Altered mental status, unspecified Status: Acute Assessment and Plan: Agitation is improved. (2) Urinary tract infection: Qualifiers: Hematuria presence: with hematuria Urinary tract infection type: acute cystitis Qualified Code(s): N30.01 - Acute cystitis with hematuria Code(s): N39.0 - Urinary tract infection, site not specified Status: Acute Assessment and Plan: patient with history of prostate cancer chronic indwelling catheter urine is suspicious for UTI being treated with Rocephin will follow-up on urine culture sensitivity Rocephin and transitioned to Omnicef (3) Acute kidney injury: Code(s): N17.9 - Acute kidney failure, unspecified Status: Acute Assessment and Plan: Monitor electrolytes. Monitor creatinine (4) Hypocalcemia: Code(s): E83.51 - Hypocalcemia Status: Acute Assessment and Plan: Monitor (5) Prostate cancer metastatic to bone: Code(s): C61 - Malignant neoplasm of prostate; C79.51 - Secondary malignant neoplasm of bone Status: Acute Assessment and Plan: patient is seen by Urology and Oncology remains clinically stable no acute management needed. (6) Hypokalemia: Code(s): E87.6 - Hypokalemia Status: Acute Assessment and Plan: Replace and monitor DS: Summary Hospital Course Hospital Course: Patient was admitted for altered mental status found have a UTI. Patient was started on Rocephin and improved he was discharged Omnicef on discharge. also to note the patient's poor oral intake and has hypokalemia. He will be started on potassium on discharge. Time Spent with Patient Time attestation: Total time spent providing and/or coordinating discharge services: Exam Narrative: Appears chronically ill Patient is comfortable, NAD HEENT: eyes are clear and none icteric LUNGS: normal respiratory effort ABD: distended Lower extremities: no edema SKIN: nonjaundiced Neuro: grossly intact. DS: Data Data Completed and Pending Labs on day of discharge: Labs from last 24 hours 05/17/22 05/17/22 05/17/22 10:52 05:49 05:49 WBC 7.4 RBC 3.31 L Hgb 9.4 L Hct 33.3 L MCV 100.6 H MCH 28.4 MCHC 28.2 L RDW 21.4 H Plt Count 388 H MPV 10.1 Sodium 140 Potassium 3.7 3.1 L Chloride 100 Carbon Dioxide 35 H Anion Gap 5 L BUN 8 L Creatinine 0.60 L Estim Creat Clear Calc 160 Estimated GFR > 60 Glucose 86 Calcium 7.4 L Magnesium 2.0 Total Bilirubin 0.6 AST 31 ALT 27 Alkaline Phosphatase 863 H Total Protein 6.0 L Albumin 3.0 L 05/16/22 05/16/22 20:33 06:26 WBC RBC Hgb Hct MCV MCH MCHC RDW Plt Count MPV Sodium Potassium 3.2 L 2.5 L* Chloride Carbon Dioxide Anion Gap BUN Creatinine Estim Creat Clear Calc Estimated GFR Glucose Calcium Magnesium Total Bilirubin AST ALT Alkaline Phosphatase Total Protein Albumin Preliminary micro results at discharge 05/12/22 10:03 Blood Culture - Preliminary Blood Discharge Plan Discharge Attending physician on discharge: Danis Quezada Consulting providers: Amado Cisneros Discharging Clinician: Danis Quezada Patient Disposition: SNF Activity: no preference Diet: as tolerated Patient Instructions: Urinary Tract Infection in Men (DC), Altered Mental Status (GEN) Stand Alone Forms: General Discharge Information Discharge Medications: New cefdinir 300 mg Capsule 300 mg PO Q12HR 5 Days Qty: 10 0RF potassium chloride [K-Tab
[2022-05-17 13:08] LABS: EDCOVIDSCREEN Negative (Negative)
== END 2022-05-17 14:20 | DRG 690 ==
LOC: ANHED 11:35 → ANH3MEDSUR 12:37
PROVIDERS: Family Medicine; Physician Assistant; Admitting Provider Internal Medicine; Emergency Provider Emergency Medicine; PCP Internal Medicine; Visit Provider Chiropractor
DX: N30.01 Acute cystitis with hematuria (principal); N17.9 Acute kidney failure, unspecified; C78.00 Secondary malignant neoplasm of unspecified lung; C79.51 Secondary malignant neoplasm of bone; C61 Malignant neoplasm of prostate; L89.159 Pressure ulcer of sacral region, unspecified stage; E83.51 Hypocalcemia; B96.20 Unspecified Escherichia coli [E. coli] as the cause of diseases classified elsewhere; N40.0 Benign prostatic hyperplasia without lower urinary tract symptoms; J44.9 Chronic obstructive pulmonary disease, unspecified; E87.6 Hypokalemia; Z20.822 Contact with and (suspected) exposure to COVID-19; Z79.01 Long term (current) use of anticoagulants; Z79.899 Other long term (current) drug therapy; Z86.73 Personal history of transient ischemic attack (TIA), and cerebral infarction without residual deficits; Z91.81 History of falling; Z97.8 Presence of other specified devices
CPT/HCPCS: 36415; 70450; 71046; 80048; 80053; 81001; 83605; 83735; 84132; 84484; 85025; 85027; 87040; 87077; 87086; 87088; 87186; 87426; 93005; 94640; 96365; 96366; 96367; 99285; A9270; C9803; G0378; J0131; J0696; J1630; J3480; J7030; J7040; U0003; U0005

== ENCOUNTER 2022-05-31 06:08 | Emergency (ER) | payer OTHER, SELFPAY ==
[2022-05-31 06:11] VITALS: BP 163/93; PULSE 108; RESP 16; O2SAT 100
--- NOTE | 2022-05-31 06:20 | PC.NURSE ---
Upon arrival to ED pts hernandez by the Y insertion was cut. PT abd distended and c/o pain. Pt bladder scanned with urine noted greater then 800. This RN and Walker RN attempted to deflate balloon. No saline noted. Catheter was met with resistance. ERP Lispmeyer called to bedside. ERP removed catheter. Ballon still inflated. Blood noted. New hernandez placed under ERP verbal order. Pt tolerated well. 300mL urine noted. Hernandez clamped for 10 minutes then released with the remaining 400 drained.
--- NOTE | 2022-05-31 06:43 | PC.NURSE ---
[facility]icare peformed on pt. Pt had liquid BM. Pressure Ulcer noted to coccyx.
[2022-05-31] MEDS: LIDOCAINE HCL 2% GEL UROJET 10 ML PKG MUCOUS MEM (06:45)
--- NOTE | 2022-05-31 06:46 | ED.GENADULT ---
HPI - General Adult General Chief complaint: Urogenital-Male Stated complaint: lower abd pain, hernandez issues Time Seen by Provider: 05/31/22 06:28 History of Present Illness HPI narrative: Patient is a 51-year-old gentleman who presents the emergency department with chief complaint of stuck Hernandez. The patient had a catheter that was being changed out the patient reports he feels as though he needs to urinate. Patient reports symptoms are not improved by anything. Related Data Home Medications Medication Instructions Recorded Confirmed albuterol sulfate 90 mcg/actuation 2 inh inhalation BID PRN Shortness 03/03/22 05/12/22 aerosol inhaler Of Breath Or Wheezing apixaban 5 mg tablet (Eliquis) 5 mg PO BID 05/12/22 05/12/22 ascorbate calcium (vitamin C) 500 500 mg PO BID 05/12/22 05/12/22 mg capsule atorvastatin 40 mg tablet 80 mg PO HS 05/12/22 05/12/22 clopidogrel 75 mg tablet (Plavix) 75 mg PO DAILY 05/12/22 05/12/22 colchicine 0.6 mg capsule 0.6 mg PO BID 05/12/22 05/12/22 cyclobenzaprine 10 mg tablet 10 mg PO TID 05/12/22 05/12/22 fluticasone furoate 200 1 inh inhalation DAILY 05/12/22 05/12/22 mcg-vilanterol 25 mcg/dose inhalation powder (Breo Ellipta) furosemide 20 mg tablet (Lasix) 20 mg PO DAILY 05/12/22 05/12/22 lactulose 10 gram/15 mL oral 15 ml PO BID 05/12/22 05/12/22 solution mirtazapine 15 mg tablet (Remeron) 15 mg PO HS 05/12/22 05/12/22 Allergies Allergy/AdvReac Type Severity Reaction Status Date / Time No Known Allergies Allergy Unverified 03/07/17 10:47 Review of Systems Review of Systems: A 10 system review of systems was completed on the patient and is negative except for what is stated in the HPI. Nursing and ancillary documentation was reviewed. [facility] Past Medical History Medical History BPH (benign prostatic hyperplasia) COPD (chronic obstructive pulmonary disease) Prostate cancer metastatic to bone Surgical History Surgical History History of spinal surgery Social History Social History Smoking status: Former smoker Second hand tobacco smoke exposure: No Alcohol intake: former Substance use: former Spiritual care concerns: No Exam Narrative: GENERAL: Well-appearing, well-nourished, and in no acute distress. HEAD: Normocephalic, atraumatic. EYES: PERRLA and EOMI. ENT: Nares clear, no rhinorrhea or epistaxis. Mucous membranes moist. NECK: Supple. CHEST: Clear to auscultation. No respiratory distress. HEART: Regular rate and rhythm. No murmur heard. Normal peripheral pulses. ABDOMEN: Soft, nontender, nondistended, normal active bowel sounds. : There is a fragment of a Hernandez catheter hanging out of the urethra. EXTREMITIES: Normal range of motion. No edema. SKIN: Warm, dry, no rash. NEURO: No focal deficits. Alert and oriented x3. PSYCH: Normal mood and affect. Course Course Emergency Course: The nursing staff was unable to remove the catheter. Upon examination the catheter fragment was there using gentle traction the fragment of the Hernandez catheter was removed from the urethra with a slightly inflated Hernandez ball. Nursing staff was then able to replace a new Hernandez catheter. Vital Signs Vital signs: Vital Signs Pulse Rate 108 H 05/31/22 06:11 Respiratory Rate 16 05/31/22 06:11 Blood Pressure 163/93 H 05/31/22 06:11 Pulse Oximetry 100 05/31/22 06:11 Oxygen Delivery Room Air 05/31/22 06:11 Pulse Rate 108 H 05/31/22 06:11 Respiratory Rate 16 05/31/22 06:11 Blood Pressure 163/93 H 05/31/22 06:11 Pulse Oximetry 100 05/31/22 06:11 Oxygen Delivery Room Air 05/31/22 06:11 Medical Decision Making Vital Signs Vital Signs: Vital Signs Pulse Rate 108 H 05/31/22 06:11 Respiratory Rate 16 05/31/22 06:11 Blood Pressure 163/93 H
--- NOTE | 2022-05-31 07:23 | PC.NURSE ---
BSSR to [facility]. Pt resting waiting for ride back to [facility].
[2022-05-31 07:31] VITALS: BP 125/78; PULSE 105; RESP 13; O2SAT 98
[2022-05-31 07:46] VITALS: BP 122/75; PULSE 106; RESP 12; O2SAT 97
[2022-05-31 08:01] VITALS: BP 113/80; PULSE 103; RESP 11; O2SAT 97
== END 2022-05-31 09:02 ==
LOC: ANHED 06:52
PROVIDERS: Emergency Provider Emergency Medicine; PCP Internal Medicine
DX: T83.098A Other mechanical complication of other urinary catheter, initial encounter (principal); N40.0 Benign prostatic hyperplasia without lower urinary tract symptoms; J44.9 Chronic obstructive pulmonary disease, unspecified; Z85.46 Personal history of malignant neoplasm of prostate; Z85.830 Personal history of malignant neoplasm of bone; Z79.02 Long term (current) use of antithrombotics/antiplatelets; Z79.01 Long term (current) use of anticoagulants; Z87.891 Personal history of nicotine dependence; Y84.6 Urinary catheterization as the cause of abnormal reaction of the patient, or of later complication, without mention of misadventure at the time of the procedure
CPT/HCPCS: 51702; 99283

== ENCOUNTER 2022-06-26 14:22 | Inpatient (IN) | payer OTHER, SELFPAY ==
--- NOTE | ~2022-06-26 | US_ITS ---
EXAMINATION: US renal BI DATE: 06/28/2022 11:44 INDICATION: Hydronephrosis TECHNIQUE: Multiple grayscale and Doppler ultrasound images of the kidneys were obtained. COMPARISON: CT from yesterday FINDINGS: The right kidney measures 12.4 x 4.9 x 4.6 cm. The left kidney measures 11.1 x 4.6 x 5.2 cm . The kidneys demonstrate normal parenchymal echogenicity. There is mild bilateral hydronephrosis, im proved since yesterday's CT. The bladder is decompressed by Horne catheter. IMPRESSION: 1. Mild bilateral hydronephrosis with improvement since the comparison CT. Reviewed, dictated and finalized at location A.
--- NOTE | ~2022-06-26 | XR_ITS ---
XR chest 1V portable 06/29/2022 12:27 Indication: Chest pain Procedure: AP portable chest Comparison: Comparison to multiple prior studies sequentially, with oldest reviewed study dated 11/04. Findings: Heart size upper normal. Patchy bilateral airspace disease, most likely pneumonia. No signi ficant effusion. No pneumothorax. There are spinal rods transfixing the lower thoracic spine, partial ly visualized. No acute osseous abnormality. Impression: 1: Persistent patchy bilateral air space disease, most likely pneumonia. Reviewed, dictated and finalized at location A. Impression: 1: Persistent patchy bilateral air space disease, most likely pneumonia.
--- NOTE | ~2022-06-26 | CT_ITS ---
EXAMINATION: CT abdomen pelvis wo con DATE: 06/27/2022 05:35 INDICATION: Abdominal pain. TECHNIQUE: Computed tomography (CT) of the abdomen and pelvis was performed without intravenous contr ast. Automated exposure control and iterative reconstruction technique were employed. The dose-length product was 810.90 mGy-cm. COMPARISON: CT abdomen and pelvis 03/06/2022 FINDINGS: The visualized portions of the lung bases demonstrate mild atelectasis. There is mild chron ic lung disease including bronchiectasis in left lower lobe. No pleural effusion. The heart size is n ormal. No pericardial effusion. The liver, gallbladder, spleen, pancreas, and adrenal glands are norm al. There is moderate right hydronephrosis and hydroureter. There is a 2 mm stone in left kidney. The re is a 3 mm stone in left renal pelvis. There is severe left hydronephrosis and hydroureter. There i s a 2 mm stone in distal left ureter. The bladder is markedly distended. There is a Horne catheter in expected position. There are multiple stones in the bladder measuring up to 12 mm. The prostate is m oderately enlarged. There is a left inguinal hernia containing fat. There are no dilated loops of bow el. The appendix is normal. There is bilateral internal and external iliac lymphadenopathy and left c ommon iliac lymphadenopathy. For example, a right external iliac node measures 1.6 x 3.0 cm, improved from 4.2 x 4.3 cm. There is no free intraperitoneal fluid. There are widespread sclerotic lesions of bone, consistent with metastatic disease. There are changes of posterior fusion procedure from the t horacic spine. T12 from T8 to T12. There is a lytic lesion in T10. There are laminectomies from T8 to T10. There is a left-sided sacral decubitus ulcer with erosions of bone, consistent with osteomyelit is. IMPRESSION: 1. Markedly distended bladder with Horne catheter in expected position. 2. Moderate right hydronephrosis and hydroureter and severe left hydronephrosis and hydroureter. 3. Small nonobstructing stones in the left kidney and left ureter. Bladder stones. 4. Pelvic lymphadenopathy with interval improvement, consistent with metastatic disease. 5. Widespread bone lesions, which are now predominantly sclerotic and were previously lytic, consiste nt with metastatic disease with interval healing. 6. Left-sided sacral decubitus ulcer with sacral osteomyelitis. Reviewed, dictated and finalized at location A. IMPRESSION: 1. Markedly distended bladder with Horne catheter in expected position. 2. Moderate right hydronephrosis and hydroureter and severe left hydronephrosis and hydroureter. 3. Small nonobstructing stones in the left kidney and left ureter. Bladder ston es. 4. Pelvic lymphadenopathy with interval improvement, consistent with metastatic disease. 5. Widespread bone lesions, which are now predominantly sclerotic and were prev iously lytic, consistent with metastatic disease with interval healing. 6. Left-sided sacral decubitus ulcer with sacral osteomyelitis.
--- NOTE | ~2022-06-26 | XR_ITS ---
XR chest 2V 06/26/2022 16:26 Indication: Cough. History of COPD. Prostate cancer. Procedure: AP and lateral views of the chest Comparison: 05/12/2022 Findings: There are sclerotic lesions involving the right fourth and left fifth ribs, suspicious for osseous metastases. There is pleural thickening bilaterally in the mid thorax. Heart size normal. Int erval improvement of bibasilar infiltrates which may represent atelectasis/scarring. There are surgic al changes consistent with fusion of the lower thoracic spine. Impression: 1: Bilateral sclerotic lesions of the ribs, suspicious for metastases. 2: Improving bibasilar infiltrates which may represent atelectasis or scarring. Residual pneumonia le ss favored. 3: Persistent bilateral pleural thickening, nonspecific. Reviewed, dictated and finalized at location A. Impression: 1: Bilateral sclerotic lesions of the ribs, suspicious for metastases. 2: Improving bibasilar infiltrates which may represent atelectasis or scarring. Residual pneumonia less favored. 3: Persistent bilateral pleural thickening, nonspecific.
[2022-06-26 14:51] VITALS: BP 124/66; PULSE 115; RESP 18; TEMP 36.5; O2SAT 94
--- NOTE | 2022-06-26 17:02 | ED.MALEGU ---
HPI - Male Genitourinary General Chief complaint: Urogenital-Male Stated complaint: urinary catheter problem, constipated Time Seen by Provider: 06/26/22 15:47 History of Present Illness HPI Narrative: Pt complains of suprpubic and groin pain for a few days. Pt has chronic indwelling hernandez last changes two weeks ago. Pt just discharged from rehab facility to home after prolonged stay after CVA. Related Data Home Medications Medication Instructions Recorded Confirmed albuterol sulfate 90 mcg/actuation 2 inh inhalation BID PRN Shortness 03/03/22 05/12/22 aerosol inhaler Of Breath Or Wheezing apixaban 5 mg tablet (Eliquis) 5 mg PO BID 05/12/22 05/12/22 ascorbate calcium (vitamin C) 500 500 mg PO BID 05/12/22 05/12/22 mg capsule atorvastatin 40 mg tablet 80 mg PO HS 05/12/22 05/12/22 clopidogrel 75 mg tablet (Plavix) 75 mg PO DAILY 05/12/22 05/12/22 colchicine 0.6 mg capsule 0.6 mg PO BID 05/12/22 05/12/22 cyclobenzaprine 10 mg tablet 10 mg PO TID 05/12/22 05/12/22 fluticasone furoate 200 1 inh inhalation DAILY 05/12/22 05/12/22 mcg-vilanterol 25 mcg/dose inhalation powder (Breo Ellipta) furosemide 20 mg tablet (Lasix) 20 mg PO DAILY 05/12/22 05/12/22 lactulose 10 gram/15 mL oral 15 ml PO BID 05/12/22 05/12/22 solution mirtazapine 15 mg tablet (Remeron) 15 mg PO HS 05/12/22 05/12/22 Allergies Allergy/AdvReac Type Severity Reaction Status Date / Time No Known Allergies Allergy Unverified 03/07/17 10:47 Review of Systems Review of Systems: All systems reviewed & are unremarkable except as noted in HPI and below PMFSH Past Medical History Medical History (Updated 06/26/22 @ 20:02 by Francheska Corona NP) BPH (benign prostatic hyperplasia) Cataract COPD (chronic obstructive pulmonary disease) CVA (cerebral vascular accident) Hyperlipidemia due to dietary fat intake Prostate cancer metastatic to bone Surgical History Surgical History (Updated 06/26/22 @ 20:02 by Francheska Corona NP) H/O eye surgery History of spinal surgery History of tonsillectomy and adenoidectomy S/P TURP Family History Family History (Updated 06/26/22 @ 20:03 by Francheska Corona NP) Unknown No problems noted. Social History Social History (Updated 06/26/22 @ 20:05 by Francheska Corona NP) Social History: brother and . 2 daughters disabled Smoking status: Former smoker Second hand tobacco smoke exposure: No Alcohol intake: former Substance use: former Spiritual care concerns: No Exam Const: General: ill appearing Limitations: no limitations Eyes: Conjunctivae: conjunctivae normal EOM: EOMs intact bilaterally Neck: Neck: normal visual inspection Chest: Chest palpation & inspection: normal inspection of the chest Resp: Effort & Inspection: normal respiratory effort Auscultation: clear to auscultation bilaterally Cardio: Rate: tachycardic Rhythm: regular rhythm GI: GI Palp: Yes Soft to palpation and Yes Tenderness to palpation present (GI) (suprapubic) Auscultation: normal bowel sounds Back/Spine/Pelvis: Back: no CVA tenderness Skin: General skin exam: normal color Rashes: no rashes Neuro: General: patient oriented x3 Speech: normal speech Extrem: General: normal to inspection and no clubbing, cyanosis or edema Psych: Mental Status: mental status grossly normal Affect: normal affect Attitude: cooperative Course Vital Signs Vital signs: Vital Signs Temperature 97.7 F 06/26/22 14:51 Pulse Rate 115 H 06/26/22 14:51 Respiratory Rate 18 06/26/22 14:51 Blood Pressure 124/66 06/26/22 14:51 Pulse Oximetry 94 06/26/22 14:51 Oxygen Delivery Room Air 06/26/22 14:51 Temperature 97.7 F 06/26/22 14:51 Pulse Rate 115 H 06/26/22 18:56 Respiratory Rate 13 06/26/22 18:56 Blood Pressure 128/78 06/26/22 18:56 Pulse Oximetry 100 06/26/22 18:56 Oxygen Delivery Room Air 06/26/22 14:51 MDM - Male Genitourinary Lab Data
[2022-06-26 17:39] LABS: Appearance Urine Cloudy (Clear); Bilirubin Urine Negative (Negative); Blood Urine 3+ (Negative); Color Urine Yellow (Yellow); Glucose Urine UA Negative (Negative); Ketones Urine Negative (Negative); Leukocyte Esterase Ur 3+ LEU/UL (Negative); Nitrate Urine Negative (Negative); Protein Urine 2+ mg/dL (Negative); Specific Grav Ur 1.025 (1.001-1.035); Urobilinogen Urine 0.2 mg/dL (<2.0); pH Urine 5.5 (5.0-9.0)
[2022-06-26 18:02] LABS: Bacteria Urine 2+ /hpf; Mucus Urine Rare /lpf; RBC Urine >75 /hpf (0-2); WBC Urine >75 /hpf
[2022-06-26 18:03] LABS: Add Urine Microscopic? YES
[2022-06-26 18:22] VITALS: BP 119/81; PULSE 113; RESP 20; O2SAT 100
[2022-06-26 18:37] LABS: Basophils Absolute Auto 0.1 K/mm3 (0.0-0.1); Basophils Percent Auto 0.6 % (0.2-1.2); Eosinophils Absolute Auto 0.1 K/mm3 (0-0.3); Eosinophils Percent Auto 0.5 % (0-4.4); Hematocrit 35.2 % (42.0-52.0); Hemoglobin 10.4 g/dL (14.0-18.0); Immature Granulocyte Absolute 0.17 K/mm3 (0.00-0.031); Immature Granulocyte Percent A 1.2 % (0-0.5); Lymphocytes Absolute Auto 1.03 K/mm3 (0.9-3.2); Lymphocytes Percent Auto 7.4 % (18.3-44.2); Mean Corpuscular HGB Conc 29.5 g/dl (32-36); Mean Corpuscular Hemoglobin 29.3 pg (26-34); Mean Corpuscular Volume 99.2 fl (80-100); Mean Platelet Volume 9.2 fl (7.4-10.4); Monocytes Absolute Auto 1.2 K/mm3 (0.1-0.6); Monocytes Percent Auto 8.7 % (2.6-8.5); Neutrophils Absolute Auto 11.3 K/mm3 (1.3-6.7); Neutrophils Percent Auto 81.6 % (45.5-73.1); Platelet Count Result 469 k/mm3 (150-375); Red Blood Count 3.55 M/mm3 (4.6-6.20); Red Cell Distribution Width 20.1 % (11.5-14.5); White Blood Count 13.9 K/mm3 (4.5-10.0)
[2022-06-26 18:46] LABS: INR 1.5; Prothrombin Time 17.6 Seconds (11.1-14.7)
[2022-06-26 18:51] LABS: Lactic Acid Reflex 1.4 mmol/L (0.7-2.0)
[2022-06-26 18:56] VITALS: BP 128/78; PULSE 115; RESP 13; O2SAT 100
[2022-06-26 19:07] LABS: Anisocytosis 3+ (NORMAL); Hypochromasia 1+ (NORMAL); Platelet Estimate Increased (Adequate)
--- NOTE | 2022-06-26 19:58 | PM.IMHP ---
H&P: HPI History of Present Illness Date/Time: 06/26/22 19:58 Chief Complaint: Urinary symptoms, constipated Narrative: This is a 51-year-old male patient who has had a history of a CVA in the past. He still has some problems with word finding. The patient stated he has been weak to his lower extremities. He does have a chronic indwelling Horne catheter that was last changed about 2 weeks ago. The patient had been in a facility for rehab and recently started staying with his brother and [id number]. The patient stated that he had a long stay at the rehab facility but ran out of insurance stays and stated that he was meg that his brother allow him to stay there. Today his white count is noted to be 13.9. His H&H is 10.4 and 35.2 which appears to be his baseline. His sodium is slightly low at 130. His CRP is 5.2. Urine was found to be in affected. The patient was started on Rocephin. The patient is being admitted as inpatient on the date of service of 06/26/2022. Review of Systems Review of Systems: See HPI All systems reviewed & are unremarkable except as noted in HPI and below Constitutional: Constitutional: Reports as per HPI and Reports no additional constitutional complaints Eyes: Eyes: Reports as per HPI and Reports no additional eye complaints ENT: Reports system reviewed and no additional complaints, except as documented and Reports Normal hearing present Cardiovascular: Cardiovascular: Reports no additional cardiovascular complaints Respiratory: Respiratory: Reports no additional respiratory complaints and Reports no additional respiratory complaints Gastrointestinal: Gastrointestinal: Reports as per HPI and Reports no additional gastrointestinal complaints Musculoskeletal: Musculoskeletal: Reports no additional musculoskeletal complaints Integumentary/Breasts: Skin/Breast: Reports system reviewed and no additional complaints, except as docu and Reports as per HPI Neurologic: Reports system reviewed and no additional complaints, except as documented, Reports as per HPI and Reports Normal hearing present Psychiatric: Psychiatric: Reports no additional psychiatric complaints and Reports as per HPI Endocrine: Endocrine: Reports no additional endocrine complaints Hematologic/Lymphatic: Hematologic/Lymphatic: Reports no additional hematologic/lymphatic complaints Allergic/Immunologic: Allergic/Immunologic: Reports no additional allergic/immunologic complaints [facility] Past Medical History Medical History (Updated 06/26/22 @ 23:27 by Francheska Corona NP) BPH (benign prostatic hyperplasia) Cataract COPD (chronic obstructive pulmonary disease) CVA (cerebral vascular accident) Hyperlipidemia due to dietary fat intake Prostate cancer metastatic to bone Urinary tract infection Surgical History Surgical History (Updated 06/26/22 @ 23:27 by Francheska Corona NP) H/O cataract extraction H/O eye surgery History of spinal surgery History of tonsillectomy and adenoidectomy S/P TURP Family History Family History Unknown No problems noted. Social History Social History (Updated 06/26/22 @ 23:20 by Francheska Corona NP) Social History: The patient now lives with his brother and [id number]. He is and has 2 daughters. He is disabled. He is a former smoker. He does not use any alcohol marijuana or illicit drugs. His brother is his durable power contracts attorney for healthcare. Code status full code Smoking status: Former smoker Second hand tobacco smoke exposure: No Alcohol intake: former Substance use: never Spiritual care concerns: No Meds Home Medications and Allergies Home Medications Medication Instructions Recorded Confirmed Type albuterol sulfate 90 mcg/actuation 2 inh inhalation Q6-8H PRN 03/03/22 06/26/22 History aerosol inhaler Shortness Of Breath Or Wheezing apixaban 5 mg tablet (Eliquis) 5 mg PO
[2022-06-26 20:13] LABS: Alanine Aminotransferase 14 U/L (6-50); Albumin Level 3.4 g/dL (3.5-5.1); Alkaline Phosphatase 605 U/L (38-126); Anion Gap 9 mmol/L (8-16); Aspartate Amino Transferase 22 U/L (17-59); Bilirubin,Total 0.6 mg/dL (0.2-1.3); Blood Urea Nitrogen 14 mg/dL (9-20); CRP 5.2 mg/dL (<1.0); Calcium 9.4 mg/dL (8.4-10.2); Carbon Dioxide 23 mmol/L (22-30); Chloride 98 mmol/L (98-107); Estimated CRCL calculation 93 ml/min; Estimated Glomerular Filt Rate > 60; Glucose 113 mg/dL (65-110); Potassium 3.9 mmol/L (3.4-5.0); Sodium 130 mmol/L (137-145)
[2022-06-26] MEDS: HYDROcodone/acetaminophen (*CRX) 5-325 MG TABLET 1 TAB PO (20:52)
[2022-06-26 22:31] VITALS: BP 136/81; PULSE 113; RESP 18; TEMP 36.5; O2SAT 98; BMI 28.4
--- NOTE | 2022-06-26 22:35 | ADMGEN ---
This patient, [place], was admitted to Medical Room 344-01. Patient/family oriented to hospital policies and general routines including ID bracelet, bed and alarms, visiting hours, pain management, procedures, bathroom and other care routines, personal items, smoking policy, room service/diet, and visiting hours. Information on how to activate the Rapid Response Team has been discussed. Patient/Family are encouraged to report perceived risks to care and to ask questions if they do not understand what they are told or what they should do.
[2022-06-26] MEDS: ATORVASTATIN 40 MG TABLET 80 MG PO (23:54)
[2022-06-26] MEDS: MIRTAZAPINE 15 MG TABLET PO (23:54)
[2022-06-26] MEDS: oxyCODONE/ACETAMINOPHEN (*CRX) 5-325 MG TABLET 1 TABLET PO (23:54)
[2022-06-27 05:37] LABS: Basophils Absolute Auto 0.1 K/mm3 (0.0-0.1); Basophils Percent Auto 0.6 % (0.2-1.2); Eosinophils Percent Auto 0.2 % (0-4.4); Hematocrit 34.7 % (42.0-52.0); Hemoglobin 10.6 g/dL (14.0-18.0); Immature Granulocyte Absolute 0.17 K/mm3 (0.00-0.031); Immature Granulocyte Percent A 1.2 % (0-0.5); Lymphocytes Absolute Auto 0.83 K/mm3 (0.9-3.2); Lymphocytes Percent Auto 5.8 % (18.3-44.2); Mean Corpuscular HGB Conc 30.5 g/dl (32-36); Mean Corpuscular Hemoglobin 29.6 pg (26-34); Mean Corpuscular Volume 96.9 fl (80-100); Mean Platelet Volume 9.1 fl (7.4-10.4); Monocytes Absolute Auto 1.4 K/mm3 (0.1-0.6); Monocytes Percent Auto 9.5 % (2.6-8.5); Neutrophils Absolute Auto 11.8 K/mm3 (1.3-6.7); Neutrophils Percent Auto 82.7 % (45.5-73.1); Platelet Count Result 472 k/mm3 (150-375); Red Blood Count 3.58 M/mm3 (4.6-6.20); Red Cell Distribution Width 19.9 % (11.5-14.5); White Blood Count 14.2 K/mm3 (4.5-10.0)
[2022-06-27] MEDS: MORPHINE SULFATE (*CRX) 2 MG/ML INJ IV PUSH (05:49)
[2022-06-27 05:53] LABS: Alanine Aminotransferase 13 U/L (6-50); Albumin Level 3.5 g/dL (3.5-5.1); Alkaline Phosphatase 616 U/L (38-126); Anion Gap 10 mmol/L (8-16); Aspartate Amino Transferase 22 U/L (17-59); Bilirubin,Total 0.7 mg/dL (0.2-1.3); Blood Urea Nitrogen 17 mg/dL (9-20); Calcium 9.7 mg/dL (8.4-10.2); Carbon Dioxide 24 mmol/L (22-30); Chloride 97 mmol/L (98-107); Estimated CRCL calculation 67 ml/min; Estimated Glomerular Filt Rate > 60; Glucose 134 mg/dL (65-110); Magnesium 2.2 mg/dL (1.6-2.3); Potassium 3.9 mmol/L (3.4-5.0); Sodium 131 mmol/L (137-145)
[2022-06-27 05:58] VITALS: BP 143/87; PULSE 110; RESP 18; TEMP 36.2; O2SAT 98
--- NOTE | 2022-06-27 07:18 | WPDURCON ---
Assessment and Plan Assessment and plan (1) Prostate cancer metastatic to bone: Code(s): C61 - Malignant neoplasm of prostate; C79.51 - Secondary malignant neoplasm of bone Status: Acute (2) Urinary retention: Code(s): R33.9 - Retention of urine, unspecified Status: Acute Assessment and Plan: Check PSA Change Horne catheter Long-term care for metastatic prostate cancer and urinary retention with Dr. West Gonzalez in [facility] Consult Note HPI Date Seen: 06/27/22 Requesting Physician: Chris Nair MD Primary Care Provider: Ayan Lane, Consult Narrative Narrative: [place] is a 51 year old male known to our practice and cared for at our [place] office primarily by Dr. West Gonzalez. HeIs a difficult patient to care for because of his noncompliance He has several urological issues to attend to A. He has been diagnosed with metastatic prostate cancer. He had been known to have a markedly elevated PSA greater than 400 and during an admission at [facility] in March 2022 was found to have bone metastases. At that time a prostate biopsy demonstrated extensive high-grade prostate cancer. His care should include androgen deprivation and AR inhibitors. Uncertain as to the status of his care at the outside facility. B. 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 At some point he would benefit from urodynamics. C. he is currently admitted through the ER with pelvic and groin pain. This is likely due to a catheter that is not draining. His CT scan shows incomplete bladder emptying with bilateral hydronephrosis and there was no urinary drainage in his bag currently. Review of Systems Cardiovascular: Cardiovascular: Denies chest pain, Denies lightheadedness, Denies palpitations and Denies dyspnea Respiratory: Respiratory: Denies dyspnea Gastrointestinal: Gastrointestinal: Reports abdominal pain, Denies diarrhea, Denies nausea and Denies vomiting Genitourinary: Genitourinary: Denies hematuria and Denies dysuria Endocrine: Endocrine: Denies palpitations PMFSH Past Medical History Medical History (Updated 06/26/22 @ 23:27 by Francheska Corona NP) BPH (benign prostatic hyperplasia) Cataract COPD (chronic obstructive pulmonary disease) CVA (cerebral vascular accident) Hyperlipidemia due to dietary fat intake Prostate cancer metastatic to bone Urinary tract infection Surgical History Surgical History (Updated 06/26/22 @ 23:27 by Francheska Corona NP) H/O cataract extraction H/O eye surgery History of spinal surgery History of tonsillectomy and adenoidectomy S/P TURP Family History Family History Unknown No problems noted. Social History Social History (Updated 06/26/22 @ 23:20 by Francheska Corona NP) Social History: The patient now lives with his brother and [id number]. He is and has 2 daughters. He is disabled. He is a former smoker. He does not use any alcohol marijuana or illicit drugs. His brother is his durable power document review attorney for healthcare. Code status full code Smoking status: Former smoker Second hand tobacco smoke exposure: No Alcohol intake: former Substance use: never Spiritual care concerns: No Meds Home Medications and Allergies Home Medications Medication Instructions Recorded Confirmed Type albuterol sulfate 90 mcg/actuation 2 inh inhalation Q6-8H PRN 03/03/22 06/26/22 History aerosol inhaler Shortness Of Breath Or Wheezing apixaban 5 mg tablet (Eliquis) 5 mg PO BID 05/12/22 06/26/22 History ascorbate calcium (vitamin C) 500 500 mg PO BID 05/12/22 06/26/22 History mg capsule atorvastatin 40 mg tablet 80 mg PO HS 05/12/22 06/26/22 History clopidogrel 75 mg tablet (Plavix) 75 mg PO QAM 05/12/22 06/26/22 History cyclobenzaprine 10 mg tablet 10 mg PO TID 05/12/22
[2022-06-27] MEDS: FLUTICASONE/SALMETEROL 230-21 MCG INHALER 1 PUFF 2 PUFF INHALATION ×2 (08:07→20:14)
[2022-06-27 08:08] VITALS: O2SAT 94
[2022-06-27 08:19] LABS: Prostate Specific Antigen > 100.0 ng/mL (< OR = 4.0)
[2022-06-27] MEDS: oxyCODONE/ACETAMINOPHEN (*CRX) 5-325 MG TABLET 1 TABLET PO (08:52)
[2022-06-27] MEDS: APIXABAN 5 MG TABLET PO ×2 (08:53→21:20)
[2022-06-27] MEDS: FERROUS SULFATE 324 MG TABLET PO ×2 (08:53→16:10)
[2022-06-27] MEDS: LACTULOSE 20 GM/30 ML UDC 10 GM PO ×2 (08:53→14:38)
[2022-06-27] MEDS: ASCORBIC ACID 500 MG TABLET PO ×2 (08:53→16:10)
[2022-06-27] MEDS: CLOPIDOGREL BISULFATE 75 MG TABLET PO (08:54)
[2022-06-27] MEDS: POTASSIUM CHLORIDE 20 MEQ TABLET.ER 40 MEQ PO (08:54)
[2022-06-27] MEDS: FUROSEMIDE 20 MG TABLET PO (08:55)
[2022-06-27] MEDS: GABAPENTIN 100 MG CAPSULE 200 MG PO ×3 (08:55→16:11)
[2022-06-27] MEDS: SENNA/DOCUSATE SODIUM TABLET 1 TAB PO ×2 (08:55→16:10)
[2022-06-27] MEDS: CYCLOBENZAPRINE HCL 10 MG TABLET PO ×3 (10:44→16:11)
--- NOTE | 2022-06-27 11:00 | PM.IMPN ---
Progress Note: A&P Assessment and Plan (1) Acute UTI: Code(s): N39.0 - Urinary tract infection, site not specified Status: Acute Assessment and Plan: -urinary catheter changed -Urine is daily cloudy and thick in nature -Continue ceftriaxone at this time -Urine culture pending -Adjust antibiotics to urine culture sensitivities (2) CVA (cerebral vascular accident): Code(s): I63.9 - Cerebral infarction, unspecified Status: Chronic Assessment and Plan: -Head CT from 05/2022 Posterior left temporal, parietal and occipital infarct, subacute or old, within middle cerebral artery territory Cerebral atherosclerosis and chronic small vessel ischemic changes of the cerebral white matter -patient recently went to a rehab facility and ran out of days for insurance and is now living with his brother and [id number]. -continue with Plavix and atorvastatin (3) Hyperlipidemia due to dietary fat intake: Code(s): E78.49 - Other hyperlipidemia Status: Acute Assessment and Plan: -continue with Lipitor (4) Urinary retention: Code(s): R33.9 - Retention of urine, unspecified Status: Acute Assessment and Plan: -the patient has a chronic indwelling Horne catheter. -Chronic finding -Urology following -Trend urine output (5) BPH (benign prostatic hyperplasia): Code(s): N40.0 - Benign prostatic hyperplasia without lower urinary tract symptoms Status: Acute Assessment and Plan: -the patient has had a history of having prostate cancer in the past and had a TURP. -he now has a chronic indwelling Horne catheter. -Urology following (6) COPD (chronic obstructive pulmonary disease): Code(s): J44.9 - Chronic obstructive pulmonary disease, unspecified Status: Acute Assessment and Plan: -continue with patient albuterol -continue with Breo Ellipta -Not in an acute exacerbation (7) Prostate cancer metastatic to bone: Code(s): C61 - Malignant neoplasm of prostate; C79.51 - Secondary malignant neoplasm of bone Status: Acute Assessment and Plan: -the patient had a chest x-ray today that was read as the followin Bilateral sclerotic lesions of the ribs, suspicious for metastases. 2: Improving bibasilar infiltrates which may represent atelectasis or scarring. Residual pneumonia less favored. 3: Persistent bilateral pleural thickening, nonspecific. -chest x-ray from last month shows mild infiltrate or atelectasis at lung bases however there was no mention of lytic lesions on the ribs. -I did order CT of the chest abdomen and pelvis to determine metastasis -the patient was seen by Urology and Oncology outpatient. -Urology once again has been consulted. (8) Low back pain: Code(s): M54.50 - Low back pain, unspecified Status: Acute Assessment and Plan: -continue with Percocet that he takes at home. -continue with gabapentin (9) Decubitus ulcer of sacral area: Qualifiers: Pressure injury stage: unspecified pressure injury stage Qualified Code(s): L89.159 - Pressure ulcer of sacral region, unspecified stage Code(s): L89.159 - Pressure ulcer of sacral region, unspecified stage Status: Acute Assessment and Plan: -wound care consult would be placed. -continue with santal. -Wound care and dressing changes per wound care Time Spent With Patient Time with patient: Greater than 35 minutes Subjective Date/time seen: 06/27/22 11:00 Interval history: 06/27/22 1100 Patient seems to be doing well today. He denies any chest pain, shortness a breath, nausea, vomiting, diarrhea, constipation, weakness or fatigue. He did state that he was on growing pain however it has subsided. He also had his urinary catheter changed and it drained about a L of cloudy sediment daily urine. Urine was sent for culture.
[2022-06-27 14:12] VITALS: BMI 28.4
[2022-06-27 14:32] VITALS: BP 104/60; PULSE 110; RESP 18; TEMP 37.1; O2SAT 96
[2022-06-27 20:14] VITALS: O2SAT 95
[2022-06-27] MEDS: ATORVASTATIN 40 MG TABLET 80 MG PO (21:20)
[2022-06-27] MEDS: MIRTAZAPINE 15 MG TABLET PO (21:20)
[2022-06-27 22:00] VITALS: BP 100/57; PULSE 112; RESP 16; TEMP 36.9; O2SAT 99
[2022-06-28] VITALS (7 sets, daily range): BP systolic 102–110; BP diastolic 53–62; PULSE 78–124; RESP 14–20; TEMP 36.7–37.3; O2SAT 94–99
[2022-06-28 05:37] LABS: Basophils Absolute Auto 0.1 K/mm3 (0.0-0.1); Basophils Percent Auto 0.9 % (0.2-1.2); Eosinophils Absolute Auto 0.2 K/mm3 (0-0.3); Eosinophils Percent Auto 1.9 % (0-4.4); Hematocrit 29.8 % (42.0-52.0); Hemoglobin 9.1 g/dL (14.0-18.0); Immature Granulocyte Absolute 0.13 K/mm3 (0.00-0.031); Immature Granulocyte Percent A 1.3 % (0-0.5); Lymphocytes Absolute Auto 1.43 K/mm3 (0.9-3.2); Lymphocytes Percent Auto 14.2 % (18.3-44.2); Mean Corpuscular HGB Conc 30.5 g/dl (32-36); Mean Corpuscular Hemoglobin 29.7 pg (26-34); Mean Corpuscular Volume 97.4 fl (80-100); Mean Platelet Volume 9.2 fl (7.4-10.4); Monocytes Absolute Auto 1.1 K/mm3 (0.1-0.6); Monocytes Percent Auto 10.8 % (2.6-8.5); Neutrophils Absolute Auto 7.2 K/mm3 (1.3-6.7); Neutrophils Percent Auto 70.9 % (45.5-73.1); Platelet Count Result 422 k/mm3 (150-375); Red Blood Count 3.06 M/mm3 (4.6-6.20); White Blood Count 10.1 K/mm3 (4.5-10.0)
[2022-06-28 05:49] LABS: Alanine Aminotransferase 12 U/L (6-50); Alkaline Phosphatase 478 U/L (38-126); Anion Gap 7 mmol/L (8-16); Aspartate Amino Transferase 26 U/L (17-59); Bilirubin,Total 0.5 mg/dL (0.2-1.3); Blood Urea Nitrogen 15 mg/dL (9-20); Calcium 9.5 mg/dL (8.4-10.2); Carbon Dioxide 26 mmol/L (22-30); Chloride 102 mmol/L (98-107); Estimated CRCL calculation 73 ml/min; Estimated Glomerular Filt Rate > 60; Glucose 102 mg/dL (65-110); Magnesium 2.3 mg/dL (1.6-2.3); Potassium 3.7 mmol/L (3.4-5.0); Sodium 135 mmol/L (137-145)
--- NOTE | 2022-06-28 07:09 | WPDUROPN2 ---
Progress Note: A&P Assessment and Plan (1) Prostate cancer metastatic to bone: Code(s): C61 - Malignant neoplasm of prostate; C79.51 - Secondary malignant neoplasm of bone Status: Acute Assessment and Plan: Known metastatic prostate cancer with widespread maureen mets. Care, if he decides to comply, will need to be deliver thru Dr. West Gonzalez at our [place] [facility] - only our physicans at that office are on his insurance plan. Care should consist of androgen deprevation and AR inhibitor -> can be effective if he opts to treat. PSA >100 suggest he's not been compliant. (2) Urinary retention: Code(s): R33.9 - Retention of urine, unspecified Status: Acute Assessment and Plan: Atonic bladder / needs chronic indwelling Horne. Catheter changed and now draining well. Will repeat renal u/s to look for improvement. Subjective Subjective Date/Time Seen: 06/28/22 07:09 Catheter replaced and draining well. Pelvic/groin discomfort improved Review of Systems Cardiovascular: Cardiovascular: Denies chest pain, Denies lightheadedness, Denies palpitations and Denies dyspnea Respiratory: Respiratory: Denies dyspnea Gastrointestinal: Gastrointestinal: Denies diarrhea, Denies nausea and Denies vomiting Genitourinary: Genitourinary: Denies hematuria and Denies dysuria Endocrine: Endocrine: Denies palpitations Exam Const: General: no acute distress Resp: Effort & Inspection: normal respiratory effort GI: Inspection: non-distended GI Palp: No abdominal tenderness and No Guarding due to palpation present (GI) Auscultation: normal bowel sounds Urinary Catheter: Urinary Catheter: patent and draining and urine clear Objective Data Vital Signs Vital Signs: Vital Signs - 24 hr 06/27/22 08:08 06/27/22 14:32 06/27/22 20:14 Temperature 98.7 F Pulse Rate 110 H Respiratory Rate 18 Blood Pressure 104/60 Pulse Oximetry 94 96 95 Oxygen Delivery Nasal Cannula Nasal Cannula Oxygen Flow Rate 3.5 3.5 06/27/22 22:00 06/28/22 06:00 Temperature 98.4 F 99.1 F Pulse Rate 112 H 124 H Respiratory Rate 16 20 Blood Pressure 100/57 L 107/56 L Pulse Oximetry 99 94 Oxygen Delivery Oxygen Flow Rate Intake/Output Intake/Output: Intake & Output 06/25/22 06/26/22 06/27/22 09/23/22 23:59 23:59 23:59 23:59 Intake Total 50 1818 Output Total 4211 821 Balance 42 -503 -120 Meds/Results Medications: Active Medications Generic Name Dose Route Start Last Admin Trade Name Freq PRN Reason Stop Dose Admin Albuterol 2 puff 06/26/22 23:28 Albuterol Sulfate (*Sp) Aerosol 1 Puff INHALATION Q6-8H PRN Shortness Of Breath Or Wheezing Apixaban 5 mg 06/27/22 09:00 06/27/22 21:20 Apixaban 5 Mg Tablet PO 5 mg Q12HR NAWAF Administration Ascorbic Acid 500 mg 06/27/22 09:00 06/27/22 16:10 Ascorbic Acid 500 Mg Tablet PO 500 mg BID NAWAF Administration Atorvastatin Calcium 80 mg 06/26/22 23:35 06/27/22 21:20 Atorvastatin 40 Mg Tablet PO 80 mg HS NAWAF Administration Clopidogrel Bisulfate 75 mg 06/27/22 09:00 06/27/22 08:54 Clopidogrel Bisulfate 75 Mg Tablet PO 75 mg QAM NAWAF Administration Cyclobenzaprine HCl 10 mg 06/27/22 09:00 06/27/22 16:11 Cyclobenzaprine Hcl 10 Mg Tablet PO 10 mg TID NAWAF Administration Ferrous Sulfate 324 mg 06/27/22 08:30 06/27/22 16:10 Ferrous Sulfate 324 Mg Tablet PO 324 mg 0830,1630 NAWAF Administration Furosemide 20 mg 06/27/22 09:00 06/27/22 08:55 Furosemide 20 Mg Tablet PO 20 mg QAM NAWAF Administration Gabapentin 200 mg 06/27/22 09:00 06/27/22 16:11 Gabapentin 100 Mg Capsule PO 200 mg TID NAWAF Administration Ceftriaxone Sodium/Dextrose 1 gm in 50 mls @ 100 mls/hr 06/27/22 18:00 06/27/22 17:44 Rocephin 1 Gm/D5w 50 Ml IVPB Infused Q24H NAWAF Infusion Lactulose 10 gm 06/27/22 08:00 06/27/22 14:38 Lactulose 20 Gm/30 Ml Udc PO 10 gm
[2022-06-28] MEDS: FLUTICASONE/SALMETEROL 230-21 MCG INHALER 1 PUFF 2 PUFF INHALATION ×2 (08:15→20:30)
[2022-06-28] MEDS: CYCLOBENZAPRINE HCL 10 MG TABLET PO ×3 (10:02→16:54)
[2022-06-28] MEDS: GABAPENTIN 100 MG CAPSULE 200 MG PO ×3 (10:03→16:54)
[2022-06-28] MEDS: SODIUM CHLORIDE 0.9% IV 500 ML IV CONT (10:03)
[2022-06-28] MEDS: AMOXICILLIN/CLAVULANATE K 875-125 MG TAB 1 TABLET PO ×2 (10:03→21:45)
[2022-06-28] MEDS: APIXABAN 5 MG TABLET PO ×2 (10:03→21:45)
[2022-06-28] MEDS: LACTULOSE 20 GM/30 ML UDC 10 GM PO ×2 (10:04→13:29)
[2022-06-28] MEDS: POTASSIUM CHLORIDE 20 MEQ TABLET.ER 40 MEQ PO (10:04)
[2022-06-28] MEDS: FUROSEMIDE 20 MG TABLET PO (10:04)
[2022-06-28] MEDS: ASCORBIC ACID 500 MG TABLET PO ×2 (10:04→16:53)
[2022-06-28] MEDS: CLOPIDOGREL BISULFATE 75 MG TABLET PO (10:04)
[2022-06-28] MEDS: FERROUS SULFATE 324 MG TABLET PO ×2 (10:04→16:53)
[2022-06-28] MEDS: SENNA/DOCUSATE SODIUM TABLET 1 TAB PO ×2 (10:04→16:53)
--- NOTE | 2022-06-28 10:15 | PM.IMPN ---
Progress Note: A&P Assessment and Plan (1) Acute UTI: Code(s): N39.0 - Urinary tract infection, site not specified Status: Acute Assessment and Plan: -urinary catheter changed -Urine is daily cloudy and thick in nature -Change ceftriaxone to Augmentin -Urine culture grew enterococcus (2) CVA (cerebral vascular accident): Code(s): I63.9 - Cerebral infarction, unspecified Status: Chronic Assessment and Plan: -Head CT from 05/2022 Posterior left temporal, parietal and occipital infarct, subacute or old, within middle cerebral artery territory Cerebral atherosclerosis and chronic small vessel ischemic changes of the cerebral white matter -patient recently went to a rehab facility and ran out of days for insurance and is now living with his brother and [id number]. -continue with Plavix and atorvastatin (3) Hyperlipidemia due to dietary fat intake: Code(s): E78.49 - Other hyperlipidemia Status: Acute Assessment and Plan: -continue with Lipitor (4) Urinary retention: Code(s): R33.9 - Retention of urine, unspecified Status: Acute Assessment and Plan: -the patient has a chronic indwelling Horne catheter. -Chronic finding -Urology following -Trend urine output (5) BPH (benign prostatic hyperplasia): Code(s): N40.0 - Benign prostatic hyperplasia without lower urinary tract symptoms Status: Acute Assessment and Plan: -the patient has had a history of having prostate cancer in the past and had a TURP. -he now has a chronic indwelling Horne catheter. -Urology following (6) COPD (chronic obstructive pulmonary disease): Code(s): J44.9 - Chronic obstructive pulmonary disease, unspecified Status: Acute Assessment and Plan: -continue with patient albuterol -continue with Breo Ellipta -Not in an acute exacerbation (7) Prostate cancer metastatic to bone: Code(s): C61 - Malignant neoplasm of prostate; C79.51 - Secondary malignant neoplasm of bone Status: Acute Assessment and Plan: -the patient had a chest x-ray today that was read as the followin Bilateral sclerotic lesions of the ribs, suspicious for metastases. 2: Improving bibasilar infiltrates which may represent atelectasis or scarring. Residual pneumonia less favored. 3: Persistent bilateral pleural thickening, nonspecific. -chest x-ray from last month shows mild infiltrate or atelectasis at lung bases however there was no mention of lytic lesions on the ribs. -I did order CT of the chest abdomen and pelvis to determine metastasis -the patient was seen by Urology and Oncology outpatient. -Urology once again has been consulted. (8) Low back pain: Code(s): M54.50 - Low back pain, unspecified Status: Acute Assessment and Plan: -continue with Percocet that he takes at home. -continue with gabapentin (9) Decubitus ulcer of sacral area: Qualifiers: Pressure injury stage: unspecified pressure injury stage Qualified Code(s): L89.159 - Pressure ulcer of sacral region, unspecified stage Code(s): L89.159 - Pressure ulcer of sacral region, unspecified stage Status: Acute Assessment and Plan: -wound care consult would be placed. -continue with santal. -Wound care and dressing changes per wound care (10) Tachycardia: Code(s): R00.0 - Tachycardia, unspecified Status: Acute Assessment and Plan: HR current 94 Could be from dehydration, since he had a large amount of drainage with catheter change Bolus 500ml once Trend heart rate Time Spent With Patient Time with patient: Greater than 35 minutes Subjective Date/time seen: 06/28/22 1015 Interval history: 06/28/22 1015 Patient was lying in bed any feels comfortable today. He has no complaints. He denies any chest pain, shortness
--- NOTE | 2022-06-28 15:52 | P.CDI_ITS ---
CDI Query Clarification Request Risk Factors: UTI, Prostate cancer, urinary retention due to BPH and presumably atonic bladder following CVA. Clinical Indicators: UC grew enterococcus > 100,000 CFU/mL, chronic hernandez catheter. Treatment: IV Rocephin, PO Amoxicillin. UTI has been documented, chronic indwelling hernandez catheter documented. Please clarify if UTI is: * due to/associated with chronic indwelling hernandez catheter * not due to/associated with chronic indwelling hernandez catheter * unable to determine <ANGEL Wadsworth - Last Filed: 06/28/22 15:58> Clarified Diagnosis (1) Acute UTI: Code(s): N39.0 - Urinary tract infection, site not specified <ANGEL Wadsworth - Last Filed: 06/28/22 15:58> Status: Acute <ANGEL Wadsworth - Last Filed: 06/28/22 15:58> Assessment and Plan: UTI Probably associated to chronic catheter <SILAS Pino - Last Filed: 06/28/22 16:23>
[2022-06-28] MEDS: MIRTAZAPINE 15 MG TABLET PO (21:45)
[2022-06-28] MEDS: ATORVASTATIN 40 MG TABLET 80 MG PO (21:46)
[2022-06-29 05:58] LABS: Basophils Absolute Auto 0.1 K/mm3 (0.0-0.1); Basophils Percent Auto 0.6 % (0.2-1.2); Eosinophils Absolute Auto 0.3 K/mm3 (0-0.3); Eosinophils Percent Auto 2.7 % (0-4.4); Hematocrit 28.5 % (42.0-52.0); Hemoglobin 8.4 g/dL (14.0-18.0); Immature Granulocyte Absolute 0.16 K/mm3 (0.00-0.031); Immature Granulocyte Percent A 1.7 % (0-0.5); Lymphocytes Absolute Auto 1.56 K/mm3 (0.9-3.2); Lymphocytes Percent Auto 16.5 % (18.3-44.2); Mean Corpuscular HGB Conc 29.5 g/dl (32-36); Mean Corpuscular Hemoglobin 29.2 pg (26-34); Mean Platelet Volume 9.3 fl (7.4-10.4); Monocytes Absolute Auto 0.9 K/mm3 (0.1-0.6); Monocytes Percent Auto 9.3 % (2.6-8.5); Neutrophils Absolute Auto 6.6 K/mm3 (1.3-6.7); Neutrophils Percent Auto 69.2 % (45.5-73.1); Platelet Count Result 386 k/mm3 (150-375); Red Blood Count 2.88 M/mm3 (4.6-6.20); White Blood Count 9.5 K/mm3 (4.5-10.0)
[2022-06-29 06:00] VITALS: BP 116/67; PULSE 108; RESP 18; TEMP 36.5; O2SAT 100
[2022-06-29 06:10] LABS: Alanine Aminotransferase 14 U/L (6-50); Albumin Level 2.9 g/dL (3.5-5.1); Alkaline Phosphatase 381 U/L (38-126); Anion Gap 10 mmol/L (8-16); Aspartate Amino Transferase 24 U/L (17-59); Bilirubin,Total 0.3 mg/dL (0.2-1.3); Blood Urea Nitrogen 16 mg/dL (9-20); Calcium 8.8 mg/dL (8.4-10.2); Carbon Dioxide 26 mmol/L (22-30); Chloride 102 mmol/L (98-107); Estimated CRCL calculation 90 ml/min; Estimated Glomerular Filt Rate > 60; Glucose 116 mg/dL (65-110); Potassium 3.2 mmol/L (3.4-5.0); Sodium 138 mmol/L (137-145)
[2022-06-29 06:52] LABS: Anisocytosis 2+ (NORMAL); Platelet Estimate Increased (Adequate)
[2022-06-29 06:53] LABS: Schistocytes None Seen (NORMAL)
[2022-06-29 06:56] LABS: Hypochromasia 1+ (NORMAL)
[2022-06-29] MEDS: FLUTICASONE/SALMETEROL 230-21 MCG INHALER 1 PUFF 2 PUFF INHALATION (08:40)
[2022-06-29 08:41] VITALS: PULSE 74; RESP 20; O2SAT 95
--- NOTE | 2022-06-29 10:30 | PM.DS ---
DS: Admitting Diagnosis Discharge Date 06/29/22 1030 Admitting Diagnosis UTI DS: Discharge Diagnosis Discharge Diagnosis (1) CVA (cerebral vascular accident): Code(s): I63.9 - Cerebral infarction, unspecified Status: Chronic Assessment and Plan: -Head CT from 05/2022?Posterior left temporal, parietal and occipital infarct, subacute or old, within middle cerebral artery territory Cerebral atherosclerosis and chronic small vessel ischemic changes of the cerebral white matter -patient recently went to a rehab facility and ran out of days for insurance and is now living with his brother and [id number]. -continue with Plavix and atorvastatin (2) Acute UTI: Code(s): N39.0 - Urinary tract infection, site not specified Status: Acute Assessment and Plan: -urinary catheter changed -Urine is daily cloudy and thick in nature -Change ceftriaxone to Augmentin -Urine culture grew enterococcus (3) Hyperlipidemia due to dietary fat intake: Code(s): E78.49 - Other hyperlipidemia Status: Acute Assessment and Plan: -continue with Lipitor (4) Urinary retention: Code(s): R33.9 - Retention of urine, unspecified Status: Acute Assessment and Plan: -the patient has a chronic indwelling Horne catheter. -Chronic finding -Urology following -Trend urine output (5) BPH (benign prostatic hyperplasia): Code(s): N40.0 - Benign prostatic hyperplasia without lower urinary tract symptoms Status: Acute Assessment and Plan: -the patient has had a history of having prostate cancer in the past and had a TURP. -he now has a chronic indwelling Horne catheter. -Urology following (6) COPD (chronic obstructive pulmonary disease): Code(s): J44.9 - Chronic obstructive pulmonary disease, unspecified Status: Acute Assessment and Plan: -continue with patient albuterol -continue with Breo Ellipta -Not in an acute exacerbation (7) Prostate cancer metastatic to bone: Code(s): C61 - Malignant neoplasm of prostate; C79.51 - Secondary malignant neoplasm of bone Status: Acute Assessment and Plan: -the patient had a chest x-ray today that was read as the followin Bilateral sclerotic lesions of the ribs, suspicious for metastases. 2: Improving bibasilar infiltrates which may represent atelectasis or scarring. Residual pneumonia less favored. 3: Persistent bilateral pleural thickening, nonspecific. -chest x-ray from last month shows mild infiltrate or atelectasis at lung bases however there was no mention of lytic lesions on the ribs. -I did order CT of the chest abdomen and pelvis to determine metastasis -the patient was seen by Urology and Oncology outpatient. -Urology once again has been consulted. (8) Low back pain: Code(s): M54.50 - Low back pain, unspecified Status: Acute Assessment and Plan: -continue with Percocet that he takes at home. -continue with gabapentin (9) Decubitus ulcer of sacral area: Qualifiers: Pressure injury stage: unspecified pressure injury stage Qualified Code(s): L89.159 - Pressure ulcer of sacral region, unspecified stage Code(s): L89.159 - Pressure ulcer of sacral region, unspecified stage Status: Acute Assessment and Plan: -wound care consult would be placed. -continue with santal. -Wound care and dressing changes per wound care (10) Tachycardia: Code(s): R00.0 - Tachycardia, unspecified Status: Acute Assessment and Plan: HR current 94 Could be from dehydration, since he had a large amount of drainage with catheter change Bolus 500ml once Trend heart rate DS: Summary Hospital Course Hospital Course: patient is a 51-year-old male with a past medical history of BPH, CVA, hyperlipidemia, prostate cancer who presented to the ED with c
[2022-06-29] MEDS: CYCLOBENZAPRINE HCL 10 MG TABLET PO ×2 (10:31→13:00)
[2022-06-29] MEDS: CLOPIDOGREL BISULFATE 75 MG TABLET PO (10:31)
[2022-06-29] MEDS: APIXABAN 5 MG TABLET PO (10:31)
[2022-06-29] MEDS: ASCORBIC ACID 500 MG TABLET PO (10:31)
[2022-06-29] MEDS: GABAPENTIN 100 MG CAPSULE 200 MG PO ×2 (10:31→13:00)
[2022-06-29] MEDS: AMOXICILLIN/CLAVULANATE K 875-125 MG TAB 1 TABLET PO (10:31)
[2022-06-29] MEDS: SENNA/DOCUSATE SODIUM TABLET 1 TAB PO (10:31)
[2022-06-29] MEDS: FUROSEMIDE 20 MG TABLET PO (10:31)
[2022-06-29] MEDS: FERROUS SULFATE 324 MG TABLET PO (10:32)
[2022-06-29] MEDS: POTASSIUM CHLORIDE 20 MEQ TABLET.ER 40 MEQ PO (10:32)
[2022-06-29] MEDS: LACTULOSE 20 GM/30 ML UDC 10 GM PO (10:32)
[2022-06-29] MEDS: oxyCODONE/ACETAMINOPHEN (*CRX) 5-325 MG TABLET 1 TABLET PO (10:36)
[2022-06-29] MEDS: AZITHROMYCIN 250 MG TABLET 500 MG PO (14:30)
== END 2022-06-29 16:00 | disposition home or self-care (01) | DRG 690 ==
LOC: ANHED 19:23 → ANH3MED 20:53
PROVIDERS: Nurse Practitioner; Urology; Admitting Provider Internal Medicine; Emergency Provider Emergency Medicine; PCP Internal Medicine; Visit Provider Nurse Practitioner
DX: N39.0 Urinary tract infection, site not specified (principal); C79.51 Secondary malignant neoplasm of bone; C61 Malignant neoplasm of prostate; N40.1 Benign prostatic hyperplasia with lower urinary tract symptoms; R33.8 Other retention of urine; B95.2 Enterococcus as the cause of diseases classified elsewhere; E78.49 Other hyperlipidemia; J44.9 Chronic obstructive pulmonary disease, unspecified; M54.50 Low back pain, unspecified; L89.159 Pressure ulcer of sacral region, unspecified stage; R00.0 Tachycardia, unspecified; Z86.73 Personal history of transient ischemic attack (TIA), and cerebral infarction without residual deficits; Z87.891 Personal history of nicotine dependence; Z91.19 Patient's noncompliance with other medical treatment and regimen
CPT/HCPCS: 36415; 71045; 71046; 74176; 76775; 80053; 81001; 83605; 83735; 84153; 85025; 85610; 85730; 86140; 87040; 87086; 87147; 87181; 87186; 94640; 96365; 96375; 99285; A9270; G0378; J0696; J2270; J7040

== ENCOUNTER 2022-07-22 11:36 | Emergency (ER) | payer OTHER, SELFPAY ==
--- NOTE | ~2022-07-22 | CT_ITS ---
EXAMINATION: CT abdomen pelvis w con DATE: 07/22/2022 13:09 INDICATION: Abdominal pain. Metastatic prostate cancer. TECHNIQUE: Computed tomography (CT) of the abdomen and pelvis was performed with 100 mL Omnipaque-350 intravenous contrast. Automated exposure control and iterative reconstruction technique were employe d. The dose-length product was 806.68 mGy-cm. COMPARISON: 06/27/2022 FINDINGS: Small bilateral posterior layering pleural effusions with dependent passive atelectasis with associat ed volume loss in the bilateral lower lobes. Mild emphysema. Mild cardiomegaly. No pericardial effusi on. No interval change in a couple subcentimeter low-attenuation likely hepatic cysts in the right he patic lobe. Gallbladder, spleen, pancreas and bilateral adrenal glands are normal. 2.3 cm exophytic c yst at the lower pole of the right kidney. There is mild left hydroureteronephrosis which extends caudally to the region of the distalmost left ureter where there is thickened enhancing urothelium along the distal most 2 cm the ureter concerning for metastatic prostate cancer. There is nodular enlargement of the prostate and nodular wall thicke cesar along the posterior base of the bladder. The some soft tissue density material, potentially clot , along with calcification along the peripheral margins of a Horne catheter bulb in the bladder. Mild stranding in the fat surrounding the bladder which could be due to cystitis. There are enlarged and prominently enhancing likely metastatic bilateral obturator and common, external and internal iliac l ymph node chains, the largest measuring 2.0 cm at a left external iliac lymph node which is increased from 1.7 cm the time of the prior study. The majority of the additional pelvic lymph nodes also appe ar slightly increased in size. There are a few additional suspicious mildly prominent but still subce ntimeter perirectal and inferior mesenteric chain lymph nodes also suspicious for metastatic disease. Bowels including the appendix are normal. Small fat-containing left inguinal hernia. No free intraper itoneal gas or fluid. There are multiple scattered mixed lytic and sclerotic bone lesions consistent with metastatic disease. There are few nondisplaced bilateral pathologic rib fractures. Lower thoraci c posterior spinal fusion with bilateral vertical steven and pedicle screw fixation at T8, T9, T11 and T 12 spanning the T10 vertebral body where there is prominent right posterior lytic lesion. Unchanged m ild superior endplate compression fracture at L2. No significant interval change in a deep left sacra l decubitus ulcer with associated underlying osteolysis at the inferior aspect of the left sacral ala consistent with chronic osteomyelitis. IMPRESSION: 1. Persistent mild left hydroureteronephrosis likely resulting from obstruction at the level of the d istal left ureter where there is 2.5 cm segment with wall thickening suspicious for metastatic prosta te cancer. 2. Enlarged nodular and heterogeneously enhancing prostate which appears to invade the bladder consis tent with known history of prostate cancer. 3. Numerous mixed lytic and sclerotic lesions of bone and mild increase in size of multiple bilateral pelvic lymph nodes consistent with progression of metastatic disease. Consistent with metastatic dis ease. 4. Stable appearance of a left sacral decubitus ulcer with associated chronic osteoarthritis. 5. Mild emphysema. 6. Small bilateral pleural effusions with dependent atelectasis in the bilateral lower lobes. Reviewed, dictated and finalized at location A. IMPRESSION: 1. Persistent mild left hydroureteronephrosis likely resulting from obstruction at the level of the distal left ureter where there is 2.5 cm segment with wall thickening
[2022-07-22 11:40] VITALS: BP 118/68; PULSE 106; RESP 16; TEMP 36.4; O2SAT 78
[2022-07-22 11:48] VITALS: O2SAT 98
--- NOTE | 2022-07-22 12:19 | ED.ABDPAIN ---
HPI - Abdominal Pain General Chief Complaint: Abdominal Pain Stated Complaint: abd pain Time Seen by Provider: 07/22/22 12:19 Source: patient and EMS Mode of arrival: EMS History of Present Illness HPI narrative: 51 years old white male came from home by ambulance complaining of lower abdominal pain for the last 3 days and blood in the Horne catheter. He denies any fever, chills, nausea, vomiting. History of stage IV prostatic cancer with bone metastasis. Last time Horne catheter was exchanged over 1 month ago. I was able to speak to the power of staff attorney, González Farnsworth, patient's cousin, who is telling me that hospice was discussed and the patient declined and would like to try chemotherapy and radiation therapy first and he is scheduled to see some oncologist on the of this month. He does not know the name or the location of that doctor. Patient moved in with his cousin on June 06. Home visiting nurse was scheduled to see the patient in 30 to 60 days, patient's cousin is able to manage to take care of of the decubitus ulcer at home. Patient is bedridden and wheelchair ridden Related Data Home Medications Medication Instructions Recorded Confirmed albuterol sulfate 90 mcg/actuation 2 inh inhalation Q6-8H PRN 03/03/22 06/26/22 aerosol inhaler Shortness Of Breath Or Wheezing apixaban 5 mg tablet (Eliquis) 5 mg PO BID 05/12/22 06/26/22 ascorbate calcium (vitamin C) 500 500 mg PO BID 05/12/22 06/26/22 mg capsule atorvastatin 40 mg tablet 80 mg PO HS 05/12/22 06/26/22 clopidogrel 75 mg tablet (Plavix) 75 mg PO QAM 05/12/22 06/26/22 cyclobenzaprine 10 mg tablet 10 mg PO TID 05/12/22 06/26/22 fluticasone furoate 200 1 inh inhalation QAM 05/12/22 06/26/22 mcg-vilanterol 25 mcg/dose inhalation powder (Breo Ellipta) furosemide 20 mg tablet (Lasix) 20 mg PO QAM 05/12/22 06/26/22 lactulose 10 gram/15 mL oral 15 ml PO BID 05/12/22 06/26/22 solution mirtazapine 15 mg tablet (Remeron) 15 mg PO HS 05/12/22 06/26/22 collagenase clostridium histo. 250 1 applic topical DAILY 06/26/22 06/26/22 unit/gram topical ointment (Santyl) ferrous sulfate 325 mg (65 mg 325 mg PO BID 06/26/22 06/26/22 iron) tablet (Iron (ferrous sulfate)) gabapentin 100 mg tablet 200 mg PO TID 06/26/22 06/26/22 oxycodone-acetaminophen 5 mg-325 1 tablet PO Q6H PRN pain 06/26/22 06/26/22 mg tablet (Percocet) potassium chloride 20 mEq 40 meq PO QAM 06/26/22 06/26/22 tablet,extended release (K-Tab) sennosides 8.6 mg-docusate sodium 1 tab-cap PO BID 06/26/22 06/26/22 50 mg capsule (Senna Plus) Allergies Allergy/AdvReac Type Severity Reaction Status Date / Time No Known Allergies Allergy Unverified 03/07/17 10:47 Review of Systems Review of Systems: All systems reviewed & are unremarkable except as noted in HPI and below PMFSH Past Medical History Medical History BPH (benign prostatic hyperplasia) Cataract COPD (chronic obstructive pulmonary disease) CVA (cerebral vascular accident) Hyperlipidemia due to dietary fat intake Prostate cancer metastatic to bone Urinary tract infection Surgical History Surgical History H/O cataract extraction H/O eye surgery History of spinal surgery History of tonsillectomy and adenoidectomy S/P TURP Family History Family History Unknown No problems noted. Social History Social History Social History: The patient now lives with his brother and [id number]. He is and has 2 daughters. He is disabled. He is a former smoker. He does not use any alcohol marijuana or illicit drugs. His brother is his durable power staff attorney for healthcare. Code status full code Smoking status: Former smoker Second hand tobacco smoke exposure: No Alcohol intake: former Substance us
[2022-07-22 12:27] LABS: Add Urine Microscopic? YES; Appearance Urine Cloudy (Clear); Bilirubin Urine Negative (Negative); Blood Urine 3+ (Negative); Color Urine Red (Yellow); Glucose Urine UA 1+ mg/dL (Negative); Ketones Urine Negative (Negative); Leukocyte Esterase Ur Negative LEU/UL (Negative); Nitrate Urine Negative (Negative); Protein Urine 2+ mg/dL (Negative); RBC Urine >75 /hpf (0-2); Specific Grav Ur 1.017 (1.001-1.035); Urobilinogen Urine Negative mg/dL (<2.0)
[2022-07-22 12:50] LABS: Alanine Aminotransferase 13 U/L (6-50); Albumin Level 3.7 g/dL (3.5-5.1); Alkaline Phosphatase 623 U/L (38-126); Anion Gap 5 mmol/L (8-16); Aspartate Amino Transferase 24 U/L (17-59); Bilirubin,Total 0.5 mg/dL (0.2-1.3); Blood Urea Nitrogen 10 mg/dL (9-20); Carbon Dioxide 32 mmol/L (22-30); Chloride 97 mmol/L (98-107); Estimated Glomerular Filt Rate > 60; Glucose 108 mg/dL (65-110); Lipase 19 U/L (23-300); Potassium 3.7 mmol/L (3.4-5.0); Sodium 134 mmol/L (137-145)
[2022-07-22 12:52] LABS: Basophils Absolute Auto 0.1 K/mm3 (0.0-0.1); Eosinophils Absolute Auto 0.3 K/mm3 (0-0.3); Eosinophils Percent Auto 2.9 % (0-4.4); Hemoglobin 9.7 g/dL (14.0-18.0); Immature Granulocyte Absolute 0.32 K/mm3 (0.00-0.031); Immature Granulocyte Percent A 2.9 % (0-0.5); Lymphocytes Percent Auto 12.6 % (18.3-44.2); Mean Corpuscular HGB Conc 29.4 g/dl (32-36); Mean Corpuscular Hemoglobin 29.9 pg (26-34); Mean Corpuscular Volume 101.9 fl (80-100); Mean Platelet Volume 10.2 fl (7.4-10.4); Monocytes Absolute Auto 0.6 K/mm3 (0.1-0.6); Monocytes Percent Auto 5.6 % (2.6-8.5); Neutrophils Absolute Auto 8.3 K/mm3 (1.3-6.7); Platelet Count Result 273 k/mm3 (150-375); Red Blood Count 3.24 M/mm3 (4.6-6.20); Red Cell Distribution Width 18.6 % (11.5-14.5); White Blood Count 11.1 K/mm3 (4.5-10.0)
[2022-07-22 13:30] LABS: Band Neutrophils Percent 1 % (0-6); Eosinophils Absolute Manual 0.66 K/mm3 (0.02-0.5); Eosinophils Percent Manual 6 % (0-4); Lymphocytes Absolute Manual 1.88 K/mm3 (1.1-4.5); Monocytes Absolute Manual 0.33 K/mm3 (0.1-0.90); Monocytes Percent Manual 3 % (3-9); Neutrophils Absolute Manual 8.21 K/mm3 (1.3-6.7); Neutrophils Percent Manual 73 % (46-73); Total Cells Counted 100
[2022-07-22 13:31] LABS: Platelet Estimate Adequate (Adequate)
[2022-07-22 13:32] LABS: Anisocytosis 1+ (NORMAL); Schistocytes None Seen (NORMAL)
[2022-07-22] MEDS: ONDANSETRON INJ 4 MG/2 ML VIAL IV PUSH (13:34)
[2022-07-22] MEDS: SODIUM CHLORIDE 0.9% IV 1,000 ML 999 ML IV CONT (13:34)
[2022-07-22] MEDS: HYDROmorphone HCL INJ (*CRX) 1 MG/ML SYR 0.5 MG IV PUSH (13:34)
--- NOTE | 2022-07-22 15:42 | PC.NURSE ---
LAURA d hernandez cath and inserted new cath. PT has tunneling wound to his coccyx new dressing applied.
== END 2022-07-22 19:27 | disposition home or self-care (01) ==
PROVIDERS: Emergency Medicine; Emergency Provider Emergency Medicine; PCP Family Medicine
DX: R31.9 Hematuria, unspecified (principal); C61 Malignant neoplasm of prostate; C79.51 Secondary malignant neoplasm of bone; Z96.0 Presence of urogenital implants; N40.0 Benign prostatic hyperplasia without lower urinary tract symptoms; E78.5 Hyperlipidemia, unspecified; J43.9 Emphysema, unspecified; Z86.73 Personal history of transient ischemic attack (TIA), and cerebral infarction without residual deficits; Z87.440 Personal history of urinary (tract) infections; Z79.01 Long term (current) use of anticoagulants; Z98.49 Cataract extraction status, unspecified eye; Z87.891 Personal history of nicotine dependence; M47.898 Other spondylosis, sacral and sacrococcygeal region; L89.159 Pressure ulcer of sacral region, unspecified stage
CPT/HCPCS: 36415; 51702; 74177; 80053; 81001; 83690; 85025; 87086; 96361; 96374; 96375; 99284; J1170; J2405; J7030; Q9967

== ENCOUNTER 2022-07-23 07:25 | Inpatient (IN) | payer OTHER, SELFPAY ==
[2022-07-23] VITALS (25 sets, daily range): BP systolic 104–146; BP diastolic 64–93; PULSE 100–115; RESP 10–21; TEMP 36.4–36.9; O2SAT 94–100; BMI 32.9
[2022-07-23 07:51] LABS: Basophils Absolute Auto 0.1 K/mm3 (0.0-0.1); Basophils Percent Auto 0.9 % (0.2-1.2); Eosinophils Absolute Auto 0.2 K/mm3 (0-0.3); Hemoglobin 10.3 g/dL (14.0-18.0); Immature Granulocyte Absolute 0.65 K/mm3 (0.00-0.031); Lymphocytes Absolute Auto 1.59 K/mm3 (0.9-3.2); Lymphocytes Percent Auto 9.9 % (18.3-44.2); Mean Corpuscular HGB Conc 30.3 g/dl (32-36); Mean Corpuscular Hemoglobin 30.2 pg (26-34); Mean Corpuscular Volume 99.7 fl (80-100); Mean Platelet Volume 10.2 fl (7.4-10.4); Monocytes Absolute Auto 0.8 K/mm3 (0.1-0.6); Monocytes Percent Auto 4.7 % (2.6-8.5); Neutrophils Absolute Auto 12.8 K/mm3 (1.3-6.7); Neutrophils Percent Auto 79.5 % (45.5-73.1); Platelet Count Result 311 k/mm3 (150-375); Red Blood Count 3.41 M/mm3 (4.6-6.20); Red Cell Distribution Width 18.8 % (11.5-14.5); White Blood Count 16.1 K/mm3 (4.5-10.0)
[2022-07-23 08:00] LABS: INR 1.5; Prothrombin Time 17.5 Seconds (11.1-14.7)
[2022-07-23 08:02] LABS: Alanine Aminotransferase 13 U/L (6-50); Albumin Level 3.8 g/dL (3.5-5.1); Alkaline Phosphatase 662 U/L (38-126); Anion Gap 10 mmol/L (8-16); Aspartate Amino Transferase 26 U/L (17-59); Bilirubin,Total 0.7 mg/dL (0.2-1.3); Blood Urea Nitrogen 9 mg/dL (9-20); Calcium 10.4 mg/dL (8.4-10.2); Carbon Dioxide 30 mmol/L (22-30); Chloride 96 mmol/L (98-107); Estimated CRCL calculation 96 ml/min; Estimated Glomerular Filt Rate > 60; Glucose 142 mg/dL (65-110); Lipase 16 U/L (23-300); Potassium 3.7 mmol/L (3.4-5.0); Sodium 136 mmol/L (137-145)
--- NOTE | 2022-07-23 08:07 | ED.ABDPAIN ---
HPI - Abdominal Pain General Chief Complaint: Abdominal Pain Stated Complaint: Abd pain Time Seen by Provider: 07/23/22 07:33 Source: patient and EMS Mode of arrival: EMS Limitations: physical limitation History of Present Illness HPI narrative: 51 years old white male came from home by ambulance with lower abdominal pain and blood in the Horne catheter. History of prostatic cancer invading the urinary bladder with bone metastasis. Patient is full code, never been seen by oncologist before. Was seen in our facility yesterday for the same symptoms and was discharged to follow-up with Dr. Pena as outpatient. Patient is bedridden and wheelchair ridden, lives with his cousin since June 2022 who is taking care of him and who have the power of pipe fitter soft copper. Yesterday patient decided to try chemotherapy and/or radiation therapy. Horne catheter was changed yesterday, today patient reported that the Horne catheter is not draining enough Related Data Home Medications Medication Instructions Recorded Confirmed albuterol sulfate 90 mcg/actuation 2 inh inhalation Q6-8H PRN 03/03/22 07/23/22 aerosol inhaler Shortness Of Breath Or Wheezing apixaban 5 mg tablet (Eliquis) 5 mg PO BID 05/12/22 07/23/22 ascorbate calcium (vitamin C) 500 500 mg PO BID 05/12/22 07/23/22 mg capsule atorvastatin 40 mg tablet 80 mg PO HS 05/12/22 07/23/22 clopidogrel 75 mg tablet (Plavix) 75 mg PO QAM 05/12/22 07/23/22 cyclobenzaprine 10 mg tablet 10 mg PO TID 05/12/22 07/23/22 fluticasone furoate 200 1 inh inhalation QAM 05/12/22 07/23/22 mcg-vilanterol 25 mcg/dose inhalation powder (Breo Ellipta) furosemide 20 mg tablet (Lasix) 20 mg PO QAM 05/12/22 07/23/22 lactulose 10 gram/15 mL oral 15 ml PO BID 05/12/22 07/23/22 solution mirtazapine 15 mg tablet (Remeron) 15 mg PO HS 05/12/22 07/23/22 collagenase clostridium histo. 250 1 applic topical DAILY 06/26/22 07/23/22 unit/gram topical ointment (Santyl) ferrous sulfate 325 mg (65 mg 325 mg PO BID 06/26/22 07/23/22 iron) tablet (Iron (ferrous sulfate)) gabapentin 100 mg tablet 200 mg PO TID 06/26/22 07/23/22 potassium chloride 20 mEq 40 meq PO QAM 06/26/22 07/23/22 tablet,extended release (K-Tab) sennosides 8.6 mg-docusate sodium 1 tab-cap PO BID 06/26/22 07/23/22 50 mg capsule (Senna Plus) Allergies Allergy/AdvReac Type Severity Reaction Status Date / Time No Known Allergies Allergy Verified 07/23/22 11:25 Review of Systems Review of Systems: All systems reviewed & are unremarkable except as noted in HPI and below PMFSH Past Medical History Medical History (Updated 07/23/22 @ 19:14 by Andrew Pena MD) BPH (benign prostatic hyperplasia) Cataract Chronic respiratory failure COPD (chronic obstructive pulmonary disease) CVA (cerebral vascular accident) Hyperlipidemia due to dietary fat intake Prostate cancer metastatic to bone Urinary tract infection Surgical History Surgical History (Updated 07/23/22 @ 19:14 by Andrew Pena MD) H/O cataract extraction H/O eye surgery History of spinal surgery History of tonsillectomy and adenoidectomy S/P TURP Family History Family History (Updated 07/23/22 @ 17:39 by Mendez Butler MD) Mother Diabetes mellitus Social History Social History (Updated 07/23/22 @ 17:27 by Mendez Butler MD) Social History: The patient lives with his cousin and his cousin's . He is and has 2 daughters. He is disabled. He is a former smoker. He does not use any alcohol marijuana or illicit drugs. His cousin is his durable power pipe fitter soft copper for healthcare. he is listed as a full code Code status full code Smoking packs per day: 1.5 Smoking cigarettes per day: 30.0 Years smoked: 47 Smoking pack-years: 70.50 Smoking status: Former smoker Tobacco type: cigarettes and smokeless tobacco Smokeless tobacco user: snuff Second hand tobacco smoke exposure: Yes Alcohol intake: former Substance use: momo
[2022-07-23] MEDS: SODIUM CHLORIDE 0.9% IV 1,000 ML 999 ML IV CONT (09:09)
[2022-07-23] MEDS: ONDANSETRON INJ 4 MG/2 ML VIAL IV PUSH (09:09)
[2022-07-23] MEDS: HYDROmorphone HCL INJ (*CRX) 1 MG/ML SYR 0.5 MG IV PUSH ×2 (09:10→17:39)
[2022-07-23 09:33] LABS: SARS-CoV-2 RNA PCR Negative
--- NOTE | 2022-07-23 11:18 | ADMGEN ---
This patient, [place], was admitted to 3 Med Surg Room 307-02. Patient/family oriented to hospital policies and general routines including ID bracelet, bed and alarms, visiting hours, pain management, procedures, bathroom and other care routines, personal items, smoking policy, room service/diet, and visiting hours. Information on how to activate the Rapid Response Team has been discussed. Patient/Family are encouraged to report perceived risks to care and to ask questions if they do not understand what they are told or what they should do.
[2022-07-23] MEDS: SODIUM CHLORIDE 0.9% IV 1,000 ML 125 ML IV CONT ×2 (11:35→22:57)
[2022-07-23] MEDS: WATER FOR IRRIGATION, STERILE 1,000 ML BOTTLE 1000 ML (12:15)
--- NOTE | 2022-07-23 15:29 | WPDURCON ---
Assessment and Plan Assessment and plan (1) Hematuria: Code(s): R31.9 - Hematuria, unspecified Status: Acute Assessment and Plan: Continue CBI, wean to off when clear. I irrigated him at the bedside with 180cc of NS 0.9% without difficulty, no clots noted or blood, irrigation was clear. Secondary to cancer. No intervention at this time, patient's pain is improved s/p catheter change and clot removal. Continue catheter changes monthly and PRN for comfort. Ok to irrigate daily and PRN now and after discharge. (2) Prostate cancer metastatic to bone: Code(s): C61 - Malignant neoplasm of prostate; C79.51 - Secondary malignant neoplasm of bone Status: Acute Assessment and Plan: Agree with recommendations for hospice and comfort care versus recommendations from Oncology. Patient is not of cognitive ability to make these decisions at this time, as he is not fully alert and aware. (3) Acute UTI: Code(s): N39.0 - Urinary tract infection, site not specified Status: Acute Assessment and Plan: Urine culture pending, ok to start antibiotics. May be contributing to hematuria. Urology Consult Note HPI Date Seen: 07/23/22 Time Seen: 12:45 Requesting Physician: Kadeem Butler MD Primary Care Provider: Mejia Theodore, Consult Narrative Reason for consult: Gross Hematuria Narrative: [place] is a 51 year old male who has a history of stage IV prostate cancer with metastatic disease. He had elected to proceed with chemotherapy and follow with Dr. Pena as he declined hospice according to his POA. However, he developed gross hematuria and clots 3 days ago and abdominal pain. His hernandez wasn't draining well and hadn't been changed in over a month until yesterday. He was brought by ambulance to the ER for further evaluation where he had manual irrigation of clots, and removal of 900cc of urine from his clogged catheter. He was then exchanged with a 3 way hernandez and CBI was started. His urine is clear and CBI is running at the bedside today. The patient is A&O x 2. He knows what year it is and his name/birthday, but is otherwise very disoriented. He is afebrile, WBC is 16.1, creatinine is 0.80, urine culture is pending. He will have a hospice consult per ER Dr. Owens as well as a consult for Dr. Pena. All information was obtained from his chart. A CT scan was obtained which shows 1. Persistent mild left hydroureteronephrosis likely resulting from obstruction at the level of the distal left ureter where there is 2.5 cm segment with wall thickening suspicious for metastatic prostate cancer. 2. Enlarged nodular and heterogeneously enhancing prostate which appears to invade the bladder consistent with known history of prostate cancer. 3. Numerous mixed lytic and sclerotic lesions of bone and mild increase in size of multiple bilateral pelvic lymph nodes consistent with progression of metastatic disease. Consistent with metastatic disease. Review of Systems Cardiovascular: Cardiovascular: Denies chest pain Respiratory: Respiratory: Reports no additional respiratory complaints Gastrointestinal: Gastrointestinal: Denies abdominal pain, Denies nausea and Denies vomiting Genitourinary: Genitourinary: Reports hematuria, Denies dysuria, Denies flank pain, Denies urinary frequency, Denies urinary hesitancy, Denies urinary incontinence and Denies urinary urgency PMFSH Past Medical History Medical History BPH (benign prostatic hyperplasia) Cataract COPD (chronic obstructive pulmonary disease) CVA (cerebral vascular accident) Hyperlipidemia due to dietary fat intake Prostate cancer metastatic to bone Urinary tract infection Surgical History Surgical History H/O cataract extraction H/O eye surgery History of spinal surgery History of tonsillectomy and adenoidectomy S/P TURP
--- NOTE | 2022-07-23 16:38 | PM.IMHP ---
H&P: HPI History of Present Illness Date/Time: 07/23/22 16:38 Chief Complaint: Abdominal pain Narrative: 51yo male with metastatic prostate cancer, CVA, COPD and bedbound here for abdominal pain and heamturia. Patient is alert but midly confused and very hard of hearing making the history difficult to obtain. The history is supplemented by the chart. Patient presented to the ED yesterday with a 3 day hx of lower abdominal pain. He has a chronic Horne that was changed out. CT Abd/pelvis showing persistent mild left hydroureteronephrosis resulting from obstruction at the level of the distal left ureter where there is a 2.5 cm segment with wall thickening suspicious for metastatic prostate cancer. Prostate appears to be invading the bladder. There were also numerous mixed lytic and sclerotic lesions of the bone. No concerning findings on routine labs. Renal function was normal. Patient was discharged home with plans for following up with Oncology. Patient refused hospice but is wanting to proceed with chemotherapy and radiation if indicated. Dr Pena was contacted and did agree to see the patient in outpatient. Patient returns to the ED this morning with acute complaints of persistent abdominal pain. He states the pain is crampy. No back pain. He has noted hematuria. Somewhat unclear when this started. His last bowel movement was 2 days ago. No complaints of diarrhea or constipation. He is passing flatus. No fever or chills but has been having mild diaphoresis. He cannot tell me when his prostate cancer was diagnosed. He has not had chemotherapy or radiation. He is extremely hard of hearing and states this has been only going on for past 3-4 days. He denies any nausea or vomiting. His appetite is down but he states his weight is stable. No chest pain or shortness of breath. He lives with his cousin and his cousin's . Given the persistent abdominal pain, patient presented to the emergency room for evaluation. In the ED, patient was tachycardic 114 the blood pressure was normal at 140/92. Patient did complain that the Horne catheter was not draining appropriately. White count higher at 16K. Renal function remained normal. Calcium at 10.4 with alk-phos of 662 consistent with his bony metastasis. COVID was negative. UA noted. Urine culture sent. Was started on IV fluids. Patient was admitted for further care. Patient's cousin did arrive later. Patient was supposed to be at a urology appointment but transportation was not able to be arranged. Since patient was complaining of abdominal pain and hematuria, cousin decided to have patient brought to the emergency room for evaluation. He does confirm that patient has worsening hearing over the past few days. However, the hearing loss appears to be selective . Patient also has weakness in his legs related to a back surgery and from a stroke. His cousin feels the patient could be more mobile if the patient decided to do so. Pateint was at a rehab facility but did not progress and currently bed and WC bound. Patient is on Eliquis for blood clots that traveled to the brain . This occurred after the patient's back surgery. The cousin thinks it may have been related to atrial fibrillation. Review of Systems Review of Systems: All systems reviewed & are unremarkable except as noted in HPI and below PMFSH Past Medical History Medical History (Updated 07/23/22 @ 17:16 by Mendez Butler MD) BPH (benign prostatic hyperplasia) Cataract Chronic respiratory failure COPD (chronic obstructive pulmonary disease) CVA (cerebral vascular accident) Hyperlipidemia due to dietary fat intake Prostate cancer metastatic to bone Urinary tract infection Surgical History Surgical History H/O cataract extraction H/O eye surgery History of spinal surgery History of tonsillectomy and adenoidectomy S/P TURP Family History Family
--- NOTE | 2022-07-23 19:01 | PDONCCN ---
HPI - Date of Consult Date/Time: 07/23/22 19:01 Requesting Physician: Kadeem Butler MD Primary Care Provider: Mejia Theodore, - Consult Narrative Reason for consult: Metastatic prostate cancer Narrative: [place] is a 51 year old male who was diagnosed with metastatic prostate cancer in February 2022. Patient is a poor historian. According to patient cause and he had spine surgery with removal of the tumor done at [facility] in March of 2022. Few days later he had stroke. So far patient has not received any treatment for his prostate cancer. He came into the hospital with hematuria and abdominal pain started about [address] abdomen and pelvis done on July 22 showed mild left hydro ureter nephrosis with 2 buried 5 cm segment of the wall thickening suspicious of for metastatic cancer involving the distal left ureter. Enlarged nodular and enhancing prostate which appear to invade the bladder. Numerous lytic and sclerotic bone lesions with multiple bilateral pelvic lymphadenopathy. Labs showed PSA of 573. Total testosterone was 104 and free testosterone was 21.8 he denies any weight loss. He does have some back pain. Review of Systems - Review of Systems All systems reviewed & are unremarkable except as noted in HPI and [facility] Medical History: Medical History (Last Updated 07/23/22 @ 17:16 by Mendez Butler MD) BPH (benign prostatic hyperplasia) Cataract Chronic respiratory failure COPD (chronic obstructive pulmonary disease) CVA (cerebral vascular accident) Hyperlipidemia due to dietary fat intake Prostate cancer metastatic to bone Urinary tract infection Surgical History: Surgical History (Last Reviewed 07/23/22 @ 16:45 by Mendez Butler MD) H/O cataract extraction H/O eye surgery History of spinal surgery History of tonsillectomy and adenoidectomy S/P TURP Family History: Family History (Last Updated 07/23/22 @ 17:39 by Mendez Butler MD) Mother Diabetes mellitus - Social History Social History: Social History (Last Updated 07/23/22 @ 17:27 by Mendez Butler MD) Alcohol Use: Alcohol intake: former Substance Use: Substance use: never Substance use type: marijuana Other substance usage details: couple of hits once a day Others: Spiritual care concerns: No Smoking Status: Smoking status: Former smoker Tobacco type: cigarettes Tobacco type: smokeless tobacco Smokeless tobacco user: snuff Second hand tobacco smoke exposure: Yes Smoking Pack-years: Smoking packs per day: 1.5 Smoking cigarettes per day: 30.0 Years smoked: 47 Smoking pack-years: 70.50 Social Determinants of Health: Has the Lack of Transportation Kept You From Medical Appointments or From Getting Medications?: Yes Within the Past 12 Months, Were You Worried Whether Your Food Would Run Out Before You Got Money to Buy More?: Never True What is Your Housing Situation Today?: I Have Housing Are You Worried That in the Next 2 Months, You May Not Have Your Own Housing to Live In?: No Do You Have Trouble Paying Your Heating Or Electricity Bill?: Yes Do You Have Trouble Paying For Medicines?: No Are You Currently Unemployed and Looking for Work?: No Highest Level of Education Completed: Grade School Do You Have Trouble With Childcare or the Care of a Family Member?: Yes Exam - Vital Signs Vital Signs - 24 hr 07/23/22 07:26 07/23/22 07:28 07/23/22 07:29 Temperature 36.4 C L Pulse Rate 114 H 114 H 115 H Respiratory Rate 17 14 18 Blood Pressure 140/92 H 144/82 H Pulse Oximetry 99 97 98 Oxygen Delivery Nasal Cannula Oxygen Flow Rate 3 07/23/22 07:30 07/23/22 07:31 07/23/22 07:45 Temperature Pulse Rate 115 H 114 H 112 H Respiratory Rate 21 H 20 Blood Pressure 140/92 H Pulse Oximetry 97 98 Oxygen Delivery Oxygen Flow Rate 07/23/22 07:46 07/23/22
[2022-07-23] MEDS: SILVERGEL (ELTA) 45 ML 1 APPLIC TOPICAL (19:30)
[2022-07-23] MEDS: ZOLEDRONIC ACID 4 MG/100 ML 100 ML 400 MG IVPB (22:53)
[2022-07-23] MEDS: MIRTAZAPINE 15 MG TABLET PO (22:56)
[2022-07-23] MEDS: ATORVASTATIN 40 MG TABLET 80 MG PO (22:56)
[2022-07-24] VITALS (8 sets, daily range): BP systolic 104–119; BP diastolic 59–66; PULSE 103–113; RESP 16–20; TEMP 36–37; O2SAT 91–100; BMI 32.9
[2022-07-24] MEDS: SODIUM CHLORIDE 0.9% IV 1,000 ML 125 ML IV CONT (06:04)
[2022-07-24 06:43] LABS: Basophils Absolute Auto 0.1 K/mm3 (0.0-0.1); Basophils Percent Auto 0.9 % (0.2-1.2); Eosinophils Absolute Auto 0.3 K/mm3 (0-0.3); Eosinophils Percent Auto 2.5 % (0-4.4); Hemoglobin 8.5 g/dL (14.0-18.0); Immature Granulocyte Absolute 0.43 K/mm3 (0.00-0.031); Immature Granulocyte Percent A 3.7 % (0-0.5); Lymphocytes Absolute Auto 1.63 K/mm3 (0.9-3.2); Lymphocytes Percent Auto 14.1 % (18.3-44.2); Mean Corpuscular HGB Conc 29.3 g/dl (32-36); Mean Corpuscular Hemoglobin 29.6 pg (26-34); Mean Platelet Volume 10.1 fl (7.4-10.4); Monocytes Absolute Auto 0.8 K/mm3 (0.1-0.6); Monocytes Percent Auto 6.7 % (2.6-8.5); Neutrophils Absolute Auto 8.3 K/mm3 (1.3-6.7); Neutrophils Percent Auto 72.1 % (45.5-73.1); Platelet Count Result 255 k/mm3 (150-375); Red Blood Count 2.87 M/mm3 (4.6-6.20); Red Cell Distribution Width 18.9 % (11.5-14.5); White Blood Count 11.6 K/mm3 (4.5-10.0)
[2022-07-24 06:53] LABS: Anion Gap 10 mmol/L (8-16); Blood Urea Nitrogen 8 mg/dL (9-20); Calcium 9.9 mg/dL (8.4-10.2); Carbon Dioxide 32 mmol/L (22-30); Chloride 103 mmol/L (98-107); Estimated CRCL calculation 86 ml/min; Estimated Glomerular Filt Rate > 60; Glucose 107 mg/dL (65-110); Potassium 4.4 mmol/L (3.4-5.0); Sodium 145 mmol/L (137-145)
[2022-07-24] MEDS: FLUTICASONE/SALMETEROL 230-21 MCG INHALER 1 PUFF 2 PUFF INHALATION ×2 (07:55→20:57)
[2022-07-24] MEDS: COLLAGENASE OINT 30 GM TUBE 1 APPLIC TOPICAL (08:57)
[2022-07-24] MEDS: LACTULOSE 20 GM/30 ML UDC 15 GM PO ×2 (08:57→13:09)
[2022-07-24] MEDS: POTASSIUM CHLORIDE 20 MEQ TABLET.ER 40 MEQ PO (08:57)
[2022-07-24] MEDS: FERROUS SULFATE 324 MG TABLET PO ×2 (08:58→16:41)
[2022-07-24] MEDS: GABAPENTIN 100 MG CAPSULE 200 MG PO ×3 (08:58→16:40)
[2022-07-24] MEDS: BICALUTAMIDE (*CHEMO) 50 MG TABLET PO (08:58)
[2022-07-24] MEDS: CYCLOBENZAPRINE HCL 10 MG TABLET PO ×3 (08:58→16:41)
[2022-07-24] MEDS: FUROSEMIDE 20 MG TABLET PO (08:58)
[2022-07-24] MEDS: SENNA/DOCUSATE SODIUM TABLET 1 TAB PO ×2 (08:58→16:41)
[2022-07-24] MEDS: ASCORBIC ACID 500 MG TABLET PO ×2 (08:59→16:41)
[2022-07-24] MEDS: SILVERGEL (ELTA) 45 ML 1 APPLIC TOPICAL (09:01)
--- NOTE | 2022-07-24 12:44 | PM.DS ---
DS: Admitting Diagnosis Discharge Date July 24, 2022 Admitting Diagnosis prostate cancer DS: Discharge Diagnosis Discharge Diagnosis (1) Hematuria: Code(s): R31.9 - Hematuria, unspecified Status: Acute (2) Acute UTI: Code(s): N39.0 - Urinary tract infection, site not specified Status: Acute (3) Hydronephrosis: Code(s): N13.30 - Unspecified hydronephrosis Status: Acute (4) Urinary retention with incomplete bladder emptying: Code(s): R33.9 - Retention of urine, unspecified Status: Acute (5) Prostate cancer metastatic to bone: Code(s): C61 - Malignant neoplasm of prostate; C79.51 - Secondary malignant neoplasm of bone Status: Acute (6) COPD (chronic obstructive pulmonary disease): Code(s): J44.9 - Chronic obstructive pulmonary disease, unspecified Status: Acute (7) Chronic respiratory failure: Code(s): J96.10 - Chronic respiratory failure, unspecified whether with hypoxia or hypercapnia Status: Acute DS: Summary Hospital Course Hospital Course: patient is a 51-year-old male with known history of prostate cancer with metastatic disease. Overall has a poor prognosis. Patient came in with hematuria and was put on CBI per Urology. His urine has been clear today. I spoke Urology in the said he can be discharged. Patient has an appointment for follow-up with Oncology. He will need to be on anti hormonal therapy and possibly chemotherapy. Again this will be further managed by Oncology. Appreciate Oncology input Time Spent with Patient Time attestation: Total time spent providing and/or coordinating discharge services: Exam Narrative: AF 97.6 127/80 100 16 97% 3L Gen - well-nourished, well-developed male in no acute respiratory distress who is nontoxic-appearing lying semi recumbent in bed HEENT - normocephalic. Atraumatic. Pupils equal round and reactive. Extraocular motions intact. Sclera clear and anicteric. Right lid lag. Bilateral sclerotic TMs. Nares patent. Oropharynx with posterior exudate. No oral lesions. Moist mucous membranes. Tongue was midline with left lateral deformity. Endentulous. No facial asymmetry. Neck - neck was supple. No dominant adenopathy, thyromegaly or masses. 2+ carotid upstrokes without bruits. Chest - few basilar rhonhi o/w clear. CV - heart was regular rate and rhythm. S1-S2. No murmurs gallops or rubs. Abd - abdomen was soft. Nondistended. Positive bowel sounds. No organomegaly or masses. Mild diffuse tenderness without guarding or rebound - Horne secured with CBI running and pink urine in the bag Ext - no clubbing, cyanosis or edema. 2+ DP pulses bilaterally. Neuro - patient is alert and oriented x2 (not Kushal, or month). Has word finding problems. [place] Strength is 5/5 in both upper extremities.Right dorsiflexion and hip flexor 4/5. Cranial nerves 2-12 are intact. Speech is mildly garbled. Psych - normal mood and affect. Patient is pleasant and cooperative. He does get frustrated at times due to hearing loss and word finding issues. Skin - warm and dry. No rashes noted. DS: Data Data Completed and Pending Labs on day of discharge: Labs from last 24 hours 07/24/22 07/24/22 05:54 05:54 WBC 11.6 H RBC 2.87 L Hgb 8.5 L Hct 29.0 L MCV 101.0 H MCH 29.6 MCHC 29.3 L RDW 18.9 H Plt Count 255 MPV 10.1 Immature Gran % (Auto) 3.7 H Neut % (Auto) 72.1 Lymph % (Auto) 14.1 L [place] % (Auto) 6.7 Eos % (Auto) 2.5 Baso % (Auto) 0.9 Lymph # (Auto) 1.63 [place] # (Auto) 0.8 H Eos # (Auto) 0.3 Baso # (Auto) 0.1 Abs Immat Gran (auto) 0.43 H Absolute Neuts (auto) 8.3 H Absolute Nucleated RBC 0.0 Nucleated RBC % 0.0 Sodium 145 Potassium 4.4 Chloride 103 Carbon Dioxide 32 H Anion Gap 10 BUN 8 L Creatinine 0.90 Estim Creat Clear Calc 86 Estimated GFR > 60 Glucose 107 Calcium 9.9 Discharge Plan Discha
--- NOTE | 2022-07-24 13:11 | PCNSR ---
On 07/24/22, the student,Melvin Jha, provided care and completed [facility] documentation on this patient. I have reviewed the student's documentation and agree with the findings.
[2022-07-24] MEDS: oxyCODONE/ACETAMINOPHEN (*CRX) 10-325 MG TABLET 1 TAB PO (13:37)
--- NOTE | 2022-07-24 21:12 | PCRCNOTE ---
pt found with oxygen out of nose, sats 66% and unable to arouse. rapid response called, pt placed on 15L NRB. pt recovered to 100%, placed back on 3L NC with sats of 97%.
[2022-07-24] MEDS: ATORVASTATIN 40 MG TABLET 80 MG PO (21:14)
[2022-07-24] MEDS: MIRTAZAPINE 15 MG TABLET PO (21:14)
--- NOTE | 2022-07-24 21:35 | PM.EVENT ---
Event Note Event Note Event Note: rapid response was called to the patient's room after he was found unresponsive and difficult to arouse. objective: Patient awake alert laying in bed, no acute distress. Subjective: Confused pulse ox 98% on supplemental oxygen by nasal cannula 2 L general: Well nourished well developed male HEENT: OUT TRAUMATIC NORMOCEPHALIC PERRLA EOM INTACT respiratory: Clear to auscultation bilaterally no wheezes rhonchi or crackles cardiovascular: S1-S2 heard no murmurs rubs or gallops abdomen: Soft nontender nondistended no hepatosplenomegaly bowel sounds are present. extremities: No edema, no clubbing, no cyanosis. Skin: Intact central nervous system: Awake, alert, confused cranial nerves ii-xii grossly intact assessment and plan: 1. Unresponsiveness: found with low pulse ox patient immediately workup after placing him on supplemental oxygen by non-rebreather oxygen mask, at the time of my arrival patient was already awake and alert. 2. Metastatic prostate cancer: Follow-up in outpatient setting
[2022-07-25 08:00] VITALS: O2SAT 95
[2022-07-25 08:41] VITALS: O2SAT 95
[2022-07-25] MEDS: FLUTICASONE/SALMETEROL 230-21 MCG INHALER 1 PUFF 2 PUFF INHALATION (08:41)
[2022-07-25] MEDS: LACTULOSE 20 GM/30 ML UDC 15 GM PO (10:13)
[2022-07-25] MEDS: FERROUS SULFATE 324 MG TABLET PO ×2 (10:15→17:26)
[2022-07-25] MEDS: GABAPENTIN 100 MG CAPSULE 200 MG PO ×2 (10:15→17:27)
[2022-07-25] MEDS: ASCORBIC ACID 500 MG TABLET PO ×2 (10:15→17:28)
[2022-07-25] MEDS: FUROSEMIDE 20 MG TABLET PO (10:15)
[2022-07-25] MEDS: CYCLOBENZAPRINE HCL 10 MG TABLET PO ×2 (10:15→17:27)
[2022-07-25] MEDS: BICALUTAMIDE (*CHEMO) 50 MG TABLET PO (10:15)
[2022-07-25] MEDS: COLLAGENASE OINT 30 GM TUBE 1 APPLIC TOPICAL (10:16)
[2022-07-25] MEDS: POTASSIUM CHLORIDE 20 MEQ TABLET.ER 40 MEQ PO (10:16)
[2022-07-25] MEDS: SENNA/DOCUSATE SODIUM TABLET 1 TAB PO ×2 (10:17→17:27)
[2022-07-25] MEDS: SILVERGEL (ELTA) 45 ML 1 APPLIC TOPICAL (10:17)
[2022-07-25] MEDS: oxyCODONE/ACETAMINOPHEN (*CRX) 10-325 MG TABLET 1 TAB PO ×2 (10:20→17:27)
--- NOTE | 2022-07-25 10:46 | PM.DS ---
DS: Admitting Diagnosis Discharge Date July 25, 2022 Admitting Diagnosis metastatic prostate cancer pain and hematuria DS: Discharge Diagnosis Discharge Diagnosis (1) Hematuria: Code(s): R31.9 - Hematuria, unspecified Status: Acute (2) Acute UTI: Code(s): N39.0 - Urinary tract infection, site not specified Status: Acute (3) Hydronephrosis: Code(s): N13.30 - Unspecified hydronephrosis Status: Acute (4) Urinary retention with incomplete bladder emptying: Code(s): R33.9 - Retention of urine, unspecified Status: Acute (5) Prostate cancer metastatic to bone: Code(s): C61 - Malignant neoplasm of prostate; C79.51 - Secondary malignant neoplasm of bone Status: Acute (6) COPD (chronic obstructive pulmonary disease): Code(s): J44.9 - Chronic obstructive pulmonary disease, unspecified Status: Acute (7) Chronic respiratory failure: Code(s): J96.10 - Chronic respiratory failure, unspecified whether with hypoxia or hypercapnia Status: Acute DS: Summary Hospital Course Hospital Course: patient is a 51-year-old male with known history of prostate cancer with metastatic disease.? Overall has a poor prognosis.? Patient came in with hematuria and was put on CBI per Urology.? His urine has been clear today.? I spoke Urology in the said he can be discharged.? Patient has an appointment for follow-up with Oncology.? He will need to be on anti hormonal therapy and possibly chemotherapy.? Again this will be further managed by Oncology.? Appreciate Oncology input Time Spent with Patient Time attestation: Total time spent providing and/or coordinating discharge services: Exam Narrative: AF 97.6 127/80 100 16 97% 3L Gen - well-nourished, well-developed male in no acute respiratory distress who is nontoxic-appearing lying semi recumbent in bed HEENT - normocephalic. Atraumatic. Pupils equal round and reactive. Extraocular motions intact. Sclera clear and anicteric. Right lid lag. Bilateral sclerotic TMs. Nares patent. Oropharynx with posterior exudate. No oral lesions. Moist mucous membranes. Tongue was midline with left lateral deformity. Endentulous. No facial asymmetry. Neck - neck was supple. No dominant adenopathy, thyromegaly or masses. 2+ carotid upstrokes without bruits. Chest - few basilar rhonhi o/w clear. CV - heart was regular rate and rhythm. S1-S2. No murmurs gallops or rubs. Abd - abdomen was soft. Nondistended. Positive bowel sounds. No organomegaly or masses. Mild diffuse tenderness without guarding or rebound - Horne secured with CBI running and pink urine in the bag Ext - no clubbing, cyanosis or edema. 2+ DP pulses bilaterally. Neuro - patient is alert and oriented x2 (not Kushal, or month). Has word finding problems. [place] Strength is 5/5 in both upper extremities.Right dorsiflexion and hip flexor 4/5. Cranial nerves 2-12 are intact. Speech is mildly garbled. Psych - normal mood and affect. Patient is pleasant and cooperative. He does get frustrated at times due to hearing loss and word finding issues. Skin - warm and dry. No rashes noted. Discharge Plan Discharge Attending physician on discharge: Danis Quezaad Consulting providers: Andrew Pena ; Chaparro Abbott Discharging Clinician: Danis Quezada Patient Disposition: Home, Self-Care Activity: no preference Diet: as tolerated Patient Instructions: Antibiotic Form Stand Alone Forms: General Discharge Information Follow-up/Referrals: Andrew Pena MD [Physician] - Chaparro Abbott MD [Physician] - Discharge Medications: New bicalutamide 50 mg Tablet 50 mg PO QAM 30 Days Qty: 30 0RF oxycodone-acetaminophen 10-325 mg tablet 1 tablet PO Q6H PRN (Reason: pain) Qty: 20 0RF Continued albuterol sulfate 90 mcg/actuation HFA aerosol inhaler 2 inh INHALATION Q6-8H PRN (Reason: Shortness Of Breath Or Wh
[2022-07-25 14:00] VITALS: BP 117/65; PULSE 110; PULSE 111; RESP 16; TEMP 36.8; O2SAT 85; O2SAT 92
[2022-07-25 14:05] VITALS: PULSE 108; O2SAT 86
[2022-07-25 14:10] VITALS: PULSE 106; O2SAT 88
[2022-07-25 14:15] VITALS: PULSE 104; O2SAT 90
--- NOTE | 2022-07-25 14:27 | PCRCNOTE ---
HOME OXYGEN EVAL COMPLETE, NO CHANGES TO HOME SETTING. 3L PT IS NON AMBULATORY
--- NOTE | 2022-07-25 20:17 | PC.NURSE ---
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 IV removed. Pt verbalizes understanding and is agreeable to discharge.
== END 2022-07-25 20:20 | disposition home or self-care (01) | DRG 723 ==
LOC: ANHED 08:24 → ANH3MEDSUR 07-24 06:21
PROVIDERS: Admitting Provider Internal Medicine; Emergency Provider Emergency Medicine; PCP Family Medicine; Visit Provider Chiropractor
DX: C61 Malignant neoplasm of prostate (principal); C79.51 Secondary malignant neoplasm of bone; J96.10 Chronic respiratory failure, unspecified whether with hypoxia or hypercapnia; N13.6 Pyonephrosis; N40.1 Benign prostatic hyperplasia with lower urinary tract symptoms; R31.0 Gross hematuria; R33.8 Other retention of urine; J44.9 Chronic obstructive pulmonary disease, unspecified; E78.49 Other hyperlipidemia; R40.4 Transient alteration of awareness; Z20.822 Contact with and (suspected) exposure to COVID-19; Z74.01 Bed confinement status; Z79.899 Other long term (current) drug therapy; Z86.73 Personal history of transient ischemic attack (TIA), and cerebral infarction without residual deficits; Z87.891 Personal history of nicotine dependence; Z98.49 Cataract extraction status, unspecified eye; Z99.3 Dependence on wheelchair
CPT/HCPCS: 36415; 80048; 80053; 83690; 85025; 85610; 94618; 94640; 99285; A9270; C9803; J1170; J2405; J3489; J7030; U0003; U0005

== ENCOUNTER 2022-08-13 14:06 | Outpatient (CLI) | payer OTHER, SELFPAY ==
[2022-08-13 14:31] LABS: Basophils Absolute Auto 0.1 K/mm3 (0.0-0.1); Eosinophils Absolute Auto 0.3 K/mm3 (0-0.3); Eosinophils Percent Auto 3.1 % (0-4.4); Hematocrit 35.9 % (42.0-52.0); Hemoglobin 10.3 g/dL (14.0-18.0); Immature Granulocyte Absolute 0.08 K/mm3 (0.00-0.031); Immature Granulocyte Percent A 0.7 % (0-0.5); Lymphocytes Absolute Auto 1.66 K/mm3 (0.9-3.2); Lymphocytes Percent Auto 15.4 % (18.3-44.2); Mean Corpuscular HGB Conc 28.7 g/dl (32-36); Mean Corpuscular Hemoglobin 29.8 pg (26-34); Mean Corpuscular Volume 103.8 fl (80-100); Mean Platelet Volume 10.1 fl (7.4-10.4); Monocytes Absolute Auto 0.6 K/mm3 (0.1-0.6); Monocytes Percent Auto 5.8 % (2.6-8.5); Nucleated Red Blood Cells Perc 0.2 % (0.0-0.2); Platelet Count Result 360 k/mm3 (150-375); Red Blood Count 3.46 M/mm3 (4.6-6.20); Red Cell Distribution Width 18.6 % (11.5-14.5); White Blood Count 10.8 K/mm3 (4.5-10.0)
[2022-08-13 14:56] LABS: Anisocytosis 1+ (NORMAL); Hypochromasia 1+ (NORMAL); Ovalocytes 1+ (NORMAL); Platelet Estimate Adequate (Adequate); Poikilocytosis 1+ (NORMAL); Schistocytes None Seen (NORMAL)
[2022-08-13 16:06] LABS: Alanine Aminotransferase 18 U/L (6-50); Albumin Level 4.3 g/dL (3.5-5.1); Anion Gap 12 mmol/L (8-16); Aspartate Amino Transferase 29 U/L (17-59); Bilirubin,Total 0.6 mg/dL (0.2-1.3); Blood Urea Nitrogen 8 mg/dL (9-20); Calcium 8.6 mg/dL (8.4-10.2); Carbon Dioxide 22 mmol/L (22-30); Chloride 105 mmol/L (98-107); Estimated Glomerular Filt Rate > 60; Glucose 122 mg/dL (65-110); Iron 55 ug/dL (49-181); Percent Iron Saturation 18 % (20-50); Potassium 4.3 mmol/L (3.4-5.0); Sodium 139 mmol/L (137-145)
[2022-08-13 17:04] LABS: Alkaline Phosphatase 2350 U/L (38-126)
[2022-08-18 11:07] LABS: Testosterone Free 43.5 pg/mL (35.0-155.0); Testosterone Total 313 ng/dL (250-1100)
== END 2022-08-13 14:07 | disposition home or self-care (01) ==
LOC: ANHLAB 14:07
PROVIDERS: PCP Family Medicine; Visit Provider Internal Medicine Hematology & Oncology
DX: D64.9 Anemia, unspecified (principal); C61 Malignant neoplasm of prostate; C79.51 Secondary malignant neoplasm of bone
CPT/HCPCS: 36415; 80053; 82607; 82728; 83540; 83550; 84153; 84402; 84403; 85025

== ENCOUNTER 2022-09-05 08:08 | Outpatient (CLI) | payer OTHER, SELFPAY | END 2022-09-05 08:09 | disposition home or self-care (01) | LOC: ANHAUDIO 08:09 | PROVIDERS: Visit Provider Family Medicine | DX: H90.3 Sensorineural hearing loss, bilateral (principal) | CPT/HCPCS: 92557; 92567 ==

== ENCOUNTER 2022-09-24 21:37 | Emergency (ER) | payer OTHER, SELFPAY ==
--- NOTE | ~2022-09-24 | CT_ITS ---
CT Abdomen and Pelvis with contrast. History: Urinary retention, abdominal pain. Spiral CT of the abdomen and pelvis was performed after the administration of oral and intravenous co ntrast. 100 cc of Omnipaque 350 was administered intravenously without complication. Dose reduction t echnique was used on this scan by utilizing automated exposure control and iterative reconstruction t echnique. The dose-length product (DLP) was 699.06 mGy-cm. COMPARISON: 07/22/2022 Findings: Scans through the lung bases demonstrate minimal right pleural effusion with mild atelectat ic change. The liver, spleen, pancreas, gallbladder, adrenals and right kidney are within normal limits. There i s mild to moderate left hydroureteronephrosis. There is enhancing soft tissue density slight wall thi ckening at the very distal left ureter. No evidence of aortic aneurysm. There is no evidence of bowel obstruction. There is no evidence to suggest acute appendicitis or dive rticulitis. Images through the pelvis were performed. Horne catheter in place. Prostate gland is enlarged and het erogeneous, apparently indenting through the bladder base. There is also probable superimposed urinar y bladder wall thickening. There is mild infiltration of perivesical fat. There are enlarged lymph no bashir along the bilateral external iliac chains, the additional shotty, mildly prominent nodes along th e common iliac chains. There are additional shotty lymph nodes in the periprostatic/perirectal region . Mixed lytic sclerotic lesions throughout the visualized skeleton are similar to prior exam. Impression: Enlarged, irregular contour of the prostate gland, suspicious for prostate cancer, with suspected inv asion into the bladder base. Enhancing soft tissue the distal left ureter, suspicious for neoplastic/metastatic involvement, with associated [id number] left hydroureteronephrosis. Metastatic lymphadenopathy, predominantly along the common and external iliac chains, and deeper in t he pelvis. Osseous metastatic disease, unchanged from prior exam. Minimal right pleural effusion. Possible cystitis. Reviewed, dictated and finalized at location M. MING ASSEMBLER Impression: Enlarged, irregular contour of the prostate gland, suspicious for prostate canc er, with suspected invasion into the bladder base. Enhancing soft tissue the distal left ureter, suspicious for neoplastic/metasta tic involvement, with associated [id number] left hydroureteronephrosis. Metastatic lymphadenopathy, predominantly along the common and external iliac c hains, and deeper in the pelvis. Osseous metastatic disease, unchanged from prior exam. Minimal right pleural effusion. Possible cystitis.
[2022-09-24 21:44] VITALS: BP 125/79; PULSE 92; RESP 18; TEMP 36.2; O2SAT 96
[2022-09-24 23:15] LABS: Basophils Absolute Auto 0.1 K/mm3 (0.0-0.1); Basophils Percent Auto 0.7 % (0.2-1.2); Eosinophils Absolute Auto 0.1 K/mm3 (0-0.3); Eosinophils Percent Auto 0.7 % (0-4.4); Hematocrit 38.5 % (42.0-52.0); Hemoglobin 11.4 g/dL (14.0-18.0); Immature Granulocyte Absolute 0.11 K/mm3 (0.00-0.031); Immature Granulocyte Percent A 0.9 % (0-0.5); Lymphocytes Absolute Auto 0.96 K/mm3 (0.9-3.2); Lymphocytes Percent Auto 7.6 % (18.3-44.2); Mean Corpuscular HGB Conc 29.6 g/dl (32-36); Mean Platelet Volume 10.3 fl (7.4-10.4); Monocytes Absolute Auto 0.7 K/mm3 (0.1-0.6); Monocytes Percent Auto 5.4 % (2.6-8.5); Neutrophils Absolute Auto 10.7 K/mm3 (1.3-6.7); Neutrophils Percent Auto 84.7 % (45.5-73.1); Platelet Count Result 283 k/mm3 (150-375); Red Blood Count 3.93 M/mm3 (4.6-6.20); White Blood Count 12.6 K/mm3 (4.5-10.0)
[2022-09-24 23:27] LABS: Anion Gap 8 mmol/L (8-16); Blood Urea Nitrogen 14 mg/dL (9-20); Calcium 8.1 mg/dL (8.4-10.2); Carbon Dioxide 25 mmol/L (22-30); Chloride 104 mmol/L (98-107); Estimated CRCL calculation 97 ml/min; Estimated Glomerular Filt Rate > 60; Glucose 124 mg/dL (65-110); Potassium 4.7 mmol/L (3.4-5.0); Sodium 137 mmol/L (137-145)
[2022-09-24 23:34] LABS: Hypochromasia 1+ (NORMAL); Platelet Estimate Adequate (Adequate)
[2022-09-25 02:15] LABS: Appearance Urine Clear (Clear); Bilirubin Urine Negative (Negative); Blood Urine 1+ (Negative); Glucose Urine UA Negative (Negative); Ketones Urine Negative (Negative); Leukocyte Esterase Ur 3+ LEU/UL (Negative); Nitrate Urine Positive (Negative); Protein Urine 2+ mg/dL (Negative); Specific Grav Ur 1.015 (1.001-1.035); Urobilinogen Urine 0.2 mg/dL (<2.0); pH Urine >=9.0 (5.0-9.0)
[2022-09-25 02:22] LABS: Add Urine Microscopic? YES; Color Urine Yellow (Yellow)
--- NOTE | 2022-09-25 02:37 | ED.MALEGU ---
HPI - Male Genitourinary General Chief complaint: Abdominal Pain Stated complaint: abdominal pain Time Seen by Provider: 09/24/22 21:57 History of Present Illness HPI Narrative: 52-year-old male presenting with feeling of urinary retention, he has a Horne in place but feels it has not been draining. Related Data Home Medications Medication Instructions Recorded Confirmed albuterol sulfate 90 mcg/actuation 2 inh inhalation Q6-8H PRN 03/03/22 09/18/22 aerosol inhaler Shortness Of Breath Or Wheezing apixaban 5 mg tablet (Eliquis) 5 mg PO BID 05/12/22 09/18/22 ascorbate calcium (vitamin C) 500 500 mg PO BID 05/12/22 09/18/22 mg capsule atorvastatin 40 mg tablet 80 mg PO HS 05/12/22 09/18/22 clopidogrel 75 mg tablet (Plavix) 75 mg PO QAM 05/12/22 09/18/22 cyclobenzaprine 10 mg tablet 10 mg PO TID 05/12/22 09/18/22 fluticasone furoate 200 1 inh inhalation QAM 05/12/22 09/18/22 mcg-vilanterol 25 mcg/dose inhalation powder (Breo Ellipta) furosemide 20 mg tablet (Lasix) 20 mg PO QAM 05/12/22 09/18/22 lactulose 10 gram/15 mL oral 15 ml PO BID 05/12/22 09/18/22 solution mirtazapine 15 mg tablet (Remeron) 15 mg PO HS 05/12/22 09/18/22 collagenase clostridium histo. 250 1 applic topical DAILY 06/26/22 09/18/22 unit/gram topical ointment (Santyl) ferrous sulfate 325 mg (65 mg 325 mg PO BID 06/26/22 09/18/22 iron) tablet (Iron (ferrous sulfate)) gabapentin 100 mg tablet 300 mg PO TID 06/26/22 09/18/22 potassium chloride 20 mEq 40 meq PO QAM 06/26/22 09/18/22 tablet,extended release (K-Tab) sennosides 8.6 mg-docusate sodium 1 tab-cap PO BID 06/26/22 09/18/22 50 mg capsule (Senna Plus) calcium 500 mg tablet 500 mg PO QID 09/18/22 09/18/22 oxycodone-acetaminophen 5 mg-325 1 tablet PO Q6H PRN Pain 09/18/22 09/18/22 mg tablet Allergies Allergy/AdvReac Type Severity Reaction Status Date / Time No Known Allergies Allergy Verified 09/24/22 21:53 Review of Systems Review of Systems: CONST: No fever. HEENT: No sore throat C/V: No chest pain RESP: No cough GI: Suprapubic discomfort : No dysuria. M/S: No joint pain. SKIN: No rash. NEURO: [No headache or focal numbness or weakness] PSYCH: [No depression] [facility] Past Medical History Medical History (Updated 09/25/22 @ 02:36 by Tala Moseley MD) BPH (benign prostatic hyperplasia) Cataract Chronic respiratory failure COPD (chronic obstructive pulmonary disease) CVA (cerebral vascular accident) Hyperlipidemia due to dietary fat intake Prostate cancer metastatic to bone Urinary tract infection Surgical History Surgical History (Updated 07/23/22 @ 19:14 by Andrew Pena MD) H/O cataract extraction H/O eye surgery History of spinal surgery History of tonsillectomy and adenoidectomy S/P TURP Family History Family History (Updated 07/23/22 @ 17:39 by Mendez Butler MD) Mother Diabetes mellitus Social History Social History (Updated 07/23/22 @ 17:27 by Mendez Butler MD) Social History: The patient lives with his cousin and his cousin's . He is and has 2 daughters. He is disabled. He is a former smoker. He does not use any alcohol marijuana or illicit drugs. His cousin is his durable power tax associate attorney for healthcare. he is listed as a full code Code status full code Smoking packs per day: 1 Smoking cigarettes per day: 20.0 Years smoked: 40 Smoking pack-years: 40.00 Smoking status: Former smoker Tobacco type: cigarettes and smokeless tobacco Smokeless tobacco user: snuff Second hand tobacco smoke exposure: Yes Alcohol intake: former Substance use: never Substance use type: marijuana Other substance usage details: couple of hits once a day Lack of Transportation: YES Lack of Food: Never True Current Housing: I Have Housing Concerned About Future Housing: No Difficulty Paying Gas/Electric Bills: YES Difficulty Paying for Meds: No Currently Unemployed: No Education: Gra
[2022-09-25 02:45] LABS: Amorphous Sediment Urine Moderate; RBC Urine 0-2 /hpf (0-2)
[2022-09-25 02:49] VITALS: BP 110/67; RESP 18; O2SAT 98
[2022-09-25] MEDS: LACTATED RINGERS 1,000 ML 999 ML IV CONT (03:22)
== END 2022-09-25 04:11 | disposition home or self-care (01) ==
PROVIDERS: Emergency Provider Emergency Medicine; PCP Family Medicine
DX: N39.0 Urinary tract infection, site not specified (principal); N40.1 Benign prostatic hyperplasia with lower urinary tract symptoms; R33.8 Other retention of urine; C61 Malignant neoplasm of prostate; C79.51 Secondary malignant neoplasm of bone; T83.098A Other mechanical complication of other urinary catheter, initial encounter; J96.10 Chronic respiratory failure, unspecified whether with hypoxia or hypercapnia; J44.9 Chronic obstructive pulmonary disease, unspecified; E78.5 Hyperlipidemia, unspecified; Z86.73 Personal history of transient ischemic attack (TIA), and cerebral infarction without residual deficits; Z98.49 Cataract extraction status, unspecified eye; Z79.01 Long term (current) use of anticoagulants; Z87.891 Personal history of nicotine dependence; Y84.6 Urinary catheterization as the cause of abnormal reaction of the patient, or of later complication, without mention of misadventure at the time of the procedure
CPT/HCPCS: 36415; 51700; 74177; 80048; 81001; 85025; 87077; 87086; 87186; 96365; 99284; J0696; J7120; Q9967

== ENCOUNTER 2022-10-21 18:52 | Inpatient (IN) | payer OTHER, SELFPAY ==
[2022-10-21] VITALS (29 sets, daily range): BP systolic 114–139; BP diastolic 76–121; PULSE 102–124; RESP 15–24; TEMP 36.3; O2SAT 92–100
--- NOTE | ~2022-10-21 | CT_ITS ---
EXAMINATION: CT brain wo con DATE: 10/22/2022 18:54 INDICATION: Confusion. Slurred speech. TECHNIQUE: Computed tomography (CT) of the head was performed without intravenous contrast. The mA wa s adjusted according to patient size. Iterative reconstruction technique was employed. The dose-lengt h product was 605.33 mGy-cm. COMPARISON: Head CT 05/12/2022 FINDINGS: There is an old infarct involving left temporal parietal occipital region. There is a small old infarct in left cerebellum. There is no intracranial hemorrhage, acute infarction, or abnormal i ntracranial mass lesion. The ventricles are normal in size. There are likely changes of left ocular l ens replacement surgery. There is mucosal thickening in the paranasal sinuses. There are bilateral ma stoid effusions. IMPRESSION: 1. Old infarct involving left temporal parietal occipital region. Old infarct in left cerebellum. Reviewed, dictated and finalized at location A. RESSER IMPRESSION: 1. Old infarct involving left temporal parietal occipital region. Old infarct i n left cerebellum.
--- NOTE | ~2022-10-21 | XR_ITS ---
EXAM: XR abdomen NG/feed tube insert DATE: 10/21/2022 22:58 HISTORY: NG TUBE PLACEMENT . COMPARISON: CT CAP, same date. FINDINGS: NG tube, tip and side port projecting over the stomach. Multiple loops of dilated large an d small bowel in the upper abdomen. Emphysematous change in the right dependent atelectasis/consolida tion were better seen in the prior CT. Diffuse sclerotic metastases were better seen in the prior CT. IMPRESSION: NG tube, in good position. Reviewed, dictated and finalized at location K. RAL LEDGER ACCOUNTANT IMPRESSION: NG tube, in good position.
--- NOTE | ~2022-10-21 | CT_ITS ---
EXAMINATION: CT chest abdomen pelvis w con DATE: 10/21/2022 20:44 INDICATION: History of prostatic cancer with metastasis . TECHNIQUE: Computed tomography (CT) of the chest, abdomen, and pelvis was performed with 100 mL Omnip aque-350 intravenous contrast. Automated exposure control and iterative reconstruction technique were employed. The dose-length product was 988.77 mGy-cm. COMPARISON: None FINDINGS: Thoracic aorta: No significant dilation or calcification. Lung parenchyma and airways: Severe emphysematous change. Dependent right lung atelectasis/consolidat ion. Bibasilar scar/atelectasis. Thoracic inlet, axillae and chest wall: No thyroid or soft tissue mass. No axillary lymphadenopathy. Mediastinum: No mass or lymphadenopathy. Heart and pericardium: Normal heart size. No pericardial effusion. Coronary artery calcifications: Mild. Pleura: No effusion or mass. Thoracic bones: No acute osseous finding in the chest. Diffuse osseous sclerosis. ABDOMEN/PELVIS: Liver: Normal. Biliary/Gallbladder: Mildly dilated gallbladder. No bile duct dilation. Pancreas: No mass or duct dilation. Spleen: Normal. Adrenals:No mass. Kidneys: No suspicious mass. Mild left ureterectasis and urothelial enhancement. Simple right inferio r pole cyst. Fairly extensive left renal scar and atrophy. GI tract: Distal esophageal wall edema. Marked gastric dilation. Diffusely dilated small bowel. Diffu sely dilated large bowel. Large volume of inspissated fecal material in the descending colon and sigm oid colon. Distal sigmoid and rectal wall edema. Normal appendix. Mesentery/Peritoneum: No ascites, mass, or free air. Retroperitoneum: No mass. Atherosclerotic abdominal aortic and/or arterial calcifications. Pelvis: Pelvic lymphadenopathy. The previously described enhancing distal ureteral soft tissue mass i s not visualized. Prostatomegaly. Horne catheter in the bladder using. Marked bladder wall edema and inflammatory change. Multiple bladder calcifications. Soft Tissues: Soft tissues and body wall unremarkable. Abdominopelvic bones: No acute osseous finding in the abdomen/pelvis. Diffuse osseous sclerosis. IMPRESSION: Distal large bowel obstruction, possibly secondary to fecal impaction, or other mechanical/functional etiology. Dependent right lung atelectasis/consolidation. Gallbladder hydrops. Esophagitis. Cystitis , with possible ascending infection on the left. Pelvic lymphadenopathy. Diffuse skeletal metastatic disease. Reviewed, dictated and finalized at location K. CARDIOVASCULAR ICU IMPRESSION: Distal large bowel obstruction, possibly secondary to fecal impaction, or other mechanical/functional etiology. Dependent right lung atelectasis/consolidation . Gallbladder hydrops. Esophagitis. Cystitis, with possible ascending infection on the left. Pelvic lymphadenopathy. Diffuse skeletal metastatic disease.
--- NOTE | ~2022-10-21 | XR_ITS ---
EXAMINATION: XR enema water soluble DATE: 10/22/2022 13:46 INDICATION: Bowel obstruction. Fecal impaction. TECHNIQUE: A in flight refueling system repairer radiograph was obtained. A catheter was inserted into the patient's rectum. Water- soluble contrast was infused by gravity. Fluoroscopic spot images and conventional radiographs were o btained. A total of 55 fluoroscopic images and 3 overhead radiographs were obtained. Fluoroscopy expo sure time was 0.7 minutes. COMPARISON: CT dated 10/21/2022 FINDINGS: Explosives Operator radiograph demonstrates the tip of a nasogastric tube in the region of the gastric antrum. Caud al aspect of a pair of vertical rods and pedicle screws for a thoracolumbar posterior spinal fusion a re seen at the cephalad margin of the [id number]. There is a large amount of stool in the rectum a nd sigmoid colon with gas in the more proximal colon and a few loops of nondilated loops of small bow el in the right lower quadrant. Contrast extends in retrograde fashion throughout the colon Accountin g multiple lucent and mobile particles of stool. No fixed strictures or suspicious mucosal irregulari ties identified. Assessment for polyps or other mucosal masses is significantly limited by the modera te amount of additional stool scattered throughout the more proximal colon. On the final image some c ontrast can be seen refluxing to the distal ileum. IMPRESSION: 1. Moderate to large amount of stool scattered throughout the colon most prominent at the rectum and sigmoid colon consistent with constipation with fecal impaction. No evident fixed obstruction. Reviewed, dictated and finalized at location A. RANCE SERVICE REPRESENTATIVE IMPRESSION: 1. Moderate to large amount of stool scattered throughout the colon most promin ent at the rectum and sigmoid colon consistent with constipation with fecal imp action. No evident fixed obstruction.
--- NOTE | 2022-10-21 19:03 | ECG_ITS ---
Measurements Intervals [place] Rate: 106 P: NV: 0 QRS: -25 QRSD: 126 T: 54 QT: 305 QTc: 407 Interpretive Statements SINUS TACHYCARDIA ATRIAL COUPLET AND FREQUENT ATRIAL PREMATURE COMPLEXES RSR' IN V1 OR V2, CONSIDER RIGHT VENTRICULAR HYPERTROPHY OR RIGHT VCD DELAYED PRECORDIAL R/S TRANSITION NONSPECIFIC ST & T-WAVE ABNORMALITY- HIGH LATERAL LEADS BASELINE ARTIFACT- I ABNORMAL ECG COMPARED TO ECG 05/12/2022 09:13:35 FREQUENT ATRIAL PREMATURE COMPLEXES NOW PRESENT Electronically Signed On 10-21-2022 20:33:34 RAILCAR CARPENTER by Case Bravo D.O.
--- NOTE | 2022-10-21 19:06 | ED.ABDPAIN ---
HPI - Abdominal Pain General Chief Complaint: Abdominal Pain Stated Complaint: abd pain and swelling w/ SOB Time Seen by Provider: 10/21/22 19:06 Source: patient and EMS Mode of arrival: EMS Limitations: no limitations History of Present Illness HPI narrative: 52 years old white male came to the emergency room from home by ambulance complaining of increased abdominal pain with distention over the last few days. History of prostatic cancer with metastasis. Patient is poor historian, bedbound, he denies any fever, chills, nausea, vomiting, diarrhea or constipation, Related Data Home Medications Medication Instructions Recorded Confirmed albuterol sulfate 90 mcg/actuation 2 inh inhalation Q6-8H PRN 03/03/22 10/18/22 aerosol inhaler Shortness Of Breath Or Wheezing apixaban 5 mg tablet (Eliquis) 5 mg PO BID 05/12/22 10/18/22 ascorbate calcium (vitamin C) 500 500 mg PO BID 05/12/22 10/18/22 mg capsule atorvastatin 40 mg tablet 80 mg PO HS 05/12/22 10/18/22 clopidogrel 75 mg tablet (Plavix) 75 mg PO QAM 05/12/22 10/18/22 cyclobenzaprine 10 mg tablet 10 mg PO TID 05/12/22 10/18/22 fluticasone furoate 200 1 inh inhalation QAM 05/12/22 10/18/22 mcg-vilanterol 25 mcg/dose inhalation powder (Breo Ellipta) furosemide 20 mg tablet (Lasix) 20 mg PO QAM 05/12/22 10/18/22 lactulose 10 gram/15 mL oral 15 ml PO BID 05/12/22 10/18/22 solution mirtazapine 15 mg tablet (Remeron) 15 mg PO HS 05/12/22 10/18/22 collagenase clostridium histo. 250 1 applic topical DAILY 06/26/22 10/18/22 unit/gram topical ointment (Santyl) ferrous sulfate 325 mg (65 mg 325 mg PO BID 06/26/22 10/18/22 iron) tablet (Iron (ferrous sulfate)) gabapentin 100 mg tablet 300 mg PO TID 06/26/22 10/18/22 potassium chloride 20 mEq 40 meq PO QAM 06/26/22 10/18/22 tablet,extended release (K-Tab) sennosides 8.6 mg-docusate sodium 1 tab-cap PO BID 06/26/22 10/18/22 50 mg capsule (Senna Plus) calcium 500 mg tablet 500 mg PO QID 09/18/22 10/18/22 oxycodone-acetaminophen 5 mg-325 1 tablet PO Q6H PRN Pain 09/18/22 10/18/22 mg tablet prednisone 5 mg tablet 5 mg PO BID 10/11/22 10/18/22 Allergies Allergy/AdvReac Type Severity Reaction Status Date / Time No Known Allergies Allergy Verified 10/18/22 15:11 Review of Systems Review of Systems: All systems reviewed & are unremarkable except as noted in HPI and below PMFSH Past Medical History Medical History BPH (benign prostatic hyperplasia) Cataract Chronic respiratory failure COPD (chronic obstructive pulmonary disease) CVA (cerebral vascular accident) Hyperlipidemia due to dietary fat intake Prostate cancer metastatic to bone Urinary tract infection Surgical History Surgical History H/O cataract extraction H/O eye surgery History of spinal surgery History of tonsillectomy and adenoidectomy S/P TURP Family History Family History Mother Diabetes mellitus Social History Social History Social History: The patient lives with his cousin and his cousin's . He is and has 2 daughters. He is disabled. He is a former smoker. He does not use any alcohol marijuana or illicit drugs. His cousin is his durable power machine molder squeeze for healthcare. he is listed as a full code Code status full code Smoking packs per day: 1 Smoking cigarettes per day: 20.0 Years smoked: 40 Smoking pack-years: 40.00 Smoking status: Former smoker Tobacco type: cigarettes and smokeless tobacco Smokeless tobacco user: snuff Second hand tobacco smoke exposure: Yes Alcohol intake: former Substance use: never Substance use type: marijuana Other substance usage details: couple of hits once a day Lack of Transportation: YES Lack of Food: Never True Current Housing: I Have [facility]
[2022-10-21 19:31] LABS: Hematocrit 32.3 % (42.0-52.0); Hemoglobin 10.7 g/dL (14.0-18.0); Mean Corpuscular HGB Conc 33.1 g/dl (32-36); Mean Corpuscular Hemoglobin 28.7 pg (26-34); Mean Corpuscular Volume 86.6 fl (80-100); Mean Platelet Volume 10.3 fl (7.4-10.4); Platelet Count Result 378 k/mm3 (150-375); Red Blood Count 3.73 M/mm3 (4.6-6.20); Red Cell Distribution Width 16.8 % (11.5-14.5); White Blood Count 12.6 K/mm3 (4.5-10.0)
[2022-10-21 20:03] LABS: Band Neutrophils Percent 13 % (0-6); Lymphocytes Absolute Manual 1.63 K/mm3 (1.1-4.5); Lymphocytes Percent Manual 13 % (18-44); Metamyelocytes Percent 3 %; Monocytes Absolute Manual 1.13 K/mm3 (0.1-0.90); Monocytes Percent Manual 9 % (3-9); Neutrophils Absolute Manual 9.45 K/mm3 (1.3-6.7); Neutrophils Percent Manual 62 % (46-73); Total Cells Counted 100
[2022-10-21 20:04] LABS: Atypical Lymphocytes Present; Platelet Estimate Increased (Adequate); Schistocytes None Seen (NORMAL)
[2022-10-21 20:14] LABS: Alanine Aminotransferase 19 U/L (6-50); Albumin Level 3.8 g/dL (3.5-5.1); Alkaline Phosphatase 577 U/L (38-126); Anion Gap 9 mmol/L (8-16); Aspartate Amino Transferase 29 U/L (17-59); Bilirubin,Total 0.9 mg/dL (0.2-1.3); Blood Urea Nitrogen 29 mg/dL (9-20); Calcium 8.5 mg/dL (8.4-10.2); Carbon Dioxide 27 mmol/L (22-30); Chloride 88 mmol/L (98-107); Estimated CRCL calculation 97 ml/min; Estimated Glomerular Filt Rate > 60; Glucose 165 mg/dL (65-110); Lipase 36 U/L (23-300); Potassium 2.2 mmol/L (3.4-5.0); Sodium 124 mmol/L (137-145)
[2022-10-21 21:25] LABS: Appearance Urine Slightly Cloudy (Clear); Bilirubin Urine 1+ (Negative); Blood Urine 3+ (Negative); Color Urine Yellow (Yellow); Glucose Urine UA Negative (Negative); Ketones Urine Negative (Negative); Leukocyte Esterase Ur 1+ LEU/UL (Negative); Nitrate Urine Negative (Negative); Protein Urine 3+ mg/dL (Negative); Specific Grav Ur 1.015 (1.001-1.035)
--- NOTE | 2022-10-21 21:27 | PM.IMHP ---
H&P: HPI History of Present Illness Date/Time: 10/21/22 21:27 Chief Complaint: Abdominal pain Narrative: This is a 52-year-old male with past medical history significant for metastatic prostate CA, bedbound. Patient presents to the emergency room due to abdominal pain and abdominal distension of 2 days, had some nausea and vomiting has had diarrhea. Patient has not been able to eat all day today. Denies any fevers, rigors, chills, cough, sputum production. Preliminary workup was significant for, [place] [address] [facility] Past Medical History Medical History BPH (benign prostatic hyperplasia) Cataract Chronic respiratory failure COPD (chronic obstructive pulmonary disease) CVA (cerebral vascular accident) Hyperlipidemia due to dietary fat intake Prostate cancer metastatic to bone Urinary tract infection Surgical History Surgical History H/O cataract extraction H/O eye surgery History of spinal surgery History of tonsillectomy and adenoidectomy S/P TURP Family History Family History Mother Diabetes mellitus Social History Social History Social History: The patient lives with his cousin and his cousin's . He is and has 2 daughters. He is disabled. He is a former smoker. He does not use any alcohol marijuana or illicit drugs. His cousin is his durable power trademark attorney for healthcare. he is listed as a full code Code status full code Smoking packs per day: 1 Smoking cigarettes per day: 20.0 Years smoked: 40 Smoking pack-years: 40.00 Smoking status: Former smoker Tobacco type: cigarettes and smokeless tobacco Smokeless tobacco user: chewing tobacco Second hand tobacco smoke exposure: Yes Alcohol intake: former Substance use: former Substance use type: marijuana Other substance usage details: couple of hits once a day Lack of Transportation: No Lack of Food: Never True Current Housing: I Have Housing Concerned About Future Housing: No Difficulty Paying Gas/Electric Bills: YES Difficulty Paying for Meds: No Currently Unemployed: No Education: Grade School Difficulty w/ Childcare or Family Care: No Spiritual care concerns: No Meds Home Medications and Allergies Home Medications Medication Instructions Recorded Confirmed Type albuterol sulfate 90 mcg/actuation 2 inh inhalation Q6-8H PRN 03/03/22 10/22/22 History aerosol inhaler Shortness Of Breath Or Wheezing apixaban 5 mg tablet (Eliquis) 5 mg PO BID 05/12/22 10/22/22 History ascorbate calcium (vitamin C) 500 500 mg PO BID 05/12/22 10/22/22 History mg capsule atorvastatin 40 mg tablet 80 mg PO HS 05/12/22 10/22/22 History clopidogrel 75 mg tablet (Plavix) 75 mg PO QAM 05/12/22 10/22/22 History cyclobenzaprine 10 mg tablet 10 mg PO TID 05/12/22 10/22/22 History fluticasone furoate 200 1 inh inhalation QAM 05/12/22 10/22/22 History mcg-vilanterol 25 mcg/dose inhalation powder (Breo Ellipta) furosemide 20 mg tablet (Lasix) 20 mg PO QAM 05/12/22 10/22/22 History lactulose 10 gram/15 mL oral 15 ml PO BID 05/12/22 10/22/22 History solution mirtazapine 15 mg tablet (Remeron) 15 mg PO HS 05/12/22 10/22/22 History collagenase clostridium histo. 250 1 applic topical DAILY 06/26/22 10/22/22 History unit/gram topical ointment (Santyl) ferrous sulfate 325 mg (65 mg 325 mg PO BID 06/26/22 10/22/22 History iron) tablet (Iron (ferrous sulfate)) gabapentin 100 mg tablet 400 mg PO BID 06/26/22 10/22/22 History sennosides 8.6 mg-docusate sodium 1 tab-cap PO BID 06/26/22 10/22/22 History 50 mg capsule (Senna Plus) calcium 500 mg tablet 500 mg PO QID 09/18/22 10/22/22 History oxycodone-acetaminophen 5 mg-325 1 tablet PO Q6H PRN Pain (Scale 09/18/22 10/22/22
[2022-10-21 21:34] LABS: Bacteria Urine Trace /hpf; Mucus Urine Few /lpf; RBC Urine 21-50 /hpf (0-2); Squamous Epithelial Cell Urine Occasional /hpf (Few); WBC Urine >75 /hpf
[2022-10-21 21:36] LABS: Add Urine Microscopic? YES
[2022-10-21] MEDS: POTASSIUM CHLORIDE INJ 40 MEQ in SODIUM CHLORIDE 0.9% IV 500 ML 130 MEQ IVPB (21:46)
[2022-10-21 21:59] LABS: Influenza A QL RT-PCR Negative (Negative); Influenza B QL RT-PCR Negative (Negative); SARS-CoV-2 RNA PCR Negative
--- NOTE | 2022-10-21 22:06 | ECG_ITS ---
Measurements Intervals [place] Rate: 115 P: MS: 0 QRS: -25 QRSD: 121 T: 92 QT: 283 QTc: 392 Interpretive Statements SINUS TACHYCARDIA ATRIAL AND VENTRICULAR PREMATURE COMPLEXES INTRAVENTRICULAR CONDUCTION DELAY NONSPECIFIC ST & T-WAVE ABNORMALITY- HIGH LATERAL LEADS BASELINE ARTIFACT- I, II, III, AVR, AVL, AVF, V1-V6 ABNORMAL ECG COMPARED TO ECG 10/21/2022 19:06:42 NO SIGNIFICANT CHANGES Electronically Signed On 10-22-2022 8:15:47 PLACEMENT SPECIALIST by Case Bravo D.O.
[2022-10-21] MEDS: HYDROmorphone HCL INJ (*CRX) 1 MG/ML SYR 0.5 MG IV PUSH (22:12)
[2022-10-21] MEDS: ONDANSETRON INJ 4 MG/2 ML VIAL IV PUSH ×2 (22:12→23:16)
--- NOTE | 2022-10-21 23:57 | PC.NURSE ---
previous RN got [facility] for facility to replace catheter
[2022-10-22] VITALS (12 sets, daily range): BP systolic 99–119; BP diastolic 54–73; PULSE 63–110; RESP 18–20; TEMP 36.6–37.1; O2SAT 95–98; BMI 26.1
--- NOTE | 2022-10-22 00:45 | ADMGEN ---
This patient, [place], was admitted to Medical Room 247-. Patient/family oriented to hospital policies and general routines including ID bracelet, bed and alarms, visiting hours, pain management, procedures, bathroom and other care routines, personal items, smoking policy, room service/diet, and visiting hours. Information on how to activate the Rapid Response Team has been discussed. Patient/Family are encouraged to report perceived risks to care and to ask questions if they do not understand what they are told or what they should do.
[2022-10-22] MEDS: SODIUM CHLORIDE 0.9% IV 1,000 ML 150 ML IV CONT ×2 (01:53→09:12)
--- NOTE | 2022-10-22 02:28 | PM.IMHP ---
H&P: HPI History of Present Illness Date/Time: 10/22/22 02:28 Chief Complaint: Abdominal pain Narrative: This is a 52-year-old male with past medical history significant for metastatic prostate CA, bedbound.? Patient presents to the emergency room due to abdominal pain and abdominal distension of 2 days, had some nausea and vomiting has had diarrhea.? Patient has not been able to eat all day today.? Denies any fevers, rigors, chills, cough, sputum production.? Preliminary workup was significant for, [place] [id number], a urinalysis was significant for numerous WBCs present in microscopic analysis per high-power field. A CT of abdomen and pelvis was reported as: ABDOMEN/PELVIS: Liver: Normal.? Biliary/Gallbladder: Mildly dilated gallbladder. No bile duct dilation. Pancreas: No mass or duct dilation. Spleen: Normal. Adrenals:No mass. Kidneys: No suspicious mass. Mild left ureterectasis and urothelial enhancement. Simple right inferior pole cyst. Fairly extensive left renal scar and atrophy. GI tract: Distal esophageal wall edema. Marked gastric dilation. Diffusely dilated small bowel. Diffusely dilated large bowel. Large volume of inspissated fecal material in the descending colon and sigmoid colon. Distal sigmoid and rectal wall edema. Normal appendix. Mesentery/Peritoneum: No ascites, mass, or free air. Retroperitoneum: No mass. Atherosclerotic abdominal aortic and/or arterial calcifications. Pelvis: Pelvic lymphadenopathy. The previously described enhancing distal ureteral soft tissue mass is not visualized. Prostatomegaly. Horne catheter in the bladder using. Marked bladder wall edema and inflammatory change. Multiple bladder calcifications. Soft Tissues: Soft tissues and body wall unremarkable. Abdominopelvic bones:? No acute osseous finding in the abdomen/pelvis. Diffuse osseous sclerosis. IMPRESSION: Distal large bowel obstruction, possibly secondary to fecal impaction, or other mechanical/functional etiology. Dependent right lung atelectasis/consolidation. Gallbladder hydrops. Esophagitis. Cystitis, with possible ascending infection on the left. Pelvic lymphadenopathy. Diffuse skeletal metastatic disease. Abdominal x-ray was reported as: FINDINGS:? NG tube, tip and side port projecting over the stomach. Multiple loops of dilated large and small bowel in the upper abdomen. Emphysematous change in the right dependent atelectasis/consolidation were better seen in the prior CT. Diffuse sclerotic metastases were better seen in the prior CT. IMPRESSION: NG tube, in good position. Review of Systems Review of Systems: Abdominal distension, nausea, vomiting, abdominal pain, diarrhea Constitutional: Constitutional: Denies chills and Denies fever(s) Eyes: Eyes: Denies change in vision ENT: Denies dysphagia, Denies vertigo, Denies dizziness and Denies odynophagia Cardiovascular: Cardiovascular: Denies chest pain Respiratory: Respiratory: Denies chest congestion and Denies cough Gastrointestinal: Gastrointestinal: Reports abdominal pain, Denies melena, Reports constipation, Denies dyspepsia, Denies heartburn, Reports diarrhea, Reports nausea and Reports vomiting Genitourinary: Genitourinary: Denies dysuria Musculoskeletal: Musculoskeletal: Reports muscle weakness Integumentary/Breasts: Skin/Breast: Denies rash Neurologic: Denies focal weakness and Denies Sensory deficit (Neuro) Psychiatric: Psychiatric: Reports no additional psychiatric complaints and Reports as per HPI Endocrine: Endocrine: Denies cold intolerance, Denies flushing, Denies heat intolerance, Denies polyphagia, Denies polydipsia and Denies palpitations Hematologic/Lymphatic: Hematologic/Lymphatic: Reports no additional hematologic/lymphatic complaints and Reports as per HPI Allergic/Immunologic: Allergic/Immunologic: Reports no additional allergic/immunologic complaints and Reports as per HPI PMFSH Past Medical History Medical History
[2022-10-22 03:24] LABS: Hematocrit 30.6 % (42.0-52.0); Hemoglobin 9.9 g/dL (14.0-18.0); Mean Corpuscular HGB Conc 32.4 g/dl (32-36); Mean Corpuscular Hemoglobin 28.2 pg (26-34); Mean Corpuscular Volume 87.2 fl (80-100); Mean Platelet Volume 10.7 fl (7.4-10.4); Platelet Count Result 363 k/mm3 (150-375); Red Blood Count 3.51 M/mm3 (4.6-6.20); Red Cell Distribution Width 16.9 % (11.5-14.5); White Blood Count 13.3 K/mm3 (4.5-10.0)
[2022-10-22 03:40] LABS: Anion Gap 8 mmol/L (8-16); Blood Urea Nitrogen 27 mg/dL (9-20); Calcium 8.4 mg/dL (8.4-10.2); Carbon Dioxide 26 mmol/L (22-30); Chloride 91 mmol/L (98-107); Estimated CRCL calculation 89 ml/min; Estimated Glomerular Filt Rate > 60; Glucose 133 mg/dL (65-110); Magnesium 2.4 mg/dL (1.6-2.3); Phosphorus 1.5 mg/dL (2.5-4.5); Potassium 2.5 mmol/L (3.4-5.0); Sodium 125 mmol/L (137-145)
[2022-10-22 04:01] LABS: Band Neutrophils Percent 7 % (0-6); Eosinophils Absolute Manual 0.13 K/mm3 (0.02-0.5); Eosinophils Percent Manual 1 % (0-4); Lymphocytes Absolute Manual 1.19 K/mm3 (1.1-4.5); Metamyelocytes Percent 3 %; Monocytes Absolute Manual 0.93 K/mm3 (0.1-0.90); Monocytes Percent Manual 7 % (3-9); Neutrophils Absolute Manual 10.64 K/mm3 (1.3-6.7); Neutrophils Percent Manual 73 % (46-73); Platelet Estimate Adequate (Adequate); Total Cells Counted 100
[2022-10-22] MEDS: POTASSIUM CHLORIDE INJ 40 MEQ in SODIUM CHLORIDE 0.9% IV 500 ML 130 MEQ IVPB (04:10)
[2022-10-22] MEDS: FLUTICASONE/SALMETEROL 230-21 MCG INHALER 1 PUFF 2 PUFF INHALATION ×2 (07:36→21:21)
[2022-10-22] MEDS: metroNIDAZOLE 500 MG/ISO 100ML 500 MG/100 ML BAG 100 MG IVPB (09:13)
[2022-10-22] MEDS: cefTRIAXone 2 GM in SODIUM CHLORIDE 0.9% IV 100 ML 200 ML IVPB (10:31)
--- NOTE | 2022-10-22 12:46 | PDONCCN ---
HPI - Date of Consult Date/Time: 10/22/22 12:46 Requesting Physician: Bekah Starks PA-C Primary Care Provider: Mejia Theodore, - Consult Narrative Reason for consult: Metastatic prostate cancer Narrative: [place] is a 52 year old male with diagnosis of metastatic prostate cancer status post prostate biopsy done in February 2022. Patient had metastatic involvement of the bone and retroperitoneal lymphadenopathy. He started chemotherapy with Taxotere on October 11. He is also on Lupron as well as on prednisone. He was supposed to start treatment with Zytiga. He came into the hospital with abdominal pain and distension. He denies any fevers and chills. CT abdomen done on October 21 showed distal large bowel obstruction secondary to fecal impaction. NG tube was placed. He is feeling slightly better. Other labs showed mild anemia. Review of Systems - Review of Systems All systems reviewed & are unremarkable except as noted in HPI and bel - Neurologic Denies vertigo, Denies focal weakness, Denies sensory deficit PMFSH Medical History: Medical History (Last Reviewed 10/21/22 @ 19:23 by Christine Owens MD) BPH (benign prostatic hyperplasia) Cataract Chronic respiratory failure COPD (chronic obstructive pulmonary disease) CVA (cerebral vascular accident) Hyperlipidemia due to dietary fat intake Prostate cancer metastatic to bone Urinary tract infection Surgical History: Surgical History (Last Reviewed 10/21/22 @ 19:23 by Christine Owens MD) H/O cataract extraction H/O eye surgery History of spinal surgery History of tonsillectomy and adenoidectomy S/P TURP Family History: Family History (Last Reviewed 10/22/22 @ 00:47 by Teagan Rapp RN) Mother Diabetes mellitus - Social History Social History: Social History (Last Reviewed 10/21/22 @ 19:23 by Christine Owens MD) Alcohol Use: Alcohol intake: former Substance Use: Substance use: former Substance use type: marijuana Other substance usage details: couple of hits once a day Others: Spiritual care concerns: No Smoking Status: Smoking status: Former smoker Tobacco type: cigarettes Tobacco type: smokeless tobacco Smokeless tobacco user: chewing tobacco Second hand tobacco smoke exposure: Yes Approximate Smoking End Date: 2016 Smoking Pack-years: Smoking packs per day: 1 Smoking cigarettes per day: 20.0 Years smoked: 40 Smoking pack-years: 40.00 Social Determinants of Health: Has the Lack of Transportation Kept You From Medical Appointments or From Getting Medications?: No Within the Past 12 Months, Were You Worried Whether Your Food Would Run Out Before You Got Money to Buy More?: Never True What is Your Housing Situation Today?: I Have Housing Are You Worried That in the Next 2 Months, You May Not Have Your Own Housing to Live In?: No Do You Have Trouble Paying Your Heating Or Electricity Bill?: Yes Do You Have Trouble Paying For Medicines?: No Are You Currently Unemployed and Looking for Work?: No Highest Level of Education Completed: Grade School Do You Have Trouble With Childcare or the Care of a Family Member?: No Exam - Vital Signs Vital Signs - 24 hr 10/21/22 18:54 10/21/22 19:00 10/21/22 19:15 Temperature 36.3 C L Pulse Rate 113 H 110 H Respiratory Rate 18 24 H Blood Pressure 139/81 Pulse Oximetry 99 96 100 Oxygen Delivery Nasal Cannula Oxygen Flow Rate 4 10/21/22 19:30 10/21/22 19:31 10/21/22 19:45 Temperature Pulse Rate 107 H 108 H 107 H Respiratory Rate 16 17 19 Blood Pressure 134/107 H Pulse Oximetry 96 99 99 Oxygen Delivery Oxygen Flow Rate 10/21/22 20:00 10/21/22 20:10 10/21/22 20:15 Temperature Pulse Rate 102 H 107 H 104 H Respiratory Rate 19 17 18 Blood Pressure 135/88 Pulse Oximetry 97 100 100 Oxygen Delivery Oxygen Flow Rate
--- NOTE | 2022-10-22 13:46 | PM.CNGS ---
Assessment and Plan Assessment and plan (1) Large bowel obstruction: Code(s): K56.609 - Unspecified intestinal obstruction, unspecified as to partial versus complete obstruction Status: Acute Assessment and Plan: CT evidence of a large bowel obstruction with a fecal impaction. The obstruction could be due to the fecal impaction or other possibilities could be a colon mass or stricture. He has had multiple bowel movements since admission and his abdominal exam is benign. We will continue NG tube decompression, bowel rest, and IV fluids. Will order a Hypaque enema to further evaluate the large bowel obstruction. He denies any previous colonoscopies. Recommend GI consultation. We will await Hypaque enema results, and continue to monitor with serial abdominal exams and imaging. (2) Fecal impaction: Code(s): K56.41 - Fecal impaction Status: Acute Assessment and Plan: CT showed a large volume of fecal material in the descending colon and sigmoid colon with distal sigmoid and rectal wall edema. He has not received any bowel stimulation or enemas, but has had multiple bowel movements since admission. Will order a Hypaque enema that will also hopefully be therapeutic for the fecal impaction. (3) Malignant neoplasm of prostate metastatic to bone: Code(s): C61 - Malignant neoplasm of prostate; C79.51 - Secondary malignant neoplasm of bone Status: Acute Assessment and Plan: Known metastatic prostate cancer started on chemotherapy on October 11. Oncology consulted. 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 (5) Acute hypokalemia: Code(s): E87.6 - Hypokalemia Status: Acute Assessment and Plan: He has multiple electrolyte abnormalities, management per Hospitalist. Potassium 2.2 on admission and 2.5 this morning. He has received KCL IV replacement and has a BMP pending now. Continue to monitor and replace as needed. (6) Acute hyponatremia: Code(s): E87.1 - Hypo-osmolality and hyponatremia Status: Acute (7) COPD (chronic obstructive pulmonary disease): Code(s): J44.9 - Chronic obstructive pulmonary disease, unspecified Status: Acute (8) Acute UTI: Code(s): N39.0 - Urinary tract infection, site not specified Status: Acute Assessment and Plan: Currently on IV ceftriaxone. Management per Hospitalist. (9) Antiplatelet or antithrombotic long-term use: Code(s): Z79.02 - custodial (current) use of antithrombotics/antiplatelets Status: Acute Assessment and Plan: Plavix on hold. Plan I have discussed the patient's case and plan of care with Dr. Lemos. Thank you for allowing us to see the patient in consultation and we will continue to follow along with you. History of Present Illness Consult details Consult date: 10/22/22 Reason for consult: other (Large bowel obstruction) Requesting physician: Christine Owens MD Narrative: This is a 52-year-old man with a known history of metastatic prostate cancer who we have been asked to see for a large bowel obstruction. He came into the ER yesterday with complaints of generalized abdominal pain ongoing for a few days. He denies any nausea, vomiting, fever, or chills. In the ER, he was found have white blood cell count 12,600, sodium 124, and potassium 2.2. CT scan of the chest, abdomen, and pelvis showed a distal large bowel obstruction, possibly secondary to fecal impaction, dependent right lung atelectasis/consolidation, gallbladder hydrops, soft diet is, cystitis with possible ascending infection on the left, pelvic lymphadenopathy, and diffuse skeletal metastatic disease. He had an NG tube placed in the ER. ER provider did a digital rectal exam to attempt disimpaction, but was unsuccessful as there was no stool in the distal rectum at the level of his
--- NOTE | 2022-10-22 14:29 | WPDGICN ---
Assessment and Plan Assessment and plan (1) Fecal impaction: Code(s): K56.41 - Fecal impaction Status: Acute Assessment and Plan: Patient admitted with apparent fecal impaction. This appears to have been the etiology for apparent blockage of the large bowel. Relief of this was apparent after Gastrografin lower GI. Patient passed a large amount of stool with softening of his abdomen. Plan to continue NG tube decompression for now. Will discontinue this after his abdomen has become less distended. Allow ice chips. Gradually allow liquid diet subsequently perhaps tomorrow. More thorough evaluation of the colon will be deferred to evaluate how he response to enema therapy today. Continued long-term use of laxatives as anticipated. Limit narcotics if at all possible. (2) Large bowel obstruction: Code(s): K56.609 - Unspecified intestinal obstruction, unspecified as to partial versus complete obstruction Status: Acute (3) Malignant neoplasm of prostate metastatic to bone: Code(s): C61 - Malignant neoplasm of prostate; C79.51 - Secondary malignant neoplasm of bone Status: Acute Assessment and Plan: Oncology following. Decreased mobility from his prostate metastases may contribute to his constipation. (4) UTI (urinary tract infection) due to urinary indwelling Horne catheter: Code(s): T83.511A - Infection and inflammatory reaction due to indwelling urethral catheter, initial encounter; N39.0 - Urinary tract infection, site not specified Status: Acute GI Consult Note Consult date/time: 10/22/22 14:29 Reason for consult: Fecal impaction HPI: [place] is a 52 year old male I am asked to see because of large bowel obstruction secondary to fecal impaction. Patient has a history of prostate carcinoma diagnosed with biopsy initially in February of 2022. She he has been found to have metastatic tumor to the bone as well as retroperitoneal lymphadenopathy. Patient was started on new medication early October of this year several weeks ago. Patient states over the last week or so has had increasing abdominal distention. He became somewhat uncomfortable and presented to the emergency room. X-ray imaging reveals dilated large bowel consistent with partial bowel obstruction. Patient reports having had bowel movements on almost every other day basis. Most recent bowel movement was 2 days ago. Patient denies any blood in his stools. Denies any fever. In the emergency room was also found to have urinary tract infection. Review of Systems Review of Systems: Review of systems noncontributory. [facility] Past Medical History Medical History BPH (benign prostatic hyperplasia) Cataract Chronic respiratory failure COPD (chronic obstructive pulmonary disease) CVA (cerebral vascular accident) Hyperlipidemia due to dietary fat intake Prostate cancer metastatic to bone Urinary tract infection Surgical History Surgical History H/O cataract extraction H/O eye surgery History of spinal surgery History of tonsillectomy and adenoidectomy S/P TURP Family History Family History Mother Diabetes mellitus Social History Social History Social History: The patient lives with his cousin and his cousin's . He is and has 2 daughters. He is disabled. He is a former smoker. He does not use any alcohol marijuana or illicit drugs. His cousin is his durable power contracts attorney for healthcare. he is listed as a full code Code status full code Smoking packs per day: 1 Smoking cigarettes per day: 20.0 Years smoked: 40 Smoking pack-years: 40.00 Smoking status: Former smoker Tobacco type: cigarettes and smokeless tobacco Smokeless tobacco user
[2022-10-22 14:38] LABS: Anion Gap 5 mmol/L (8-16); Blood Urea Nitrogen 21 mg/dL (9-20); Calcium 7.9 mg/dL (8.4-10.2); Carbon Dioxide 28 mmol/L (22-30); Chloride 100 mmol/L (98-107); Estimated CRCL calculation 80 ml/min; Estimated Glomerular Filt Rate > 60; Glucose 109 mg/dL (65-110); Magnesium 2.3 mg/dL (1.6-2.3); Phosphorus 1.1 mg/dL (2.5-4.5); Potassium 2.5 mmol/L (3.4-5.0); Sodium 133 mmol/L (137-145)
--- NOTE | 2022-10-22 16:18 | PM.IMPN ---
Progress Note: A&P Assessment and Plan (1) Large bowel obstruction: Code(s): K56.609 - Unspecified intestinal obstruction, unspecified as to partial versus complete obstruction Status: Acute Assessment and Plan: CT of abdomen/ pelvis revealed distal large-bowel obstruction felt to be secondary to fecal impaction. appreciate GI and General surgery consultation. Continue with NG decompression. Appears obstruction resolved following water-soluble enema completed today which revealed moderate to large amount of stool scattered throughout the colon most prominent the rectum and sigmoid colon consistent with constipation from fecal impaction with no evidence of obstruction. NPO diet. continue gentle IV fluids. (2) Fecal impaction: Code(s): K56.41 - Fecal impaction Status: Acute Assessment and Plan: Resolved following lower GI series today. Continue with NG decompression. Advance diet slowly as tolerated as per GI recommendation illness. Continue with laxatives for bowel regimen. Limit narcotics (3) Malignant neoplasm of prostate metastatic to bone: Code(s): C61 - Malignant neoplasm of prostate; C79.51 - Secondary malignant neoplasm of bone Status: Acute Assessment and Plan: Established with Dr. Pena. Appreciate Oncology consultation. Will need to follow-up outpatient to resume chemotherapy following resolution of obstruction. (4) UTI (urinary tract infection) due to urinary indwelling Horne catheter: Code(s): T83.511A - Infection and inflammatory reaction due to indwelling urethral catheter, initial encounter; N39.0 - Urinary tract infection, site not specified Status: Acute Assessment and Plan: Urinalysis grossly abnormal on presentation. Remains afebrile. Mild leukocytosis. Continue with IV Rocephin while awaiting urine culture results (5) CVA (cerebral vascular accident): Code(s): I63.9 - Cerebral infarction, unspecified Status: Chronic Assessment and Plan: patient with history of CVA now bedbound. I did does have slurred speech, unsure whether acute or chronic. Per RN, SARs speech is worsened throughout the day, therefore will proceed with CT of the brain to ensure no acute changes. (6) Chronic respiratory failure: Code(s): J96.10 - Chronic respiratory failure, unspecified whether with hypoxia or hypercapnia Status: Acute Assessment and Plan: On 3.5 L at all times. Currently on 4 L supplemental O2. Wean as tolerated (7) Electrolyte abnormality: Code(s): E87.8 - Other disorders of electrolyte and fluid balance, not elsewhere classified Status: Acute Assessment and Plan: hypokalemia: Potassium 2.5. Reason CV 40 mEq IV KCl today. Proceed with 40 mmol potassium phosphate hypophosphatemia: Phosphorus 1.1. 40 mmol potassium phosphate hypocalcemia: Improved calcium 7.9 today. home oral calcium supplement on hold while NPO. Resume when diet is advanced monitor electrolytes closely Subjective Date/time seen: 10/22/22 16:18 Interval history: date of service: 10/22/2022 [place] is a 52-year-old male with a history of prostate cancer with bony metastases, CVA, COPD, chronic respiratory failure on 3.5 L supplemental O2, hyperlipidemia who is seen in follow-up for large bowel obstruction. Patient is a poor historian and not able to provide any meaningful history. He denies abdominal pain. Complains of feeling fatigued. States that he has not been able to eat for the past 2 days and has had decreased appetite. RN reports liquid stool this morning Review of Systems Review of Systems: ROS unobtainable: Yes unobtainable due to mental status Exam Narrative: General: thin, frail 52-year-old male, supine in bed, comfortable, NARD Neuro: awake, alert and oriented x3, speech slightly garbled, no focal neuro deficits noted, exhibits confusion HEENMT:
[2022-10-22] MEDS: POTASSIUM PHOS,M-BASIC-D-BASIC 40 MMOL in SODIUM CHLORIDE 0.9% IV 250 ML 43.89 MMOL IVPB (17:14)
[2022-10-22] MEDS: SODIUM CHLORIDE 0.9% IV 1,000 ML 75 ML IV CONT (20:25)
[2022-10-23] VITALS (12 sets, daily range): BP systolic 100–112; BP diastolic 52–60; PULSE 82–105; RESP 18–20; TEMP 36.7–37.2; O2SAT 94–99; BMI 26.1
[2022-10-23] MEDS: SODIUM CHLORIDE 0.9% IV 1,000 ML 75 ML IV CONT (02:02)
[2022-10-23 05:08] LABS: Hematocrit 25.6 % (42.0-52.0); Hemoglobin 8.2 g/dL (14.0-18.0); Mean Corpuscular Hemoglobin 28.3 pg (26-34); Mean Corpuscular Volume 88.3 fl (80-100); Mean Platelet Volume 10.9 fl (7.4-10.4); Platelet Count Result 284 k/mm3 (150-375); Red Cell Distribution Width 17.1 % (11.5-14.5); White Blood Count 15.3 K/mm3 (4.5-10.0)
[2022-10-23 05:25] LABS: Alanine Aminotransferase 15 U/L (6-50); Alkaline Phosphatase 387 U/L (38-126); Anion Gap 5 mmol/L (8-16); Aspartate Amino Transferase 24 U/L (17-59); Bilirubin,Total 0.5 mg/dL (0.2-1.3); Blood Urea Nitrogen 15 mg/dL (9-20); Calcium 7.4 mg/dL (8.4-10.2); Carbon Dioxide 30 mmol/L (22-30); Chloride 101 mmol/L (98-107); Estimated CRCL calculation 116 ml/min; Estimated Glomerular Filt Rate > 60; Glucose 83 mg/dL (65-110); Magnesium 2.3 mg/dL (1.6-2.3); Phosphorus 1.8 mg/dL (2.5-4.5); Potassium 2.3 mmol/L (3.4-5.0); Sodium 136 mmol/L (137-145)
--- NOTE | 2022-10-23 05:34 | PC.NURSE ---
Spoke with Dr. Gupta at this time to report critical potassium level of 2.3. New orders received: potassium chloride 80meq IVPB once. Redraw potassium level 1 hour after k-rider complete. Notify hospitalist if level is less than 3.5.
[2022-10-23] MEDS: POTASSIUM CHLORIDE INJ 40 MEQ in SODIUM CHLORIDE 0.9% IV 500 ML 130 MEQ IVPB ×3 (06:00→18:49)
--- NOTE | 2022-10-23 07:43 | WPDGIPROGNO ---
Progress Note: A&P Assessment and Plan (1) Fecal impaction: Code(s): K56.41 - Fecal impaction Status: Acute Assessment and Plan: Fecal impaction now resolved. This was the cause of his distended colon on imaging studies. Plan to discontinue NG tube today. Continue laxatives. Slowly advance diet. (2) Malignant neoplasm of prostate metastatic to bone: Code(s): C61 - Malignant neoplasm of prostate; C79.51 - Secondary malignant neoplasm of bone Status: Acute Assessment and Plan: Prostate cancer metastatic to bone. Also metastatic to retroperitoneal spaces. Oncology follow-up advised. (3) Altered mental status: Qualifiers: Altered mental status type: unspecified Qualified Code(s): R41.82 - Altered mental status, unspecified Code(s): R41.82 - Altered mental status, unspecified Status: Acute Assessment and Plan: Patient continues with altered mental status. CT scan of the head reveals evidence for an old CVA. Subjective Date/time seen: 10/23/22 07:43 Interval history: Patient still wants somewhat difficult to arouse. Appears more comfortable. NG tube remains in place this morning. Passed a large amount of stool after Gastrografin lower GI. Review of Systems Review of Systems: ROS unobtainable: Yes unobtainable due to mental status Exam Narrative: physical exam reveals patient be comfortable. He is alert, afebrile. Anicteric. Lungs are clear. Heart without murmur. Abdomen now soft and flat. Bowel sounds are present nontender. Objective Data Vital Signs Vital Signs: Vital Signs - 24 hr 10/22/22 10:15 10/22/22 15:05 10/22/22 08:00 Temperature 98.8 F 98.3 F Pulse Rate 104 H 96 100 Respiratory Rate 18 18 Blood Pressure 106/58 L 101/54 L Pulse Oximetry 97 98 Oxygen Delivery Oxygen Flow Rate 10/22/22 12:00 10/22/22 16:00 10/22/22 20:49 Temperature 98.8 F Pulse Rate 104 H 110 H 108 H Respiratory Rate 20 Blood Pressure 99/58 L Pulse Oximetry 95 Oxygen Delivery Oxygen Flow Rate 10/22/22 21:22 10/22/22 21:22 10/22/22 20:00 Temperature Pulse Rate 110 H 110 H Respiratory Rate 20 20 Blood Pressure Pulse Oximetry 95 95 Oxygen Delivery Nasal Cannula Oxygen Flow Rate 3 4 01/18/23 00:12 10/23/22 00:00 10/23/22 04:38 Temperature 98.1 F 98.9 F Pulse Rate 104 H 105 H 102 H Respiratory Rate 20 18 Blood Pressure 106/54 L 103/58 L Pulse Oximetry 94 96 Oxygen Delivery Oxygen Flow Rate 10/23/22 04:00 Temperature Pulse Rate 98 Respiratory Rate Blood Pressure Pulse Oximetry Oxygen Delivery Oxygen Flow Rate Intake/Output Intake/Output: Intake & Output 10/20/22 10/21/22 10/22/22 10/23/22 23:59 23:59 23:59 23:59 Intake Total 50 2870 1000 Output Total 1925 1450 Balance 50 505 -450 Meds/Results Medications: Active Medications Generic Name Dose Route Start Last Admin Trade Name Freq PRN Reason Stop Dose Admin Albuterol 2 puff 10/22/22 01:59 Albuterol Sulfate (*Sp) Aerosol 1 Puff INHALATION Q6-8H PRN Shortness Of Breath Or Wheezing Enoxaparin Sodium 40 mg 10/23/22 09:00 Enoxaparin 40 Mg/0.4 Ml Syringe SUB-Q DAILY NAWAF Hydromorphone HCl 0.5 mg 10/21/22 21:30 Hydromorphone Hcl Inj (*Crx) 1 Mg/Ml Syr IV PUSH Q4H PRN Pain Rated 7-10 Sodium Chloride 1,000 mls @ 75 mls/hr 10/21/22 21:30 10/23/22 02:02 Normal Saline Iv IV CONT 75 mls/hr .[id number] NAWAF Administration Ceftriaxone Sodium 2 gm/ 100 mls @ 200 mls/hr 10/22/22 09:00 10/22/22 11:00 Sodium Chloride IVPB Infused Q24H NAWAF Infusion Potassium Chloride 40 meq/ 520 mls @ 130 mls/hr 10/23/22 06:00 10/23/22 06:00 Sodium Chloride IVPB 10/23/22 09:59 130 mls/hr ONCE ONE Administration Potassium Chloride 40 meq/ 520 mls @ 130 mls/hr 10/23/22 10:00 Sodium Chloride IVPB 10/23/22 13:59 ONCE ONE Miconazole Nitrate 1
[2022-10-23 08:07] LABS: Anisocytosis 1+ (NORMAL); Band Neutrophils Percent 19 % (0-6); Lymphocytes Absolute Manual 1.07 K/mm3 (1.1-4.5); Metamyelocytes Percent 2 %; Microcytosis 1+ (NORMAL); Monocytes Absolute Manual 1.22 K/mm3 (0.1-0.90); Monocytes Percent Manual 8 % (3-9); Neutrophils Absolute Manual 12.69 K/mm3 (1.3-6.7); Neutrophils Percent Manual 64 % (46-73); Nucleated Red Blood Cells 1 %; Platelet Estimate Adequate (Adequate); Schistocytes None Seen (NORMAL); Total Cells Counted 100
[2022-10-23 08:08] LABS: Hypochromasia 1+ (NORMAL)
[2022-10-23] MEDS: cefTRIAXone 2 GM in SODIUM CHLORIDE 0.9% IV 100 ML 200 ML IVPB (09:02)
[2022-10-23] MEDS: ENOXAPARIN 40 MG/0.4 ML SYRINGE SUB-Q (09:02)
[2022-10-23] MEDS: polyethylene glycoL 3350 17 GM POWD.PACK PO (09:03)
[2022-10-23] MEDS: POTASSIUM/PHOSPHORUS/SODIUM 1.5 GM PACKET 1 PACKET PO ×3 (09:23→16:25)
[2022-10-23] MEDS: FLUTICASONE/SALMETEROL 230-21 MCG INHALER 1 PUFF 2 PUFF INHALATION ×2 (09:46→19:41)
--- NOTE | 2022-10-23 12:05 | PM.PNGS ---
Progress Note: A&P Assessment and Plan (1) Large bowel obstruction: Code(s): K56.609 - Unspecified intestinal obstruction, unspecified as to partial versus complete obstruction Status: Acute Assessment and Plan: enema reviewed, no mass evident, likely secondary to fecal impaction, multiple BMs, NG out, cont to ADAT, will need colonoscopy once cleaned out (2) Malignant neoplasm of prostate metastatic to bone: Code(s): C61 - Malignant neoplasm of prostate; C79.51 - Secondary malignant neoplasm of bone Status: Acute Assessment and Plan: oncology following Subjective Subjective Date/Time Seen: 10/23/22 12:05 feels ok, no abd pain, lots of bowel movements, wants to eat more Review of Systems Review of Systems: All systems reviewed & are unremarkable except as noted in HPI and below Exam Const: General: cooperative, comfortable and ill appearing Resp: Auscultation: clear to auscultation bilaterally Cardio: Rate: tachycardic Rhythm: regular rhythm GI: Inspection: normal to inspection and non-distended GI Palp: No abdominal tenderness, Yes Soft to palpation, No Tenderness to palpation present (GI), No Guarding due to palpation present (GI) and No Rigid due to palpation Objective Data Vital Signs Vital Signs: Vital Signs - 24 hr 10/22/22 15:05 10/22/22 16:00 10/22/22 20:49 Temperature 36.8 C 37.1 C Pulse Rate 96 110 H 108 H Respiratory Rate 18 20 Blood Pressure 101/54 L 99/58 L Pulse Oximetry 98 95 Oxygen Delivery Oxygen Flow Rate 10/22/22 21:22 10/22/22 21:22 10/22/22 20:00 Temperature Pulse Rate 110 H 110 H Respiratory Rate 20 20 Blood Pressure Pulse Oximetry 95 95 Oxygen Delivery Nasal Cannula Oxygen Flow Rate 3 4 10/23/22 00:12 10/23/22 00:00 10/23/22 04:38 Temperature 36.7 C 37.2 C Pulse Rate 104 H 105 H 102 H Respiratory Rate 20 18 Blood Pressure 106/54 L 103/58 L Pulse Oximetry 94 96 Oxygen Delivery Oxygen Flow Rate 10/23/22 04:00 10/23/22 09:00 Temperature Pulse Rate 98 102 H Respiratory Rate Blood Pressure Pulse Oximetry Oxygen Delivery Oxygen Flow Rate Intake/Output Intake/Output: Intake & Output 01/1510/21/22 10/22/22 10/23/22 23:59 23:59 23:59 23:59 Intake Total 50 6720 1220 Output Total 9102 6682 Balance 50 945 -730 Meds/Results Medications: Active Medications Generic Name Dose Route Start Last Admin Trade Name Freq PRN Reason Stop Dose Admin Albuterol 2 puff 10/22/22 01:59 Albuterol Sulfate (*Sp) Aerosol 1 Puff INHALATION Q6-8H PRN Shortness Of Breath Or Wheezing Enoxaparin Sodium 40 mg 10/23/22 09:00 10/23/22 09:02 Enoxaparin 40 Mg/0.4 Ml Syringe SUB-Q 40 mg DAILY NAWAF Administration Hydromorphone HCl 0.5 mg 10/21/22 21:30 Hydromorphone Hcl Inj (*Crx) 1 Mg/Ml Syr IV PUSH Q4H PRN Pain Rated 7-10 Sodium Chloride 1,000 mls @ 75 mls/hr 10/21/22 21:30 10/23/22 02:02 Normal Saline Iv IV CONT 75 mls/hr .[id number] NAWAF Administration Ceftriaxone Sodium 2 gm/ 100 mls @ 200 mls/hr 10/22/22 09:00 10/23/22 09:32 Sodium Chloride IVPB Infused Q24H NAWAF Infusion Potassium Chloride 40 meq/ 520 mls @ 130 mls/hr 10/23/22 10:00 Sodium Chloride IVPB 10/23/22 13:59 ONCE ONE Miconazole Nitrate 1 applic 10/22/22 09:00 10/23/22 09:03 Miconazole 2% Antifungal Ointment 56 Gm TOPICAL 1 applic Q12HR NAWAF Administration Ondansetron HCl 4 mg 10/21/22 21:30 10/21/22 23:16 Ondansetron Inj 4 Mg/2 Ml Vial IV PUSH 4 mg Q4H PRN Administration Nausea Polyethylene Glycol 17 gm 10/23/22 09:00 10/23/22 09:03 Polyethylene Glycol 3350 17 Gm Powd.Pack PO 17 gm QAM NAWAF Administration Potassium Phos/Sodium Phos 1 packet 10/23/22 13:00 Potassium/Phosphorus/Sodium 1.5 Gm Packet PO TID NAWAF Fluticasone/Salmeterol 2 puff 10/22/22 08:00 10/23/22 09:46 Fluticasone/Salmeterol 230-21
--- NOTE | 2022-10-23 15:00 | PM.IMPN ---
Progress Note: A&P Assessment and Plan (1) Large bowel obstruction: Code(s): K56.609 - Unspecified intestinal obstruction, unspecified as to partial versus complete obstruction Status: Acute Assessment and Plan: CT of abdomen/ pelvis revealed distal large-bowel obstruction felt to be secondary to fecal impaction. appreciate GI and General surgery consultation. Appears obstruction resolved following water-soluble enema completed today which revealed moderate to large amount of stool scattered throughout the colon most prominent the rectum and sigmoid colon consistent with constipation from fecal impaction with no evidence of obstruction. NG tube removed today. Continue with clear liquid diet. Advance as tolerated per GI recommendations. Continue gentle IV fluids until better tolerating diet. (2) Fecal impaction: Code(s): K56.41 - Fecal impaction Status: Acute Assessment and Plan: Resolved following lower GI series on 10/22. see plan above. Continue clear liquid diet at this time. Continue with laxatives for bowel regimen. Limit narcotics (3) Malignant neoplasm of prostate metastatic to bone: Code(s): C61 - Malignant neoplasm of prostate; C79.51 - Secondary malignant neoplasm of bone Status: Acute Assessment and Plan: Established with Dr. Pena. Appreciate Oncology consultation. Will need to follow-up outpatient to resume chemotherapy following resolution of obstruction. (4) UTI (urinary tract infection) due to urinary indwelling Horne catheter: Code(s): T83.511A - Infection and inflammatory reaction due to indwelling urethral catheter, initial encounter; N39.0 - Urinary tract infection, site not specified Status: Acute Assessment and Plan: Urinalysis grossly abnormal on presentation. preliminary urine culture with growth of Gram-negative bacilli. Continue 2 g IV Rocephin awaiting final culture results. Patient remains afebrile. Slight increase in leukocytosis, continue to monitor closely (5) CVA (cerebral vascular accident): Code(s): I63.9 - Cerebral infarction, unspecified Status: Chronic Assessment and Plan: patient with history of CVA now bedbound. head CT completed on 10/22 revealed old infarct involving left temporoparietal and occipital region as well as old infarct in left cerebellum. continue Plavix. no acute issues (6) Chronic respiratory failure: Code(s): J96.10 - Chronic respiratory failure, unspecified whether with hypoxia or hypercapnia Status: Acute Assessment and Plan: On 3.5 L at all times. monitor oxygen saturations (7) Electrolyte abnormality: Code(s): E87.8 - Other disorders of electrolyte and fluid balance, not elsewhere classified Status: Acute Assessment and Plan: hypokalemia: Potassium 2.3. IV KCl 80 mEq total in 2 divided doses, repeat potassium following completion and supplement as needed hypophosphatemia: Phosphorus improved to 1.8 after KPhos infusion. Transition to Phos-NaK packets as pt is no longer NPO. Monitor hypocalcemia: Calcium 7.4 today. Resume home calcium supplementation monitor electrolytes closely Subjective Date/time seen: 10/23/22 15:00 Interval history: Date of service: 10/23/2022 [place] is a 52-year-old male with a history of prostate cancer with bony metastases, CVA, COPD, chronic respiratory failure on 3.5 L supplemental O2, hyperlipidemia who is seen in follow-up for large bowel obstruction. patient is alert today and answers questions appropriately. states that he is feeling well. He has some discomfort but notes overall improvement. He was able to tolerate clear liquids today. Reports several loose stools today. Denies shortness of cough. No chest. Reports episode of emesis last night but no vomiting today. No fever or chills. Review of Systems Review of Systems: All systems reviewed
[2022-10-23] MEDS: CYCLOBENZAPRINE HCL 10 MG TABLET PO (16:25)
[2022-10-23] MEDS: FERROUS SULFATE 324 MG TABLET PO (16:25)
[2022-10-23] MEDS: ASCORBIC ACID 500 MG TABLET PO (16:26)
[2022-10-23] MEDS: CALCIUM CARBONATE (OSCAL) 500 MG TABLET PO ×2 (16:26→20:36)
[2022-10-23 18:15] LABS: Anion Gap 4 mmol/L (8-16); Blood Urea Nitrogen 10 mg/dL (9-20); Calcium 6.7 mg/dL (8.4-10.2); Carbon Dioxide 29 mmol/L (22-30); Chloride 101 mmol/L (98-107); Estimated CRCL calculation 136 ml/min; Estimated Glomerular Filt Rate > 60; Glucose 89 mg/dL (65-110); Potassium 2.7 mmol/L (3.4-5.0); Sodium 134 mmol/L (137-145)
[2022-10-23] MEDS: POTASSIUM CHLORIDE 20 MEQ TABLET 40 MEQ PO (18:50)
[2022-10-23] MEDS: ATORVASTATIN 40 MG TABLET 80 MG PO (20:35)
[2022-10-23] MEDS: MIRTAZAPINE 15 MG TABLET PO (20:36)
[2022-10-24] VITALS (15 sets, daily range): BP systolic 96–117; BP diastolic 50–71; PULSE 72–95; RESP 18–20; TEMP 36.2–36.7; O2SAT 94–99
[2022-10-24 00:35] LABS: Glucose Point of Care 92 mg/dl (65-105)
[2022-10-24 03:08] LABS: Glucose Point of Care 85 mg/dl (65-105)
[2022-10-24] MEDS: SODIUM CHLORIDE 0.9% IV 1,000 ML 75 ML IV CONT ×2 (03:49→23:49)
[2022-10-24 04:58] LABS: Hematocrit 27.3 % (42.0-52.0); Hemoglobin 8.4 g/dL (14.0-18.0); Mean Corpuscular HGB Conc 30.8 g/dl (32-36); Mean Corpuscular Hemoglobin 28.4 pg (26-34); Mean Corpuscular Volume 92.2 fl (80-100); Mean Platelet Volume 10.8 fl (7.4-10.4); Platelet Count Result 253 k/mm3 (150-375); Red Blood Count 2.96 M/mm3 (4.6-6.20); Red Cell Distribution Width 17.3 % (11.5-14.5)
[2022-10-24 05:15] LABS: Alanine Aminotransferase 15 U/L (6-50); Albumin Level 2.9 g/dL (3.5-5.1); Alkaline Phosphatase 335 U/L (38-126); Anion Gap 4 mmol/L (8-16); Aspartate Amino Transferase 24 U/L (17-59); Bilirubin,Total 0.3 mg/dL (0.2-1.3); Blood Urea Nitrogen 6 mg/dL (9-20); Calcium 6.6 mg/dL (8.4-10.2); Carbon Dioxide 28 mmol/L (22-30); Chloride 104 mmol/L (98-107); Estimated CRCL calculation 136 ml/min; Estimated Glomerular Filt Rate > 60; Glucose 86 mg/dL (65-110); Magnesium 2.1 mg/dL (1.6-2.3); Sodium 136 mmol/L (137-145)
[2022-10-24 06:53] LABS: Phosphorus < 1.0 mg/dL (2.5-4.5)
[2022-10-24] MEDS: cefTRIAXone 2 GM in SODIUM CHLORIDE 0.9% IV 100 ML 200 ML IVPB (08:31)
[2022-10-24] MEDS: FERROUS SULFATE 324 MG TABLET PO ×2 (08:35→16:33)
[2022-10-24] MEDS: CALCIUM CARBONATE (OSCAL) 500 MG TABLET PO ×4 (08:35→20:51)
[2022-10-24] MEDS: FUROSEMIDE 20 MG TABLET PO (08:35)
[2022-10-24] MEDS: ENOXAPARIN 40 MG/0.4 ML SYRINGE SUB-Q (08:35)
[2022-10-24] MEDS: CYCLOBENZAPRINE HCL 10 MG TABLET PO ×3 (08:35→16:31)
[2022-10-24] MEDS: CLOPIDOGREL BISULFATE 75 MG TABLET PO (08:36)
[2022-10-24] MEDS: ASCORBIC ACID 500 MG TABLET PO ×2 (08:37→16:33)
[2022-10-24] MEDS: FLUTICASONE/SALMETEROL 230-21 MCG INHALER 1 PUFF 2 PUFF INHALATION ×2 (08:39→21:18)
--- NOTE | 2022-10-24 08:59 | PM.PNGS ---
Progress Note: A&P Assessment and Plan (1) Large bowel obstruction: Code(s): K56.609 - Unspecified intestinal obstruction, unspecified as to partial versus complete obstruction Status: Acute Assessment and Plan: likely secondary to fecal impaction, exam much improved, ADAT, no acute surgical issues, will s/o, will need interval colonoscopy in the future Subjective Subjective Date/Time Seen: 10/24/22 08:59 feels pretty good, BMs have slowed down and become more solid, haim clears, no pain, no N/V Review of Systems Review of Systems: All systems reviewed & are unremarkable except as noted in HPI and below Exam Const: General: cooperative, comfortable, no acute distress and ill appearing Resp: Auscultation: clear to auscultation bilaterally Cardio: Rate: regular rate Rhythm: regular rhythm GI: Inspection: normal to inspection and non-distended GI Palp: No abdominal tenderness, Yes Soft to palpation, No Tenderness to palpation present (GI), No Guarding due to palpation present (GI) and No Rigid due to palpation Objective Data Vital Signs Vital Signs: Vital Signs - 24 hr 10/23/22 09:00 10/23/22 12:00 10/23/22 14:22 Temperature 36.7 C Pulse Rate 102 H 102 H 93 Respiratory Rate 18 Blood Pressure 108/58 L Pulse Oximetry 99 Oxygen Delivery Oxygen Flow Rate 10/23/22 16:00 10/23/22 18:00 10/23/22 19:41 Temperature 36.8 C Pulse Rate 93 94 88 Respiratory Rate 18 18 Blood Pressure 112/60 Pulse Oximetry 99 Oxygen Delivery Oxygen Flow Rate 10/23/22 20:23 10/23/22 20:00 10/23/22 20:00 Temperature 36.9 C Pulse Rate 82 88 Respiratory Rate 18 Blood Pressure 100/52 L Pulse Oximetry 95 99 Oxygen Delivery Nasal Cannula Oxygen Flow Rate 4 10/24/22 00:27 10/24/22 00:00 10/24/22 04:00 Temperature 36.7 C Pulse Rate 90 86 88 Respiratory Rate 18 Blood Pressure 99/54 L Pulse Oximetry 99 Oxygen Delivery Oxygen Flow Rate 10/24/22 05:22 10/24/22 08:42 10/24/22 08:43 Temperature 36.2 C L Pulse Rate 87 86 Respiratory Rate 18 18 Blood Pressure 96/50 L Pulse Oximetry 98 94 Oxygen Delivery Oxygen Flow Rate 3 Intake/Output Intake/Output: Intake & Output 10/21/22 10/22/22 10/23/22 10/24/22 23:59 23:59 23:59 23:59 Intake Total 50 2870 4770 290 Output Total 1925 2250 300 Balance 50 945 2520 -10 Meds/Results Medications: Active Medications Generic Name Dose Route Start Last Admin Trade Name Freq PRN Reason Stop Dose Admin Albuterol 2 puff 10/22/22 01:59 Albuterol Sulfate (*Sp) Aerosol 1 Puff INHALATION Q6-8H PRN Shortness Of Breath Or Wheezing Ascorbic Acid 500 mg 10/23/22 17:00 10/24/22 08:37 Ascorbic Acid 500 Mg Tablet PO 500 mg BID NAWAF Administration Atorvastatin Calcium 80 mg 10/23/22 21:00 10/23/22 20:35 Atorvastatin 40 Mg Tablet PO 80 mg HS NAWAF Administration Calcium Carbonate 500 mg 10/23/22 17:00 10/24/22 08:35 Calcium Carbonate (Oscal) 500 Mg Tablet PO 500 mg QID NAWAF Administration Clopidogrel Bisulfate 75 mg 10/24/22 09:00 10/24/22 08:36 Clopidogrel Bisulfate 75 Mg Tablet PO 75 mg QAM [facility] Administration Cyclobenzaprine HCl 10 mg 10/23/22 17:00 10/24/22 08:35 Cyclobenzaprine Hcl 10 Mg Tablet PO 10 mg TID NAWAF Administration Enoxaparin Sodium 40 mg 10/23/22 09:00 10/24/22 08:35 Enoxaparin 40 Mg/0.4 Ml Syringe SUB-Q 40 mg DAILY NAWAF Administration Ferrous Sulfate 324 mg 10/23/22 17:00 10/24/22 08:35 Ferrous Sulfate 324 Mg Tablet PO 324 mg BID [facility] Administration Furosemide 20 mg 10/24/22 09:00 10/24/22 08:35 Furosemide 20 Mg Tablet PO 20 mg QAM [facility] Administration Hydromorphone HCl 0.5 mg 10/21/22 21:30 Hydromorphone Hcl Inj (*Crx) 1 Mg/Ml Syr IV PUSH Q4H PRN Pain Rated 7-10 Sodium Chloride 1,000 mls @ 75 mls/hr 10/21/22 21:30 10/24/22 03:50 Normal Saline Iv IV CONT Not
[2022-10-24] MEDS: POTASSIUM PHOS,M-BASIC-D-BASIC 40 MMOL in SODIUM CHLORIDE 0.9% IV 250 ML 43.89 MMOL IVPB (09:54)
--- NOTE | 2022-10-24 10:57 | WPDGIPROGNO ---
Progress Note: A&P Assessment and Plan (1) Fecal impaction: Code(s): K56.41 - Fecal impaction Status: Acute Assessment and Plan: Fecal impaction now resolved. Patient no longer has abdominal distension. Bowel habits are normal. Gastrografin lower GI reveals no blockage or narrowing after imaging study is evaluated. colonoscopy referred 2 several times by surgical notes will be planned tomorrow after preparation today. patient should require on daily laxative such as MiraLax. Attention to bowel routine encouraged. (2) Malignant neoplasm of prostate metastatic to bone: Code(s): C61 - Malignant neoplasm of prostate; C79.51 - Secondary malignant neoplasm of bone Status: Acute Assessment and Plan: Patient with known prostate cancer metastatic to bone as well as retroperitoneal lymph nodes. Continued Oncology follow-up advised. (3) UTI (urinary tract infection) due to urinary indwelling Horne catheter: Code(s): T83.511A - Infection and inflammatory reaction due to indwelling urethral catheter, initial encounter; N39.0 - Urinary tract infection, site not specified Status: Acute (4) Altered mental status: Qualifiers: Altered mental status type: unspecified Qualified Code(s): R41.82 - Altered mental status, unspecified Code(s): R41.82 - Altered mental status, unspecified Status: Acute Assessment and Plan: Patient with some alteration in mental status. Etiology remains unclear Subjective Date/time seen: 10/24/22 10:57 Interval history: Patient a little bit more alert this morning. denies abdominal pain. Having bowel movements now on laxatives. Denies any blood in stools. Review of Systems Review of Systems: ROS unobtainable: Yes unobtainable due to mental status Exam Narrative: Physical exam reveals patient to be alert but level of arousal seems to fluctuate. He reports no pain. Lungs are clear. Heart without murmur. Abdomen bowel sounds present soft nontender no organomegaly. Digital rectal exam unremarkable. Objective Data Vital Signs Vital Signs: Vital Signs - 24 hr 10/23/22 12:00 10/23/22 14:22 10/23/22 16:00 Temperature 98.0 F Pulse Rate 102 H 93 93 Respiratory Rate 18 Blood Pressure 108/58 L Pulse Oximetry 99 Oxygen Delivery Oxygen Flow Rate 10/23/22 18:00 10/23/22 19:41 10/23/22 20:23 Temperature 98.2 F 98.4 F Pulse Rate 94 88 82 Respiratory Rate 18 18 18 Blood Pressure 112/60 100/52 L Pulse Oximetry 99 95 Oxygen Delivery Oxygen Flow Rate 10/23/22 20:00 10/23/22 20:00 10/24/22 00:27 Temperature 98.1 F Pulse Rate 88 90 Respiratory Rate 18 Blood Pressure 99/54 L Pulse Oximetry 99 99 Oxygen Delivery Nasal Cannula Oxygen Flow Rate 4 10/24/22 00:00 10/24/22 04:00 10/24/22 05:22 Temperature 97.1 F L Pulse Rate 86 88 87 Respiratory Rate 18 Blood Pressure 96/50 L Pulse Oximetry 98 Oxygen Delivery Oxygen Flow Rate 10/24/22 08:42 10/24/22 08:43 10/24/22 08:30 Temperature Pulse Rate 86 89 Respiratory Rate 18 Blood Pressure Pulse Oximetry 94 Oxygen Delivery Oxygen Flow Rate 3 Intake/Output Intake/Output: Intake & Output 10/21/22 10/22/22 10/23/22 10/24/22 23:59 23:59 23:59 23:59 Intake Total 50 2870 4770 710 Output Total 1925 2250 300 Balance 50 945 9390 410 Meds/Results Medications: Active Medications Generic Name Dose Route Start Last Admin Trade Name Freq PRN Reason Stop Dose Admin Albuterol 2 puff 10/22/22 01:59 Albuterol Sulfate (*Sp) Aerosol 1 Puff INHALATION Q6-8H PRN Shortness Of Breath Or Wheezing Ascorbic Acid 500 mg 10/23/22 17:00 10/24/22 08:37 Ascorbic Acid 500 Mg Tablet PO 500 mg BID NAWAF Administration Atorvastatin Calcium 80 mg 10/23/22 21:00 10/23/22 20:35 Atorvastatin 40 Mg Tablet PO 80 mg HS NAWAF Administration Calcium Carbonate 500
[2022-10-24] MEDS: PEG (High)/E-LYTE SOLN 4,000 ML BTL 4000 ML PO (12:22)
[2022-10-24 14:54] LABS: Anion Gap 3 mmol/L (8-16); Blood Urea Nitrogen 6 mg/dL (9-20); Calcium 6.3 mg/dL (8.4-10.2); Carbon Dioxide 29 mmol/L (22-30); Chloride 104 mmol/L (98-107); Estimated CRCL calculation 136 ml/min; Estimated Glomerular Filt Rate > 60; Glucose 89 mg/dL (65-110); Phosphorus 2.3 mg/dL (2.5-4.5); Potassium 3.4 mmol/L (3.4-5.0); Sodium 136 mmol/L (137-145)
--- NOTE | 2022-10-24 15:46 | PC.NURSE ---
On 10/24/22, the student, [Jamaal Clark], provided care and completed [facility] documentation on this patient. I have reviewed the student's documentation and agree with the findings.
--- NOTE | 2022-10-24 16:23 | PM.IMPN ---
Progress Note: A&P Assessment and Plan (1) Large bowel obstruction: Code(s): K56.609 - Unspecified intestinal obstruction, unspecified as to partial versus complete obstruction Status: Acute Assessment and Plan: CT of abdomen/ pelvis revealed distal large-bowel obstruction felt to be secondary to fecal impaction. appreciate GI and General surgery consultation. Obstruction resolved following water-soluble enema which revealed moderate to large amount of stool scattered throughout the colon most prominent the rectum and sigmoid colon. NG tube removed 10/23. advanced to clear liquid diet. Appreciate GI and General surgery recommendation (2) Fecal impaction: Code(s): K56.41 - Fecal impaction Status: Acute Assessment and Plan: Resolved following lower GI series on 10/22. see plan above. Continue clear liquid diet at this time. continue MiraLax. Patient will need to maintain a bowel regimen. Limit narcotics (3) UTI (urinary tract infection) due to urinary indwelling Horne catheter: Code(s): T83.511A - Infection and inflammatory reaction due to indwelling urethral catheter, initial encounter; N39.0 - Urinary tract infection, site not specified Status: Acute Assessment and Plan: Urinalysis grossly abnormal on presentation. final urine culture with growth of>100,000 CFU Proteus mirabilis and MRSA. IV ceftriaxone discontinued and patient has been transitioned to p.o. Bactrim based on susceptibility reports which she will continue for a total of 7 days. Case discussed with infectious disease pharmacist. White blood cell count with very minimal improvement today. Patient remains afebrile. Monitor closely (4) Electrolyte abnormality: Code(s): E87.8 - Other disorders of electrolyte and fluid balance, not elsewhere classified Status: Acute Assessment and Plan: hypokalemia: potassium 3.0 this morning. Received IV K-Phos infusion and potassium improved to 3.4 today. hypophosphatemia: Phosphorus declined to <1.0 despite supplementation, may have component of brief eating syndrome. Improved following K-Phos infusion to 2.3. Will restart PO Phos-NaK packets. hypocalcemia: Calcium declining despite supplementation. Will give 1 g IV calcium gluconate and monitor. monitor electrolytes closely (5) Malignant neoplasm of prostate metastatic to bone: Code(s): C61 - Malignant neoplasm of prostate; C79.51 - Secondary malignant neoplasm of bone Status: Acute Assessment and Plan: Established with Dr. Pena. Appreciate Oncology consultation. Will need to follow-up outpatient to resume chemotherapy following resolution of obstruction. (6) Chronic respiratory failure: Code(s): J96.10 - Chronic respiratory failure, unspecified whether with hypoxia or hypercapnia Status: Acute Assessment and Plan: On 3.5 L at all times. monitor oxygen saturations Plan Case discussed with supervising physician. Time Spent With Patient Time: 50 minutes total spent on encounter. Subjective Date/time seen: 10/24/22 16:23 Interval history: Date of service: 10/24/2022 [place] is a 52-year-old male with a history of prostate cancer with bony metastases, CVA, COPD, chronic respiratory failure on 3.5 L supplemental O2, hyperlipidemia who is seen in follow-up for large bowel obstruction. patient is doing well today. He has no pain. Reports having regular bowel movements. Tolerating his diet. No fever, chills, nausea, vomiting. No additional concerns Review of Systems Review of Systems: All systems reviewed & are unremarkable except as noted in HPI and below Exam Narrative: General: thin, frail 52-year-old male, supine in bed, comfortable, NARD Neuro: awake, alert and oriented x4, speech clear, no focal neuro deficits noted HEENMT: normocephalic, atraumatic, EOMI, sclerae anicteric Respiratory: clear to auscultation
[2022-10-24] MEDS: POTASSIUM/PHOSPHORUS/SODIUM 1.5 GM PACKET 1 PACKET PO ×2 (17:11→20:52)
[2022-10-24] MEDS: CALCIUM GLUC 1,000 MG/NS 50 ML 1,000 MG/50 ML BAG 100 MG IVPB (17:11)
[2022-10-24] MEDS: ATORVASTATIN 40 MG TABLET 80 MG PO (20:51)
[2022-10-24] MEDS: MIRTAZAPINE 15 MG TABLET PO (20:52)
[2022-10-24] MEDS: SULFAMETHOXAZOLE/TRIMETHOPRIM 800/160 MG DS TABLET 1 TAB PO (20:52)
[2022-10-24] MEDS: HYDROmorphone HCL INJ (*CRX) 1 MG/ML SYR 0.5 MG IV PUSH (23:54)
[2022-10-25] VITALS (17 sets, daily range): BP systolic 78–105; BP diastolic 47–73; PULSE 81–101; RESP 16–19; TEMP 36.2–36.9; O2SAT 94–99
[2022-10-25 05:45] LABS: Hemoglobin 8.2 g/dL (14.0-18.0); Mean Corpuscular HGB Conc 29.3 g/dl (32-36); Mean Corpuscular Hemoglobin 28.4 pg (26-34); Mean Corpuscular Volume 96.9 fl (80-100); Mean Platelet Volume 10.9 fl (7.4-10.4); Platelet Count Result 226 k/mm3 (150-375); Red Blood Count 2.89 M/mm3 (4.6-6.20); Red Cell Distribution Width 17.8 % (11.5-14.5); White Blood Count 11.1 K/mm3 (4.5-10.0)
[2022-10-25 06:03] LABS: Alanine Aminotransferase 15 U/L (6-50); Albumin Level 2.5 g/dL (3.5-5.1); Alkaline Phosphatase 290 U/L (38-126); Anion Gap 3 mmol/L (8-16); Aspartate Amino Transferase 24 U/L (17-59); Bilirubin,Total 0.4 mg/dL (0.2-1.3); Blood Urea Nitrogen 3 mg/dL (9-20); Carbon Dioxide 26 mmol/L (22-30); Chloride 107 mmol/L (98-107); Estimated CRCL calculation 166 ml/min; Estimated Glomerular Filt Rate > 60; Glucose 71 mg/dL (65-110); Magnesium 1.9 mg/dL (1.6-2.3); Phosphorus 1.2 mg/dL (2.5-4.5); Potassium 2.7 mmol/L (3.4-5.0); Sodium 136 mmol/L (137-145)
[2022-10-25] MEDS: POTASSIUM CHLORIDE 20 MEQ TABLET 80 MEQ PO (06:35)
[2022-10-25] MEDS: FLUTICASONE/SALMETEROL 230-21 MCG INHALER 1 PUFF 2 PUFF INHALATION (08:04)
[2022-10-25] MEDS: POTASSIUM PHOS,M-BASIC-D-BASIC 40 MMOL in SODIUM CHLORIDE 0.9% IV 250 ML 43.89 MMOL IVPB (10:05)
[2022-10-25] MEDS: POTASSIUM CHLORIDE 20 MEQ TABLET PO (10:05)
[2022-10-25 10:14] LABS: Potassium 3.1 mmol/L (3.4-5.0)
--- NOTE | 2022-10-25 11:00 | PC.NURSE ---
To GI Lab per RACHEL Akins. Report given to Janette PELAYO.
[2022-10-25] MEDS: LACTATED RINGERS 1,000 ML 150 ML IV CONT (11:19)
--- NOTE | 2022-10-25 11:20 | WPDANESEPPF ---
Anes - Initial Pre Proc Eval Procedure: Operation Date: 10/25/22 12:30 Proposed Procedures p Colonoscopy - Roosevelt Soriano MD Date/Time: 10/25/22 11:20 Surgeon: Bekah Starks PA-C Pre Op Diagnosis: Lg bowel obstruction,hypokalemia,hyponatremia,bone Patient Data Age: 52 Gender: M Height: 1.73 m Weight: 78 kg Last Vital Signs Temp 97.1 F L 10/25/22 11:16 Pulse 95 10/25/22 11:16 Resp 18 10/25/22 11:16 BP 92/49 L 10/25/22 11:16 Pulse Ox 97 10/25/22 11:16 O2 Del Method Nasal Cannula 10/25/22 11:16 O2 Flow Rate 3 10/25/22 11:16 Allergies Allergy/AdvReac Type Severity Reaction Status Date / Time No Known Allergies Allergy Verified 10/25/22 11:15 Home Medications Medication Instructions Recorded Confirmed Type albuterol sulfate 90 mcg/actuation 2 inh inhalation Q6-8H PRN 03/03/22 10/22/22 History aerosol inhaler Shortness Of Breath Or Wheezing apixaban 5 mg tablet (Eliquis) 5 mg PO BID 05/12/22 10/22/22 History ascorbate calcium (vitamin C) 500 500 mg PO BID 05/12/22 10/22/22 History mg capsule atorvastatin 40 mg tablet 80 mg PO HS 05/12/22 10/22/22 History clopidogrel 75 mg tablet (Plavix) 75 mg PO QAM 05/12/22 10/22/22 History cyclobenzaprine 10 mg tablet 10 mg PO TID 05/12/22 10/22/22 History fluticasone furoate 200 1 inh inhalation QAM 05/12/22 10/22/22 History mcg-vilanterol 25 mcg/dose inhalation powder (Breo Ellipta) furosemide 20 mg tablet (Lasix) 20 mg PO QAM 05/12/22 10/22/22 History lactulose 10 gram/15 mL oral 15 ml PO BID 05/12/22 10/22/22 History solution mirtazapine 15 mg tablet (Remeron) 15 mg PO HS 05/12/22 10/22/22 History collagenase clostridium histo. 250 1 applic topical DAILY 09/21/22 01/17/23 History unit/gram topical ointment (Santyl) ferrous sulfate 325 mg (65 mg 325 mg PO BID 06/26/22 10/22/22 History iron) tablet (Iron (ferrous sulfate)) gabapentin 100 mg tablet 400 mg PO BID 06/26/22 10/22/22 History sennosides 8.6 mg-docusate sodium 1 tab-cap PO BID 06/26/22 10/22/22 History 50 mg capsule (Senna Plus) calcium 500 mg tablet 500 mg PO QID 09/18/22 10/22/22 History oxycodone-acetaminophen 5 mg-325 1 tablet PO Q6H PRN Pain (Scale 09/18/22 10/22/22 History mg tablet Score 4-6) ciprofloxacin HCl 500 mg tablet 500 mg PO Q12H #10 tabs 09/25/22 10/22/22 Rx prednisone 5 mg tablet 5 mg PO BID 10/11/22 10/22/22 History Laboratory Tests 10/24/22 10/25/22 10/25/22 14:20 05:15 05:15 WBC 11.1 K/mm3 H K/mm3 (4.5-10.0) RBC 2.89 M/mm3 L M/mm3 (4.6-6.20) Hgb 8.2 g/dL L g/dL (14.0-18.0) Hct 28.0 % L % (42.0-52.0) MCV 96.9 fl D fl (80-100) MCH 28.4 pg pg (26-34) MCHC 29.3 g/dl L g/dl (32-36) RDW 17.8 % H % (11.5-14.5) Plt Count 226 k/mm3 k/mm3 (150-375) MPV 10.9 fl H fl (7.4-10.4) Sodium 136 mmol/L L mmol/L 136 mmol/L L mmol/L (137-145) (137-145) Potassium 3.4 mmol/L mmol/L 2.7 mmol/L L* mmol/L (3.4-5.0) (3.4-5.0) Chloride 104 mmol/L mmol/L 107 mmol/L mmol/L (98-107) (98-107) Carbon Dioxide 29 mmol/L mmol/L 26 mmol/L mmol/L (22-30) (22-30) Anion Gap 3 mmol/L L mmol/L 3 mmol/L L mmol/L (8-16) (8-16) BUN 6 mg/dL L mg/dL 3 mg/dL L mg/dL (9-20) (9-20) Creatinine 0.50 mg/dL L mg/dL 0.40 mg/dL L mg/dL (0.7-1.3) (0.7-1.3) Estim Creat Clear Calc 136 ml/min ml/min 166 ml/min ml/min Estimated GFR > 60 > 60 (59 - ) (59 - ) Glucose 89 mg/dL mg/dL 71 mg/dL mg/dL (65-110) (65-110) Calcium 6.3 mg/dL L mg/dL 6.0 mg/dL L mg/dL (8.4-10.2) (8.4-10.2) Phosphorus 2.3 mg/dL L mg/dL 1.2 mg/dL L mg/dL (2.5-4.5) (2.5-4.5) Magnesium 1.9 mg/dL mg/dL (1.6-2.3) Total Bilirubin 0.4 mg/dL mg/dL (0.2-1.3) AST 24 U/L U/L (17-59) ALT 15 U/L U/L (6-50) Alkaline Phos
--- NOTE | 2022-10-25 13:15 | PC.NURSE ---
Returned from GI Lab. Report received from Merlyn PELAYO
[2022-10-25] MEDS: ASCORBIC ACID 500 MG TABLET PO ×2 (13:30→17:14)
[2022-10-25] MEDS: CYCLOBENZAPRINE HCL 10 MG TABLET PO ×2 (13:31→17:14)
[2022-10-25] MEDS: ENOXAPARIN 40 MG/0.4 ML SYRINGE SUB-Q (13:31)
[2022-10-25] MEDS: FERROUS SULFATE 324 MG TABLET PO ×2 (13:31→17:14)
[2022-10-25] MEDS: CLOPIDOGREL BISULFATE 75 MG TABLET PO (13:31)
[2022-10-25] MEDS: CALCIUM CARBONATE (OSCAL) 500 MG TABLET PO ×3 (13:31→20:31)
[2022-10-25] MEDS: FUROSEMIDE 20 MG TABLET PO (13:31)
[2022-10-25] MEDS: SULFAMETHOXAZOLE/TRIMETHOPRIM 800/160 MG DS TABLET 1 TAB PO ×2 (13:32→20:31)
[2022-10-25] MEDS: polyethylene glycoL 3350 17 GM POWD.PACK PO (13:32)
[2022-10-25] MEDS: POTASSIUM/PHOSPHORUS/SODIUM 1.5 GM PACKET 1 PACKET PO ×3 (13:32→20:31)
[2022-10-25 14:44] LABS: Anion Gap 5 mmol/L (8-16); Calcium 6.4 mg/dL (8.4-10.2); Carbon Dioxide 28 mmol/L (22-30); Chloride 108 mmol/L (98-107); Estimated CRCL calculation 136 ml/min; Estimated Glomerular Filt Rate > 60; Glucose 92 mg/dL (65-110); Phosphorus 1.6 mg/dL (2.5-4.5); Potassium 4.2 mmol/L (3.4-5.0); Sodium 141 mmol/L (137-145)
[2022-10-25 15:31] LABS: Blood Urea Nitrogen < 2 mg/dL (9-20)
--- NOTE | 2022-10-25 15:58 | PM.IMPN ---
Progress Note: A&P Assessment and Plan (1) Large bowel obstruction: Code(s): K56.609 - Unspecified intestinal obstruction, unspecified as to partial versus complete obstruction Status: Resolved Assessment and Plan: CT of abdomen/pelvis revealed distal large-bowel obstruction felt to be secondary to fecal impaction. appreciate GI and General surgery consultation. Obstruction resolved following water-soluble enema which revealed moderate to large amount of stool scattered throughout the colon most prominent the rectum and sigmoid colon. NG tube removed 10/23. Reviewed results of colonoscopy today, no evidence of obstruction. Advance to regular diet. (2) Fecal impaction: Code(s): K56.41 - Fecal impaction Status: Resolved Assessment and Plan: Resolved following lower GI series on 10/22. see plan above. Underwent colonoscopy today which revealed uncomplicated internal hemorrhoids with no evidence of obstruction. He has been advanced to regular diet. Continue MiraLax daily. Limit narcotics (3) UTI (urinary tract infection) due to urinary indwelling Horne catheter: Code(s): T83.511A - Infection and inflammatory reaction due to indwelling urethral catheter, initial encounter; N39.0 - Urinary tract infection, site not specified Status: Acute Assessment and Plan: Urinalysis grossly abnormal on presentation. final urine culture with growth of>100,000 CFU Proteus mirabilis and MRSA. IV ceftriaxone discontinued on 10/24. Started on p.o. Bactrim yesterday based on susceptibility reports which he will continue for a total of 7 days. Case discussed with infectious disease pharmacist. White blood cell count trending down to 11 today. Patient remains afebrile. (4) Electrolyte abnormality: Code(s): E87.8 - Other disorders of electrolyte and fluid balance, not elsewhere classified Status: Acute Assessment and Plan: Hypokalemia: potassium 2.7 this morning. Received 40 mEq IV KCl and IV K-Phos infusion and potassium improved to 4.2. He will need to continue on scheduled potassium supplementation Hypophosphatemia: Phosphorus continues to decline despite supplementation, may have component of refeeding syndrome. [place] 1.2 this morning. Improved to 1.6 following IV K-Phos infusion. Continue with PhosNaK packets q.i.d. Hypocalcemia: Calcium declining despite supplementation. 6.4 today. Will give 2 g IV calcium gluconate and monitor. Continue with frequent monitoring (5) Malignant neoplasm of prostate metastatic to bone: Code(s): C61 - Malignant neoplasm of prostate; C79.51 - Secondary malignant neoplasm of bone Status: Acute Assessment and Plan: Established with Dr. Pena. Appreciate Oncology consultation. Will need to follow-up outpatient to resume chemotherapy following resolution of obstruction. (6) Chronic respiratory failure: Code(s): J96.10 - Chronic respiratory failure, unspecified whether with hypoxia or hypercapnia Status: Acute Assessment and Plan: On 3.5 L at all times. monitor oxygen saturations Subjective Date/time seen: 10/25/22 15:58 Interval history: Date of service: 10/25/2022 [place] is a 52-year-old male with a history of prostate cancer with bony metastases, CVA, COPD, chronic respiratory failure on 3.5 L supplemental O2, hyperlipidemia who is seen in follow-up for large bowel obstruction. He is doing well today. Tolerated prep for his colonoscopy. Reports having clear loose stools. He is hungry and is looking forward to being able to eat something after his colonoscopy. Denies fever, chills, nausea, or vomiting. No issues with Horne catheter Review of Systems Review of Systems: All systems reviewed & are unremarkable except as noted in HPI and below Exam Narrative: General: thin, frail 52-year-old male, supine in bed, comfortable, NARD Neuro: awake, alert and oriented
[2022-10-25] MEDS: CALCIUM GLUC 2,000 MG/NS 100ML 2,000 MG/100 ML BAG 100 MG IVPB (18:21)
[2022-10-25] MEDS: MIRTAZAPINE 15 MG TABLET PO (20:31)
[2022-10-25] MEDS: ATORVASTATIN 40 MG TABLET 80 MG PO (20:31)
[2022-10-25] MEDS: SODIUM CHLORIDE 0.9% IV 1,000 ML 75 ML IV CONT (22:13)
[2022-10-26] VITALS (14 sets, daily range): BP systolic 104–122; BP diastolic 52–78; PULSE 86–112; RESP 16–20; TEMP 36.8–37.1; O2SAT 96–99
[2022-10-26 05:38] LABS: Hematocrit 30.2 % (42.0-52.0); Hemoglobin 9.1 g/dL (14.0-18.0); Mean Corpuscular HGB Conc 30.1 g/dl (32-36); Mean Corpuscular Hemoglobin 27.9 pg (26-34); Mean Corpuscular Volume 92.6 fl (80-100); Mean Platelet Volume 10.6 fl (7.4-10.4); Platelet Count Result 275 k/mm3 (150-375); Red Blood Count 3.26 M/mm3 (4.6-6.20); Red Cell Distribution Width 18.2 % (11.5-14.5); White Blood Count 16.2 K/mm3 (4.5-10.0)
[2022-10-26 05:59] LABS: Alanine Aminotransferase 17 U/L (6-50); Albumin Level 2.9 g/dL (3.5-5.1); Alkaline Phosphatase 350 U/L (38-126); Anion Gap 2 mmol/L (8-16); Aspartate Amino Transferase 25 U/L (17-59); Bilirubin,Total 0.5 mg/dL (0.2-1.3); Calcium 6.4 mg/dL (8.4-10.2); Carbon Dioxide 26 mmol/L (22-30); Chloride 106 mmol/L (98-107); Estimated CRCL calculation 136 ml/min; Estimated Glomerular Filt Rate > 60; Glucose 94 mg/dL (65-110); Magnesium 1.6 mg/dL (1.6-2.3); Phosphorus 1.3 mg/dL (2.5-4.5); Potassium 3.3 mmol/L (3.4-5.0); Sodium 134 mmol/L (137-145)
[2022-10-26 06:10] LABS: Blood Urea Nitrogen < 2 mg/dL (9-20)
[2022-10-26] MEDS: SODIUM PHOSPHATE 20 MM in DEXTROSE 5% IN WATER 250 ML 50 MM IVPB ×2 (09:18→16:58)
[2022-10-26] MEDS: CALCIUM CARBONATE (OSCAL) 500 MG TABLET PO ×4 (09:19→20:14)
[2022-10-26] MEDS: CYCLOBENZAPRINE HCL 10 MG TABLET PO ×3 (09:19→17:00)
[2022-10-26] MEDS: CLOPIDOGREL BISULFATE 75 MG TABLET PO (09:19)
[2022-10-26] MEDS: ASCORBIC ACID 500 MG TABLET PO ×2 (09:19→17:01)
[2022-10-26] MEDS: SULFAMETHOXAZOLE/TRIMETHOPRIM 800/160 MG DS TABLET 1 TAB PO ×2 (09:19→20:14)
[2022-10-26] MEDS: POTASSIUM CHLORIDE 20 MEQ TABLET PO (09:19)
[2022-10-26] MEDS: FERROUS SULFATE 324 MG TABLET PO ×2 (09:20→17:00)
[2022-10-26] MEDS: ENOXAPARIN 40 MG/0.4 ML SYRINGE SUB-Q (09:20)
[2022-10-26] MEDS: polyethylene glycoL 3350 17 GM POWD.PACK PO (09:20)
[2022-10-26] MEDS: FUROSEMIDE 20 MG TABLET PO (09:20)
[2022-10-26] MEDS: FLUTICASONE/SALMETEROL 230-21 MCG INHALER 1 PUFF 2 PUFF INHALATION ×2 (09:35→20:16)
[2022-10-26] MEDS: ALBUTEROL SULFATE (*SP) AEROSOL 1 PUFF 2 PUFF INHALATION (09:36)
[2022-10-26] MEDS: SODIUM CHLORIDE 0.9% IV 1,000 ML 75 ML IV CONT (12:40)
[2022-10-26 12:55] LABS: Phosphorus 1.7 mg/dL (2.5-4.5)
--- NOTE | 2022-10-26 15:24 | PM.IMPN ---
Progress Note: A&P Assessment and Plan (1) Large bowel obstruction: Code(s): K56.609 - Unspecified intestinal obstruction, unspecified as to partial versus complete obstruction Status: Resolved Assessment and Plan: CT of abdomen/pelvis revealed distal large-bowel obstruction felt to be secondary to fecal impaction. appreciate GI and General surgery consultation. Obstruction resolved following water-soluble enema which revealed moderate to large amount of stool scattered throughout the colon most prominent the rectum and sigmoid colon. NG tube removed 10/23. Patient is tolerating regular diet (2) Fecal impaction: Code(s): K56.41 - Fecal impaction Status: Resolved Assessment and Plan: Resolved following lower GI series on 10/22. See plan above. Underwent colonoscopy on 10/25 which revealed uncomplicated internal hemorrhoids with no evidence of obstruction. Tolerating regular diet. Continue MiraLax daily. Limit narcotics. (3) UTI (urinary tract infection) due to urinary indwelling Horne catheter: Code(s): T83.511A - Infection and inflammatory reaction due to indwelling urethral catheter, initial encounter; N39.0 - Urinary tract infection, site not specified Status: Acute Assessment and Plan: Urinalysis grossly abnormal on presentation. Final urine culture with growth of >100,000 CFU Proteus mirabilis and MRSA. IV ceftriaxone discontinued on 10/24. Started on p.o. Bactrim on 10/24 based on susceptibility reports which he will continue for a total of 7 days. Case discussed with infectious disease pharmacist. Increase in white blood cell count noted today, will continue to monitor CBC with differential. Patient remains afebrile. (4) Electrolyte abnormality: Code(s): E87.8 - Other disorders of electrolyte and fluid balance, not elsewhere classified Status: Acute Assessment and Plan: Hypokalemia: potassium 3.3 this morning. 20 mEq PO KCl supplement. Caution with replacement while on Bactrim. Hypophosphatemia: Phosphorus continues to decline despite supplementation, may have component of refeeding syndrome. Phos 1.3 this morning. Improved to 1.7 following IV sodium phosphate infusion. Will give additional 20 mmol Sodium Phos this afternoon. Continue with PhosNaK packets q.i.d. Consult to ware tester for nutrition recommendations. Started dietary supplements TID Hypocalcemia: Calcium 6.4 today, 7.3 when corrected for hypoalbuminemia. Continue Oscal 500 mg qid. Continue with frequent monitoring (5) Malignant neoplasm of prostate metastatic to bone: Code(s): C61 - Malignant neoplasm of prostate; C79.51 - Secondary malignant neoplasm of bone Status: Acute Assessment and Plan: Established with Dr. Pena. Appreciate Oncology consultation. Will need to follow-up outpatient to resume chemotherapy following resolution of obstruction. (6) Chronic respiratory failure: Code(s): J96.10 - Chronic respiratory failure, unspecified whether with hypoxia or hypercapnia Status: Acute Assessment and Plan: On 3.5 L at all times. monitor oxygen saturations Plan 50 minutes spent for encounter Patient requires frequent ordering/monitoring of laboratory results Subjective Date/time seen: 10/26/22 15:24 Interval history: Date of service: 10/26/2022 [place] is a 52-year-old male with a history of prostate cancer with bony metastases, CVA, COPD, chronic respiratory failure on 3.5 L supplemental O2, hyperlipidemia who is seen in follow-up for large bowel obstruction. He is feeling better today. Denies abdominal pain or bloating. He is tolerating his diet. He is frustrated because he is eager to go home. Discussed that he is still requiring IV electrolyte replacement and monitoring. He did not offer any additional concerns. Review of Systems Review of Systems: All systems reviewed & are unremarkable except as noted i
[2022-10-26] MEDS: MIRTAZAPINE 15 MG TABLET PO (20:14)
[2022-10-26] MEDS: ATORVASTATIN 40 MG TABLET 80 MG PO (20:14)
[2022-10-27] VITALS (9 sets, daily range): BP systolic 99–105; BP diastolic 56–67; PULSE 94–109; RESP 16–18; TEMP 36.6–36.8; O2SAT 91–99
[2022-10-27] MEDS: SODIUM CHLORIDE 0.9% IV 1,000 ML 75 ML IV CONT (01:10)
[2022-10-27 05:48] LABS: Hematocrit 28.9 % (42.0-52.0); Hemoglobin 8.6 g/dL (14.0-18.0); Mean Corpuscular HGB Conc 29.8 g/dl (32-36); Mean Corpuscular Hemoglobin 27.7 pg (26-34); Mean Corpuscular Volume 92.9 fl (80-100); Mean Platelet Volume 10.7 fl (7.4-10.4); Platelet Count Result 298 k/mm3 (150-375); Red Blood Count 3.11 M/mm3 (4.6-6.20); Red Cell Distribution Width 18.4 % (11.5-14.5); White Blood Count 16.4 K/mm3 (4.5-10.0)
[2022-10-27 06:01] LABS: Alanine Aminotransferase 18 U/L (6-50); Albumin Level 2.9 g/dL (3.5-5.1); Alkaline Phosphatase 328 U/L (38-126); Anion Gap 1 mmol/L (8-16); Aspartate Amino Transferase 23 U/L (17-59); Bilirubin,Total 0.6 mg/dL (0.2-1.3); Blood Urea Nitrogen 2 mg/dL (9-20); Calcium 6.5 mg/dL (8.4-10.2); Carbon Dioxide 28 mmol/L (22-30); Chloride 108 mmol/L (98-107); Estimated CRCL calculation 116 ml/min; Estimated Glomerular Filt Rate > 60; Glucose 84 mg/dL (65-110); Magnesium 1.5 mg/dL (1.6-2.3); Phosphorus 1.7 mg/dL (2.5-4.5); Potassium 3.9 mmol/L (3.4-5.0); Sodium 137 mmol/L (137-145)
[2022-10-27] MEDS: MAGNESIUM SULF 2 GM/WATER 50ML 2 GM/50 ML BAG IVPB (08:14)
[2022-10-27] MEDS: CLOPIDOGREL BISULFATE 75 MG TABLET PO (09:23)
[2022-10-27] MEDS: CALCIUM CARBONATE (OSCAL) 500 MG TABLET PO ×4 (09:23→20:30)
[2022-10-27] MEDS: SODIUM PHOSPHATE 20 MM in DEXTROSE 5% IN WATER 250 ML 50 MM IVPB (09:23)
[2022-10-27] MEDS: ASCORBIC ACID 500 MG TABLET PO ×2 (09:23→16:46)
[2022-10-27] MEDS: CYCLOBENZAPRINE HCL 10 MG TABLET PO ×3 (09:23→16:46)
[2022-10-27] MEDS: ENOXAPARIN 40 MG/0.4 ML SYRINGE SUB-Q (09:23)
[2022-10-27] MEDS: FUROSEMIDE 20 MG TABLET PO (09:24)
[2022-10-27] MEDS: SULFAMETHOXAZOLE/TRIMETHOPRIM 800/160 MG DS TABLET 1 TAB PO ×2 (09:24→20:30)
[2022-10-27] MEDS: FERROUS SULFATE 324 MG TABLET PO ×2 (09:24→16:46)
[2022-10-27] MEDS: POTASSIUM/PHOSPHORUS/SODIUM 1.5 GM PACKET 1 PACKET PO ×4 (09:24→20:30)
[2022-10-27] MEDS: FLUTICASONE/SALMETEROL 230-21 MCG INHALER 1 PUFF 2 PUFF INHALATION ×2 (10:32→20:20)
[2022-10-27 13:01] LABS: Magnesium 1.7 mg/dL (1.6-2.3); Phosphorus 2.2 mg/dL (2.5-4.5); Potassium 3.5 mmol/L (3.4-5.0)
--- NOTE | 2022-10-27 15:49 | PM.IMPN ---
Progress Note: A&P Assessment and Plan (1) Large bowel obstruction: Code(s): K56.609 - Unspecified intestinal obstruction, unspecified as to partial versus complete obstruction Status: Resolved Assessment and Plan: CT of abdomen/pelvis revealed distal large-bowel obstruction felt to be secondary to fecal impaction. appreciate GI and General surgery consultation. Obstruction resolved following water-soluble enema which revealed moderate to large amount of stool scattered throughout the colon most prominent the rectum and sigmoid colon. NG tube removed 10/23. Patient is tolerating regular diet (2) Fecal impaction: Code(s): K56.41 - Fecal impaction Status: Resolved Assessment and Plan: Resolved following lower GI series on 10/22. See plan above. Underwent colonoscopy on 10/25 which revealed uncomplicated internal hemorrhoids with no evidence of obstruction. Tolerating regular diet. Continue MiraLax daily. Limit narcotics. (3) UTI (urinary tract infection) due to urinary indwelling Horne catheter: Code(s): T83.511A - Infection and inflammatory reaction due to indwelling urethral catheter, initial encounter; N39.0 - Urinary tract infection, site not specified Status: Acute Assessment and Plan: Urinalysis grossly abnormal on presentation. Final urine culture with growth of >100,000 CFU Proteus mirabilis and MRSA. IV ceftriaxone discontinued on 10/24. Started on p.o. Bactrim on 10/24 based on susceptibility reports which he will continue for a total of 7 days. Case discussed with infectious disease pharmacist. Increase in white blood cell count noted today, will continue to monitor CBC with differential, however no additional clinical signs of worsening infection. Patient remains afebrile. (4) Electrolyte abnormality: Code(s): E87.8 - Other disorders of electrolyte and fluid balance, not elsewhere classified Status: Acute Assessment and Plan: Hypokalemia: resolved. Potassium 3.9 this morning.Caution with replacement while on Bactrim. Hypophosphatemia: Persistent issue despite supplementation. Phos 1.7 today. Administer 20 mmol Sodium Phos this afternoon. Continue with PhosNaK packets q.i.d. Consult to director of cardiology for nutrition recommendations. Started dietary supplements TID Hypocalcemia: Calcium 6.5 today, 7.4 when corrected for hypoalbuminemia. Continue Oscal 500 mg qid. Will need to stagger calcium and phosphorus supplementation by about 2 hours Hypomagnesemia: Mag 1.5 today. administer 2 g IV magnesium sulfate. Continue with frequent monitoring (5) Malignant neoplasm of prostate metastatic to bone: Code(s): C61 - Malignant neoplasm of prostate; C79.51 - Secondary malignant neoplasm of bone Status: Acute Assessment and Plan: Established with Dr. Pena. Appreciate Oncology consultation. Will need to follow-up outpatient to resume chemotherapy following resolution of obstruction. (6) Chronic respiratory failure: Code(s): J96.10 - Chronic respiratory failure, unspecified whether with hypoxia or hypercapnia Status: Acute Assessment and Plan: On 3.5 L at all times. monitor oxygen saturations Plan 50 minutes spent for encounter Patient requires frequent ordering/monitoring of laboratory results Subjective Date/time seen: 10/27/22 15:49 Interval history: Date of service: 10/27/2022 [place] is a 52-year-old male with a history of prostate cancer with bony metastases, CVA, COPD, chronic respiratory failure on 3.5 L supplemental O2, hyperlipidemia who is seen in follow-up for large bowel obstruction. Is feeling well today. He has no complaints. Denies abdominal pain, cramping, or bloating. States he is trying to eat more. Denies nausea or vomiting. Denies any issues with his Horne catheter. Eager for discharge home. Had a discussion regarding plans for cancer treatment. Patient states he
[2022-10-27] MEDS: MAGNESIUM SULF 1 GM/D5W 100 ML 1 GM/100 ML BAG IVPB (16:47)
[2022-10-27] MEDS: MIRTAZAPINE 15 MG TABLET PO (20:30)
[2022-10-27] MEDS: ATORVASTATIN 40 MG TABLET 80 MG PO (20:30)
[2022-10-28 04:19] VITALS: BP 100/52; PULSE 99; RESP 18; TEMP 36.2; O2SAT 91
[2022-10-28 05:15] LABS: Hematocrit 28.7 % (42.0-52.0); Hemoglobin 8.8 g/dL (14.0-18.0); Mean Corpuscular HGB Conc 30.7 g/dl (32-36); Mean Corpuscular Hemoglobin 28.5 pg (26-34); Mean Corpuscular Volume 92.9 fl (80-100); Mean Platelet Volume 10.5 fl (7.4-10.4); Platelet Count Result 333 k/mm3 (150-375); Red Blood Count 3.09 M/mm3 (4.6-6.20); White Blood Count 14.7 K/mm3 (4.5-10.0)
[2022-10-28 05:28] LABS: Alanine Aminotransferase 18 U/L (6-50); Albumin Level 2.8 g/dL (3.5-5.1); Alkaline Phosphatase 351 U/L (38-126); Anion Gap 3 mmol/L (8-16); Aspartate Amino Transferase 23 U/L (17-59); Bilirubin,Total 0.5 mg/dL (0.2-1.3); Blood Urea Nitrogen 3 mg/dL (9-20); Calcium 6.6 mg/dL (8.4-10.2); Carbon Dioxide 25 mmol/L (22-30); Chloride 107 mmol/L (98-107); Estimated CRCL calculation 136 ml/min; Estimated Glomerular Filt Rate > 60; Glucose 82 mg/dL (65-110); Magnesium 1.9 mg/dL (1.6-2.3); Phosphorus 1.4 mg/dL (2.5-4.5); Potassium 3.4 mmol/L (3.4-5.0); Sodium 135 mmol/L (137-145)
[2022-10-28] MEDS: FLUTICASONE/SALMETEROL 230-21 MCG INHALER 1 PUFF 2 PUFF INHALATION (08:42)
[2022-10-28 08:43] VITALS: PULSE 97; O2SAT 96
[2022-10-28] MEDS: SODIUM PHOSPHATE 20 MM in DEXTROSE 5% IN WATER 250 ML 50 MM IVPB (09:36)
[2022-10-28] MEDS: POTASSIUM/PHOSPHORUS/SODIUM 1.5 GM PACKET 1 PACKET PO ×3 (09:37→17:11)
[2022-10-28] MEDS: ENOXAPARIN 40 MG/0.4 ML SYRINGE SUB-Q (09:37)
[2022-10-28] MEDS: MAGNESIUM OXIDE 400 MG TABLET PO (09:37)
[2022-10-28] MEDS: CALCIUM CARBONATE (OSCAL) 500 MG TABLET PO ×3 (09:38→17:11)
[2022-10-28] MEDS: polyethylene glycoL 3350 17 GM POWD.PACK PO (09:38)
[2022-10-28] MEDS: CYCLOBENZAPRINE HCL 10 MG TABLET PO ×3 (09:38→17:12)
[2022-10-28 09:42] VITALS: O2SAT 96
[2022-10-28] MEDS: ASCORBIC ACID 500 MG TABLET PO ×2 (09:42→17:11)
[2022-10-28] MEDS: CLOPIDOGREL BISULFATE 75 MG TABLET PO (09:42)
[2022-10-28] MEDS: FERROUS SULFATE 324 MG TABLET PO ×2 (09:42→17:11)
[2022-10-28] MEDS: FUROSEMIDE 20 MG TABLET PO (09:43)
[2022-10-28] MEDS: SULFAMETHOXAZOLE/TRIMETHOPRIM 800/160 MG DS TABLET 1 TAB PO (09:48)
--- NOTE | 2022-10-28 13:04 | PCNFU ---
Nutrition Follow-Up Complete: Increased Protein needs as related to wounds as evidenced by Stage III PU reported. Goal: Adequate Intake of at least 75% of meals/supplements - Progressing toward goal Pt current nutrition is Regular diet with Ensure Compact TID. Average intake 61% OVER THE LAST 2 days. Nutrition recommendation: Continue diet order and supplements. Add Cole BID for wounds Last recorded weight is 78 kg. Bowel Motility:+2 bmS 10/27/22 Labs Reviewed: Hgb 8.8, Hct 28.7, Alb 2.8, Na 135, Cre 0.5, Ca 6.6, PO4 1.4. Unclear reason for hypocalcemia and hypophosphatemia. Maybe related to cancer? Pt to start cancer treatment soon for prostate cancer with bone mets Meds Noted: Vit C, Plavix, Lasix, Mirtazipine started 10/27/22 Skin:Healing stage III to sacrum Additional Notes: Adding Cole, provider already added Compact TID. Provider thinks maybe low PO4 could be related to refeeding. Appetite and intakes are improving. Continue current diet order and Compact TID Will montior every 5 days.
[2022-10-28 14:00] VITALS: BP 101/64; PULSE 97; RESP 18; TEMP 36.5; O2SAT 98
--- NOTE | 2022-10-28 15:01 | PM.DS ---
DS: Admitting Diagnosis Discharge Date 10/28/22 Admitting Diagnosis Large bowel obstruction DS: Discharge Diagnosis Discharge Diagnosis (1) Large bowel obstruction: Code(s): K56.609 - Unspecified intestinal obstruction, unspecified as to partial versus complete obstruction Status: Resolved Assessment and Plan: CT of abdomen/pelvis revealed distal large-bowel obstruction felt to be secondary to fecal impaction. Patient was seen in consultation by GI General surgery. Obstruction resolved following water-soluble enema which revealed moderate to large amount of stool scattered throughout the colon most prominent the rectum and sigmoid colon. NG tube removed 10/23. Patient is tolerating regular diet (2) Fecal impaction: Code(s): K56.41 - Fecal impaction Status: Resolved Assessment and Plan: Resolved following lower GI series on 10/22. See plan above. Underwent colonoscopy on 10/25 which revealed uncomplicated internal hemorrhoids with no evidence of obstruction. Patient was able to tolerate a regular diet. Continue MiraLax daily per GI recommendations. Limit narcotics. (3) UTI (urinary tract infection) due to urinary indwelling Horne catheter: Code(s): T83.511A - Infection and inflammatory reaction due to indwelling urethral catheter, initial encounter; N39.0 - Urinary tract infection, site not specified Status: Acute Assessment and Plan: Urinalysis grossly abnormal on presentation. Final urine culture with growth of >100,000 CFU Proteus mirabilis and MRSA. IV ceftriaxone discontinued on 10/24. Started on p.o. Bactrim on 10/24 based on susceptibility reports which he will continue for a total of 7 days an outpatient. Case discussed with infectious disease pharmacist. (4) Electrolyte abnormality: Code(s): E87.8 - Other disorders of electrolyte and fluid balance, not elsewhere classified Status: Acute Assessment and Plan: Hypokalemia: Potassium was monitored daily and supplemented. Potassium levels monitor closely, especially while on Bactrim therapy. Patient is on daily Lasix and would benefit from continued potassium supplementation. He will continue with Phos-NaK packets 4 times a day which will provide adequate potassium Hypophosphatemia: Persistent issue despite ongoing supplementation. Likely due to poor nutrition/malnourishment, probably from cancer and ongoing chemotherapy. Phosphorus was replaced to IV a p.o. arouse and is slowly improved. Patient will continue dietary supplements TID. Continue Phos-NaK packets QID. Patient evaluated by business planning manager Hypocalcemia: Calcium was low, improved when corrected for hypoalbuminemia. Continue Oscal 500 mg qid. Hypomagnesemia: Mag was supplemented through oral and IV routes. Will continue magnesium oxide 400 mg daily. He will require repeat BMP, phosphorus, and magnesium test as an outpatient on 10/31/2022 prior to his next appointment with his oncologist with results to PCP and Oncology (5) Malignant neoplasm of prostate metastatic to bone: Code(s): C61 - Malignant neoplasm of prostate; C79.51 - Secondary malignant neoplasm of bone Status: Acute Assessment and Plan: Established with Dr. Pena who saw the patient during his admission. Will need to follow-up outpatient to resume chemotherapy (6) Chronic respiratory failure: Code(s): J96.10 - Chronic respiratory failure, unspecified whether with hypoxia or hypercapnia Status: Acute Assessment and Plan: On 3.5 L at all times. Oxygen requirements remain consistent with baseline throughout admission DS: Summary Hospital Course Hospital Course: Date of admission: 10/22/2022 Date of discharge: 10/28/2022 [place] is a 52-year-old male with a history of prostate cancer with bony metastases, CVA, COPD, chronic respiratory failure on 3.5 L supplemental O2, and hyperlipidemia who presented to the emergen
== END 2022-10-28 18:23 | disposition home or self-care (01) | DRG 699 ==
LOC: ANHED 21:52 → ANH2MED 23:02
PROVIDERS: Anesthesiology; Emergency Medicine; Internal Medicine Gastroenterology; Admitting Provider Internal Medicine; Emergency Provider Emergency Medicine; PCP Family Medicine; Visit Provider Physician Assistant
PROC: 0DJD8ZZ Inspection of Lower Intestinal Tract, Via Natural or Artificial Opening Endoscopic (ICD-10-PCS; CPT 45378; principal; 2022-10-25 12:30)
DX: T83.511A Infection and inflammatory reaction due to indwelling urethral catheter, initial encounter (principal); C79.51 Secondary malignant neoplasm of bone; K56.609 Unspecified intestinal obstruction, unspecified as to partial versus complete obstruction; J96.10 Chronic respiratory failure, unspecified whether with hypoxia or hypercapnia; E87.1 Hypo-osmolality and hyponatremia; N39.0 Urinary tract infection, site not specified; K56.41 Fecal impaction; C61 Malignant neoplasm of prostate; B96.4 Proteus (mirabilis) (morganii) as the cause of diseases classified elsewhere; B95.62 Methicillin resistant Staphylococcus aureus infection as the cause of diseases classified elsewhere; N40.0 Benign prostatic hyperplasia without lower urinary tract symptoms; E78.5 Hyperlipidemia, unspecified; E87.6 Hypokalemia; E83.39 Other disorders of phosphorus metabolism; I69.328 Other speech and language deficits following cerebral infarction; K64.8 Other hemorrhoids; J44.9 Chronic obstructive pulmonary disease, unspecified; Z79.01 Long term (current) use of anticoagulants; Z20.822 Contact with and (suspected) exposure to COVID-19; Z87.891 Personal history of nicotine dependence; Z74.01 Bed confinement status; Z98.49 Cataract extraction status, unspecified eye; Z79.02 Long term (current) use of antithrombotics/antiplatelets; Z92.21 Personal history of antineoplastic chemotherapy; Z99.3 Dependence on wheelchair
CPT/HCPCS: 36415; 51702; 70450; 71260; 74177; 74270; 80048; 80053; 81001; 82948; 83605; 83690; 83735; 84100; 84132; 85025; 85027; 87040; 87077; 87086; 87088; 87186; 87636; 93005; 94640; 99285; A9270; J0131; J0610; J0612; J0696; J1170; J1650; J2405; J2543; J2704; J3475; J3480; J7030; J7040; J7050; J7060; J7120; Q9967

== ENCOUNTER 2022-10-31 07:40 | Inpatient (IN) | payer OTHER, SELFPAY ==
[2022-10-31] VITALS (23 sets, daily range): BP systolic 86–121; BP diastolic 46–78; PULSE 105–120; RESP 14–21; TEMP 35.7–36.8; O2SAT 94–100
--- NOTE | ~2022-10-31 | CT_ITS ---
EXAMINATION: CT abdomen pelvis w con DATE: 10/31/2022 08:49 INDICATION: Abdominal pain. TECHNIQUE: Computed tomography (CT) of the abdomen and pelvis was performed with 100 mL Omnipaque 350 intravenous contrast. Automated exposure control and iterative reconstruction technique were employe d. The dose-length product was 636.30 mGy-cm. COMPARISON: CT abdomen and pelvis 10/21/2022 FINDINGS: The visualized portions of the lung bases demonstrate mild atelectasis. There are small ple ural effusions. Cardiomegaly is noted. No pericardial effusion. The liver, spleen, pancreas, and adre nal glands are normal. The gallbladder is distended with wall thickening and adjacent fat stranding, consistent with acute cholecystitis. There is cortical thinning of the kidneys, left worse than right . There are cysts in right kidney measuring up to 2.5 cm. There are 2 stones in left kidney with the larger measuring 2 mm. There is a stone or cluster of stones in the bladder measuring 10 mm. The blad kaylan is decompressed by a Horne catheter. There is diverticulosis of the colon without evidence of div erticulitis. The appendix is normal. There is mildly dilated small bowel, likely adynamic ileus. Ther e is wall thickening of the rectosigmoid. There are no pathologically enlarged lymph nodes. There is trace ascites. There is a left inguinal hernia containing fat. There is an umbilical hernia containin g fat. There are widespread sclerotic lesions of bone, consistent with metastatic disease. There are old healed right rib fractures. There are changes of posterior fusion procedure from T8 to T12. Poste rior elements are resected at T8, T9, and T10. IMPRESSION: 1. Acute cholecystitis. 2. Small pleural effusions. 3. Mildly dilated small bowel, likely adynamic ileus. 4. Widespread bone lesions, consistent with metastatic disease. 5. Wall thickening of the rectosigmoid, consistent with colitis. Reviewed, dictated and finalized at location A. E HELPER
--- NOTE | ~2022-10-31 | US_ITS ---
EXAMINATION: US abdomen limited DATE: 10/31/2022 10:01 INDICATION: Abdominal pain. TECHNIQUE: Multiple grayscale and Doppler ultrasound images of the abdomen were obtained. COMPARISON: CT abdomen and pelvis 10/31/2022 FINDINGS: The pancreas is obscured by bowel gas. The liver is normal without focal lesion. There is n ormal flow in main portal vein. The gallbladder is distended and contains sludge. No visible gallston es. Gallbladder wall thickening is noted. There is a positive sonographic Acevedo sign. The common herbert t is normal and measures 5 mm . IMPRESSION: 1. Acute cholecystitis. Reviewed, dictated and finalized at location A. MOUNTER IMPRESSION: 1. Acute cholecystitis.
--- NOTE | ~2022-10-31 | US_ITS ---
EXAMINATION: US perc cholecystostomy w imag DATE: 10/31/2022 15:18 INDICATION: Acute cholecystitis. TECHNIQUE: The procedure including the risks, benefits, and alternatives was discussed with the patie nt. Risks discussed included bleeding and infection. Oral and written consent were obtained. A time out was performed to verify the patient's name, date of , and procedure to be performed. The pa tient was confirmed to be receiving appropriate antibiotic coverage. The skin overlying the gallblad kaylan was prepped and draped in usual sterile fashion. Anesthetic was administered with 1% lidocaine s ubcutaneously. An 8.5 Fr catheter was inserted into the gallbladder by trocar technique. The metal s tiffener and trocar needle were removed, and the pigtail tip was locked. Bile was aspirated and sent for culture. The catheter was stitched to the skin with suture. There were no immediate complications . FINDINGS: Ultrasound images demonstrate the catheter within the gallbladder. 10 mL bile was aspirated . IMPRESSION: 1. Successful ultrasound-guided cholecystostomy tube placement. 2. 10 mm black-green bile was sent for aerobic and anaerobic cultures. 3. A catheter cholangiogram may be performed not less than 48 hours after tube placement if clinicall y indicated to assess cystic duct patency. If cholecystectomy is not eventually performed and the inf ectious episode has resolved, the tube may be removed over a guidewire, preferably not less than 3 we eks after placement to allow time for a mature catheter tract to form to prevent bile leakage and per itonitis. Reviewed, dictated and finalized at location A. CH CLERK IMPRESSION: 1. Successful ultrasound-guided cholecystostomy tube placement. 2. 10 mm black-green bile was sent for aerobic and anaerobic cultures. 3. A catheter cholangiogram may be performed not less than 48 hours after tube placement if clinically indicated to assess cystic duct patency. If cholecystec emiliana is not eventually performed and the infectious episode has resolved, the t ube may be removed over a guidewire, preferably not less than 3 weeks after rocky cement to allow time for a mature catheter tract to form to prevent bile leakag e and peritonitis.
--- NOTE | ~2022-10-31 | XR_ITS ---
EXAMINATION: XR catheter cholangiogram DATE: 11/05/2022 09:12 INDICATION: Acute cholecystitis. TECHNIQUE: I injected the percutaneous cholecystostomy tube with water-soluble contrast and performed fluoroscopy of the abdomen. 4 images were obtained. The fluoroscopy exposure time was 0.3 minutes. COMPARISON: CT abdomen and pelvis 10/31/2022 FINDINGS: The cholecystostomy tube is in expected position in the gallbladder. There is contrast opac ification of the gallbladder, cystic duct, common duct, and duodenum. The common duct is normal in ca liber. No choledocholithiasis. IMPRESSION: 1. Patent cystic duct and common duct. Reviewed, dictated and finalized at location A. GER PRODUCE
--- NOTE | 2022-10-31 07:51 | ED.ABDPAIN ---
HPI - Abdominal Pain General Chief Complaint: Abdominal Pain Stated Complaint: abd distention Source: RN notes reviewed History of Present Illness HPI narrative: Patient presents emergency department from home via EMS for abdominal pain. Patient states symptoms began last night. States he has diffuse abdominal pain across the mid abdomen described as aching in nature. States has been associate with abdominal distention states has had no fevers or chills he denies any chest pain or shortness of breath he denies any nausea or vomiting states he has been having loose stools for approximately the last 1 week. Patient does note history of small bowel obstruction patient also notes a history of chronic COPD and is on 3 L nasal cannula at all times Related Data Home Medications Medication Instructions Recorded Confirmed albuterol sulfate 90 mcg/actuation 2 inh inhalation Q6-8H PRN 03/03/22 10/22/22 aerosol inhaler Shortness Of Breath Or Wheezing apixaban 5 mg tablet (Eliquis) 5 mg PO BID 05/12/22 10/22/22 ascorbate calcium (vitamin C) 500 500 mg PO BID 05/12/22 10/22/22 mg capsule atorvastatin 40 mg tablet 80 mg PO HS 05/12/22 10/22/22 clopidogrel 75 mg tablet (Plavix) 75 mg PO QAM 05/12/22 10/22/22 cyclobenzaprine 10 mg tablet 10 mg PO TID 05/12/22 10/22/22 fluticasone furoate 200 1 inh inhalation QAM 05/12/22 10/22/22 mcg-vilanterol 25 mcg/dose inhalation powder (Breo Ellipta) furosemide 20 mg tablet (Lasix) 20 mg PO QAM 05/12/22 10/22/22 mirtazapine 15 mg tablet (Remeron) 15 mg PO HS 05/12/22 10/22/22 collagenase clostridium histo. 250 1 applic topical DAILY 06/26/22 10/22/22 unit/gram topical ointment (Santyl) ferrous sulfate 325 mg (65 mg 325 mg PO BID 06/26/22 10/22/22 iron) tablet (Iron (ferrous sulfate)) gabapentin 100 mg tablet 400 mg PO BID 06/26/22 10/22/22 sennosides 8.6 mg-docusate sodium 1 tab-cap PO BID 06/26/22 10/22/22 50 mg capsule (Senna Plus) calcium 500 mg tablet 500 mg PO QID 09/18/22 10/22/22 oxycodone-acetaminophen 5 mg-325 1 tablet PO Q6H PRN Pain (Scale 09/18/22 10/22/22 mg tablet Score 4-6) prednisone 5 mg tablet 5 mg PO BID 10/11/22 10/22/22 Allergies Allergy/AdvReac Type Severity Reaction Status Date / Time No Known Allergies Allergy Verified 10/25/22 11:15 Review of Systems Review of Systems: Gen.: Denies fevers or chills ENT: Denies congestion Respiratory: Denies shortness of breath or cough CV: Denies chest pain or palpitations GI: See HPI Musculoskeletal: Denies back pain or muscle pain Neuro: Denies numbness, tingling, weakness or focal weakness Skin: Denies rash Except as documented, all other systems reviewed and negative [facility] Past Medical History Medical History BPH (benign prostatic hyperplasia) Cataract Chronic respiratory failure COPD (chronic obstructive pulmonary disease) CVA (cerebral vascular accident) Hyperlipidemia due to dietary fat intake Prostate cancer metastatic to bone Urinary tract infection Surgical History Surgical History H/O cataract extraction H/O eye surgery History of spinal surgery History of tonsillectomy and adenoidectomy S/P TURP Family History Family History Mother Diabetes mellitus Social History Social History Social History: The patient lives with his cousin and his cousin's . He is and has 2 daughters. He is disabled. He is a former smoker. He does not use any alcohol marijuana or illicit drugs. His cousin is his durable power city attorney for healthcare. he is listed as a full code Code status full code Smoking packs per day: 1 Smoking cigarettes per day: 20.0 Years smoked: 40 Smoking pack-years: 40.00 Smoking status: Former smoker Tobacco type: cigarettes and smok
[2022-10-31 08:26] LABS: Basophils Absolute Auto 0.1 K/mm3 (0.0-0.1); Basophils Percent Auto 0.5 % (0.2-1.2); Hemoglobin 10.4 g/dL (14.0-18.0); Immature Granulocyte Absolute 1.31 K/mm3 (0.00-0.031); Immature Granulocyte Percent A 5.2 % (0-0.5); Lymphocytes Absolute Auto 1.94 K/mm3 (0.9-3.2); Lymphocytes Percent Auto 7.7 % (18.3-44.2); Mean Corpuscular HGB Conc 29.7 g/dl (32-36); Mean Corpuscular Volume 97.5 fl (80-100); Mean Platelet Volume 9.6 fl (7.4-10.4); Monocytes Absolute Auto 0.9 K/mm3 (0.1-0.6); Monocytes Percent Auto 3.7 % (2.6-8.5); Neutrophils Absolute Auto 20.9 K/mm3 (1.3-6.7); Neutrophils Percent Auto 82.9 % (45.5-73.1); Platelet Count Result 491 k/mm3 (150-375); Red Blood Count 3.59 M/mm3 (4.6-6.20); Red Cell Distribution Width 19.9 % (11.5-14.5); White Blood Count 25.2 K/mm3 (4.5-10.0)
[2022-10-31 08:27] LABS: Alanine Aminotransferase 19 U/L (6-50); Albumin Level 3.3 g/dL (3.5-5.1); Alkaline Phosphatase 650 U/L (38-126); Anion Gap 4 mmol/L (8-16); Aspartate Amino Transferase 21 U/L (17-59); Bilirubin,Total 0.6 mg/dL (0.2-1.3); Blood Urea Nitrogen 8 mg/dL (9-20); Calcium 6.6 mg/dL (8.4-10.2); Carbon Dioxide 28 mmol/L (22-30); Chloride 106 mmol/L (98-107); Estimated CRCL calculation 117 ml/min; Estimated Glomerular Filt Rate > 60; Glucose 142 mg/dL (65-110); Lactic Acid Reflex 1.9 mmol/L (0.7-2.0); Sodium 138 mmol/L (137-145)
[2022-10-31 08:28] LABS: INR 1.1; Prothrombin Time 13.8 Seconds (11.1-14.7)
[2022-10-31 08:29] LABS: Partial Thromboplastin Time 27.2 SECONDS (22.3-36.8)
[2022-10-31 08:34] LABS: Appearance Urine Cloudy (Clear); Bilirubin Urine Negative (Negative); Blood Urine Trace-lysed (Negative); Color Urine Yellow (Yellow); Glucose Urine UA Negative (Negative); Ketones Urine Negative (Negative); Leukocyte Esterase Ur 1+ LEU/UL (Negative); Nitrate Urine Negative (Negative); Protein Urine 1+ mg/dL (Negative); Specific Grav Ur >= 1.030 (1.001-1.035); Urobilinogen Urine 0.2 mg/dL (<2.0); pH Urine 5.5 (5.0-9.0)
[2022-10-31 08:35] LABS: Lipase 73 U/L (23-300)
[2022-10-31 08:38] LABS: Microcytosis 1+ (NORMAL); Platelet Estimate Increased (Adequate); Schistocytes None Seen (NORMAL)
--- NOTE | 2022-10-31 08:41 | PC.NURSE ---
Patient off unit to CT.
[2022-10-31 08:43] LABS: Bacteria Urine Trace /hpf; Mucus Urine Rare /lpf; WBC Clumps Urine Present /HPF; WBC Urine >75 /hpf
[2022-10-31 08:46] LABS: Add Urine Microscopic? YES
[2022-10-31] MEDS: SODIUM CHLORIDE 0.9% IV 1,000 ML 999 ML IV CONT ×2 (09:32→22:12)
[2022-10-31] MEDS: MORPHINE SULFATE (*CRX) 2 MG/ML INJ IV PUSH (09:33)
[2022-10-31 10:18] LABS: Influenza A QL RT-PCR Negative (Negative); Influenza B QL RT-PCR Negative (Negative); SARS-CoV-2 RNA PCR Negative
--- NOTE | 2022-10-31 11:30 | ADMGEN ---
This patient, [place], was admitted to 3 Med Surg Room 314-01. Patient/family oriented to hospital policies and general routines including ID bracelet, bed and alarms, visiting hours, pain management, procedures, bathroom and other care routines, personal items, smoking policy, room service/diet, and visiting hours. Information on how to activate the Rapid Response Team has been discussed. Patient/Family are encouraged to report perceived risks to care and to ask questions if they do not understand what they are told or what they should do.
--- NOTE | 2022-10-31 11:30 | PM.CNGS ---
Assessment and Plan Assessment and plan (1) Acute cholecystitis: Code(s): K81.0 - Acute cholecystitis Status: Acute Assessment and Plan: CT and ultrasound evidence of acute cholecystitis. He continues to have a significant amount of abdominal pain. Given his anticoagulation/antiplatelet therapy, metastatic prostate cancer, chronic respiratory failure with COPD, and multiple other co-morbidities, the patient is a high risk surgical candidate. We would recommend initially treating him with IV antibiotics and proceeding with percutaneous cholecystostomy tube placement in Radiology. This will allow for resolution of the cholecystitis and also allow time for his Plavix to wear off. Could eventually consider a cholecystectomy possibly in the future depending on how he progresses and responds to current treatment. Discussed this with the patient. Will keep him NPO with IV fluids for the procedure. Will add PRN analgesics for pain control. Continue to closely monitor. (2) Sepsis: Code(s): A41.9 - Sepsis, unspecified organism Status: Acute Assessment and Plan: Continue broad-spectrum IV antibiotics. Proceed with perc cholecystostomy tube placement in IR. Blood cultures pending. Trend labs. (3) Colitis: Code(s): K52.9 - Noninfective gastroenteritis and colitis, unspecified Status: Acute Assessment and Plan: CT suggested colitis of rectosigmoid. He has had some complaints of diarrhea as well since discharge a few days ago. His sudden onset of abdominal pain seems to be more related to his gallbladder. Continue medical management and monitoring. (4) Antiplatelet or antithrombotic long-term use: Code(s): Z79.02 - FDC (current) use of antithrombotics/antiplatelets Status: Acute Assessment and Plan: Hold Plavix for now. 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 (7) Chronic respiratory failure: Code(s): J96.10 - Chronic respiratory failure, unspecified whether with hypoxia or hypercapnia Status: Acute Assessment and Plan: On 3 liters home O2. Increases risks for surgery. (8) COPD (chronic obstructive pulmonary disease): Code(s): J44.9 - Chronic obstructive pulmonary disease, unspecified Status: Acute Assessment and Plan: Increases risks for surgery. (9) History of CVA (cerebrovascular accident): Code(s): Z86.73 - Personal history of transient ischemic attack (TIA), and cerebral infarction without residual deficits Status: Acute Assessment and Plan: Increases risks for surgery. Plan I have discussed the patient's case and plan of care with Dr. Frausto. Thank you for allowing us to see the patient in consultation and we will continue to follow along with you. History of Present Illness Consult details Consult date: 10/31/22 Reason for consult: other (Acute cholecystitis) Requesting physician: Addy Hall, DO Narrative: This is a 52-year-old man with a known history of metastatic prostate cancer who we have been asked to see for acute cholecystitis.?He was recently seen by our service during a hospitalization for a large bowel obstruction and fecal impaction from 10/21/22 through 10/28/22. He had a hypaque enema that showed constipation but no stricture or obstruction and eventually had a colonoscopy on 10/25/22 that was essentially negative. His abdominal pain resolved, he was tolerating a diet and moving his bowels, and eventually discharged back home. He reportedly was doing well until he had a sudden onset of abdominal pain around 11:00 pm last night. He had eaten a breaded pork chop and corn for dinner a few hours prior t
[2022-10-31] MEDS: SODIUM CHLORIDE 0.9% IV 1,000 ML 80 ML IV CONT (12:34)
[2022-10-31] MEDS: HYDROmorphone HCL INJ (*CRX) 1 MG/ML SYR IV PUSH ×2 (12:35→15:31)
--- NOTE | 2022-10-31 12:49 | PM.IMHP ---
H&P: HPI History of Present Illness Date/Time: 10/31/22 12:49 Chief Complaint: Abdominal Narrative: This is a 52-year-old male patient who has a history of COPD and is chronically on oxygen at 3 L per nasal cannula. The patient has also had as history of his CVA and has slurred speech as well. The patient started to have symptoms last night with diffuse abdominal pain. It was aching in nature. Also associated with abdominal distension and denies any fever chills. He has no chest pain or shortness of breath. No nausea vomiting. He has been having loose stools for approximately 1 week. He does have a history of having a small-bowel obstruction. His white count was noted to be 25.2. His H&H is 10 and 435.0 with a previous reading of 8.8 and 20.7. Platelets are 491. Alkaline phosphatase 650. The patient has greater than 75 wbc's in his urine 1+ leukocyte Estrace. Patient is negative for influenza A/B and COVID. Abdominal pelvis CT was read as the following 1. Acute cholecystitis. 2. Small pleural effusions. 3. Mildly dilated small bowel, likely adynamic ileus. 4. Widespread bone lesions, consistent with metastatic disease. 5. Wall thickening of the rectosigmoid, consistent with colitis. The patient has been seen by surgery and a cholecystostomy tube placement was recommended. Which was performed by Dr. Lauren . Successful ultrasound-guided cholecystostomy tube placement. 2. 10 mm black-green bile was sent for aerobic and anaerobic cultures. 3. A catheter cholangiogram may be performed not less than 48 hours after tube placement if clinically indicated to assess cystic duct patency. If cholecystectomy is not eventually performed and the infectious episode has resolved, the tube may be removed over a guidewire, preferably not less than 3 weeks after placement to allow time for a mature catheter tract to form to prevent bile leakage and peritonitis. The patient is being admitted to observation status on the date of service of 10/31/2022. Review of Systems Review of Systems: See HPI All systems reviewed & are unremarkable except as noted in HPI and below Constitutional: Constitutional: Reports as per HPI and Reports no additional constitutional complaints Eyes: Eyes: Reports as per HPI and Reports no additional eye complaints ENT: Reports system reviewed and no additional complaints, except as documented and Reports Normal hearing present Cardiovascular: Cardiovascular: Reports no additional cardiovascular complaints Respiratory: Respiratory: Reports no additional respiratory complaints and Reports no additional respiratory complaints Gastrointestinal: Gastrointestinal: Reports as per HPI and Reports no additional gastrointestinal complaints Musculoskeletal: Musculoskeletal: Reports no additional musculoskeletal complaints Integumentary/Breasts: Skin/Breast: Reports system reviewed and no additional complaints, except as docu and Reports as per HPI Neurologic: Reports system reviewed and no additional complaints, except as documented, Reports as per HPI and Reports Normal hearing present Psychiatric: Psychiatric: Reports no additional psychiatric complaints and Reports as per HPI Endocrine: Endocrine: Reports no additional endocrine complaints Hematologic/Lymphatic: Hematologic/Lymphatic: Reports no additional hematologic/lymphatic complaints Allergic/Immunologic: Allergic/Immunologic: Reports no additional allergic/immunologic complaints [facility] Past Medical History Medical History (Updated 10/31/22 @ 16:32 by Francheska Corona NP) BPH (benign prostatic hyperplasia) Cataract Chronic respiratory failure COPD (chronic obstructive pulmonary disease) CVA (cerebral vascular accident) Hyperlipidemia Hyperlipidemia due to dietary fat intake Prostate cancer metastatic to bone Urinary tract infection Surgical History Surgical History H/O cataract extraction H/O eye surgery Hi
--- NOTE | 2022-10-31 21:47 | PC.NURSE ---
recheck bp with pt hob 45 108/46 automatic, 86/50 manual, called DIVISION H[employer] RESOURCES MANAGER Cj for fluid bolus pt npo at this time. no chf hx in pt records. unable to reach at this time. will attempt again.
--- NOTE | 2022-10-31 22:11 | PC.NURSE ---
reported sepsis flag, soft bp 86/50 manual and elevated HR 108 to MEDICAL RECORDS LIBRARY PROFESSOR Benhoff, lactic stat ordered and 1l bolus NS
[2022-10-31 23:51] LABS: Lactic Acid Reflex 0.8 mmol/L (0.7-2.0)
[2022-11-01] VITALS (13 sets, daily range): BP systolic 102–118; BP diastolic 54–60; PULSE 93–113; RESP 12–18; TEMP 36.1–36.3; O2SAT 93–99
[2022-11-01] MEDS: SODIUM CHLORIDE 0.9% IV 1,000 ML 80 ML IV CONT ×2 (03:39→20:34)
--- NOTE | 2022-11-01 05:44 | PC.NURSE ---
150 ml out percutaneous drain this shift, bloody brown drainage continued.
[2022-11-01 06:17] LABS: Glucose Point of Care 92 mg/dl (65-105)
--- NOTE | 2022-11-01 06:38 | PM.PNGS ---
Progress Note: A&P Assessment and Plan (1) Acute cholecystitis: Code(s): K81.0 - Acute cholecystitis Status: Acute Assessment and Plan: Seems improved with cholecystostomy tube placement. Less pain and abdomen much less tender. Continue low-fat diet. Continue cholecystostomy tube to gravity. Plan to get cholangiogram through cholecystostomy tube on Friday or Friday. (2) History of CVA (cerebrovascular accident): Code(s): Z86.73 - Personal history of transient ischemic attack (TIA), and cerebral infarction without residual deficits Status: Chronic Assessment and Plan: Nonambulatory, increases surgical risk (3) Antiplatelet or antithrombotic long-term use: Code(s): Z79.02 - alf (current) use of antithrombotics/antiplatelets Status: Chronic Assessment and Plan: Would have to be stopped prior to any surgery. Usually 5 or 6 days. (4) Anticoagulated: Code(s): Z79.01 - superintendent terminal (current) use of anticoagulants Status: Chronic Assessment and Plan: Also would need to be stopped before surgery. Usually 2 days. (5) Primary prostate cancer with metastasis from prostate to other site: Code(s): C61 - Malignant neoplasm of prostate Status: Chronic Assessment and Plan: Significant comorbidity with increased surgical risk. Subjective Subjective Date/Time Seen: 11/01/22 06:38 Patient reports: no new complaints (Patient had a good night. Took Tylenol around 9:00 p.m. and nothing for pain since then), pain is less and afebrile Interval history: Cholecystostomy tube placed yesterday. Review of Systems Review of Systems: All systems reviewed & are unremarkable except as noted in HPI and below (HPI) Exam Const: General: comfortable, tired appearing and well nourished Orientation/consciousness: lethargic (Sleepy) GI: Inspection: other (Right upper quadrant cholecystostomy tube site looks good, draining bile) GI Palp: Yes Soft to palpation, Yes Tenderness to palpation present (GI) (Much improved, nearly nontender, mostly at tube site), No Hernia present and No Palpable mass present Auscultation: normal bowel sounds Objective Data Vital Signs Vital Signs: Vital Signs - 24 hr 10/31/22 07:43 10/31/22 07:48 10/31/22 08:00 Temperature Pulse Rate 106 H 107 H 107 H Respiratory Rate 16 15 14 Blood Pressure 116/78 Pulse Oximetry 100 100 98 Oxygen Delivery Nasal Cannula Oxygen Flow Rate 3 10/31/22 08:01 10/31/22 08:02 10/31/22 08:17 Temperature Pulse Rate 107 H 109 H 106 H Respiratory Rate 15 17 18 Blood Pressure 116/77 Pulse Oximetry 98 97 99 Oxygen Delivery Oxygen Flow Rate 10/31/22 08:30 10/31/22 08:54 10/31/22 09:00 Temperature Pulse Rate 106 H Respiratory Rate 21 H Blood Pressure Pulse Oximetry 97 94 95 Oxygen Delivery Oxygen Flow Rate 10/31/22 09:15 10/31/22 09:35 10/31/22 09:45 Temperature Pulse Rate Respiratory Rate Blood Pressure Pulse Oximetry 98 98 97 Oxygen Delivery Oxygen Flow Rate 10/31/22 10:00 10/31/22 10:15 10/31/22 14:00 Temperature 36.8 C Pulse Rate 105 H 106 H 109 H Respiratory Rate 19 14 18 Blood Pressure 121/69 Pulse Oximetry 99 95 100 Oxygen Delivery Oxygen Flow Rate 10/31/22 15:30 10/31/22 20:00 10/31/22 21:49 Temperature Pulse Rate Respiratory Rate Blood Pressure 108/46 L Pulse Oximetry 100 100 Oxygen Delivery Nasal Cannula Oxygen Flow Rate 2.5 3 10/31/22 21:52 10/31/22 21:54 10/31/22 21:47 Temperature 36.8 C Pulse Rate 108 H 108 H Respiratory Rate 18 Blood Pressure 86/50 L 86/50 L Pulse Oximetry 100 Oxygen Delivery Nasal Cannula Oxygen Flow Rate 3 11/01/22 00:23 10/31/22 22:00 10/31/22 22:59 Temperature 35.7 C L Pulse Rate 109 H Respiratory Rate 19 Blood Pressure 118/60 92/57 L Pulse Oximetry 96 95 Oxygen Delivery Nasal Cannula Oxygen Flow Rat
[2022-11-01 06:50] LABS: Basophils Absolute Auto 0.1 K/mm3 (0.0-0.1); Basophils Percent Auto 0.6 % (0.2-1.2); Eosinophils Percent Auto 0.1 % (0-4.4); Hematocrit 25.9 % (42.0-52.0); Hemoglobin 7.9 g/dL (14.0-18.0); Immature Granulocyte Absolute 0.42 K/mm3 (0.00-0.031); Immature Granulocyte Percent A 2.7 % (0-0.5); Lymphocytes Percent Auto 12.9 % (18.3-44.2); Mean Corpuscular HGB Conc 30.5 g/dl (32-36); Mean Corpuscular Hemoglobin 28.9 pg (26-34); Mean Corpuscular Volume 94.9 fl (80-100); Mean Platelet Volume 9.3 fl (7.4-10.4); Monocytes Absolute Auto 1.1 K/mm3 (0.1-0.6); Neutrophils Absolute Auto 11.9 K/mm3 (1.3-6.7); Neutrophils Percent Auto 76.7 % (45.5-73.1); Platelet Count Result 346 k/mm3 (150-375); Red Blood Count 2.73 M/mm3 (4.6-6.20); White Blood Count 15.5 K/mm3 (4.5-10.0)
[2022-11-01 07:01] LABS: Lactic Acid Reflex 0.5 mmol/L (0.7-2.0)
[2022-11-01 07:02] LABS: Alanine Aminotransferase 13 U/L (6-50); Albumin Level 2.9 g/dL (3.5-5.1); Alkaline Phosphatase 511 U/L (38-126); Anion Gap 2 mmol/L (8-16); Aspartate Amino Transferase 23 U/L (17-59); Bilirubin,Total 0.6 mg/dL (0.2-1.3); Blood Urea Nitrogen 7 mg/dL (9-20); Carbon Dioxide 25 mmol/L (22-30); Chloride 108 mmol/L (98-107); Estimated CRCL calculation 117 ml/min; Estimated Glomerular Filt Rate > 60; Glucose 97 mg/dL (65-110); Magnesium 1.8 mg/dL (1.6-2.3); Potassium 3.5 mmol/L (3.4-5.0); Sodium 135 mmol/L (137-145)
[2022-11-01] MEDS: FUROSEMIDE INJ 40 MG/4 ML VIAL 20 MG IV PUSH (08:49)
--- NOTE | 2022-11-01 09:26 | PM.IMPN ---
Progress Note: A&P Assessment and Plan (1) Acute cholecystitis: Code(s): K81.0 - Acute cholecystitis Status: Acute Assessment and Plan: Patient presented to the emergency department with complaints of abdominal pain, distension, and loose stools for approximately 1 week. WBC was noted to be 25, alkaline phosphatase was elevated, and CT abdomen and pelvis suggested acute cholecystitis. IR placement of cholecystostomy tube completed on 10/31/22 and management per General surgery Patient is advance to low-fat diet and monitor diet tolerance Monitor chemistry and LFTs Continue IV Zosyn q.6 hours until patient is significantly tolerating all oral diet and culture results finalized, first dose given 10/31/22. Bile and blood cultures pending. Patient is high risk for surgery given his anticoagulation/antiplatelet therapy, metastatic prostate cancer, chronic respiratory failure with COPD, and multiple other co-morbidities. Holding plavix and Eliquis for possible surgery. (2) Acute UTI: Code(s): N39.0 - Urinary tract infection, site not specified Status: Acute Assessment and Plan: UA with 1+ leukocytes, greater than 75 wbc's, and trace bacteria on admission. Continue IV Zosyn q.6 hours as above and adjust antibiotics to cover urine organism and acute cholecystitis He has a chronic Hernandez. Flush hernandez with NS for clogs, low flow, or lower abdominal pain (3) COPD (chronic obstructive pulmonary disease): Qualifiers: COPD type: unspecified COPD Qualified Code(s): J44.9 - Chronic obstructive pulmonary disease, unspecified Code(s): J44.9 - Chronic obstructive pulmonary disease, unspecified Status: Chronic Assessment and Plan: chronic, not in acute exacerbation. baseline home oxygen needs 3 L per nasal cannula. Continue Breo Ellipta maintenance inhaler and PRN albuterol (4) BPH (benign prostatic hyperplasia): Qualifiers: Lower urinary tract symptom presence: unspecified whether lower urinary tract symptoms present Qualified Code(s): N40.0 - Benign prostatic hyperplasia without lower urinary tract symptoms Code(s): N40.0 - Benign prostatic hyperplasia without lower urinary tract symptoms Status: Acute Assessment and Plan: The patient has had a history of prostate cancer with bone metastasis. continue chronic hernandez (5) CVA (cerebral vascular accident): Qualifiers: CVA mechanism: unspecified Qualified Code(s): I63.9 - Cerebral infarction, unspecified Code(s): I63.9 - Cerebral infarction, unspecified Status: Chronic Assessment and Plan: H/o stroke with residual speech is slow. Holding Plavix and Eliquis per surgery recommendations. (6) Hyperlipidemia: Qualifiers: Hyperlipidemia type: mixed hyperlipidemia Qualified Code(s): E78.2 - Mixed hyperlipidemia Code(s): E78.5 - Hyperlipidemia, unspecified Status: Chronic Assessment and Plan: chronic, continue with atorvastatin (7) Vitamin D deficiency: Code(s): E55.9 - Vitamin D deficiency, unspecified Status: Chronic Assessment and Plan: Vit D OH-25 28, corrected calcium 6.9, phos 2.0. Resume calcium supplement plus vitamin D. Add D3 1000 units daily. Resume Kphos supplement (8) Anemia: Qualifiers: Anemia type: unspecified type Qualified Code(s): D64.9 - Anemia, unspecified Code(s): D64.9 - Anemia, unspecified Status: Chronic Assessment and Plan: Hgb 8-11 and Hct 29-35%. Hgb 7.9 to 8.2 today. He is on iron supplements outpatient and will continue. Likely multifactorial due to metastatic cancer, comorbidities and diet. Trend H/H Time Spent With Patient Time: 30 minutes time spent with patient assessment, education, and review or labs, vitals, imaging, nursing and consulting provider documentation. Subjective Date/time seen: 11/01/22 09:
[2022-11-01 10:07] LABS: Free T4 Free Thyroxine Reflex 0.87 ng/dL (0.78-2.19)
[2022-11-01] MEDS: HYDROmorphone HCL INJ (*CRX) 1 MG/ML SYR IV PUSH (11:32)
--- NOTE | 2022-11-01 11:33 | PC.NURSE ---
Called pharmacy for the patients medications that were ordered at 9:40, they stated they will send them up when they can.
[2022-11-01 11:44] LABS: Vitamin D 25 Hydroxy 28.3 ng/mL
[2022-11-01] MEDS: GABAPENTIN 400 MG CAPSULE PO ×2 (12:00→20:28)
[2022-11-01] MEDS: CALCIUM CARBONATE (OSCAL) 500 MG TABLET PO (12:00)
[2022-11-01] MEDS: ASCORBIC ACID 500 MG TABLET PO ×2 (12:00→16:59)
[2022-11-01] MEDS: POTASSIUM/PHOSPHORUS/SODIUM 1.5 GM PACKET 1 PACKET PO ×3 (12:00→20:28)
[2022-11-01] MEDS: FERROUS SULFATE 324 MG TABLET PO (12:00)
[2022-11-01] MEDS: CYCLOBENZAPRINE HCL 10 MG TABLET PO ×2 (12:00→16:59)
[2022-11-01 12:06] LABS: Hemoglobin 8.2 g/dL (14.0-18.0)
[2022-11-01 12:44] LABS: Total Triiodothyronine (T3) 0.93 NG/ML (0.97-1.69)
[2022-11-01] MEDS: oxyCODONE/ACETAMINOPHEN (*CRX) 5-325 MG TABLET 1 TABLET PO ×2 (14:37→20:38)
[2022-11-01] MEDS: FLUTICASONE/SALMETEROL 230-21 MCG INHALER 1 PUFF 2 PUFF INHALATION (19:54)
[2022-11-01] MEDS: MIRTAZAPINE 15 MG TABLET PO (20:28)
[2022-11-01] MEDS: ATORVASTATIN 40 MG TABLET 80 MG PO (20:28)
[2022-11-02] VITALS (12 sets, daily range): BP systolic 104–113; BP diastolic 57–68; PULSE 94–103; RESP 14–20; TEMP 36.2–36.7; O2SAT 93–100
[2022-11-02] MEDS: oxyCODONE/ACETAMINOPHEN (*CRX) 5-325 MG TABLET 1 TABLET PO ×3 (06:50→19:52)
[2022-11-02 06:59] LABS: Basophils Absolute Auto 0.1 K/mm3 (0.0-0.1); Basophils Percent Auto 0.8 % (0.2-1.2); Eosinophils Percent Auto 0.1 % (0-4.4); Hematocrit 26.8 % (42.0-52.0); Hemoglobin 7.9 g/dL (14.0-18.0); Immature Granulocyte Absolute 0.23 K/mm3 (0.00-0.031); Immature Granulocyte Percent A 2.2 % (0-0.5); Lymphocytes Absolute Auto 2.43 K/mm3 (0.9-3.2); Lymphocytes Percent Auto 23.4 % (18.3-44.2); Mean Corpuscular HGB Conc 29.5 g/dl (32-36); Mean Corpuscular Hemoglobin 28.3 pg (26-34); Mean Corpuscular Volume 96.1 fl (80-100); Mean Platelet Volume 9.7 fl (7.4-10.4); Monocytes Absolute Auto 0.6 K/mm3 (0.1-0.6); Monocytes Percent Auto 5.5 % (2.6-8.5); Neutrophils Absolute Auto 7.1 K/mm3 (1.3-6.7); Platelet Count Result 383 k/mm3 (150-375); Red Blood Count 2.79 M/mm3 (4.6-6.20); Red Cell Distribution Width 20.3 % (11.5-14.5); White Blood Count 10.4 K/mm3 (4.5-10.0)
[2022-11-02 07:15] LABS: Alanine Aminotransferase 13 U/L (6-50); Alkaline Phosphatase 502 U/L (38-126); Anion Gap 6 mmol/L (8-16); Aspartate Amino Transferase 16 U/L (17-59); Bilirubin,Total 0.4 mg/dL (0.2-1.3); Blood Urea Nitrogen 6 mg/dL (9-20); Carbon Dioxide 24 mmol/L (22-30); Chloride 105 mmol/L (98-107); Estimated CRCL calculation 137 ml/min; Estimated Glomerular Filt Rate > 60; Glucose 85 mg/dL (65-110); Magnesium 1.8 mg/dL (1.6-2.3); Phosphorus 1.3 mg/dL (2.5-4.5); Potassium 2.9 mmol/L (3.4-5.0); Sodium 135 mmol/L (137-145)
[2022-11-02 08:13] LABS: Platelet Estimate Adequate (Adequate)
[2022-11-02 08:14] LABS: Anisocytosis 2+ (NORMAL)
[2022-11-02 08:15] LABS: Burr Cells 1+ (NORMAL); Poikilocytosis 1+ (NORMAL)
[2022-11-02 08:16] LABS: Ovalocytes 1+ (NORMAL); Schistocytes None Seen (NORMAL)
[2022-11-02] MEDS: FLUTICASONE/SALMETEROL 230-21 MCG INHALER 1 PUFF 2 PUFF INHALATION ×2 (08:54→20:16)
[2022-11-02] MEDS: GABAPENTIN 400 MG CAPSULE PO ×2 (09:10→19:53)
[2022-11-02] MEDS: ASCORBIC ACID 500 MG TABLET PO ×2 (09:10→18:18)
[2022-11-02] MEDS: CYCLOBENZAPRINE HCL 10 MG TABLET PO ×3 (09:10→18:18)
[2022-11-02] MEDS: CHOLECALCIFEROL 1,000 UNITS TABLET 1000 UNITS PO (09:10)
[2022-11-02] MEDS: FERROUS SULFATE 324 MG TABLET PO (09:10)
[2022-11-02] MEDS: POTASSIUM/PHOSPHORUS/SODIUM 1.5 GM PACKET 1 PACKET PO (09:11)
--- NOTE | 2022-11-02 10:46 | PM.IMPN ---
Progress Note: A&P Assessment and Plan (1) Acute cholecystitis: Code(s): K81.0 - Acute cholecystitis Status: Acute Assessment and Plan: Patient presented to the emergency department with complaints of abdominal pain, distension, and loose stools for approximately 1 week. WBC was noted to be 25, alkaline phosphatase was elevated, and CT abdomen and pelvis suggested acute cholecystitis. IR placement of cholecystostomy tube completed on 10/31/22 and management per General surgery Patient is advance to low-fat diet and monitor diet tolerance Monitor chemistry and LFTs Continue IV Zosyn q.6 hours until patient is significantly tolerating all oral diet and culture results finalized, first dose given 10/31/22. Day 3 Bile and blood cultures pending. Patient is high risk for surgery given his anticoagulation/antiplatelet therapy, metastatic prostate cancer, chronic respiratory failure with COPD, and multiple other co-morbidities. Holding plavix and Eliquis for possible surgery. (2) Acute UTI: Code(s): N39.0 - Urinary tract infection, site not specified Status: Acute Assessment and Plan: UA with 1+ leukocytes, greater than 75 wbc's, and trace bacteria on admission. Continue IV Zosyn q.6 hours as above and adjust antibiotics to cover urine organism and acute cholecystitis He has a chronic Hernandez. Flush hernandez with NS for clogs, low flow, or lower abdominal pain Urine cultures shows enterococcus species, which he has had in the past. ?colonization as he currently does not have CVA or suprapubic tenderness. Will avoid adding additional antibiotic. (3) COPD (chronic obstructive pulmonary disease): Qualifiers: COPD type: unspecified COPD Qualified Code(s): J44.9 - Chronic obstructive pulmonary disease, unspecified Code(s): J44.9 - Chronic obstructive pulmonary disease, unspecified Status: Chronic Assessment and Plan: chronic, not in acute exacerbation. baseline home oxygen needs 3 L per nasal cannula. Continue Breo Ellipta maintenance inhaler and PRN albuterol stable (4) BPH (benign prostatic hyperplasia): Qualifiers: Lower urinary tract symptom presence: unspecified whether lower urinary tract symptoms present Qualified Code(s): N40.0 - Benign prostatic hyperplasia without lower urinary tract symptoms Code(s): N40.0 - Benign prostatic hyperplasia without lower urinary tract symptoms Status: Acute Assessment and Plan: The patient has had a history of prostate cancer with bone metastasis. continue chronic hernandez (5) CVA (cerebral vascular accident): Qualifiers: CVA mechanism: unspecified Qualified Code(s): I63.9 - Cerebral infarction, unspecified Code(s): I63.9 - Cerebral infarction, unspecified Status: Chronic Assessment and Plan: H/o stroke with residual speech is slow. Holding Plavix and Eliquis per surgery recommendations. (6) Hyperlipidemia: Qualifiers: Hyperlipidemia type: mixed hyperlipidemia Qualified Code(s): E78.2 - Mixed hyperlipidemia Code(s): E78.5 - Hyperlipidemia, unspecified Status: Chronic Assessment and Plan: chronic, continue with atorvastatin (7) Vitamin D deficiency: Code(s): E55.9 - Vitamin D deficiency, unspecified Status: Chronic Assessment and Plan: Vit D OH-25 28, corrected calcium 6.9, phos 2.0. Continue D3 2000 units daily. Calcium low, but so is phosphorus level as well. Unclear etiology. ?cancer and malnutrition. Check PTH level (8) Anemia: Qualifiers: Anemia type: unspecified type Qualified Code(s): D64.9 - Anemia, unspecified Code(s): D64.9 - Anemia, unspecified Status: Chronic Assessment and Plan: Hgb 8-11 and Hct 29-35%. Hgb 7.9 to 8.2 today. He is on iron supplements outpatient and will continue. Likely multifactorial due to metastatic cancer, comorbi
[2022-11-02 12:19] LABS: Parathyroid Intact 213.3 pg/mL (7.5-53.5)
[2022-11-02] MEDS: CALCIUM GLUC 2,000 MG/NS 100ML 2,000 MG/100 ML BAG 100 MG IVPB (12:27)
[2022-11-02] MEDS: POTASSIUM CHLORIDE INJ 40 MEQ in SODIUM CHLORIDE 0.9% IV 500 ML 130 MEQ IVPB (12:27)
[2022-11-02] MEDS: POTASSIUM CHLORIDE 20 MEQ PACKET (FOR LIQUID) 40 MEQ PO (12:28)
[2022-11-02] MEDS: SODIUM CHLORIDE 0.9% IV 1,000 ML 80 ML IV CONT (12:29)
[2022-11-02] MEDS: MAGNESIUM OXIDE 400 MG TABLET PO (12:29)
[2022-11-02] MEDS: MIRTAZAPINE 15 MG TABLET PO (19:53)
[2022-11-02] MEDS: ATORVASTATIN 40 MG TABLET 80 MG PO (19:53)
[2022-11-03] VITALS (15 sets, daily range): BP systolic 107–124; BP diastolic 66–82; PULSE 86–112; RESP 14–20; TEMP 36.1–36.8; O2SAT 94–98
[2022-11-03] MEDS: oxyCODONE/ACETAMINOPHEN (*CRX) 5-325 MG TABLET 1 TABLET PO (04:19)
[2022-11-03 06:01] LABS: Basophils Absolute Auto 0.1 K/mm3 (0.0-0.1); Basophils Percent Auto 0.6 % (0.2-1.2); Eosinophils Percent Auto 0.2 % (0-4.4); Hematocrit 24.2 % (42.0-52.0); Hemoglobin 7.1 g/dL (14.0-18.0); Immature Granulocyte Absolute 0.18 K/mm3 (0.00-0.031); Immature Granulocyte Percent A 2.2 % (0-0.5); Lymphocytes Absolute Auto 2.09 K/mm3 (0.9-3.2); Lymphocytes Percent Auto 25.9 % (18.3-44.2); Mean Corpuscular HGB Conc 29.3 g/dl (32-36); Mean Corpuscular Hemoglobin 28.6 pg (26-34); Mean Corpuscular Volume 97.6 fl (80-100); Mean Platelet Volume 9.4 fl (7.4-10.4); Monocytes Absolute Auto 0.4 K/mm3 (0.1-0.6); Monocytes Percent Auto 4.8 % (2.6-8.5); Neutrophils Absolute Auto 5.4 K/mm3 (1.3-6.7); Neutrophils Percent Auto 66.3 % (45.5-73.1); Platelet Count Result 339 k/mm3 (150-375); Red Blood Count 2.48 M/mm3 (4.6-6.20); Red Cell Distribution Width 20.5 % (11.5-14.5); White Blood Count 8.1 K/mm3 (4.5-10.0)
[2022-11-03 06:15] LABS: Alanine Aminotransferase 13 U/L (6-50); Albumin Level 2.6 g/dL (3.5-5.1); Alkaline Phosphatase 447 U/L (38-126); Anion Gap 3 mmol/L (8-16); Aspartate Amino Transferase 17 U/L (17-59); Bilirubin,Total 0.3 mg/dL (0.2-1.3); Blood Urea Nitrogen 4 mg/dL (9-20); Calcium 6.1 mg/dL (8.4-10.2); Carbon Dioxide 24 mmol/L (22-30); Chloride 113 mmol/L (98-107); Estimated CRCL calculation 117 ml/min; Estimated Glomerular Filt Rate > 60; Glucose 93 mg/dL (65-110); Magnesium 1.8 mg/dL (1.6-2.3); Phosphorus 1.1 mg/dL (2.5-4.5); Potassium 3.5 mmol/L (3.4-5.0); Sodium 140 mmol/L (137-145)
[2022-11-03] MEDS: FLUTICASONE/SALMETEROL 230-21 MCG INHALER 1 PUFF 2 PUFF INHALATION ×2 (07:40→19:54)
[2022-11-03 07:45] LABS: Hypochromasia 1+ (NORMAL); Platelet Estimate Adequate (Adequate)
[2022-11-03 07:46] LABS: Anisocytosis 1+ (NORMAL); Macrocytosis 1+ (NORMAL); Ovalocytes 1+ (NORMAL); Schistocytes 1+ (NORMAL)
[2022-11-03] MEDS: ASCORBIC ACID 500 MG TABLET PO ×2 (08:45→17:52)
[2022-11-03] MEDS: CYCLOBENZAPRINE HCL 10 MG TABLET PO ×3 (08:45→17:52)
[2022-11-03] MEDS: FERROUS SULFATE 324 MG TABLET PO (08:45)
[2022-11-03] MEDS: CHOLECALCIFEROL 1,000 UNITS TABLET 2000 UNITS PO (08:46)
[2022-11-03] MEDS: GABAPENTIN 400 MG CAPSULE PO ×2 (08:46→20:26)
--- NOTE | 2022-11-03 09:00 | PM.IMPN ---
Progress Note: A&P Assessment and Plan (1) Acute cholecystitis: Code(s): K81.0 - Acute cholecystitis Status: Acute Assessment and Plan: Patient presented to the emergency department with complaints of abdominal pain, distension, and loose stools for approximately 1 week. WBC was noted to be 25, alkaline phosphatase was elevated, and CT abdomen and pelvis suggested acute cholecystitis. IR placement of cholecystostomy tube completed on 10/31/22 and management per General surgery Patient is advance to low-fat diet and monitor diet tolerance Monitor chemistry and LFTs Continue IV Zosyn q.6 hours until patient is significantly tolerating all oral diet and culture results finalized, first dose given 10/31/22. Day 4 Bile and blood cultures pending. Patient is high risk for surgery given his anticoagulation/antiplatelet therapy, metastatic prostate cancer, chronic respiratory failure with COPD, and multiple other co-morbidities. Holding plavix and Eliquis for possible surgery. (2) Acute UTI: Code(s): N39.0 - Urinary tract infection, site not specified Status: Acute Assessment and Plan: UA with 1+ leukocytes, greater than 75 wbc's, and trace bacteria on admission. Continue IV Zosyn q.6 hours as above and adjust antibiotics to cover urine organism and acute cholecystitis He has a chronic Hernandez. Flush hernandez with NS for clogs, low flow, or lower abdominal pain Urine cultures shows ampicillin sensitive enterococcus species, which he has had in the past. ?colonization as he currently does not have CVA or suprapubic tenderness. Leukocytosis resolved. (3) COPD (chronic obstructive pulmonary disease): Qualifiers: COPD type: unspecified COPD Qualified Code(s): J44.9 - Chronic obstructive pulmonary disease, unspecified Code(s): J44.9 - Chronic obstructive pulmonary disease, unspecified Status: Chronic Assessment and Plan: chronic, not in acute exacerbation. baseline home oxygen needs 3 L per nasal cannula. Continue Breo Ellipta maintenance inhaler and PRN albuterol stable (4) BPH (benign prostatic hyperplasia): Qualifiers: Lower urinary tract symptom presence: unspecified whether lower urinary tract symptoms present Qualified Code(s): N40.0 - Benign prostatic hyperplasia without lower urinary tract symptoms Code(s): N40.0 - Benign prostatic hyperplasia without lower urinary tract symptoms Status: Acute Assessment and Plan: The patient has had a history of prostate cancer with bone metastasis. continue chronic hernandez (5) CVA (cerebral vascular accident): Qualifiers: CVA mechanism: unspecified Qualified Code(s): I63.9 - Cerebral infarction, unspecified Code(s): I63.9 - Cerebral infarction, unspecified Status: Chronic Assessment and Plan: H/o stroke with residual speech is slow. Holding Plavix and Eliquis per surgery recommendations. (6) Hyperlipidemia: Qualifiers: Hyperlipidemia type: mixed hyperlipidemia Qualified Code(s): E78.2 - Mixed hyperlipidemia Code(s): E78.5 - Hyperlipidemia, unspecified Status: Chronic Assessment and Plan: chronic, continue with atorvastatin (7) Vitamin D deficiency: Code(s): E55.9 - Vitamin D deficiency, unspecified Status: Chronic Assessment and Plan: Vit D OH-25 28, corrected calcium 6.9, phos 2.0. Continue D3 4000 IU daily. Calcium low, but so is phosphorus level as well. Unclear etiology. ?cancer and malnutrition. PTH level elevated suggesting secondary hyperparathyroidism from vitamin D deficiency. Check 24 hour urine calcium to rule out primary hyperparathyroidism with vitamin D deficiency (8) Anemia: Qualifiers: Anemia type: unspecified type Qualified Code(s): D64.9 - Anemia, unspecified Code(s): D64.9 - Anemia, unspecified Status: Chronic Assessment
[2022-11-03] MEDS: POTASSIUM/PHOSPHORUS/SODIUM 1.5 GM PACKET 1 PACKET PO ×3 (12:32→20:26)
[2022-11-03] MEDS: SODIUM CHLORIDE 0.9% IV 250 ML 30 ML IV CONT (12:33)
[2022-11-03] MEDS: MAGNESIUM OXIDE 400 MG TABLET PO (15:11)
[2022-11-03] MEDS: FUROSEMIDE INJ 40 MG/4 ML VIAL 20 MG IV PUSH (15:11)
[2022-11-03 16:42] LABS: Hematocrit 29.7 % (42.0-52.0); Hemoglobin 9.2 g/dL (14.0-18.0)
[2022-11-03] MEDS: MIRTAZAPINE 15 MG TABLET PO (20:26)
[2022-11-03] MEDS: SENNA/DOCUSATE SODIUM TABLET 1 TAB PO (20:26)
[2022-11-03] MEDS: ATORVASTATIN 40 MG TABLET 80 MG PO (20:27)
[2022-11-04] VITALS (9 sets, daily range): BP systolic 104–125; BP diastolic 65–88; PULSE 95–107; RESP 12–20; TEMP 36.4–36.7; O2SAT 87–98
[2022-11-04 06:43] LABS: Hematocrit 29.6 % (42.0-52.0); Hemoglobin 9.2 g/dL (14.0-18.0); Mean Corpuscular HGB Conc 31.1 g/dl (32-36); Mean Corpuscular Hemoglobin 29.3 pg (26-34); Mean Corpuscular Volume 94.3 fl (80-100); Platelet Count Result 370 k/mm3 (150-375); Red Blood Count 3.14 M/mm3 (4.6-6.20); Red Cell Distribution Width 22.6 % (11.5-14.5); White Blood Count 10.2 K/mm3 (4.5-10.0)
[2022-11-04 06:50] LABS: Alanine Aminotransferase 15 U/L (6-50); Albumin Level 3.2 g/dL (3.5-5.1); Alkaline Phosphatase 581 U/L (38-126); Anion Gap 4 mmol/L (8-16); Aspartate Amino Transferase 19 U/L (17-59); Bilirubin,Total 0.5 mg/dL (0.2-1.3); Blood Urea Nitrogen 2 mg/dL (9-20); Calcium 6.1 mg/dL (8.4-10.2); Carbon Dioxide 26 mmol/L (22-30); Chloride 107 mmol/L (98-107); Estimated CRCL calculation 137 ml/min; Estimated Glomerular Filt Rate > 60; Glucose 86 mg/dL (65-110); Magnesium 1.8 mg/dL (1.6-2.3); Potassium 3.4 mmol/L (3.4-5.0); Sodium 137 mmol/L (137-145)
[2022-11-04 07:02] LABS: Iron 57 ug/dL (49-181)
[2022-11-04 07:11] LABS: Percent Iron Saturation 27 % (20-50)
--- NOTE | 2022-11-04 08:35 | PM.IMPN ---
Progress Note: A&P Assessment and Plan (1) Acute cholecystitis: Code(s): K81.0 - Acute cholecystitis Status: Acute Assessment and Plan: Patient presented to the emergency department with complaints of abdominal pain, distension, and loose stools for approximately 1 week. WBC was noted to be 25, alkaline phosphatase was elevated, and CT abdomen and pelvis suggested acute cholecystitis. IR placement of cholecystostomy tube completed on 10/31/22 and management per General surgery Patient is advance to low-fat diet and monitor diet tolerance Monitor chemistry and LFTs Continue IV Zosyn q.6 hours until patient is significantly tolerating all oral diet and culture results finalized, first dose given 10/31/22. Day 5 Bile and blood cultures negative to date. Patient is high risk for surgery given his anticoagulation/antiplatelet therapy, metastatic prostate cancer, chronic respiratory failure with COPD, and multiple other co-morbidities. Holding plavix and Eliquis for possible surgery. (2) Acute UTI: Code(s): N39.0 - Urinary tract infection, site not specified Status: Acute Assessment and Plan: UA with 1+ leukocytes, greater than 75 wbc's, and trace bacteria on admission. Continue IV Zosyn q.6 hours as above and adjust antibiotics to cover urine organism and acute cholecystitis He has a chronic Hernandez. Flush hernandez with NS for clogs, low flow, or lower abdominal pain Urine cultures shows ampicillin sensitive enterococcus species, which he has had in the past. ?colonization as he currently does not have CVA or suprapubic tenderness. Leukocytosis resolved. Unable to determine if this is a true infection versus chronic colonization. If true infection it is likely covered by Zosyn. (3) COPD (chronic obstructive pulmonary disease): Qualifiers: COPD type: unspecified COPD Qualified Code(s): J44.9 - Chronic obstructive pulmonary disease, unspecified Code(s): J44.9 - Chronic obstructive pulmonary disease, unspecified Status: Chronic Assessment and Plan: chronic, not in acute exacerbation. baseline home oxygen needs 2-3 L per nasal cannula. Continue Breo Ellipta maintenance inhaler and PRN albuterol stable (4) BPH (benign prostatic hyperplasia): Qualifiers: Lower urinary tract symptom presence: unspecified whether lower urinary tract symptoms present Qualified Code(s): N40.0 - Benign prostatic hyperplasia without lower urinary tract symptoms Code(s): N40.0 - Benign prostatic hyperplasia without lower urinary tract symptoms Status: Acute Assessment and Plan: The patient has had a history of prostate cancer with bone metastasis. continue chronic hernandez (5) CVA (cerebral vascular accident): Qualifiers: CVA mechanism: unspecified Qualified Code(s): I63.9 - Cerebral infarction, unspecified Code(s): I63.9 - Cerebral infarction, unspecified Status: Chronic Assessment and Plan: H/o stroke with residual speech is slow. Holding Plavix and Eliquis per surgery recommendations. (6) Hyperlipidemia: Qualifiers: Hyperlipidemia type: mixed hyperlipidemia Qualified Code(s): E78.2 - Mixed hyperlipidemia Code(s): E78.5 - Hyperlipidemia, unspecified Status: Chronic Assessment and Plan: chronic, continue with atorvastatin (7) Vitamin D deficiency: Code(s): E55.9 - Vitamin D deficiency, unspecified Status: Chronic Assessment and Plan: Vit D OH-25 28, corrected calcium 6.9, phos 2.0. Continue D3 4000 IU daily. Calcium low, but so is phosphorus level as well. Unclear etiology. ?cancer and malnutrition. PTH level elevated suggesting secondary hyperparathyroidism from vitamin D deficiency. Check 24 hour urine calcium to rule out primary hyperparathyroidism with vitamin D deficiency (8) Anemia: Qualifiers: Anemia type: unspecifi
[2022-11-04] MEDS: POTASSIUM PHOS,M-BASIC-D-BASIC 40 MMOL in SODIUM CHLORIDE 0.9% IV 250 ML 43.89 MMOL IVPB (09:08)
[2022-11-04] MEDS: FERROUS SULFATE 324 MG TABLET PO (09:17)
[2022-11-04] MEDS: oxyCODONE/ACETAMINOPHEN (*CRX) 5-325 MG TABLET 1 TABLET PO ×2 (09:17→20:43)
[2022-11-04] MEDS: CYCLOBENZAPRINE HCL 10 MG TABLET PO ×3 (09:17→18:56)
[2022-11-04] MEDS: CHOLECALCIFEROL 1,000 UNITS TABLET 5000 UNITS PO (09:18)
[2022-11-04] MEDS: GABAPENTIN 400 MG CAPSULE PO ×2 (09:19→20:44)
[2022-11-04] MEDS: ASCORBIC ACID 500 MG TABLET PO ×2 (09:19→18:53)
[2022-11-04] MEDS: FLUTICASONE/SALMETEROL 230-21 MCG INHALER 1 PUFF 2 PUFF INHALATION ×2 (10:16→20:45)
--- NOTE | 2022-11-04 10:28 | P.CDI_ITS ---
CDI Query Clarification Request Unable to determine <Mercedes Varghese APRN - Last Filed: 11/04/22 12:24> Clarified Diagnosis Clarified Diagnosis: Urine culture from 10/31/22 grew > 100,000 Enterococcus species. Chronic indwelling Hernandez catheter documented. Pt started on IV Zosyn Q 6 hours. Clarification request - UTI has been documented, chronic indwelling hernandez catheter documented. Please clarify if UTI is: * due to/associated with chronic indwelling hernandez catheter * not due to/associated with chronic indwelling hernandez catheter * unable to determine <Janette Cao RN - Last Filed: 11/04/22 10:34>
--- NOTE | 2022-11-04 11:32 | P.CONNP_ITS ---
Assessment and Plan Assessment and plan (1) Hypophosphatemia: Code(s): E83.39 - Other disorders of phosphorus metabolism Status: Acute Assessment and Plan: * possible Fanconi syndrome?? * there are case reports of abiraterone (ZYTIGA) causing this * this medications was started in mid September [address] Pena's notes * this may possibly explain his hypokalemia as well (but not his hypocalcemia) * but he has issues with hypokalemia even prior to this admission * however, no glucosuria noted on urinalysis * check random urine phosphorus -- unable to check urine amino acids * aggressively replete phosphorus as tolerated for now (2) Hypocalcemia: Code(s): E83.51 - Hypocalcemia Status: Acute Assessment and Plan: * presumably thought to be secondary to vitamin D deficiency * elevated PTH may be appropriately elevated given his low calcium level * on Vitamin D supplementation * await results of 24hr urine collection (3) Hypokalemia: Code(s): E87.6 - Hypokalemia Status: Acute Assessment and Plan: * doing better * follow trend * on replacement as tolerated (4) Acute cholecystitis: Code(s): K81.0 - Acute cholecystitis Status: Acute Assessment and Plan: * clincally better * s/p cholecystostomy tube placement by IR * General Surgery following * on antibiotics * follow culture data (5) Acute UTI: Code(s): N39.0 - Urinary tract infection, site not specified Status: Acute Assessment and Plan: * culture results noted * however, no clinical symptoms * colonization(?) * covered by current antibiotics (6) COPD (chronic obstructive pulmonary disease): Qualifiers: COPD type: unspecified COPD Qualified Code(s): J44.9 - Chronic obstructive pulmonary disease, unspecified Code(s): J44.9 - Chronic obstructive pulmonary disease, unspecified Status: Chronic Assessment and Plan: * clinically stable (no evidence of exacerbation) * continue supplemental oxxygen and inhalers Will continue to follow. History of Present Illness Reason for Consult Consult date: 11/04/22 Reason for consult: hypokalemia and Other (hypophosphatemia and hypocalcemia) Chief Complaint Chief complaint: ACUTE CHOLECYSTITIS History of Present Illness Narrative: The patient is a 52-year-old male with a past medical history as outlined below who presented to [facility] Emergency Room several days ago with complaints of diffuse abdominal pain. He stated the pain was ?achy? in nature and associated with abdominal distension. He reported no fevers, chills, chest pain, shortness of breath, nausea, or vomiting. He does report that he has been having loose stools for approximately a week prior to his presentation as well as a distant history of a small-bowel obstruction. Given his concerns that he had some other issue going on with his abdomen, he presented to the emergency room for further assessment Workup and evaluation emergency room demonstrated the patient to be hemodynamically stable and routine blood tests were significant for a sig nificant leukocytosis, mild anemia, and a urinalysis highly suggestive of urinary tract infection. Given his abdominal symptoms and history of small- bowel obstruction, a CT scan of the abdomen pelvis was done which demonstrated acute cholecystitis, small pleural effusions, likely adynamic ileus, and widespread bone lesions consistent with metastatic disease presumably secondary to his prostate cancer. Given these fin
--- NOTE | 2022-11-04 11:32 | PM.CNNEP ---
Assessment and Plan Assessment and plan (1) Hypophosphatemia: Code(s): E83.39 - Other disorders of phosphorus metabolism Status: Acute Assessment and Plan: possible Fanconi syndrome?? there are case reports of abiraterone (ZYTIGA) causing this this medications was started in mid September [address] Pena's notes this may possibly explain his hypokalemia as well (but not his hypocalcemia) but he has issues with hypokalemia even prior to this admission however, no glucosuria noted on urinalysis check random urine phosphorus -- unable to check urine amino acids aggressively replete phosphorus as tolerated for now (2) Hypocalcemia: Code(s): E83.51 - Hypocalcemia Status: Acute Assessment and Plan: presumably thought to be secondary to vitamin D deficiency elevated PTH may be appropriately elevated given his low calcium level on Vitamin D supplementation await results of 24hr urine collection (3) Hypokalemia: Code(s): E87.6 - Hypokalemia Status: Acute Assessment and Plan: doing better follow trend on replacement as tolerated (4) Acute cholecystitis: Code(s): K81.0 - Acute cholecystitis Status: Acute Assessment and Plan: clincally better s/p cholecystostomy tube placement by IR General Surgery following on antibiotics follow culture data (5) Acute UTI: Code(s): N39.0 - Urinary tract infection, site not specified Status: Acute Assessment and Plan: culture results noted however, no clinical symptoms colonization(?) covered by current antibiotics (6) COPD (chronic obstructive pulmonary disease): Qualifiers: COPD type: unspecified COPD Qualified Code(s): J44.9 - Chronic obstructive pulmonary disease, unspecified Code(s): J44.9 - Chronic obstructive pulmonary disease, unspecified Status: Chronic Assessment and Plan: clinically stable (no evidence of exacerbation) continue supplemental oxxygen and inhalers Will continue to follow. History of Present Illness Reason for Consult Consult date: 11/04/22 Reason for consult: hypokalemia and Other (hypophosphatemia and hypocalcemia) Chief Complaint Chief complaint: ACUTE CHOLECYSTITIS History of Present Illness Narrative: The patient is a 52-year-old male with a past medical history as outlined below who presented to [facility] Emergency Room several days ago with complaints of diffuse abdominal pain. He stated the pain was ?achy? in nature and associated with abdominal distension. He reported no fevers, chills, chest pain, shortness of breath, nausea, or vomiting. He does report that he has been having loose stools for approximately a week prior to his presentation as well as a distant history of a small-bowel obstruction. Given his concerns that he had some other issue going on with his abdomen, he presented to the emergency room for further assessment Workup and evaluation emergency room demonstrated the patient to be hemodynamically stable and routine blood tests were significant for a significant leukocytosis, mild anemia, and a urinalysis highly suggestive of urinary tract infection. Given his abdominal symptoms and history of small-bowel obstruction, a CT scan of the abdomen pelvis was done which demonstrated acute cholecystitis, small pleural effusions, likely adynamic ileus, and widespread bone lesions consistent with metastatic disease presumably secondary to his prostate cancer. Given these findings, appropriate cultures were obtained and the patient was subsequent admitted to the hospital for further evaluation and therapy Since his admission, he has been seen by both General surgery as well as Interventional Radiology and underwent a coli cystostomy tube placement which successfully decompressed his infected gallbladder. His abdominal pain has significantly improved and he is currently tole
--- NOTE | 2022-11-04 11:55 | PM.PNGS ---
Progress Note: A&P Assessment and Plan (1) Acute cholecystitis: Code(s): K81.0 - Acute cholecystitis Status: Acute Assessment and Plan: Much improved after cholecystostomy tube placed. Will get biliary catheter cholangiogram tomorrow. Assess patency of cystic duct. (2) Malignant neoplasm of prostate metastatic to bone: Code(s): C61 - Malignant neoplasm of prostate; C79.51 - Secondary malignant neoplasm of bone Status: Chronic (3) Anticoagulated: Code(s): Z79.01 - halfway (current) use of anticoagulants Status: Chronic Assessment and Plan: Being held at this time. Subjective Subjective Date/Time Seen: 11/04/22 11:55 Patient reports: no new complaints, feels better, pain is less and afebrile Interval history: More alert and verbal. Says he is feeling better. Review of Systems Review of Systems: All systems reviewed & are unremarkable except as noted in HPI and below (HPI) Exam Const: General: comfortable, no acute distress, alert and awake GI: Inspection: non-distended and incision (Biliary drainage tube draining bile) GI Palp: Yes Soft to palpation and Yes Tenderness to palpation present (GI) (Minimal tenderness, nonfocal) Auscultation: normal bowel sounds Objective Data Vital Signs Vital Signs: Vital Signs - 24 hr 11/03/22 12:20 11/03/22 12:35 11/03/22 13:35 Temperature 36.4 C 36.2 C L 36.2 C L Pulse Rate 99 101 H 100 Respiratory Rate 16 18 16 Blood Pressure 124/82 120/80 107/66 Pulse Oximetry 98 97 97 Oxygen Delivery Oxygen Flow Rate 11/03/22 14:35 11/03/22 12:00 11/03/22 16:00 Temperature 36.1 C L Pulse Rate 104 H 102 H 100 Respiratory Rate 16 Blood Pressure 114/72 Pulse Oximetry 97 Oxygen Delivery Oxygen Flow Rate 11/03/22 14:00 11/03/22 19:55 11/03/22 19:55 Temperature 36.1 C L Pulse Rate 104 H 98 98 Respiratory Rate 16 18 16 Blood Pressure 114/72 Pulse Oximetry 97 95 Oxygen Delivery Nasal Cannula Oxygen Flow Rate 2 11/03/22 21:54 11/03/22 20:00 11/04/22 00:00 Temperature 36.4 C L Pulse Rate 101 H 98 101 H Respiratory Rate 20 Blood Pressure 113/82 Pulse Oximetry 96 Oxygen Delivery Oxygen Flow Rate 11/04/22 06:00 Temperature 36.4 C L Pulse Rate 107 H Respiratory Rate 20 Blood Pressure 125/88 Pulse Oximetry 87 L Oxygen Delivery Oxygen Flow Rate Intake/Output Intake/Output: Intake & Output 11/01/22 11/02/22 11/03/22 11/04/22 23:59 23:59 23:59 23:59 Intake Total 2472 2102 1389 586 Output Total 2627 1763 9868 1200 Balance -153 44 -9427 -394 Meds/Results Medications: Active Medications Generic Name Dose Route Start Last Admin Trade Name Freq PRN Reason Stop Dose Admin Albuterol 2.5 mg 10/31/22 16:38 Albuterol Sulfate Neb 2.5 Mg/3 Ml Inh INHALATION Q4HRT PRN Shortness Of Breath Ascorbic Acid 500 mg 11/01/22 09:40 11/04/22 09:19 Ascorbic Acid 500 Mg Tablet PO 12/01/22 09:39 500 mg BID [facility] Administration Atorvastatin Calcium 80 mg 11/01/22 21:00 11/03/22 20:27 Atorvastatin 40 Mg Tablet PO 80 mg HS [facility] Administration Bisacodyl 10 mg 11/03/22 16:05 Bisacodyl 10 Mg Suppository RECTAL DAILY PRN Constipation Cyclobenzaprine HCl 10 mg 11/01/22 13:00 11/04/22 09:17 Cyclobenzaprine Hcl 10 Mg Tablet PO 10 mg TID [facility] Administration Ferrous Sulfate 324 mg 11/01/22 09:45 11/04/22 09:17 Ferrous Sulfate 324 Mg Tablet PO 324 mg DAILY@0800 [facility] Administration Gabapentin 400 mg 11/01/22 09:40 11/04/22 09:19 Gabapentin 400 Mg Capsule PO 400 mg Q12HR [facility] Administration Hydromorphone HCl 0.5 mg 10/31/22 11:31 Hydromorphone Hcl Inj (*Crx) 1 Mg/Ml Syr IV PUSH Q2H PRN Pain Rated 4-6 Hydromorphone HCl 1 mg 10/31/22 11:31 11/01/22 11:32 Hydromorphone Hcl Inj (*Crx) 1 Mg/Ml Syr IV PUSH 1 mg Q2H PRN Administration Pain Rated 7-10 Piperacillin/Tazobacta
[2022-11-04] MEDS: MAGNESIUM OXIDE 400 MG TABLET PO (13:02)
[2022-11-04] MEDS: HEPARIN SODIUM 5,000 UNITS/ML VIAL 5000 UNITS SUB-Q (20:43)
[2022-11-04] MEDS: SENNA/DOCUSATE SODIUM TABLET 1 TAB PO (20:44)
[2022-11-04] MEDS: ATORVASTATIN 40 MG TABLET 80 MG PO (20:44)
[2022-11-04] MEDS: MIRTAZAPINE 15 MG TABLET PO (20:45)
[2022-11-05] VITALS (11 sets, daily range): BP systolic 112–118; BP diastolic 66–75; PULSE 91–103; RESP 14–18; TEMP 35.9–36.2; O2SAT 90–98
[2022-11-05 06:18] LABS: Basophils Absolute Auto 0.1 K/mm3 (0.0-0.1); Basophils Percent Auto 0.6 % (0.2-1.2); Eosinophils Absolute Auto 0.1 K/mm3 (0-0.3); Eosinophils Percent Auto 1.3 % (0-4.4); Hematocrit 31.9 % (42.0-52.0); Hemoglobin 9.4 g/dL (14.0-18.0); Immature Granulocyte Percent A 1.3 % (0-0.5); Lymphocytes Absolute Auto 1.97 K/mm3 (0.9-3.2); Lymphocytes Percent Auto 24.8 % (18.3-44.2); Mean Corpuscular HGB Conc 29.5 g/dl (32-36); Mean Corpuscular Hemoglobin 28.7 pg (26-34); Mean Corpuscular Volume 97.6 fl (80-100); Mean Platelet Volume 9.1 fl (7.4-10.4); Monocytes Absolute Auto 0.4 K/mm3 (0.1-0.6); Monocytes Percent Auto 4.4 % (2.6-8.5); Neutrophils Absolute Auto 5.4 K/mm3 (1.3-6.7); Neutrophils Percent Auto 67.6 % (45.5-73.1); Platelet Count Result 350 k/mm3 (150-375); Red Blood Count 3.27 M/mm3 (4.6-6.20); Red Cell Distribution Width 23.1 % (11.5-14.5); White Blood Count 7.9 K/mm3 (4.5-10.0)
[2022-11-05 06:26] LABS: Alanine Aminotransferase 14 U/L (6-50); Albumin Level 3.1 g/dL (3.5-5.1); Alkaline Phosphatase 659 U/L (38-126); Anion Gap 3 mmol/L (8-16); Aspartate Amino Transferase 19 U/L (17-59); Bilirubin,Total 0.5 mg/dL (0.2-1.3); Blood Urea Nitrogen 4 mg/dL (9-20); Calcium 5.8 mg/dL (8.4-10.2); Carbon Dioxide 28 mmol/L (22-30); Chloride 110 mmol/L (98-107); Estimated CRCL calculation 137 ml/min; Estimated Glomerular Filt Rate > 60; Glucose 103 mg/dL (65-110); Magnesium 1.8 mg/dL (1.6-2.3); Phosphorus 1.6 mg/dL (2.5-4.5); Potassium 3.6 mmol/L (3.4-5.0); Sodium 141 mmol/L (137-145)
[2022-11-05 06:27] LABS: INR 1.1; Prothrombin Time 13.4 Seconds (11.1-14.7)
[2022-11-05 06:57] LABS: Anisocytosis 1+ (NORMAL); Hypochromasia 1+ (NORMAL); Platelet Estimate Adequate (Adequate); Poikilocytosis 1+ (NORMAL); Schistocytes None Seen (NORMAL)
[2022-11-05] MEDS: FLUTICASONE/SALMETEROL 230-21 MCG INHALER 1 PUFF 2 PUFF INHALATION ×2 (09:43→19:22)
[2022-11-05] MEDS: SODIUM PHOSPHATE 20 MM in DEXTROSE 5% IN WATER 250 ML 50 MM IVPB (09:48)
[2022-11-05] MEDS: FERROUS SULFATE 324 MG TABLET PO (09:49)
[2022-11-05] MEDS: GABAPENTIN 400 MG CAPSULE PO ×2 (09:49→19:47)
[2022-11-05] MEDS: CYCLOBENZAPRINE HCL 10 MG TABLET PO ×3 (09:49→17:27)
[2022-11-05] MEDS: HEPARIN SODIUM 5,000 UNITS/ML VIAL 5000 UNITS SUB-Q ×2 (09:49→19:48)
[2022-11-05] MEDS: CHOLECALCIFEROL 1,000 UNITS TABLET 5000 UNITS PO (09:49)
[2022-11-05] MEDS: ASCORBIC ACID 500 MG TABLET PO ×2 (09:49→17:27)
--- NOTE | 2022-11-05 10:07 | P.PNNP_ITS ---
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 Pena's notes * this may possibly explain his hypokalemia as well (but not his hypocalcemia) * but he has issues with hypokalemia even prior to this admission * however, no glucosuria noted on urinalysis * check random urine phosphorus -- unable to check urine amino acids * aggressively replete phosphorus as tolerated for now (2) Hypocalcemia: Code(s): E83.51 - Hypocalcemia Status: Acute Assessment and Plan: * presumably thought to be secondary to vitamin D deficiency * elevated PTH may be appropriately elevated given his low calcium level * on Vitamin D supplementation * await results of 24hr urine collection (3) Hypokalemia: Code(s): E87.6 - Hypokalemia Status: Acute Assessment and Plan: * doing better * follow trend * on replacement as tolerated (4) Acute cholecystitis: Code(s): K81.0 - Acute cholecystitis Status: Acute Assessment and Plan: * clincally better * s/p cholecystostomy tube placement by IR * General Surgery following * on antibiotics * follow culture data (5) Acute UTI: Code(s): N39.0 - Urinary tract infection, site not specified Status: Acute Assessment and Plan: * culture results noted * however, no clinical symptoms * colonization(?) * covered by current antibiotics (6) COPD (chronic obstructive pulmonary disease): Qualifiers: COPD type: unspecified COPD Qualified Code(s): J44.9 - Chronic obstructive pulmonary disease, unspecified Code(s): J44.9 - Chronic obstructive pulmonary disease, unspecified Status: Chronic Assessment and Plan: * clinically stable (no evidence of exacerbation) * continue supplemental oxxygen and inhalers Will continue to follow. Subjective Date/time seen: 11/05/22 10:07 S/P cholangiogram earlier this AM and tolerated procedure reasonably well; eating and drinking okay; phosphorus still low this AM so getting IV replacement; otherwise, no apparent distress noted; no issues/events overnight or earlier this morning. Exam Narrative: General: WD/WN male in NAD Heart: normal S1 and S2; no rub Lungs: coarse breath sounds Abdomen: soft, nontender, nondistended, positive bowel sounds Extremities: no cyanosis or clubbing; no edema Skin: warm and dry Objective Data Vital Signs Vital Signs: Vital Signs Temp Pulse Resp BP Pulse Ox O2 Del Method O2 Flow Rate 11/05/22 09:43 98 Nasal Cannula 2 11/05/22 04:00 96 11/05/22 06:00 97.0 F L 102 H 14 118/66 90 11/05/22 00:00 97 11/04/22 20:00 100 11/04/22 21:57 98.1 F 95 14 105/65 98 11/04/22 20:49 97 Nasal Cannula 2 11/04/22 16:00 99 11/04/22 12:00 106 H 11/04/22 14:00 98.0 F 101 H 12 104/66 95 Intake/Output Intake/Output: Intake & Output 11/02/22 11/03/22 11/04/22 11/05/22 23:59 23:59 23:59 23:59
--- NOTE | 2022-11-05 10:07 | PM.PNNEP ---
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 Pena's notes this may possibly explain his hypokalemia as well (but not his hypocalcemia) but he has issues with hypokalemia even prior to this admission however, no glucosuria noted on urinalysis check random urine phosphorus -- unable to check urine amino acids aggressively replete phosphorus as tolerated for now (2) Hypocalcemia: Code(s): E83.51 - Hypocalcemia Status: Acute Assessment and Plan: presumably thought to be secondary to vitamin D deficiency elevated PTH may be appropriately elevated given his low calcium level on Vitamin D supplementation await results of 24hr urine collection (3) Hypokalemia: Code(s): E87.6 - Hypokalemia Status: Acute Assessment and Plan: doing better follow trend on replacement as tolerated (4) Acute cholecystitis: Code(s): K81.0 - Acute cholecystitis Status: Acute Assessment and Plan: clincally better s/p cholecystostomy tube placement by IR General Surgery following on antibiotics follow culture data (5) Acute UTI: Code(s): N39.0 - Urinary tract infection, site not specified Status: Acute Assessment and Plan: culture results noted however, no clinical symptoms colonization(?) covered by current antibiotics (6) COPD (chronic obstructive pulmonary disease): Qualifiers: COPD type: unspecified COPD Qualified Code(s): J44.9 - Chronic obstructive pulmonary disease, unspecified Code(s): J44.9 - Chronic obstructive pulmonary disease, unspecified Status: Chronic Assessment and Plan: clinically stable (no evidence of exacerbation) continue supplemental oxxygen and inhalers Will continue to follow. Subjective Date/time seen: 11/05/22 10:07 S/P cholangiogram earlier this AM and tolerated procedure reasonably well; eating and drinking okay; phosphorus still low this AM so getting IV replacement; otherwise, no apparent distress noted; no issues/events overnight or earlier this morning. Exam Narrative: General: WD/WN male in NAD Heart: normal S1 and S2; no rub Lungs: coarse breath sounds Abdomen: soft, nontender, nondistended, positive bowel sounds Extremities: no cyanosis or clubbing; no edema Skin: warm and dry Objective Data Vital Signs Vital Signs: Vital Signs Temp Pulse Resp BP Pulse Ox O2 Del Method O2 Flow Rate 11/05/22 09:43 98 Nasal Cannula 2 11/05/22 04:00 96 11/05/22 06:00 97.0 F L 102 H 14 118/66 90 11/05/22 00:00 97 11/04/22 20:00 100 11/04/22 21:57 98.1 F 95 14 105/65 98 11/04/22 20:49 97 Nasal Cannula 2 11/04/22 16:00 99 11/04/22 12:00 106 H 11/04/22 14:00 98.0 F 101 H 12 104/66 95 Intake/Output Intake/Output: Intake & Output 11/02/22 11/03/22 11/04/22 11/05/22 23:59 23:59 23:59 23:59 Intake Total 2102 1389 2402 668 Output Total 2065 1037 2877 1410 Balance 42 -9339 -468 -742 Meds/Results Medications: Active Medications Generic Name Dose Route Start Last Admin Trade Name Freq PRN Reason Stop Dose Admin Albuterol 2.5 mg 10/31/22 16:38 Albuterol Sulfate Neb 2.5 Mg/3 Ml Inh INHALATION Q4HRT PRN Shortness Of Breath Ascorbic Acid 500 mg 11/01/22 09:40 11/05/22 09:49 Ascorbic Acid 500 Mg Tablet PO 12/01/22 09:39 500 mg BID NAWAF Administration Atorvastatin Calcium 80 mg 11/01/22 21:00 11/04/22 20:44 Atorvastatin 40 Mg Tablet PO 80 mg HS NAWAF Administration Bisacodyl 10 mg 11/03/22 16:05 Bisacodyl 10 Mg Suppository RECTAL DAILY PRN
[2022-11-05] MEDS: oxyCODONE/ACETAMINOPHEN (*CRX) 5-325 MG TABLET 1 TABLET PO ×2 (12:16→19:47)
[2022-11-05] MEDS: MAGNESIUM OXIDE 400 MG TABLET PO (12:17)
--- NOTE | 2022-11-05 13:20 | PM.IMPN ---
Progress Note: A&P Assessment and Plan (1) Acute cholecystitis: Code(s): K81.0 - Acute cholecystitis Status: Acute Assessment and Plan: Patient presented to the emergency department with complaints of abdominal pain, distension, and loose stools for approximately 1 week. WBC was noted to be 25, alkaline phosphatase was elevated, and CT abdomen and pelvis suggested acute cholecystitis. IR placement of cholecystostomy tube completed on 10/31/22 and management per General surgery Patient is advance to low-fat diet and monitor diet tolerance Monitor chemistry and LFTs Continue IV Zosyn q.6 hours until patient is significantly tolerating all oral diet and culture results finalized, first dose given 10/31/22. Transitioned to Augmentin 875/125 mg PO BID x 9 doses to complete 10-day antibiotic course. Bile and blood cultures negative to date. Patient is high risk for surgery given his anticoagulation/antiplatelet therapy, metastatic prostate cancer, chronic respiratory failure with COPD, and multiple other co-morbidities. Holding plavix and Eliquis for possible surgery. (2) Acute UTI: Code(s): N39.0 - Urinary tract infection, site not specified Status: Acute Assessment and Plan: UA with 1+ leukocytes, greater than 75 wbc's, and trace bacteria on admission. Continue IV Zosyn q.6 hours as above and adjust antibiotics to cover urine organism and acute cholecystitis He has a chronic Hernandez. Flush hernandez with NS for clogs, low flow, or lower abdominal pain Urine cultures shows ampicillin sensitive enterococcus species, which he has had in the past. ?colonization as he currently does not have CVA or suprapubic tenderness. Leukocytosis resolved. Unable to determine if this is a true infection versus chronic colonization. If true infection it is likely covered by Zosyn and Augmentin; will receive x 10 day course if true complicated UTI. (3) COPD (chronic obstructive pulmonary disease): Qualifiers: COPD type: unspecified COPD Qualified Code(s): J44.9 - Chronic obstructive pulmonary disease, unspecified Code(s): J44.9 - Chronic obstructive pulmonary disease, unspecified Status: Chronic Assessment and Plan: chronic, not in acute exacerbation. baseline home oxygen needs 2-3 L per nasal cannula. Continue Breo Ellipta maintenance inhaler and PRN albuterol stable (4) BPH (benign prostatic hyperplasia): Qualifiers: Lower urinary tract symptom presence: unspecified whether lower urinary tract symptoms present Qualified Code(s): N40.0 - Benign prostatic hyperplasia without lower urinary tract symptoms Code(s): N40.0 - Benign prostatic hyperplasia without lower urinary tract symptoms Status: Acute Assessment and Plan: The patient has had a history of prostate cancer with bone metastasis. continue chronic hernandez (5) CVA (cerebral vascular accident): Qualifiers: CVA mechanism: unspecified Qualified Code(s): I63.9 - Cerebral infarction, unspecified Code(s): I63.9 - Cerebral infarction, unspecified Status: Chronic Assessment and Plan: H/o stroke with residual speech is slow. Holding Plavix and Eliquis per surgery recommendations. (6) Hyperlipidemia: Qualifiers: Hyperlipidemia type: mixed hyperlipidemia Qualified Code(s): E78.2 - Mixed hyperlipidemia Code(s): E78.5 - Hyperlipidemia, unspecified Status: Chronic Assessment and Plan: chronic, continue with atorvastatin (7) Vitamin D deficiency: Code(s): E55.9 - Vitamin D deficiency, unspecified Status: Chronic Assessment and Plan: Vit D OH-25 28, corrected calcium 6.9, phos 2.0. Continue D3 5000 IU daily. Calcium low, but so is phosphorus level as well. Unclear etiology. ?cancer, cancer treatment and malnutrition. PTH level elevated suggesting secondary hyperparathyroidism from vitamin D
--- NOTE | 2022-11-05 17:41 | PM.PNGS ---
Progress Note: A&P Assessment and Plan (1) Acute cholecystitis: Code(s): K81.0 - Acute cholecystitis Status: Acute Assessment and Plan: Improving with cholecystostomy tube placement. I discussed the cholangiogram today with Khloe Varghese, hospitalist. Patient has some metabolic abnormalities and nephrology has been consulted. Will continue to follow but tentatively planning on laparoscopic cholecystectomy on Friday or Friday this week. Will discuss with patient and see if he agrees. 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): Z79.02 - MCFP (current) use of antithrombotics/antiplatelets Status: Chronic Assessment and Plan: Continue to hold (3) Malignant neoplasm of prostate metastatic to bone: Code(s): C61 - Malignant neoplasm of prostate; C79.51 - Secondary malignant neoplasm of bone Status: Chronic (4) Anticoagulated: Code(s): Z79.01 - MCFP (current) use of anticoagulants Status: Chronic Assessment and Plan: Continue to hold (5) History of CVA (cerebrovascular accident): Code(s): Z86.73 - Personal history of transient ischemic attack (TIA), and cerebral infarction without residual deficits Status: Chronic Subjective Subjective Date/Time Seen: 11/05/22 17:41 Patient reports: no new complaints, feels better, tolerating a regular diet and afebrile Review of Systems Review of Systems: ROS unobtainable: Yes unobtainable due to mental status Exam Const: General: cooperative, comfortable, alert and awake Nutritional Appearance: overweight GI: Inspection: non-distended and incision (Biliary catheter draining bile) GI Palp: Yes Soft to palpation and Yes Tenderness to palpation present (GI) (Upper abdomen especially at cholecystostomy site) Auscultation: normal bowel sounds Objective Data Vital Signs Vital Signs: Vital Signs - 24 hr 11/04/22 20:49 11/04/22 21:57 11/04/22 20:00 Temperature 36.7 C Pulse Rate 95 100 Respiratory Rate 14 Blood Pressure 105/65 Pulse Oximetry 97 98 Oxygen Delivery Nasal Cannula Oxygen Flow Rate 2 11/05/22 00:00 11/05/22 06:00 11/05/22 04:00 Temperature 36.1 C L Pulse Rate 97 102 H 96 Respiratory Rate 14 Blood Pressure 118/66 Pulse Oximetry 90 Oxygen Delivery Oxygen Flow Rate 11/05/22 09:43 11/05/22 08:00 11/05/22 12:00 Temperature Pulse Rate 96 99 Respiratory Rate Blood Pressure Pulse Oximetry 98 Oxygen Delivery Nasal Cannula Oxygen Flow Rate 2 11/05/22 14:00 Temperature 35.9 C L Pulse Rate 103 H Respiratory Rate 16 Blood Pressure 113/71 Pulse Oximetry 97 Oxygen Delivery Oxygen Flow Rate Intake/Output Intake/Output: Intake & Output 11/02/22 11/03/22 11/04/22 11/05/22 23:59 23:59 23:59 23:59 Intake Total 2102 1389 2402 1662 Output Total 2060 5434 2877 2368 Balance 31 -2386 -468 -690 Meds/Results Medications: Active Medications Generic Name Dose Route Start Last Admin Trade Name Freq PRN Reason Stop Dose Admin Albuterol 2.5 mg 10/31/22 16:38 Albuterol Sulfate Neb 2.5 Mg/3 Ml Inh INHALATION Q4HRT PRN Shortness Of Breath Amoxicillin/Clavulanate Potassium 1 tablet 11/05/22 21:00 Amoxicillin/Clavulanate K 875-125 Mg Tab PO 11/09/22 21:01 Q12HR [facility] Ascorbic Acid 500 mg 11/01/22 09:40 11/05/22 17:27 Ascorbic Acid 500 Mg Tablet PO 12/01/22 09:39 500 mg BID NAWAF Administration Atorvastatin Calcium 80 mg 11/01/22 21:00 11/04/22 20:44 Atorvastatin 40 Mg Tablet PO 80 mg HS [facility] Administration Bisacodyl 10 mg 11/03/22 16:05 Bisacodyl 10 Mg Suppository RECTAL DAILY PRN Constipation Cyclobenzaprine HCl 10 mg 11/01/22 13:00 11/05/22 17:27 Cyclobenzaprine Hcl 10 Mg Tablet PO 10 mg TID [facility] Administration Ferrous Sulfate 324 mg 11/01/22 09:45 11/05/22 09:49 Ferrous Sulfate 324 Mg Tablet PO 324 mg DAILY@0800 [facility]
[2022-11-05] MEDS: SENNA/DOCUSATE SODIUM TABLET 1 TAB PO (19:47)
[2022-11-05] MEDS: ATORVASTATIN 40 MG TABLET 80 MG PO (19:47)
[2022-11-05] MEDS: AMOXICILLIN/CLAVULANATE K 875-125 MG TAB 1 TABLET PO (19:47)
[2022-11-05] MEDS: MIRTAZAPINE 15 MG TABLET PO (19:47)
[2022-11-05 21:58] LABS: Ionized Calcium 4.2 mg/dL (4.8-5.6)
[2022-11-06] VITALS (10 sets, daily range): BP systolic 109–116; BP diastolic 74–85; PULSE 87–101; RESP 16–19; TEMP 36.1–37.1; O2SAT 94–98
[2022-11-06 06:09] LABS: Basophils Absolute Auto 0.1 K/mm3 (0.0-0.1); Basophils Percent Auto 0.6 % (0.2-1.2); Eosinophils Absolute Auto 0.2 K/mm3 (0-0.3); Eosinophils Percent Auto 1.7 % (0-4.4); Hematocrit 30.3 % (42.0-52.0); Hemoglobin 9.1 g/dL (14.0-18.0); Immature Granulocyte Absolute 0.06 K/mm3 (0.00-0.031); Immature Granulocyte Percent A 0.6 % (0-0.5); Lymphocytes Absolute Auto 2.25 K/mm3 (0.9-3.2); Lymphocytes Percent Auto 23.1 % (18.3-44.2); Mean Corpuscular Hemoglobin 29.3 pg (26-34); Mean Corpuscular Volume 97.4 fl (80-100); Mean Platelet Volume 9.4 fl (7.4-10.4); Monocytes Absolute Auto 0.5 K/mm3 (0.1-0.6); Neutrophils Absolute Auto 6.7 K/mm3 (1.3-6.7); Platelet Count Result 322 k/mm3 (150-375); Red Blood Count 3.11 M/mm3 (4.6-6.20); Red Cell Distribution Width 23.1 % (11.5-14.5); White Blood Count 9.7 K/mm3 (4.5-10.0)
[2022-11-06 06:25] LABS: Alanine Aminotransferase 15 U/L (6-50); Albumin Level 3.3 g/dL (3.5-5.1); Alkaline Phosphatase 857 U/L (38-126); Anion Gap 4 mmol/L (8-16); Aspartate Amino Transferase 17 U/L (17-59); Bilirubin,Total 0.5 mg/dL (0.2-1.3); Blood Urea Nitrogen 4 mg/dL (9-20); Calcium 5.7 mg/dL (8.4-10.2); Carbon Dioxide 25 mmol/L (22-30); Chloride 107 mmol/L (98-107); Estimated CRCL calculation 137 ml/min; Estimated Glomerular Filt Rate > 60; Glucose 87 mg/dL (65-110); Magnesium 1.9 mg/dL (1.6-2.3); Phosphorus 1.4 mg/dL (2.5-4.5); Potassium 3.7 mmol/L (3.4-5.0); Sodium 136 mmol/L (137-145)
[2022-11-06 06:43] LABS: Anisocytosis 2+ (NORMAL); Platelet Estimate Adequate (Adequate)
[2022-11-06 07:06] LABS: Schistocytes None Seen (NORMAL)
[2022-11-06] MEDS: FLUTICASONE/SALMETEROL 230-21 MCG INHALER 1 PUFF 2 PUFF INHALATION ×2 (07:40→21:14)
[2022-11-06] MEDS: CYCLOBENZAPRINE HCL 10 MG TABLET PO ×3 (09:50→17:27)
[2022-11-06] MEDS: CHOLECALCIFEROL 1,000 UNITS TABLET 5000 UNITS PO (09:50)
[2022-11-06] MEDS: AMOXICILLIN/CLAVULANATE K 875-125 MG TAB 1 TABLET PO ×2 (09:50→20:08)
[2022-11-06] MEDS: GABAPENTIN 400 MG CAPSULE PO ×2 (09:50→20:08)
[2022-11-06] MEDS: oxyCODONE/ACETAMINOPHEN (*CRX) 5-325 MG TABLET 1 TABLET PO ×2 (09:50→17:27)
[2022-11-06] MEDS: FERROUS SULFATE 324 MG TABLET PO (09:50)
[2022-11-06] MEDS: HEPARIN SODIUM 5,000 UNITS/ML VIAL 5000 UNITS SUB-Q ×2 (09:50→20:08)
[2022-11-06] MEDS: ASCORBIC ACID 500 MG TABLET PO ×2 (09:50→17:29)
--- NOTE | 2022-11-06 12:27 | P.PNNP_ITS ---
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 Pena's notes * this may possibly explain his hypokalemia as well (but not his hypocalcemia) * but he has issues with hypokalemia even prior to this admission * however, no glucosuria noted on urinalysis * check random urine phosphorus -- unable to check urine amino acids * aggressively replete phosphorus as tolerated for now (2) Hypocalcemia: Code(s): E83.51 - Hypocalcemia Status: Acute Assessment and Plan: * presumably thought to be secondary to vitamin D deficiency * elevated PTH may be appropriately elevated given his low calcium level * on Vitamin D supplementation * add supplemental calcium supplements as well (3) Hypokalemia: Code(s): E87.6 - Hypokalemia Status: Acute Assessment and Plan: * doing better * follow trend * on replacement as tolerated (4) Acute cholecystitis: Code(s): K81.0 - Acute cholecystitis Status: Acute Assessment and Plan: * clincally better * s/p cholecystostomy tube placement by IR * General Surgery following * on antibiotics * follow culture data (5) Acute UTI: Code(s): N39.0 - Urinary tract infection, site not specified Status: Acute Assessment and Plan: * culture results noted * however, no clinical symptoms * colonization(?) * covered by current antibiotics (6) COPD (chronic obstructive pulmonary disease): Qualifiers: COPD type: unspecified COPD Qualified Code(s): J44.9 - Chronic obstructive pulmonary disease, unspecified Code(s): J44.9 - Chronic obstructive pulmonary disease, unspecified Status: Chronic Assessment and Plan: * clinically stable (no evidence of exacerbation) * continue supplemental oxxygen and inhalers Will continue to follow. Subjective Date/time seen: 11/06/22 12:27 Appears to be doing reasonably well at the time of my visit; only mild abdominal discomfort around cholecystostomy tube but eating and drinking quite well; phosphorus still low but doing a bit better; no apparent distress noted currently. Exam Narrative: General: WD/WN male in NAD Heart: normal S1 and S2; no rub Lungs: coarse breath sounds Abdomen: soft, nontender, nondistended, positive bowel sounds Extremities: no cyanosis or clubbing; no edema Skin: warm and intact Objective Data Vital Signs Vital Signs: Vital Signs Temp Pulse Resp BP Pulse Ox O2 Del Method O2 Flow Rate 11/06/22 08:00 91 11/06/22 08:00 94 Nasal Cannula 2 11/06/22 05:54 97.0 F L 94 16 112/80 94 11/06/22 04:00 92 11/06/22 00:00 101 H 11/05/22 20:00 98 11/05/22 21:27 97.1 F L 99 16 112/75 98 11/05/22 19:22 91 18 11/05/22 19:22 91 18 98 Nasal Cannula 2 11/05/22 16:00 100 11/05/22 14:00 96.7 F L 103 H 16 113/71 97 Intake/Output Intake/Output: Intake & Output 11/03/22 11/04/22
--- NOTE | 2022-11-06 12:27 | PM.PNNEP ---
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 Pena's notes this may possibly explain his hypokalemia as well (but not his hypocalcemia) but he has issues with hypokalemia even prior to this admission however, no glucosuria noted on urinalysis check random urine phosphorus -- unable to check urine amino acids aggressively replete phosphorus as tolerated for now (2) Hypocalcemia: Code(s): E83.51 - Hypocalcemia Status: Acute Assessment and Plan: presumably thought to be secondary to vitamin D deficiency elevated PTH may be appropriately elevated given his low calcium level on Vitamin D supplementation add supplemental calcium supplements as well (3) Hypokalemia: Code(s): E87.6 - Hypokalemia Status: Acute Assessment and Plan: doing better follow trend on replacement as tolerated (4) Acute cholecystitis: Code(s): K81.0 - Acute cholecystitis Status: Acute Assessment and Plan: clincally better s/p cholecystostomy tube placement by IR General Surgery following on antibiotics follow culture data (5) Acute UTI: Code(s): N39.0 - Urinary tract infection, site not specified Status: Acute Assessment and Plan: culture results noted however, no clinical symptoms colonization(?) covered by current antibiotics (6) COPD (chronic obstructive pulmonary disease): Qualifiers: COPD type: unspecified COPD Qualified Code(s): J44.9 - Chronic obstructive pulmonary disease, unspecified Code(s): J44.9 - Chronic obstructive pulmonary disease, unspecified Status: Chronic Assessment and Plan: clinically stable (no evidence of exacerbation) continue supplemental oxxygen and inhalers Will continue to follow. Subjective Date/time seen: 11/06/22 12:27 Appears to be doing reasonably well at the time of my visit; only mild abdominal discomfort around cholecystostomy tube but eating and drinking quite well; phosphorus still low but doing a bit better; no apparent distress noted currently. Exam Narrative: General: WD/WN male in NAD Heart: normal S1 and S2; no rub Lungs: coarse breath sounds Abdomen: soft, nontender, nondistended, positive bowel sounds Extremities: no cyanosis or clubbing; no edema Skin: warm and intact Objective Data Vital Signs Vital Signs: Vital Signs Temp Pulse Resp BP Pulse Ox O2 Del Method O2 Flow Rate 11/06/22 08:00 91 11/06/22 08:00 94 Nasal Cannula 2 11/06/22 05:54 97.0 F L 94 16 112/80 94 11/06/22 04:00 92 11/06/22 00:00 101 H 11/05/22 20:00 98 11/05/22 21:27 97.1 F L 99 16 112/75 98 11/05/22 19:22 91 18 11/05/22 19:22 91 18 98 Nasal Cannula 2 11/05/22 16:00 100 11/05/22 14:00 96.7 F L 103 H 16 113/71 97 Intake/Output Intake/Output: Intake & Output 11/03/22 11/04/22 11/05/22 11/06/22 23:59 23:59 23:59 23:59 Intake Total 1389 2402 1968.667 240 Output Total 1435 2870 3510 730 [facility] -4046 -468 -[phone] -490 Meds/Results Medications: Active Medications Generic Name Dose Route Start Last Admin Trade Name Freq PRN Reason Stop Dose Admin Albuterol 2.5 mg 10/31/22 16:38 Albuterol Sulfate Neb 2.5 Mg/3 Ml Inh INHALATION Q4HRT PRN Shortness Of Breath Amoxicillin/Clavulanate Potassium 1 tablet 11/05/22 21:00 11/05/22 19:47 Amoxicillin/Clavulanate K 875-125 Mg Tab PO 11/09/22 21:01 1 tablet Q12HR NAWAF Administration Ascorbic Acid 500 mg 11/01/22 09:40 11/05/22 17:27 Ascorbic Acid 500 Mg Tablet PO 12/01/22 09:39 500 mg BID NAWAF Admi
[2022-11-06] MEDS: MAGNESIUM OXIDE 400 MG TABLET PO (12:31)
[2022-11-06] MEDS: SODIUM PHOSPHATE 20 MM in DEXTROSE 5% IN WATER 250 ML 50 MM IVPB (12:35)
[2022-11-06] MEDS: POTASSIUM/PHOSPHORUS/SODIUM 1.5 GM PACKET 1 PACKET PO ×2 (13:00→20:09)
--- NOTE | 2022-11-06 13:14 | P.PNIM_ITS ---
Progress Note: A&P Assessment and Plan (1) Acute cholecystitis: Code(s): K81.0 - Acute cholecystitis Status: Acute Assessment and Plan: Patient presented to the emergency department with complaints of abdominal pain, distension, and loose stools for approximately 1 week. WBC was noted to be 25, alkaline phosphatase was elevated, and CT abdomen and pelvis suggested acute cholecystitis. * IR placement of cholecystostomy tube completed on 10/31/22 and management per General surgery * Patient is advance to low-fat diet and monitor diet tolerance * Monitor chemistry and LFTs * Continue IV Zosyn q.6 hours until patient is significantly tolerating all oral diet and culture results finalized, first dose given 10/31/22. * Transitioned to Augmentin 875/125 mg PO BID x 9 doses to complete 10-day antibiotic course. * Bile and blood cultures negative to date. * Patient is high risk for surgery given his anticoagulation/antiplatelet therapy, metastatic prostate cancer, chronic respiratory failure with COPD, and multiple other co-morbidities. * Holding plavix and Eliquis for possible surgery. 11/06/22 * Patient scheduled for cholecystectomy on 11/11/22 as well as cholecystostomy tube as this time. * Called Dr. Frausto and discussed patient's care. Patient will be kept in the hospital for further evaluation and management until surgery is preformed. (2) Acute UTI: Code(s): N39.0 - Urinary tract infection, site not specified Status: Acute Assessment and Plan: UA with 1+ leukocytes, greater than 75 wbc's, and trace bacteria on admission. * Continue IV Zosyn q.6 hours as above and adjust antibiotics to cover urine organism and acute cholecystitis * He has a chronic Hernandez. * Flush hernandez with NS for clogs, low flow, or lower abdominal pain * Urine cultures shows ampicillin sensitive enterococcus species, which he has had in the past. ?colonization as he currently does not have CVA or suprapubic tenderness. * Leukocytosis resolved. * Unable to determine if this is a true infection versus chronic colonization. If true infection it is likely covered by Zosyn and Augmentin; will receive x 10 day course if true complicated UTI. (3) COPD (chronic obstructive pulmonary disease): Qualifiers: COPD type: unspecified COPD Qualified Code(s): J44.9 - Chronic obstructive pulmonary disease, unspecified Code(s): J44.9 - Chronic obstructive pulmonary disease, unspecified Status: Chronic Assessment and Plan: chronic, not in acute exacerbation. * baseline home oxygen needs 2-3 L per nasal cannula. * Continue Breo Ellipta maintenance inhaler and PRN albuterol * stable (4) BPH (benign prostatic hyperplasia): Qualifiers: Lower urinary tract symptom presence: unspecified whether lower urinary tract symptoms present Qualified Code(s): N40.0 - Benign prostatic hyperplasia without lower urinary tract symptoms Code(s): N40.0 - Benign prostatic hyperplasia without lower urinary tract symptoms Status: Acute Assessment and Plan: The patient has had a history of prostate cancer with bone metastasis. * continue chronic hernandez (5) CVA (cerebral vascular accident): Qualifiers: CVA mechanism: unspecified Qualified Code(s): I63.9 - Cerebral infarction, unspecified Code(s): I63.9 - Cerebral infarction, unspecified Status: Chronic Assessment and Plan: H/o stroke with residual speech is slow. * Holding Plavix and Eliquis per
--- NOTE | 2022-11-06 13:14 | PM.IMPN ---
Progress Note: A&P Assessment and Plan (1) Acute cholecystitis: Code(s): K81.0 - Acute cholecystitis Status: Acute Assessment and Plan: Patient presented to the emergency department with complaints of abdominal pain, distension, and loose stools for approximately 1 week. WBC was noted to be 25, alkaline phosphatase was elevated, and CT abdomen and pelvis suggested acute cholecystitis. IR placement of cholecystostomy tube completed on 10/31/22 and management per General surgery Patient is advance to low-fat diet and monitor diet tolerance Monitor chemistry and LFTs Continue IV Zosyn q.6 hours until patient is significantly tolerating all oral diet and culture results finalized, first dose given 10/31/22. Transitioned to Augmentin 875/125 mg PO BID x 9 doses to complete 10-day antibiotic course. Bile and blood cultures negative to date. Patient is high risk for surgery given his anticoagulation/antiplatelet therapy, metastatic prostate cancer, chronic respiratory failure with COPD, and multiple other co-morbidities. Holding plavix and Eliquis for possible surgery. 11/06/22 Patient scheduled for cholecystectomy on 11/11/22 as well as cholecystostomy tube as this time. Called Dr. Frausto and discussed patient's care. Patient will be kept in the hospital for further evaluation and management until surgery is preformed. (2) Acute UTI: Code(s): N39.0 - Urinary tract infection, site not specified Status: Acute Assessment and Plan: UA with 1+ leukocytes, greater than 75 wbc's, and trace bacteria on admission. Continue IV Zosyn q.6 hours as above and adjust antibiotics to cover urine organism and acute cholecystitis He has a chronic Hernandez. Flush hernandez with NS for clogs, low flow, or lower abdominal pain Urine cultures shows ampicillin sensitive enterococcus species, which he has had in the past. ?colonization as he currently does not have CVA or suprapubic tenderness. Leukocytosis resolved. Unable to determine if this is a true infection versus chronic colonization. If true infection it is likely covered by Zosyn and Augmentin; will receive x 10 day course if true complicated UTI. (3) COPD (chronic obstructive pulmonary disease): Qualifiers: COPD type: unspecified COPD Qualified Code(s): J44.9 - Chronic obstructive pulmonary disease, unspecified Code(s): J44.9 - Chronic obstructive pulmonary disease, unspecified Status: Chronic Assessment and Plan: chronic, not in acute exacerbation. baseline home oxygen needs 2-3 L per nasal cannula. Continue Breo Ellipta maintenance inhaler and PRN albuterol stable (4) BPH (benign prostatic hyperplasia): Qualifiers: Lower urinary tract symptom presence: unspecified whether lower urinary tract symptoms present Qualified Code(s): N40.0 - Benign prostatic hyperplasia without lower urinary tract symptoms Code(s): N40.0 - Benign prostatic hyperplasia without lower urinary tract symptoms Status: Acute Assessment and Plan: The patient has had a history of prostate cancer with bone metastasis. continue chronic hernandez (5) CVA (cerebral vascular accident): Qualifiers: CVA mechanism: unspecified Qualified Code(s): I63.9 - Cerebral infarction, unspecified Code(s): I63.9 - Cerebral infarction, unspecified Status: Chronic Assessment and Plan: H/o stroke with residual speech is slow. Holding Plavix and Eliquis per surgery recommendations. (6) Hyperlipidemia: Qualifiers: Hyperlipidemia type: mixed hyperlipidemia Qualified Code(s): E78.2 - Mixed hyperlipidemia Code(s): E78.5 - Hyperlipidemia, unspecified Status: Chronic Assessment and Plan: chronic, continue with atorvastatin (7) Vitamin D deficiency: Code(s): E55.9 - Vitamin D deficiency, unspecified Status: Chronic
--- NOTE | 2022-11-06 14:16 | PM.PNGS ---
Progress Note: A&P Assessment and Plan (1) Acute cholecystitis: Code(s): K81.0 - Acute cholecystitis Status: Acute Assessment and Plan: Improved, in fact resolved with cholecystostomy tube. I discussed this with the patient. Cystic duct was patent on cholangiogram yesterday as was the common bile duct. This could be managed by leaving the cholecystostomy tube in for a couple of weeks and then clamping the tube with the eventual removal. This does present the risk of recurrent cholecystitis. I discussed laparoscopic cholecystectomy with the patient. I explained that while there is some risk of surgery, this would be the best treatment to avoid further episodes of cholecystitis. I also discussed this with Mercedes molina, hospitalist, yesterday. Patient has had his anti-platelet and anticoagulant therapy held. I have scheduled him for laparoscopic cholecystectomy on Friday11/11/2022 at 7:30 a.m. in the morning. We would remove the cholecystostomy tube at the time of the surgery. I explained the procedure the risks the benefits to the patient. The usual time still in the hospital after the surgery was discussed and overall recovery time was discussed. He is currently in favor of the surgery. Continue to hold anticoagulant therapy. Plan to go ahead Friday morning at 7:30 a.m. as discussed above. 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 Status: Chronic Assessment and Plan: Eliquis on hold as well (4) History of CVA (cerebrovascular accident): Code(s): Z86.73 - Personal history of transient ischemic attack (TIA), and cerebral infarction without residual deficits Status: Chronic (5) Prostate cancer metastatic to bone: Code(s): C61 - Malignant neoplasm of prostate; C79.51 - Secondary malignant neoplasm of bone Status: Chronic Subjective Subjective Date/Time Seen: 11/06/22 14:16 Patient reports: no new complaints, pain is less, tolerating a regular diet and afebrile Review of Systems Review of Systems: All systems reviewed & are unremarkable except as noted in HPI and below (Per HPI and those items noted below) Constitutional: Constitutional: Denies chills and Denies fever(s) Cardiovascular: Cardiovascular: Denies chest pain, Denies diaphoresis, Denies dyspnea and Denies paroxysmal nocturnal dyspnea Respiratory: Respiratory: Denies chest congestion, Denies cough and Denies dyspnea Integumentary/Breasts: Skin/Breast: Denies lesions and Denies rash Exam Const: General: cooperative, comfortable, alert and awake GI: Inspection: non-distended and incision (Cholecystostomy tube in good condition, continues to drain bile) GI Palp: Yes Soft to palpation and Yes Tenderness to palpation present (GI) (Mostly at site of cholecystostomy tube) Objective Data Vital Signs Vital Signs: Vital Signs - 24 hr 11/05/22 16:00 11/05/22 19:22 11/05/22 19:22 Temperature Pulse Rate 100 91 91 Respiratory Rate 18 18 Blood Pressure Pulse Oximetry 98 Oxygen Delivery Nasal Cannula Oxygen Flow Rate 2 11/05/22 21:27 11/05/22 20:00 11/06/22 00:00 Temperature 36.2 C L Pulse Rate 99 98 101 H Respiratory Rate 16 Blood Pressure 112/75 Pulse Oximetry 98 Oxygen Delivery Oxygen Flow Rate 11/06/22 04:00 11/06/22 05:54 11/06/22 08:00 Temperature 36.1 C L Pulse Rate 92 94 Respiratory Rate 16 Blood Pressure 112/80 Pulse Oximetry 94 94 Oxygen Delivery Nasal Cannula Oxygen Flow Rate 2 11/06/22 08:00 11/06/22 12:00 Temperature Pulse Rate 91 99 Respiratory Rate Blood Pressure Pulse Oximetry Oxygen Delivery Oxygen Flow Rate Intake/Output Intake/Output: Intake & Output
[2022-11-06] MEDS: SENNA/DOCUSATE SODIUM TABLET 1 TAB PO (20:08)
[2022-11-06] MEDS: ATORVASTATIN 40 MG TABLET 80 MG PO (20:08)
[2022-11-06] MEDS: MIRTAZAPINE 15 MG TABLET PO (20:08)
[2022-11-07] VITALS (11 sets, daily range): BP systolic 109–116; BP diastolic 74–78; PULSE 93–103; RESP 14–20; TEMP 36–36.6; O2SAT 97–98
[2022-11-07] MEDS: oxyCODONE/ACETAMINOPHEN (*CRX) 5-325 MG TABLET 1 TABLET PO ×2 (05:40→19:27)
[2022-11-07 06:11] LABS: Hematocrit 31.1 % (42.0-52.0); Hemoglobin 9.2 g/dL (14.0-18.0); Mean Corpuscular HGB Conc 29.6 g/dl (32-36); Mean Corpuscular Hemoglobin 28.8 pg (26-34); Mean Corpuscular Volume 97.2 fl (80-100); Mean Platelet Volume 9.3 fl (7.4-10.4); Platelet Count Result 305 k/mm3 (150-375); White Blood Count 10.9 K/mm3 (4.5-10.0)
[2022-11-07 06:22] LABS: Alanine Aminotransferase 15 U/L (6-50); Albumin Level 3.1 g/dL (3.5-5.1); Alkaline Phosphatase 957 U/L (38-126); Anion Gap 6 mmol/L (8-16); Aspartate Amino Transferase 18 U/L (17-59); Bilirubin,Total 0.4 mg/dL (0.2-1.3); Blood Urea Nitrogen 6 mg/dL (9-20); Calcium 5.7 mg/dL (8.4-10.2); Carbon Dioxide 24 mmol/L (22-30); Chloride 110 mmol/L (98-107); Estimated CRCL calculation 101 ml/min; Estimated Glomerular Filt Rate > 60; Glucose 90 mg/dL (65-110); Magnesium 1.9 mg/dL (1.6-2.3); Phosphorus 1.1 mg/dL (2.5-4.5); Potassium 4.1 mmol/L (3.4-5.0); Sodium 140 mmol/L (137-145)
--- NOTE | 2022-11-07 06:25 | PC.NURSE ---
90 ml out drain this shift brown drainage
[2022-11-07] MEDS: AMOXICILLIN/CLAVULANATE K 875-125 MG TAB 1 TABLET PO ×2 (08:24→20:33)
[2022-11-07] MEDS: FERROUS SULFATE 324 MG TABLET PO (08:24)
[2022-11-07] MEDS: POTASSIUM/PHOSPHORUS/SODIUM 1.5 GM PACKET 2 PACKET PO (08:24)
[2022-11-07] MEDS: HEPARIN SODIUM 5,000 UNITS/ML VIAL 5000 UNITS SUB-Q ×2 (08:25→20:33)
[2022-11-07] MEDS: ASCORBIC ACID 500 MG TABLET PO ×2 (08:25→17:41)
[2022-11-07] MEDS: CHOLECALCIFEROL 1,000 UNITS TABLET 5000 UNITS PO (08:25)
[2022-11-07] MEDS: CALCIUM GLUC 2,000 MG/NS 100ML 2,000 MG/100 ML BAG 100 MG IVPB (08:25)
[2022-11-07] MEDS: GABAPENTIN 400 MG CAPSULE PO ×2 (08:25→20:33)
[2022-11-07] MEDS: CYCLOBENZAPRINE HCL 10 MG TABLET PO ×3 (08:25→17:41)
[2022-11-07] MEDS: FLUTICASONE/SALMETEROL 230-21 MCG INHALER 1 PUFF 2 PUFF INHALATION ×2 (08:45→19:47)
--- NOTE | 2022-11-07 11:37 | PCNWS ---
Weekly nutritional screen. Patient is tolerating current low fat diet with adequate intake 50-100%. No weight loss reported. Does not want any supplements. No nutritional needs at this time.
--- NOTE | 2022-11-07 12:57 | PM.PNNEP ---
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 Pena's notes this may possibly explain his hypokalemia as well (but not his hypocalcemia) but he has issues with hypokalemia even prior to this admission however, no glucosuria noted on urinalysis check random urine phosphorus -- unable to check urine amino acids aggressively replete phosphorus as tolerated for now will switch to K-Phos tablets and no significant improvement with NeutraPhos packets will add calcitriol to hopefully increase intestinal phosphorus absorption (2) Hypocalcemia: Code(s): E83.51 - Hypocalcemia Status: Acute Assessment and Plan: presumably thought to be secondary to vitamin D deficiency elevated PTH may be appropriately elevated given his low calcium level on Vitamin D supplementation IV calcium gluconate PRN calcium supplementation difficult to use due to interaction with phosphorus supplementation (3) Hypokalemia: Code(s): E87.6 - Hypokalemia Status: Acute Assessment and Plan: doing better follow trend on replacement as tolerated (4) Acute cholecystitis: Code(s): K81.0 - Acute cholecystitis Status: Acute Assessment and Plan: clincally better s/p cholecystostomy tube placement by IR General Surgery following -- possibly surgery next week on antibiotics follow culture data (5) Acute UTI: Code(s): N39.0 - Urinary tract infection, site not specified Status: Acute Assessment and Plan: culture results noted however, no clinical symptoms colonization(?) covered by current antibiotics (6) COPD (chronic obstructive pulmonary disease): Qualifiers: COPD type: unspecified COPD Qualified Code(s): J44.9 - Chronic obstructive pulmonary disease, unspecified Code(s): J44.9 - Chronic obstructive pulmonary disease, unspecified Status: Chronic Assessment and Plan: clinically stable (no evidence of exacerbation) continue supplemental oxygen and inhalers Will continue to follow. Subjective Date/time seen: 11/07/22 12:57 Continues to do reasonably well at the time of my visit; unfortunately, still has ongoing issues/problems with low calcium and phosphorus despite interventions to date; no other acute events overnight or earlier this morning. Exam Narrative: General: WD/WN male in NAD Heart: normal S1 and S2; no rub Lungs: coarse breath sounds Abdomen: soft, nontender, nondistended, positive bowel sounds Extremities: no cyanosis or clubbing; no edema Skin: warm and intact Objective Data Vital Signs Vital Signs: Vital Signs Temp Pulse Resp BP Pulse Ox O2 Del Method O2 Flow Rate 11/07/22 08:00 99 11/07/22 08:45 94 18 97 Nasal Cannula 2 11/07/22 08:45 94 18 11/07/22 06:00 97.2 F L 93 18 116/78 98 11/07/22 04:00 97 11/07/22 00:00 103 H 11/06/22 20:00 97 11/06/22 22:00 97 F L 96 19 109/74 98 11/06/22 21:17 87 18 98 Nasal Cannula 2 11/06/22 20:00 97 Nasal Cannula 3 11/06/22 16:00 100 11/06/22 14:00 98.7 F 100 16 116/85 97 Intake/Output Intake/Output: Intake & Output 11/04/22 11/05/22 11/06/22 11/07/22 23:59 23:59 23:59 23:59 Intake Total 2402 6347.308 3461.667 240 Output Total 2870 3510 1380 1065 Balance -468 -1541.333 -103.333 -825 Meds/Results Medications: Active Medications Generic Name Dose Route Start Last Admin Trade Name Freq PRN Reason Stop Dose Admin Albuterol 2.5 mg 10/31/22 16:38 Albuterol Sulfate Neb 2.5 Mg/3 Ml Inh INHALATION Q4HRT PRN Shortness Of Breath Amox
--- NOTE | 2022-11-07 12:57 | P.PNNP_ITS ---
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 Pena's notes * this may possibly explain his hypokalemia as well (but not his hypocalcemia) * but he has issues with hypokalemia even prior to this admission * however, no glucosuria noted on urinalysis * check random urine phosphorus -- unable to check urine amino acids * aggressively replete phosphorus as tolerated for now * will switch to K-Phos tablets and no significant improvement with Neut raPhos packets * will add calcitriol to hopefully increase intestinal phosphorus absorption (2) Hypocalcemia: Code(s): E83.51 - Hypocalcemia Status: Acute Assessment and Plan: * presumably thought to be secondary to vitamin D deficiency * elevated PTH may be appropriately elevated given his low calcium level * on Vitamin D supplementation * IV calcium gluconate PRN * calcium supplementation difficult to use due to interaction with phosphorus supplementation (3) Hypokalemia: Code(s): E87.6 - Hypokalemia Status: Acute Assessment and Plan: * doing better * follow trend * on replacement as tolerated (4) Acute cholecystitis: Code(s): K81.0 - Acute cholecystitis Status: Acute Assessment and Plan: * clincally better * s/p cholecystostomy tube placement by IR * General Surgery following -- possibly surgery next week * on antibiotics * follow culture data (5) Acute UTI: Code(s): N39.0 - Urinary tract infection, site not specified Status: Acute Assessment and Plan: * culture results noted * however, no clinical symptoms * colonization(?) * covered by current antibiotics (6) COPD (chronic obstructive pulmonary disease): Qualifiers: COPD type: unspecified COPD Qualified Code(s): J44.9 - Chronic obstructive pulmonary disease, unspecified Code(s): J44.9 - Chronic obstructive pulmonary disease, unspecified Status: Chronic Assessment and Plan: * clinically stable (no evidence of exacerbation) * continue supplemental oxygen and inhalers Will continue to follow. Subjective Date/time seen: 11/07/22 12:57 Continues to do reasonably well at the time of my visit; unfortunately, still has ongoing issues/problems with low calcium and phosphorus despite inter ventions to date; no other acute events overnight or earlier this morning. Exam Narrative: General: WD/WN male in NAD Heart: normal S1 and S2; no rub Lungs: coarse breath sounds Abdomen: soft, nontender, nondistended, positive bowel sounds Extremities: no cyanosis or clubbing; no edema Skin: warm and intact Objective Data Vital Signs Vital Signs: Vital Signs Temp Pulse Resp BP Pulse Ox O2 Del Method O2 Flow Rate 11/07/22 08:00 99 11/07/22 08:45 94 18 97 Nasal Cannula 2 11/07/22 08:45 94 18 11/07/22 06:00 97.2 F L 93 18 116/78 98 11/07/22 04:00 97 11/07/22 00:00 103 H 11/06/22 20:00 97 11/06/22 22:00 97 F L 96 19 109/74 98 11/06/22 21:17 87
[2022-11-07] MEDS: MAGNESIUM OXIDE 400 MG TABLET PO (12:58)
[2022-11-07] MEDS: calcitrioL 0.25 MCG CAPSULE PO (14:04)
--- NOTE | 2022-11-07 14:08 | P.PNIM_ITS ---
Progress Note: A&P Assessment and Plan (1) Acute cholecystitis: Code(s): K81.0 - Acute cholecystitis Status: Acute Assessment and Plan: Patient presented to the emergency department with complaints of abdominal pain, distension, and loose stools for approximately 1 week. WBC was noted to be 25, alkaline phosphatase was elevated, and CT abdomen and pelvis suggested acute cholecystitis. * IR placement of cholecystostomy tube completed on 10/31/22 and management per General surgery * Continue IV Zosyn q.6 hours until patient is significantly tolerating all oral diet and culture results finalized, first dose given 10/31/22. * Transitioned to Augmentin 875/125 mg PO BID x 9 doses to complete 10-day antibiotic course. * Patient is high risk for surgery given his anticoagulation/antiplatelet therapy, metastatic prostate cancer, chronic respiratory failure with COPD, and multiple other co-morbidities. * Holding plavix and Eliquis for possible surgery. 11/06/22 * Patient scheduled for cholecystectomy on 11/11/22 as well as cholecystostomy tube as this time. * Called Dr. Frausto and discussed patient's care. Patient will be kept in the hospital for further evaluation and management until surgery is preformed. 11/07/22 * Bile and blood cultures final result, no growth. * Cholecystectomy scheduled for 11/11/2022 at 7:00 a.m. (2) Acute UTI: Code(s): N39.0 - Urinary tract infection, site not specified Status: Acute Assessment and Plan: UA with 1+ leukocytes, greater than 75 wbc's, and trace bacteria on admission. * Continue IV Zosyn q.6 hours as above and adjust antibiotics to cover urine organism and acute cholecystitis * He has a chronic Hernandez. Infection likely due to this. * Flush hernandez with NS for clogs, low flow, or lower abdominal pain * Urine cultures shows ampicillin sensitive enterococcus species, which he has had in the past. ?colonization as he currently does not have CVA or suprapubic tenderness. * Leukocytosis resolved. * Unable to determine if this is a true infection versus chronic colonization. If true infection it is likely covered by Zosyn and Augmentin; will receive x 10 day course if true complicated UTI. (3) COPD (chronic obstructive pulmonary disease): Qualifiers: COPD type: unspecified COPD Qualified Code(s): J44.9 - Chronic obstructive pulmonary disease, unspecified Code(s): J44.9 - Chronic obstructive pulmonary disease, unspecified Status: Chronic Assessment and Plan: chronic, not in acute exacerbation. * baseline home oxygen needs 2-3 L per nasal cannula. * Continue Breo Ellipta maintenance inhaler and PRN albuterol * stable (4) BPH (benign prostatic hyperplasia): Qualifiers: Lower urinary tract symptom presence: unspecified whether lower urinary tract symptoms present Qualified Code(s): N40.0 - Benign prostatic hyperplasia without lower urinary tract symptoms Code(s): N40.0 - Benign prostatic hyperplasia without lower urinary tract symptoms Status: Acute Assessment and Plan: The patient has had a history of prostate cancer with bone metastasis. * continue chronic hernandez (5) CVA (cerebral vascular accident): Qualifiers: CVA mechanism: unspecified Qualified Code(s): I63.9 - Cerebral infarction, unspecified Code(s): I63.9 - Cerebral infarction, unspecified Status: Chronic Assessment and Plan: H/o stroke with residual speech is slow. * Holding Plavix and Eliqui
--- NOTE | 2022-11-07 14:08 | PM.IMPN ---
Progress Note: A&P Assessment and Plan (1) Acute cholecystitis: Code(s): K81.0 - Acute cholecystitis Status: Acute Assessment and Plan: Patient presented to the emergency department with complaints of abdominal pain, distension, and loose stools for approximately 1 week. WBC was noted to be 25, alkaline phosphatase was elevated, and CT abdomen and pelvis suggested acute cholecystitis. IR placement of cholecystostomy tube completed on 10/31/22 and management per General surgery Continue IV Zosyn q.6 hours until patient is significantly tolerating all oral diet and culture results finalized, first dose given 10/31/22. Transitioned to Augmentin 875/125 mg PO BID x 9 doses to complete 10-day antibiotic course. Patient is high risk for surgery given his anticoagulation/antiplatelet therapy, metastatic prostate cancer, chronic respiratory failure with COPD, and multiple other co-morbidities. Holding plavix and Eliquis for possible surgery. 11/06/22 Patient scheduled for cholecystectomy on 11/11/22 as well as cholecystostomy tube as this time. Called Dr. Frausto and discussed patient's care. Patient will be kept in the hospital for further evaluation and management until surgery is preformed. 11/07/22 Bile and blood cultures final result, no growth. Cholecystectomy scheduled for 11/11/2022 at 7:00 a.m. (2) Acute UTI: Code(s): N39.0 - Urinary tract infection, site not specified Status: Acute Assessment and Plan: UA with 1+ leukocytes, greater than 75 wbc's, and trace bacteria on admission. Continue IV Zosyn q.6 hours as above and adjust antibiotics to cover urine organism and acute cholecystitis He has a chronic Hernandez. Infection likely due to this. Flush hernandez with NS for clogs, low flow, or lower abdominal pain Urine cultures shows ampicillin sensitive enterococcus species, which he has had in the past. ?colonization as he currently does not have CVA or suprapubic tenderness. Leukocytosis resolved. Unable to determine if this is a true infection versus chronic colonization. If true infection it is likely covered by Zosyn and Augmentin; will receive x 10 day course if true complicated UTI. (3) COPD (chronic obstructive pulmonary disease): Qualifiers: COPD type: unspecified COPD Qualified Code(s): J44.9 - Chronic obstructive pulmonary disease, unspecified Code(s): J44.9 - Chronic obstructive pulmonary disease, unspecified Status: Chronic Assessment and Plan: chronic, not in acute exacerbation. baseline home oxygen needs 2-3 L per nasal cannula. Continue Breo Ellipta maintenance inhaler and PRN albuterol stable (4) BPH (benign prostatic hyperplasia): Qualifiers: Lower urinary tract symptom presence: unspecified whether lower urinary tract symptoms present Qualified Code(s): N40.0 - Benign prostatic hyperplasia without lower urinary tract symptoms Code(s): N40.0 - Benign prostatic hyperplasia without lower urinary tract symptoms Status: Acute Assessment and Plan: The patient has had a history of prostate cancer with bone metastasis. continue chronic hernandez (5) CVA (cerebral vascular accident): Qualifiers: CVA mechanism: unspecified Qualified Code(s): I63.9 - Cerebral infarction, unspecified Code(s): I63.9 - Cerebral infarction, unspecified Status: Chronic Assessment and Plan: H/o stroke with residual speech is slow. Holding Plavix and Eliquis per surgery recommendations. (6) Hyperlipidemia: Qualifiers: Hyperlipidemia type: mixed hyperlipidemia Qualified Code(s): E78.2 - Mixed hyperlipidemia Code(s): E78.5 - Hyperlipidemia, unspecified Status: Chronic Assessment and Plan: chronic, continue with atorvastatin (7) Vitamin D deficiency: Code(s): E55.9 - Vitamin D deficiency, unspecified Status: C
[2022-11-07 14:51] LABS: Appearance Urine Clear (Clear); Bilirubin Urine Negative (Negative); Blood Urine Trace-intact (Negative); Color Urine Yellow (Yellow); Glucose Urine UA Negative (Negative); Ketones Urine Negative (Negative); Leukocyte Esterase Ur 1+ LEU/UL (Negative); Nitrate Urine Negative (Negative); Protein Urine Negative (Negative); Specific Grav Ur 1.015 (1.001-1.035); Urobilinogen Urine 0.2 mg/dL (<2.0); pH Urine 7.5 (5.0-9.0)
[2022-11-07 15:05] LABS: Bacteria Urine Trace /hpf
[2022-11-07 15:06] LABS: Add Urine Microscopic? YES
--- NOTE | 2022-11-07 16:56 | PM.PNGS ---
Progress Note: A&P Assessment and Plan (1) Acute cholecystitis: Code(s): K81.0 - Acute cholecystitis Status: Acute Assessment and Plan: Quiescent now that patient has cholecystostomy tube. Plan to go ahead with removal of cholecystostomy tube and laparoscopic cholecystectomy on Friday11/11/2022. Surgery is scheduled for 730 in the morning. 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): Z79.02 - longterm (current) use of antithrombotics/antiplatelets Status: Chronic Assessment and Plan: Continue to hold (3) Anticoagulated: Code(s): Z79.01 - longterm (current) use of anticoagulants Status: Chronic Assessment and Plan: Continue to hold (4) History of CVA (cerebrovascular accident): Code(s): Z86.73 - Personal history of transient ischemic attack (TIA), and cerebral infarction without residual deficits Status: Chronic Subjective Subjective Date/Time Seen: 11/07/22 06:56 Patient reports: no new complaints and tolerating a regular diet Interval history: Patient seen this morning. He does wish to go ahead with laparoscopic cholecystectomy on Friday. I discussed this with him yesterday. He has no further questions and wishes to proceed. He has had no new abdominal pain or other condition changes regarding his abdomen. Exam Const: General: comfortable and awake GI: Inspection: non-distended and incision (Cholecystostomy tube draining bile) GI Palp: Yes Soft to palpation and No Tenderness to palpation present (GI) Objective Data Vital Signs Vital Signs: Vital Signs - 24 hr 11/06/22 20:00 11/06/22 21:17 11/06/22 22:00 Temperature 36.1 C L Pulse Rate 87 96 Respiratory Rate 18 19 Blood Pressure 109/74 Pulse Oximetry 97 98 98 Oxygen Delivery Nasal Cannula Nasal Cannula Oxygen Flow Rate 3 2 11/06/22 20:00 11/07/22 00:00 11/07/22 04:00 Temperature Pulse Rate 97 103 H 97 Respiratory Rate Blood Pressure Pulse Oximetry Oxygen Delivery Oxygen Flow Rate 11/07/22 06:00 11/07/22 08:45 11/07/22 08:45 Temperature 36.2 C L Pulse Rate 93 94 94 Respiratory Rate 18 18 18 Blood Pressure 116/78 Pulse Oximetry 98 97 Oxygen Delivery Nasal Cannula Oxygen Flow Rate 2 11/07/22 08:00 11/07/22 14:00 11/07/22 12:00 Temperature 36.0 C L Pulse Rate 99 101 H 96 Respiratory Rate 18 Blood Pressure 109/74 Pulse Oximetry 97 Oxygen Delivery Oxygen Flow Rate Intake/Output Intake/Output: Intake & Output 11/04/22 11/05/22 11/06/22 11/07/22 23:59 23:59 23:59 23:59 Intake Total 2402 7477.646 2928.667 480 Output Total 2870 3510 1380 1065 Balance -468 -1541.333 -103.333 -585 Meds/Results Medications: Active Medications Generic Name Dose Route Start Last Admin Trade Name Freq PRN Reason Stop Dose Admin Albuterol 2.5 mg 10/31/22 16:38 Albuterol Sulfate Neb 2.5 Mg/3 Ml Inh INHALATION Q4HRT PRN Shortness Of Breath Amoxicillin/Clavulanate Potassium 1 tablet 11/05/22 21:00 11/07/22 08:24 Amoxicillin/Clavulanate K 875-125 Mg Tab PO 11/09/22 21:01 1 tablet Q12HR NAWAF Administration Ascorbic Acid 500 mg 11/01/22 09:40 11/07/22 08:25 Ascorbic Acid 500 Mg Tablet PO 12/01/22 09:39 500 mg BID NAWAF Administration Atorvastatin Calcium 80 mg 11/01/22 21:00 11/06/22 20:08 Atorvastatin 40 Mg Tablet PO 80 mg HS NAWAF Administration Bisacodyl 10 mg 11/03/22 16:05 Bisacodyl 10 Mg Suppository RECTAL DAILY PRN Constipation Calcitriol 0.25 mcg 11/07/22 13:00 11/07/22 14:04 Calcitriol 0.25 Mcg Capsule PO 0.25 mcg QAM NAWAF Administration Calcium Gluconate 2,000 mg 11/07/22 21:00 Calcium Gluconate 1,000 Mg/10 Ml Vial IV PUSH 11/07/22 21:01 ONCE ONE Cyclobenzaprine HCl 10 mg 11/01/22 13:00 11/07/22 12:58 Cyclobenzaprine Hcl 10 Mg Tablet PO 10 mg TID NAWAF Administration Ferrous Sulfate 324 mg 11/01/22
[2022-11-07] MEDS: POTASSIUM PHOS/SODIUM PHOS 250 MG TABLET 500 MG PO (17:41)
[2022-11-07] MEDS: SENNA/DOCUSATE SODIUM TABLET 1 TAB PO (20:33)
[2022-11-07] MEDS: CALCIUM GLUCONATE 1,000 MG/10 ML VIAL 2000 MG IV PUSH (20:33)
[2022-11-07] MEDS: MIRTAZAPINE 15 MG TABLET PO (20:33)
[2022-11-07] MEDS: ATORVASTATIN 40 MG TABLET 80 MG PO (20:33)
[2022-11-08] VITALS (12 sets, daily range): BP systolic 103–125; BP diastolic 63–81; PULSE 62–105; RESP 14–20; TEMP 36.2–36.6; O2SAT 94–99
--- NOTE | 2022-11-08 | ECG_ITS ---
Measurements Intervals [place] Rate: 104 P: 45 SD: 133 QRS: -37 QRSD: 103 T: 39 QT: 391 QTc: 515 Interpretive Statements SINUS TACHYCARDIA MARKED LEFT AXIS DEVIATION [QRS AXIS < -30] COMPARED TO ECG 10/21/2022 23:05:21 HEART RATE IS REDUCED AND PVCS ARE NOT SEEN Electronically Signed On 11-08-2022 14:57:26 [employer]LLOUT MANAGER by Danis Alonso M.D.
[2022-11-08] MEDS: oxyCODONE/ACETAMINOPHEN (*CRX) 5-325 MG TABLET 1 TABLET PO ×3 (05:52→19:34)
--- NOTE | 2022-11-08 05:56 | PC.NURSE ---
130 ml brownish/green drainage this shift
[2022-11-08 06:01] LABS: Basophils Absolute Auto 0.1 K/mm3 (0.0-0.1); Basophils Percent Auto 0.4 % (0.2-1.2); Eosinophils Absolute Auto 0.3 K/mm3 (0-0.3); Eosinophils Percent Auto 2.5 % (0-4.4); Hematocrit 33.6 % (42.0-52.0); Immature Granulocyte Absolute 0.06 K/mm3 (0.00-0.031); Immature Granulocyte Percent A 0.5 % (0-0.5); Lymphocytes Percent Auto 18.8 % (18.3-44.2); Mean Corpuscular HGB Conc 29.8 g/dl (32-36); Mean Corpuscular Hemoglobin 29.2 pg (26-34); Mean Platelet Volume 9.3 fl (7.4-10.4); Monocytes Absolute Auto 0.6 K/mm3 (0.1-0.6); Monocytes Percent Auto 5.5 % (2.6-8.5); Neutrophils Absolute Auto 8.1 K/mm3 (1.3-6.7); Neutrophils Percent Auto 72.3 % (45.5-73.1); Platelet Count Result 310 k/mm3 (150-375); Red Blood Count 3.43 M/mm3 (4.6-6.20); Red Cell Distribution Width 23.4 % (11.5-14.5); White Blood Count 11.2 K/mm3 (4.5-10.0)
[2022-11-08 06:13] LABS: Alanine Aminotransferase 16 U/L (6-50); Albumin Level 3.8 g/dL (3.5-5.1); Alkaline Phosphatase 1163 U/L (38-126); Anion Gap 3 mmol/L (8-16); Aspartate Amino Transferase 19 U/L (17-59); Bilirubin,Total 0.5 mg/dL (0.2-1.3); Blood Urea Nitrogen 7 mg/dL (9-20); Carbon Dioxide 26 mmol/L (22-30); Chloride 105 mmol/L (98-107); Estimated CRCL calculation 137 ml/min; Estimated Glomerular Filt Rate > 60; Glucose 98 mg/dL (65-110); Magnesium 2.1 mg/dL (1.6-2.3); Phosphorus 1.8 mg/dL (2.5-4.5); Potassium 4.6 mmol/L (3.4-5.0); Sodium 134 mmol/L (137-145)
[2022-11-08] MEDS: FLUTICASONE/SALMETEROL 230-21 MCG INHALER 1 PUFF 2 PUFF INHALATION ×2 (07:57→19:56)
[2022-11-08] MEDS: AMOXICILLIN/CLAVULANATE K 875-125 MG TAB 1 TABLET PO ×2 (09:08→20:21)
[2022-11-08] MEDS: FERROUS SULFATE 324 MG TABLET PO (09:08)
[2022-11-08] MEDS: GABAPENTIN 400 MG CAPSULE PO ×2 (09:08→20:21)
[2022-11-08] MEDS: CHOLECALCIFEROL 1,000 UNITS TABLET 5000 UNITS PO (09:08)
[2022-11-08] MEDS: ASCORBIC ACID 500 MG TABLET PO ×2 (09:08→16:30)
[2022-11-08] MEDS: calcitrioL 0.25 MCG CAPSULE PO (09:08)
[2022-11-08] MEDS: CYCLOBENZAPRINE HCL 10 MG TABLET PO ×3 (09:08→16:30)
[2022-11-08] MEDS: HEPARIN SODIUM 5,000 UNITS/ML VIAL 5000 UNITS SUB-Q ×2 (09:09→20:21)
[2022-11-08] MEDS: POTASSIUM PHOS/SODIUM PHOS 250 MG TABLET 500 MG PO ×2 (09:09→16:31)
[2022-11-08] MEDS: HYDROmorphone HCL INJ (*CRX) 1 MG/ML SYR 0.5 MG IV PUSH ×2 (09:15→16:34)
[2022-11-08] MEDS: CALCIUM GLUC 1,000 MG/NS 50 ML 1,000 MG/50 ML BAG 200 MG IVPB (10:26)
--- NOTE | 2022-11-08 11:41 | P.PNNP_ITS ---
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 Pena's notes * this may possibly explain his hypokalemia as well (but not his hypocalcemia) * but he has issues with hypokalemia even prior to this admission * however, no glucosuria noted on urinalysis * check random urine phosphorus -- unable to check urine amino acids * aggressively replete phosphorus as tolerated for now * switched to K-Phos tablets * added calcitriol to hopefully increase intestinal phosphorus absorption (2) Hypocalcemia: Code(s): E83.51 - Hypocalcemia Status: Acute Assessment and Plan: * presumably thought to be secondary to vitamin D deficiency * elevated PTH may be appropriately elevated given his low calcium level * on Vitamin D supplementation * IV calcium gluconate PRN * calcium supplementation difficult to use due to interaction with phosphorus supplementation (3) Hypokalemia: Code(s): E87.6 - Hypokalemia Status: Acute Assessment and Plan: * doing better * follow trend * on replacement as tolerated (4) Acute cholecystitis: Code(s): K81.0 - Acute cholecystitis Status: Acute Assessment and Plan: * clincally better * s/p cholecystostomy tube placement by IR * General Surgery following -- possibly surgery next week * on antibiotics * follow culture data (5) Acute UTI: Code(s): N39.0 - Urinary tract infection, site not specified Status: Acute Assessment and Plan: * culture results noted * however, no clinical symptoms * colonization(?) * covered by current antibiotics (6) COPD (chronic obstructive pulmonary disease): Qualifiers: COPD type: unspecified COPD Qualified Code(s): J44.9 - Chronic obstructive pulmonary disease, unspecified Code(s): J44.9 - Chronic obstructive pulmonary disease, unspecified Status: Chronic Assessment and Plan: * clinically stable (no evidence of exacerbation) * continue supplemental oxygen and inhalers Will continue to follow. Subjective Date/time seen: 11/08/22 11:41 No apparent issues or problems voiced at the time of my visit; phosphorus and calcium appears to be finally improving with current interventions as noted by AM labs; no acute events overnight or earlier this morning. Exam Narrative: General: WD/WN male in NAD Heart: normal S1 and S2; no rub Lungs: coarse breath sounds Abdomen: soft, nontender, nondistended, positive bowel sounds Extremities: no cyanosis or clubbing; no edema Skin: no rash Objective Data Vital Signs Vital Signs: Vital Signs Temp Pulse Resp BP Pulse Ox O2 Del Method O2 Flow Rate 11/08/22 08:00 94 Nasal Cannula 2 11/08/22 08:00 99 11/08/22 07:57 94 18 11/08/22 07:57 94 18 94 Nasal Cannula 2 11/08/22 06:00 97.1 F L 62 14 118/63 98 11/08/22 05:42 100 20 97 Nasal Cannula 2 11/08/22 04:00 95 11/08/22 00:00 101 H 11/07/22 21:37 97.9 F 102 H 14 113/75 98 11/07/22 20:00 102 H
--- NOTE | 2022-11-08 11:41 | PM.PNNEP ---
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 Pena's notes this may possibly explain his hypokalemia as well (but not his hypocalcemia) but he has issues with hypokalemia even prior to this admission however, no glucosuria noted on urinalysis check random urine phosphorus -- unable to check urine amino acids aggressively replete phosphorus as tolerated for now switched to K-Phos tablets added calcitriol to hopefully increase intestinal phosphorus absorption (2) Hypocalcemia: Code(s): E83.51 - Hypocalcemia Status: Acute Assessment and Plan: presumably thought to be secondary to vitamin D deficiency elevated PTH may be appropriately elevated given his low calcium level on Vitamin D supplementation IV calcium gluconate PRN calcium supplementation difficult to use due to interaction with phosphorus supplementation (3) Hypokalemia: Code(s): E87.6 - Hypokalemia Status: Acute Assessment and Plan: doing better follow trend on replacement as tolerated (4) Acute cholecystitis: Code(s): K81.0 - Acute cholecystitis Status: Acute Assessment and Plan: clincally better s/p cholecystostomy tube placement by IR General Surgery following -- possibly surgery next week on antibiotics follow culture data (5) Acute UTI: Code(s): N39.0 - Urinary tract infection, site not specified Status: Acute Assessment and Plan: culture results noted however, no clinical symptoms colonization(?) covered by current antibiotics (6) COPD (chronic obstructive pulmonary disease): Qualifiers: COPD type: unspecified COPD Qualified Code(s): J44.9 - Chronic obstructive pulmonary disease, unspecified Code(s): J44.9 - Chronic obstructive pulmonary disease, unspecified Status: Chronic Assessment and Plan: clinically stable (no evidence of exacerbation) continue supplemental oxygen and inhalers Will continue to follow. Subjective Date/time seen: 11/08/22 11:41 No apparent issues or problems voiced at the time of my visit; phosphorus and calcium appears to be finally improving with current interventions as noted by AM labs; no acute events overnight or earlier this morning. Exam Narrative: General: WD/WN male in NAD Heart: normal S1 and S2; no rub Lungs: coarse breath sounds Abdomen: soft, nontender, nondistended, positive bowel sounds Extremities: no cyanosis or clubbing; no edema Skin: no rash Objective Data Vital Signs Vital Signs: Vital Signs Temp Pulse Resp BP Pulse Ox O2 Del Method O2 Flow Rate 11/08/22 08:00 94 Nasal Cannula 2 11/08/22 08:00 99 11/08/22 07:57 94 18 11/08/22 07:57 94 18 94 Nasal Cannula 2 11/08/22 06:00 97.1 F L 62 14 118/63 98 11/08/22 05:42 100 20 97 Nasal Cannula 2 11/08/22 04:00 95 11/08/22 00:00 101 H 11/07/22 21:37 97.9 F 102 H 14 113/75 98 11/07/22 20:00 102 H 11/07/22 20:00 97 Nasal Cannula 3 11/07/22 19:48 100 20 11/07/22 16:00 101 H 11/07/22 12:00 96 11/07/22 14:00 96.8 F L 101 H 18 109/74 97 Intake/Output Intake/Output: Intake & Output 11/05/22 11/06/22 11/07/22 11/08/22 23:59 23:59 23:59 23:59 Intake Total 4629.087 6223.667 1320 1040 Output Total 3510 1380 2365 1730 Balance -1541.333 -103.333 -1045 -690 Meds/Results Medications: Active Medications Generic Name Dose Route Start Last Admin Trade Name Freq PRN Reason Stop Dose Admin Albuterol 2.5 mg 10/31/22 16:38 Albuterol Sulfate Neb 2.5 Mg/3 Ml Inh INHALATION Q4HRT
[2022-11-08] MEDS: MAGNESIUM OXIDE 400 MG TABLET PO (12:07)
--- NOTE | 2022-11-08 15:56 | PM.IMPN ---
Progress Note: A&P Assessment and Plan (1) Acute cholecystitis: Code(s): K81.0 - Acute cholecystitis Status: Acute Assessment and Plan: Patient presented to the emergency department with complaints of abdominal pain, distension, and loose stools for approximately 1 week. WBC was noted to be 25, alkaline phosphatase was elevated, and CT abdomen and pelvis suggested acute cholecystitis. IR placement of cholecystostomy tube completed on 10/31/22 and management per General surgery Continue IV Zosyn q.6 hours until patient is significantly tolerating all oral diet and culture results finalized, first dose given 10/31/22. Transitioned to Augmentin 875/125 mg PO BID x 9 doses to complete 10-day antibiotic course. Patient is high risk for surgery given his anticoagulation/antiplatelet therapy, metastatic prostate cancer, chronic respiratory failure with COPD, and multiple other co-morbidities. Called Dr. Frausto and discussed patient's care. Patient will be kept in the hospital for further evaluation and management until surgery is preformed. Bile and blood cultures final result, no growth. Cholecystectomy scheduled for 11/11/2022 at 7:00 a.m. Hold Plavix for surgery on 11/11/2022. (2) Acute UTI: Code(s): N39.0 - Urinary tract infection, site not specified Status: Acute Assessment and Plan: UA with 1+ leukocytes, greater than 75 wbc's, and trace bacteria on admission. Continue IV Zosyn q.6 hours as above and adjust antibiotics to cover urine organism and acute cholecystitis He has a chronic Hernandez. Infection likely due to this. Flush hernandez with NS for clogs, low flow, or lower abdominal pain Urine cultures shows ampicillin sensitive enterococcus species, which he has had in the past. ?colonization as he currently does not have CVA or suprapubic tenderness. Leukocytosis resolved. Unable to determine if this is a true infection versus chronic colonization. If true infection it is likely covered by Zosyn and Augmentin; will receive x 10 day course if true complicated UTI. (3) COPD (chronic obstructive pulmonary disease): Qualifiers: COPD type: unspecified COPD Qualified Code(s): J44.9 - Chronic obstructive pulmonary disease, unspecified Code(s): J44.9 - Chronic obstructive pulmonary disease, unspecified Status: Chronic Assessment and Plan: chronic, not in acute exacerbation. baseline home oxygen needs 2-3 L per nasal cannula. Continue Breo Ellipta maintenance inhaler and PRN albuterol stable (4) BPH (benign prostatic hyperplasia): Qualifiers: Lower urinary tract symptom presence: unspecified whether lower urinary tract symptoms present Qualified Code(s): N40.0 - Benign prostatic hyperplasia without lower urinary tract symptoms Code(s): N40.0 - Benign prostatic hyperplasia without lower urinary tract symptoms Status: Acute Assessment and Plan: The patient has had a history of prostate cancer with bone metastasis. continue chronic hernandez (5) CVA (cerebral vascular accident): Qualifiers: CVA mechanism: unspecified Qualified Code(s): I63.9 - Cerebral infarction, unspecified Code(s): I63.9 - Cerebral infarction, unspecified Status: Chronic Assessment and Plan: H/o stroke with residual speech is slow. Holding Plavix and Eliquis per surgery recommendations. (6) Hyperlipidemia: Qualifiers: Hyperlipidemia type: mixed hyperlipidemia Qualified Code(s): E78.2 - Mixed hyperlipidemia Code(s): E78.5 - Hyperlipidemia, unspecified Status: Chronic Assessment and Plan: chronic, continue with atorvastatin (7) Vitamin D deficiency: Code(s): E55.9 - Vitamin D deficiency, unspecified Status: Chronic Assessment and Plan: Vit D OH-25 28, corrected calcium 6.9, phos 2.0. Continue D3 5000 IU daily. Calcium l
--- NOTE | 2022-11-08 16:33 | WPDPN ---
Progress Note: A&P Assessment and Plan (1) Acute cholecystitis: Code(s): K81.0 - Acute cholecystitis Status: Acute Assessment and Plan: The patient's gallbladder has been decompressed with a cholecystostomy tube. His right upper quadrant pain has improved and as white blood cell count has normalized. The original plan was to have Dr. Frausto attempt a laparoscopic cholecystectomy with removal of the cholecystostomy tube on Friday. However Dr. Frausto is not going to be able to perform the surgery on Friday and his cholecystectomy may have to be delayed. Will continue to present treatment through the weekend and re-evaluate his condition for fitness for surgery early next week. Subjective Date/time seen: 11/08/22 16:33 Interval history: Patient without acute changes. He is tolerating his diet and really has no pain aside from the insertion site of cholecystostomy tube. The output from the cholecystostomy tube is non purulent and nonbloody bile. He has had no fevers as white blood cell count is normal. Review of Systems Review of Systems: The remainder of the review of systems to include constitutional, HEENT, cardiovascular, respiratory, GI, , integumentary, musculoskeletal, endocrine, immunologic, hematologic, psychiatric, and neurologic are all negative except for which is mentioned above in the HPI. Exam Const: General: comfortable and no acute distress Resp: Effort & Inspection: normal respiratory effort Auscultation: clear to auscultation bilaterally Cardio: Rate: regular rate Rhythm: regular rhythm GI: Other: Abd soft and mildly distended. No fluid wave is appreciated. The right upper quadrant cholecystostomy tube site is clean without any bleeding or drainage. He only has minimal tenderness to palpation of the right upper quadrant at this time. Neuro: Speech: normal speech Sensory Exam: normal sensation Psych: Mental Status: mental status grossly normal Affect: normal affect Objective Data Vital Signs Vital Signs: Vital Signs - 24 hr 11/07/22 19:48 11/07/22 20:00 11/07/22 20:00 Temperature Pulse Rate 100 102 H Respiratory Rate 20 Blood Pressure Pulse Oximetry 97 Oxygen Delivery Nasal Cannula Oxygen Flow Rate 3 Fraction of Inspired Oxygen 11/07/22 21:37 11/08/22 00:00 11/08/22 04:00 Temperature 36.6 C Pulse Rate 102 H 101 H 95 Respiratory Rate 14 Blood Pressure 113/75 Pulse Oximetry 98 Oxygen Delivery Oxygen Flow Rate Fraction of Inspired Oxygen 11/08/22 05:42 11/08/22 06:00 11/08/22 07:57 Temperature 36.2 C L Pulse Rate 100 62 94 Respiratory Rate 20 14 18 Blood Pressure 118/63 Pulse Oximetry 97 98 94 Oxygen Delivery Nasal Cannula Nasal Cannula Oxygen Flow Rate 2 2 Fraction of Inspired Oxygen 24 28 11/08/22 07:57 11/08/22 08:00 11/08/22 08:00 Temperature Pulse Rate 94 99 Respiratory Rate 18 Blood Pressure Pulse Oximetry 94 Oxygen Delivery Nasal Cannula Oxygen Flow Rate 2 Fraction of Inspired Oxygen 11/08/22 12:00 11/08/22 14:00 Temperature 36.6 C Pulse Rate 104 H 103 H Respiratory Rate 16 Blood Pressure 103/71 Pulse Oximetry 99 Oxygen Delivery Oxygen Flow Rate Fraction of Inspired Oxygen Intake/Output Intake/Output: Intake & Output 11/05/22 11/06/22 11/07/22 11/08/22 23:59 23:59 23:59 23:59 Intake Total 4299.232 0704.667 1320 1520 Output Total 3510 1380 2365 1730 Balance -1541.333 -103.333 -1045 -210 Meds/Results Medications: Active Medications Generic Name Dose Route Start Last Admin Trade Name Freq PRN Reason Stop Dose Admin Albuterol 2.5 mg 10/31/22 16:38 Albuterol Sulfate Neb 2.5 Mg/3 Ml Inh INHALATION Q4HRT PRN Shortness Of Breath Amoxicillin/Clavulanate Potassium 1 tablet 11/05/22 21:00 11/08/22 09:08 Amoxicillin/Clavulanate K 875-125 Mg Tab PO 11/09/22 21:01 1 tablet Q12HR NAWAF Administration Ascorbic Acid 50
[2022-11-08] MEDS: SENNA/DOCUSATE SODIUM TABLET 1 TAB PO (20:21)
[2022-11-08] MEDS: ATORVASTATIN 40 MG TABLET 80 MG PO (20:21)
[2022-11-08] MEDS: MIRTAZAPINE 15 MG TABLET PO (20:22)
[2022-11-09] VITALS (11 sets, daily range): BP systolic 106–116; BP diastolic 71–79; PULSE 90–105; RESP 18–20; TEMP 35.7–36.9; O2SAT 95–99
[2022-11-09] MEDS: oxyCODONE/ACETAMINOPHEN (*CRX) 5-325 MG TABLET 1 TABLET PO ×3 (04:52→20:55)
--- NOTE | 2022-11-09 05:01 | PC.NURSE ---
70 ml output from drain this shift greenish/brown
[2022-11-09 06:56] LABS: Hematocrit 34.1 % (42.0-52.0); Hemoglobin 10.2 g/dL (14.0-18.0); Mean Corpuscular HGB Conc 29.9 g/dl (32-36); Mean Corpuscular Hemoglobin 29.6 pg (26-34); Mean Corpuscular Volume 98.8 fl (80-100); Mean Platelet Volume 9.7 fl (7.4-10.4); Platelet Count Result 311 k/mm3 (150-375); Red Blood Count 3.45 M/mm3 (4.6-6.20); Red Cell Distribution Width 23.8 % (11.5-14.5); White Blood Count 9.9 K/mm3 (4.5-10.0)
[2022-11-09 07:03] LABS: Potassium 4.7 mmol/L (3.4-5.0)
[2022-11-09 07:05] LABS: Alanine Aminotransferase 16 U/L (6-50); Albumin Level 3.5 g/dL (3.5-5.1); Alkaline Phosphatase 1173 U/L (38-126); Anion Gap 5 mmol/L (8-16); Aspartate Amino Transferase 20 U/L (17-59); Bilirubin,Total 0.5 mg/dL (0.2-1.3); Blood Urea Nitrogen 11 mg/dL (9-20); Calcium 6.8 mg/dL (8.4-10.2); Carbon Dioxide 25 mmol/L (22-30); Chloride 107 mmol/L (98-107); Estimated CRCL calculation 117 ml/min; Estimated Glomerular Filt Rate > 60; Glucose 95 mg/dL (65-110); Magnesium 2.3 mg/dL (1.6-2.3); Sodium 137 mmol/L (137-145)
[2022-11-09 07:10] LABS: Prothrombin Time 12.8 Seconds (11.1-14.7)
[2022-11-09 07:11] LABS: Partial Thromboplastin Time 30.1 SECONDS (22.3-36.8)
[2022-11-09] MEDS: GABAPENTIN 400 MG CAPSULE PO ×2 (08:38→20:58)
[2022-11-09] MEDS: CYCLOBENZAPRINE HCL 10 MG TABLET PO ×3 (08:38→16:31)
[2022-11-09] MEDS: ASCORBIC ACID 500 MG TABLET PO ×2 (08:38→16:31)
[2022-11-09] MEDS: HEPARIN SODIUM 5,000 UNITS/ML VIAL 5000 UNITS SUB-Q ×2 (08:38→20:56)
[2022-11-09] MEDS: FERROUS SULFATE 324 MG TABLET PO (08:38)
[2022-11-09] MEDS: AMOXICILLIN/CLAVULANATE K 875-125 MG TAB 1 TABLET PO ×2 (08:38→20:57)
[2022-11-09] MEDS: CHOLECALCIFEROL 1,000 UNITS TABLET 5000 UNITS PO (08:39)
[2022-11-09] MEDS: POTASSIUM PHOS/SODIUM PHOS 250 MG TABLET 500 MG PO ×2 (08:40→16:31)
[2022-11-09] MEDS: FLUTICASONE/SALMETEROL 230-21 MCG INHALER 1 PUFF 2 PUFF INHALATION ×2 (08:43→20:01)
[2022-11-09] MEDS: calcitrioL 0.25 MCG CAPSULE 0.5 MCG PO (10:24)
[2022-11-09] MEDS: CALCIUM GLUC 2,000 MG/NS 100ML 2,000 MG/100 ML BAG 100 MG IVPB ×2 (10:25→21:09)
--- NOTE | 2022-11-09 10:32 | PM.PNGS ---
Progress Note: A&P Assessment and Plan (1) Acute cholecystitis: Code(s): K81.0 - Acute cholecystitis Status: Acute Assessment and Plan: the gallbladder has been decompressed for placement of a cholecystostomy tube. White blood cell count is normalized. Tenderness around quadrant has improved markedly. Will continue IV antibiotics for now. Original plan for Dr. Frausto to perform laparoscopic cholecystectomy on Friday has now been changed to Dr. Cisneros who will be assuming surgical care and he will evaluate the patient Friday morning to see if proceeding with a laparoscopic cholecystectomy is indicated or if it be delayed and performed in interval fashion in a few weeks. Subjective Subjective Date/Time Seen: 11/09/22 10:32 Interval history: Patient remains hemodynamically stable. No acute changes overnight. He continues to tolerate diet well. Output from cholecystostomy tube remains bilious without any blood or purulence. his white blood cell count has normalized today. His alkaline phosphatase remains elevated at 1178. Remainder of liver enzymes remain normal. He has been afebrile. Exam GI: Other: Abdomen is soft mildly distended. Minimal tenderness in right upper quadrant. Cholecystostomy tube site is intact and dry. Objective Data Vital Signs Vital Signs: Vital Signs - 24 hr 11/08/22 12:00 11/08/22 14:00 11/08/22 16:00 Temperature 36.6 C Pulse Rate 104 H 103 H 102 H Respiratory Rate 16 Blood Pressure 103/71 Pulse Oximetry 99 Oxygen Delivery Oxygen Flow Rate Fraction of Inspired Oxygen 11/08/22 19:59 11/08/22 20:00 11/08/22 20:00 Temperature Pulse Rate 102 H Respiratory Rate Blood Pressure Pulse Oximetry 95 95 Oxygen Delivery Nasal Cannula Nasal Cannula Oxygen Flow Rate 2 3 Fraction of Inspired Oxygen 28 11/08/22 22:00 11/09/22 00:00 11/09/22 04:00 Temperature 36.3 C L Pulse Rate 105 H 99 99 Respiratory Rate 19 Blood Pressure 125/81 Pulse Oximetry 98 Oxygen Delivery Oxygen Flow Rate Fraction of Inspired Oxygen 11/09/22 06:00 11/09/22 08:43 Temperature 36.3 C L Pulse Rate 96 Respiratory Rate 18 Blood Pressure 112/71 Pulse Oximetry 99 97 Oxygen Delivery Nasal Cannula Oxygen Flow Rate 2 Fraction of Inspired Oxygen Intake/Output Intake/Output: Intake & Output 11/06/22 11/07/22 11/08/22 11/09/22 23:59 23:59 23:59 23:59 Intake Total 5364.610 7813 2270 716 Output Total 3153 1085 0002 1168 Balance -103.333 -1045 -550 -444 Meds/Results Medications: Active Medications Generic Name Dose Route Start Last Admin Trade Name Freq PRN Reason Stop Dose Admin Albuterol 2.5 mg 10/31/22 16:38 Albuterol Sulfate Neb 2.5 Mg/3 Ml Inh INHALATION Q4HRT PRN Shortness Of Breath Amoxicillin/Clavulanate Potassium 1 tablet 11/05/22 21:00 11/09/22 08:38 Amoxicillin/Clavulanate K 875-125 Mg Tab PO 11/09/22 21:01 1 tablet Q12HR NAWAF Administration Ascorbic Acid 500 mg 11/01/22 09:40 11/09/22 08:38 Ascorbic Acid 500 Mg Tablet PO 12/01/22 09:39 500 mg BID NAWAF Administration Atorvastatin Calcium 80 mg 11/01/22 21:00 11/08/22 20:21 Atorvastatin 40 Mg Tablet PO 80 mg HS [facility] Administration Bisacodyl 10 mg 11/03/22 16:05 Bisacodyl 10 Mg Suppository RECTAL DAILY PRN Constipation Calcitriol 0.5 mcg 11/09/22 09:00 11/09/22 10:24 Calcitriol 0.25 Mcg Capsule PO 0.5 mcg QAM [facility] Administration Chlorhexidine Gluconate 1 applic 11/11/22 05:00 Chlorhexidine Gluconate 4% Prudence 120 Ml Btl TOPICAL 11/11/22 05:01 ONCE ONE Cyclobenzaprine HCl 10 mg 11/01/22 13:00 11/09/22 08:38 Cyclobenzaprine Hcl 10 Mg Tablet PO 10 mg TID NAWAF Administration Ferrous Sulfate 324 mg 11/01/22 09:45 11/09/22 08:38 Ferrous Sulfate 324 Mg Tablet PO 324 mg DAILY@0800 [facility] Administration Gabapentin 400 mg 11/01/22 09:40 11/09/22 08:38
[2022-11-09] MEDS: POTASSIUM PHOS/SODIUM PHOS 250 MG TABLET PO (12:45)
[2022-11-09] MEDS: MAGNESIUM OXIDE 400 MG TABLET PO (12:45)
--- NOTE | 2022-11-09 13:10 | PM.PNNEP ---
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 Pena's notes my need to consider subsitute medication after discharge this may possibly explain his hypokalemia as well (but not his hypocalcemia) but he has issues with hypokalemia even prior to this admission however, no glucosuria noted on urinalysis check random urine phosphorus -- unable to check urine amino acids aggressively replete phosphorus as tolerated for now switched to K-Phos tablets added calcitriol to hopefully increase intestinal phosphorus absorption (2) Hypocalcemia: Code(s): E83.51 - Hypocalcemia Status: Acute Assessment and Plan: presumably thought to be secondary to vitamin D deficiency elevated PTH may be appropriately elevated given his low calcium level on Vitamin D supplementation IV calcium gluconate PRN calcium supplementation difficult to use due to interaction with phosphorus supplementation (3) Hypokalemia: Code(s): E87.6 - Hypokalemia Status: Acute Assessment and Plan: doing better follow trend on replacement as tolerated (4) Acute cholecystitis: Code(s): K81.0 - Acute cholecystitis Status: Acute Assessment and Plan: clincally better s/p cholecystostomy tube placement by General Surgery following -- tentatively scheduled for surgery Friday (11/11/22) on antibiotics follow culture data (5) Acute UTI: Code(s): N39.0 - Urinary tract infection, site not specified Status: Acute Assessment and Plan: culture results noted however, no clinical symptoms colonization(?) covered by current antibiotics (6) COPD (chronic obstructive pulmonary disease): Qualifiers: COPD type: unspecified COPD Qualified Code(s): J44.9 - Chronic obstructive pulmonary disease, unspecified Code(s): J44.9 - Chronic obstructive pulmonary disease, unspecified Status: Chronic Assessment and Plan: clinically stable (no evidence of exacerbation) continue supplemental oxygen and inhalers Will continue to follow. Subjective Date/time seen: 11/09/22 13:10 Phosphorus and calcium continue to slowly improve with current interventions to date; no other acute issues or complaints voiced at this time; no events overnight or earlier this AM. Exam Narrative: General: WD/WN male in NAD Heart: normal S1 and S2; no rub Lungs: coarse breath sounds Abdomen: soft, nontender, nondistended, positive bowel sounds Extremities: no cyanosis or clubbing; no edema Skin: no nodules Objective Data Vital Signs Vital Signs: Vital Signs Temp Pulse Resp BP Pulse Ox O2 Del Method O2 Flow Rate 11/09/22 12:00 103 H 11/09/22 08:00 100 11/09/22 13:07 96.3 F L 103 H 20 116/79 96 11/09/22 08:43 97 Nasal Cannula 2 11/09/22 06:00 97.3 F L 96 18 112/71 99 11/09/22 04:00 99 11/09/22 00:00 99 11/08/22 22:00 97.4 F L 105 H 19 125/81 98 11/08/22 20:00 102 H 11/08/22 20:00 95 Nasal Cannula 3 11/08/22 19:59 95 Nasal Cannula 2 11/08/22 16:00 102 H Intake/Output Intake/Output: Intake & Output 11/06/22 11/07/22 11/08/22 11/09/22 23:59 23:59 23:59 23:59 Intake Total 1359.137 6856 2270 1904 Output Total 1380 2365 2820 1460 Balance -103.333 -1045 -550 444 Meds/Results Medications: Active Medications Generic Name Dose Route Start Last Admin Trade Name Freq PRN Reason Stop Dose Admin Albuterol 2.5 mg 10/31/22 16:38 Albuterol Sulfate Neb 2.5 Mg/3 Ml Inh INHALATION Q4HRT PRN Shortness Of Breath Amoxicillin/Clavulanate
--- NOTE | 2022-11-09 13:10 | P.PNNP_ITS ---
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 Pena's notes * my need to consider subsitute medication after discharge * this may possibly explain his hypokalemia as well (but not his hypocalcemia) * but he has issues with hypokalemia even prior to this admission * however, no glucosuria noted on urinalysis * check random urine phosphorus -- unable to check urine amino acids * aggressively replete phosphorus as tolerated for now * switched to K-Phos tablets * added calcitriol to hopefully increase intestinal phosphorus absorption (2) Hypocalcemia: Code(s): E83.51 - Hypocalcemia Status: Acute Assessment and Plan: * presumably thought to be secondary to vitamin D deficiency * elevated PTH may be appropriately elevated given his low calcium level * on Vitamin D supplementation * IV calcium gluconate PRN * calcium supplementation difficult to use due to interaction with phosphorus supplementation (3) Hypokalemia: Code(s): E87.6 - Hypokalemia Status: Acute Assessment and Plan: * doing better * follow trend * on replacement as tolerated (4) Acute cholecystitis: Code(s): K81.0 - Acute cholecystitis Status: Acute Assessment and Plan: * clincally better * s/p cholecystostomy tube placement by IR * General Surgery following -- tentatively scheduled for surgery Friday (11/11/22) * on antibiotics * follow culture data (5) Acute UTI: Code(s): N39.0 - Urinary tract infection, site not specified Status: Acute Assessment and Plan: * culture results noted * however, no clinical symptoms * colonization(?) * covered by current antibiotics (6) COPD (chronic obstructive pulmonary disease): Qualifiers: COPD type: unspecified COPD Qualified Code(s): J44.9 - Chronic obstructive pulmonary disease, unspecified Code(s): J44.9 - Chronic obstructive pulmonary disease, unspecified Status: Chronic Assessment and Plan: * clinically stable (no evidence of exacerbation) * continue supplemental oxygen and inhalers Will continue to follow. Subjective Date/time seen: 11/09/22 13:10 Phosphorus and calcium continue to slowly improve with current interventions to date; no other acute issues or complaints voiced at this time; no events overnight or earlier this AM. Exam Narrative: General: WD/WN male in NAD Heart: normal S1 and S2; no rub Lungs: coarse breath sounds Abdomen: soft, nontender, nondistended, positive bowel sounds Extremities: no cyanosis or clubbing; no edema Skin: no nodules Objective Data Vital Signs Vital Signs: Vital Signs Temp Pulse Resp BP Pulse Ox O2 Del Method O2 Flow Rate 11/09/22 12:00 103 H 11/09/22 08:00 100 11/09/22 13:07 96.3 F L 103 H 20 116/79 96 11/09/22 08:43 97 Nasal Cannula 2 11/09/22 06:00 97.3 F L 96 18 112/71 99 11/09/22 04:00 99 11/09/22 00:00 99 11/08/22 22:00 97.4 F L 105 H 19 125/81 98 11/08/22
[2022-11-09] MEDS: ATORVASTATIN 40 MG TABLET 80 MG PO (20:56)
[2022-11-09] MEDS: MIRTAZAPINE 15 MG TABLET PO (20:58)
[2022-11-09] MEDS: SENNA/DOCUSATE SODIUM TABLET 1 TAB PO (20:58)
[2022-11-10] VITALS (11 sets, daily range): BP systolic 113–128; BP diastolic 71–84; PULSE 98–113; RESP 18–20; TEMP 36.1–36.4; O2SAT 93–100
[2022-11-10] MEDS: HYDROmorphone HCL INJ (*CRX) 1 MG/ML SYR 0.5 MG IV PUSH (03:22)
[2022-11-10 08:15] LABS: Hematocrit 34.3 % (42.0-52.0); Hemoglobin 10.3 g/dL (14.0-18.0); Mean Corpuscular Hemoglobin 29.9 pg (26-34); Mean Corpuscular Volume 99.4 fl (80-100); Platelet Count Result 288 k/mm3 (150-375); Red Blood Count 3.45 M/mm3 (4.6-6.20); Red Cell Distribution Width 23.9 % (11.5-14.5); White Blood Count 9.7 K/mm3 (4.5-10.0)
[2022-11-10 08:23] LABS: Alanine Aminotransferase 16 U/L (6-50); Albumin Level 3.9 g/dL (3.5-5.1); Alkaline Phosphatase 1248 U/L (38-126); Anion Gap 6 mmol/L (8-16); Aspartate Amino Transferase 21 U/L (17-59); Bilirubin,Total 0.6 mg/dL (0.2-1.3); Blood Urea Nitrogen 13 mg/dL (9-20); Calcium 7.6 mg/dL (8.4-10.2); Carbon Dioxide 22 mmol/L (22-30); Chloride 104 mmol/L (98-107); Estimated CRCL calculation 117 ml/min; Estimated Glomerular Filt Rate > 60; Glucose 93 mg/dL (65-110); Magnesium 2.3 mg/dL (1.6-2.3); Phosphorus 2.4 mg/dL (2.5-4.5); Potassium 4.5 mmol/L (3.4-5.0); Sodium 132 mmol/L (137-145)
[2022-11-10] MEDS: CYCLOBENZAPRINE HCL 10 MG TABLET PO ×3 (08:48→18:02)
[2022-11-10] MEDS: CHOLECALCIFEROL 1,000 UNITS TABLET 5000 UNITS PO (08:48)
[2022-11-10] MEDS: ASCORBIC ACID 500 MG TABLET PO ×2 (08:48→18:02)
[2022-11-10] MEDS: FERROUS SULFATE 324 MG TABLET PO (08:48)
[2022-11-10] MEDS: GABAPENTIN 400 MG CAPSULE PO ×2 (08:49→21:12)
[2022-11-10] MEDS: POTASSIUM PHOS/SODIUM PHOS 250 MG TABLET 500 MG PO ×3 (08:49→18:02)
[2022-11-10] MEDS: HEPARIN SODIUM 5,000 UNITS/ML VIAL 5000 UNITS SUB-Q ×2 (08:49→21:12)
[2022-11-10] MEDS: calcitrioL 0.25 MCG CAPSULE 0.5 MCG PO (08:50)
[2022-11-10] MEDS: FLUTICASONE/SALMETEROL 230-21 MCG INHALER 1 PUFF 2 PUFF INHALATION ×2 (09:01→20:43)
[2022-11-10] MEDS: CALCIUM GLUC 1,000 MG/NS 50 ML 1,000 MG/50 ML BAG 100 MG IVPB (11:38)
[2022-11-10] MEDS: MAGNESIUM OXIDE 400 MG TABLET PO (11:38)
--- NOTE | 2022-11-10 11:58 | P.PNNP_ITS ---
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 Pena's notes * need to consider substitute medication after discharge * this may possibly explain his hypokalemia as well (but not his hypocalcemia) * but he has issues with hypokalemia even prior to this admission * however, no glucosuria noted on urinalysis * check random urine phosphorus -- unable to check urine amino acids * aggressively replete phosphorus as tolerated for now * switched to K-Phos tablets * added calcitriol to hopefully increase intestinal phosphorus absorption (2) Hypocalcemia: Code(s): E83.51 - Hypocalcemia Status: Acute Assessment and Plan: * presumably thought to be secondary to vitamin D deficiency * elevated PTH may be appropriately elevated given his low calcium level * on Vitamin D supplementation * IV calcium gluconate PRN * calcium supplementation difficult to use due to interaction with phosphorus supplementation * hopefully phosphorus replacement is temporary * once off phosphorus supplements, can restart calcium supplements (3) Hypokalemia: Code(s): E87.6 - Hypokalemia Status: Acute Assessment and Plan: * doing better * follow trend * on replacement as tolerated (4) Acute cholecystitis: Code(s): K81.0 - Acute cholecystitis Status: Acute Assessment and Plan: * clincally better * s/p cholecystostomy tube placement by IR * General Surgery following -- tentatively scheduled for surgery Friday (11/11/22) * on antibiotics * follow culture data (5) Acute UTI: Code(s): N39.0 - Urinary tract infection, site not specified Status: Acute Assessment and Plan: * culture results noted * however, no clinical symptoms * colonization(?) * covered by current antibiotics (6) COPD (chronic obstructive pulmonary disease): Qualifiers: COPD type: unspecified COPD Qualified Code(s): J44.9 - Chronic obstructive pulmonary disease, unspecified Code(s): J44.9 - Chronic obstructive pulmonary disease, unspecified Status: Chronic Assessment and Plan: * clinically stable (no evidence of exacerbation) * continue supplemental oxygen and inhalers Will continue to follow. Subjective Date/time seen: 11/10/22 11:58 Continues to make slow improvement with low phosphorus and calcium with current interventions to date; otherwise, appears in no acute distress at the time of my visit; breathing/respiratory status seems stable; no other acute complaints voiced at this time. Exam Narrative: General: WD/WN male in NAD Heart: normal S1 and S2; no rub Lungs: coarse breath sounds Abdomen: soft, nontender, nondistended, positive bowel sounds Extremities: no cyanosis or clubbing; no edema Skin: no nodules Objective Data Vital Signs Vital Signs: Vital Signs Temp Pulse Resp BP Pulse Ox O2 Del Method O2 Flow Rate 11/10/22 09:03 93 Nasal Cannula 2 11/10/22 05:48 97 F L 103 H 18 116/73 95 11/10/22 04:00 98 11/10/22 00:00 104 H 02/0
--- NOTE | 2022-11-10 11:58 | PM.PNNEP ---
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 Pena's notes need to consider substitute medication after discharge this may possibly explain his hypokalemia as well (but not his hypocalcemia) but he has issues with hypokalemia even prior to this admission however, no glucosuria noted on urinalysis check random urine phosphorus -- unable to check urine amino acids aggressively replete phosphorus as tolerated for now switched to K-Phos tablets added calcitriol to hopefully increase intestinal phosphorus absorption (2) Hypocalcemia: Code(s): E83.51 - Hypocalcemia Status: Acute Assessment and Plan: presumably thought to be secondary to vitamin D deficiency elevated PTH may be appropriately elevated given his low calcium level on Vitamin D supplementation IV calcium gluconate PRN calcium supplementation difficult to use due to interaction with phosphorus supplementation hopefully phosphorus replacement is temporary once off phosphorus supplements, can restart calcium supplements (3) Hypokalemia: Code(s): E87.6 - Hypokalemia Status: Acute Assessment and Plan: doing better follow trend on replacement as tolerated (4) Acute cholecystitis: Code(s): K81.0 - Acute cholecystitis Status: Acute Assessment and Plan: clincally better s/p cholecystostomy tube placement by IR General Surgery following -- tentatively scheduled for surgery Friday (11/11/22) on antibiotics follow culture data (5) Acute UTI: Code(s): N39.0 - Urinary tract infection, site not specified Status: Acute Assessment and Plan: culture results noted however, no clinical symptoms colonization(?) covered by current antibiotics (6) COPD (chronic obstructive pulmonary disease): Qualifiers: COPD type: unspecified COPD Qualified Code(s): J44.9 - Chronic obstructive pulmonary disease, unspecified Code(s): J44.9 - Chronic obstructive pulmonary disease, unspecified Status: Chronic Assessment and Plan: clinically stable (no evidence of exacerbation) continue supplemental oxygen and inhalers Will continue to follow. Subjective Date/time seen: 11/10/22 11:58 Continues to make slow improvement with low phosphorus and calcium with current interventions to date; otherwise, appears in no acute distress at the time of my visit; breathing/respiratory status seems stable; no other acute complaints voiced at this time. Exam Narrative: General: WD/WN male in NAD Heart: normal S1 and S2; no rub Lungs: coarse breath sounds Abdomen: soft, nontender, nondistended, positive bowel sounds Extremities: no cyanosis or clubbing; no edema Skin: no nodules Objective Data Vital Signs Vital Signs: Vital Signs Temp Pulse Resp BP Pulse Ox O2 Del Method O2 Flow Rate 11/10/22 09:03 93 Nasal Cannula 2 11/10/22 05:48 97 F L 103 H 18 116/73 95 11/10/22 04:00 98 11/10/22 00:00 104 H 11/09/22 20:00 102 H 18 97 Nasal Cannula 0 11/09/22 20:00 96 11/09/22 22:00 98.4 F 102 H 18 106/75 97 11/09/22 20:01 90 95 Nasal Cannula 2 11/09/22 16:00 105 H 11/09/22 12:00 103 H 11/09/22 13:57 96.3 F L 103 H 20 116/79 96 Intake/Output Intake/Output: Intake & Output 11/07/22 11/08/22 11/09/22 11/10/22 23:59 23:59 23:59 23:59 Intake Total 1320 2270 2140 480 Output Total 2365 2820 1530 1500 Balance -1045 -550 610 -1020 Meds/Results Medications: Active Medications Generic Name Dose Route Start Last Admin Trade Name Freq PRN Reason Stop
--- NOTE | 2022-11-10 14:17 | PM.PNGS ---
Progress Note: A&P Assessment and Plan (1) Acute cholecystitis: Code(s): K81.0 - Acute cholecystitis Status: Acute Assessment and Plan: Clinically the patient appears to have resolved the acute phase of his cholecystitis. The cholecystostomy tube continues to drain well. Dr. Cisneros will evaluate the patient tomorrow morning to see if can have his cholecystectomy performed during this admission or if he be discharged with a plan for interval cholecystectomy in the near future. Subjective Subjective Date/Time Seen: 11/10/22 14:17 Interval history: Mr. Israel has no complaints today. He continues to eat a low-fat diet without problems. Denies any right upper quadrant abdominal pain aside from for the cholecystostomy tube is located. No fever or nausea. White blood cell count remains normal. Exam Narrative: Abdomen soft mildly distended. The distention is been stable. Has minimal tenderness to palpation the right upper quadrant. Output from the cholecystostomy tube is typical thin bilious fluid Objective Data Vital Signs Vital Signs: Vital Signs - 24 hr 11/09/22 16:00 11/09/22 20:01 11/09/22 22:00 Temperature 36.9 C Pulse Rate 105 H 90 102 H Respiratory Rate 18 Blood Pressure 106/75 Pulse Oximetry 95 97 Oxygen Delivery Nasal Cannula Oxygen Flow Rate 2 Fraction of Inspired Oxygen 11/09/22 20:00 11/09/22 20:00 11/10/22 00:00 Temperature Pulse Rate 96 102 H 104 H Respiratory Rate 18 Blood Pressure Pulse Oximetry 97 Oxygen Delivery Nasal Cannula Oxygen Flow Rate 0 Fraction of Inspired Oxygen 28 11/10/22 04:00 11/10/22 05:48 11/10/22 09:03 Temperature 36.1 C L Pulse Rate 98 103 H Respiratory Rate 18 Blood Pressure 116/73 Pulse Oximetry 95 93 Oxygen Delivery Nasal Cannula Oxygen Flow Rate 2 Fraction of Inspired Oxygen 11/10/22 08:00 11/10/22 13:44 Temperature 36.2 C L Pulse Rate 103 H 107 H Respiratory Rate 20 Blood Pressure 128/84 Pulse Oximetry 100 Oxygen Delivery Oxygen Flow Rate Fraction of Inspired Oxygen Intake/Output Intake/Output: Intake & Output 11/07/22 11/08/22 11/09/22 11/10/22 23:59 23:59 23:59 23:59 Intake Total 1320 2270 2140 1440 Output Total 2365 2820 1530 1500 Balance -1045 -550 610 -60 Meds/Results Medications: Active Medications Generic Name Dose Route Start Last Admin Trade Name Freq PRN Reason Stop Dose Admin Albuterol 2.5 mg 10/31/22 16:38 Albuterol Sulfate Neb 2.5 Mg/3 Ml Inh INHALATION Q4HRT PRN Shortness Of Breath Ascorbic Acid 500 mg 11/01/22 09:40 11/10/22 08:48 Ascorbic Acid 500 Mg Tablet PO 12/01/22 09:39 500 mg BID NAWAF Administration Atorvastatin Calcium 80 mg 11/01/22 21:00 11/09/22 20:56 Atorvastatin 40 Mg Tablet PO 80 mg HS NAWAF Administration Bisacodyl 10 mg 11/03/22 16:05 Bisacodyl 10 Mg Suppository RECTAL DAILY PRN Constipation Calcitriol 0.5 mcg 11/09/22 09:00 11/10/22 08:50 Calcitriol 0.25 Mcg Capsule PO 0.5 mcg QAM NAWAF Administration Chlorhexidine Gluconate 1 applic 11/11/22 05:00 Chlorhexidine Gluconate 4% Prudence 120 Ml Btl TOPICAL 11/11/22 05:01 ONCE ONE Cyclobenzaprine HCl 10 mg 11/01/22 13:00 11/10/22 13:56 Cyclobenzaprine Hcl 10 Mg Tablet PO 10 mg TID NAWAF Administration Ferrous Sulfate 324 mg 11/01/22 09:45 11/10/22 08:48 Ferrous Sulfate 324 Mg Tablet PO 324 mg DAILY@0800 NAWAF Administration Gabapentin 400 mg 11/01/22 09:40 11/10/22 08:49 Gabapentin 400 Mg Capsule PO 400 mg Q12HR NAWAF Administration Heparin Sodium (Porcine) 5,000 units 11/04/22 21:00 11/10/22 08:49 Heparin Sodium 5,000 Units/Ml Vial SUB-Q 5,000 units Q12HR NAWAF Administration Cefazolin Sodium 2 gm in 50 mls @ 100 mls/hr 11/11/22 06:30 Ancef 2 Gm/D5w 50 Ml IVPB 11/11/22 06:59 ONCE ONE Calcium Gluconate 2,000 mg in 100 mls @ 100 mls/hr 11/10/22
--- NOTE | 2022-11-10 14:46 | P.PNIM_ITS ---
Progress Note: A&P Assessment and Plan (1) Acute cholecystitis: Code(s): K81.0 - Acute cholecystitis Status: Acute Assessment and Plan: Patient presented to the emergency department with complaints of abdominal pain, distension, and loose stools for approximately 1 week. WBC was noted to be 25, alkaline phosphatase was elevated, and CT abdomen and pelvis suggested acute cholecystitis. * IR placement of cholecystostomy tube completed on 10/31/22 and management per General surgery * Continue IV Zosyn q.6 hours until patient is significantly tolerating all oral diet and culture results finalized, first dose given 10/31/22. * Transitioned to Augmentin 875/125 mg PO BID x 9 doses to complete 10-day antibiotic course. * Patient is high risk for surgery given his anticoagulation/antiplatelet therapy, metastatic prostate cancer, chronic respiratory failure with COPD, and multiple other co-morbidities. * Called Dr. Frausto and discussed patient's care. Patient will be kept in the hospital for further evaluation and management until surgery is preformed. * Bile and blood cultures final result, no growth. * Cholecystectomy canceled for 11/11/2022. * New general surgeon taking over patient's case. Patient to be re-evaluated for surgery by the new general surgeon. (2) Acute UTI: Code(s): N39.0 - Urinary tract infection, site not specified Status: Acute Assessment and Plan: UA with 1+ leukocytes, greater than 75 wbc's, and trace bacteria on admission. * Continue IV Zosyn q.6 hours as above and adjust antibiotics to cover urine organism and acute cholecystitis * He has a chronic Hernandez. Infection likely due to this. * Flush hernandez with NS for clogs, low flow, or lower abdominal pain * Urine cultures shows ampicillin sensitive enterococcus species, which he has had in the past. ?colonization as he currently does not have CVA or suprapubic tenderness. * Leukocytosis resolved. * Unable to determine if this is a true infection versus chronic colonization. If true infection it is likely covered by Zosyn and Augmentin; will receive x 10 day course if true complicated UTI. * Antibiotics completed 11/10/22 (3) COPD (chronic obstructive pulmonary disease): Qualifiers: COPD type: unspecified COPD Qualified Code(s): J44.9 - Chronic obstructive pulmonary disease, unspecified Code(s): J44.9 - Chronic obstructive pulmonary disease, unspecified Status: Chronic Assessment and Plan: chronic, not in acute exacerbation. * baseline home oxygen needs 2-3 L per nasal cannula. * Continue Breo Ellipta maintenance inhaler and PRN albuterol * stable (4) BPH (benign prostatic hyperplasia): Qualifiers: Lower urinary tract symptom presence: unspecified whether lower urinary tract symptoms present Qualified Code(s): N40.0 - Benign prostatic hyperplasia without lower urinary tract symptoms Code(s): N40.0 - Benign prostatic hyperplasia without lower urinary tract symptoms Status: Acute Assessment and Plan: The patient has had a history of prostate cancer with bone metastasis. * continue chronic hernandez (5) CVA (cerebral vascular accident): Qualifiers: CVA mechanism: unspecified Qualified Code(s): I63.9 - Cerebral infarction, unspecified Code(s): I63.9 - Cerebral infarction, unspecified Status: Chronic Assessment and Plan: H/o stroke with residual speech is slow. * Holding Plavix and Eliquis per surgery recommendations.
--- NOTE | 2022-11-10 14:46 | PM.IMPN ---
Progress Note: A&P Assessment and Plan (1) Acute cholecystitis: Code(s): K81.0 - Acute cholecystitis Status: Acute Assessment and Plan: Patient presented to the emergency department with complaints of abdominal pain, distension, and loose stools for approximately 1 week. WBC was noted to be 25, alkaline phosphatase was elevated, and CT abdomen and pelvis suggested acute cholecystitis. IR placement of cholecystostomy tube completed on 10/31/22 and management per General surgery Continue IV Zosyn q.6 hours until patient is significantly tolerating all oral diet and culture results finalized, first dose given 10/31/22. Transitioned to Augmentin 875/125 mg PO BID x 9 doses to complete 10-day antibiotic course. Patient is high risk for surgery given his anticoagulation/antiplatelet therapy, metastatic prostate cancer, chronic respiratory failure with COPD, and multiple other co-morbidities. Called Dr. Frausto and discussed patient's care. Patient will be kept in the hospital for further evaluation and management until surgery is preformed. Bile and blood cultures final result, no growth. Cholecystectomy canceled for 11/11/2022. New general surgeon taking over patient's case. Patient to be re-evaluated for surgery by the new general surgeon. (2) Acute UTI: Code(s): N39.0 - Urinary tract infection, site not specified Status: Acute Assessment and Plan: UA with 1+ leukocytes, greater than 75 wbc's, and trace bacteria on admission. Continue IV Zosyn q.6 hours as above and adjust antibiotics to cover urine organism and acute cholecystitis He has a chronic Hernandez. Infection likely due to this. Flush hernandez with NS for clogs, low flow, or lower abdominal pain Urine cultures shows ampicillin sensitive enterococcus species, which he has had in the past. ?colonization as he currently does not have CVA or suprapubic tenderness. Leukocytosis resolved. Unable to determine if this is a true infection versus chronic colonization. If true infection it is likely covered by Zosyn and Augmentin; will receive x 10 day course if true complicated UTI. Antibiotics completed 11/10/22 (3) COPD (chronic obstructive pulmonary disease): Qualifiers: COPD type: unspecified COPD Qualified Code(s): J44.9 - Chronic obstructive pulmonary disease, unspecified Code(s): J44.9 - Chronic obstructive pulmonary disease, unspecified Status: Chronic Assessment and Plan: chronic, not in acute exacerbation. baseline home oxygen needs 2-3 L per nasal cannula. Continue Breo Ellipta maintenance inhaler and PRN albuterol stable (4) BPH (benign prostatic hyperplasia): Qualifiers: Lower urinary tract symptom presence: unspecified whether lower urinary tract symptoms present Qualified Code(s): N40.0 - Benign prostatic hyperplasia without lower urinary tract symptoms Code(s): N40.0 - Benign prostatic hyperplasia without lower urinary tract symptoms Status: Acute Assessment and Plan: The patient has had a history of prostate cancer with bone metastasis. continue chronic hernandez (5) CVA (cerebral vascular accident): Qualifiers: CVA mechanism: unspecified Qualified Code(s): I63.9 - Cerebral infarction, unspecified Code(s): I63.9 - Cerebral infarction, unspecified Status: Chronic Assessment and Plan: H/o stroke with residual speech is slow. Holding Plavix and Eliquis per surgery recommendations. (6) Hyperlipidemia: Qualifiers: Hyperlipidemia type: mixed hyperlipidemia Qualified Code(s): E78.2 - Mixed hyperlipidemia Code(s): E78.5 - Hyperlipidemia, unspecified Status: Chronic Assessment and Plan: chronic, continue with atorvastatin (7) Vitamin D deficiency: Code(s): E55.9 - Vitamin D deficiency, unspecified Status: Chronic Assessm
[2022-11-10] MEDS: oxyCODONE/ACETAMINOPHEN (*CRX) 5-325 MG TABLET 1 TABLET PO ×2 (16:03→21:11)
[2022-11-10] MEDS: ATORVASTATIN 40 MG TABLET 80 MG PO (21:13)
[2022-11-10] MEDS: MIRTAZAPINE 15 MG TABLET PO (21:14)
[2022-11-10] MEDS: SENNA/DOCUSATE SODIUM TABLET 1 TAB PO (21:14)
[2022-11-10] MEDS: CALCIUM GLUC 2,000 MG/NS 100ML 2,000 MG/100 ML BAG 100 MG IVPB (21:18)
[2022-11-11] VITALS (7 sets, daily range): BP systolic 111; BP diastolic 74; PULSE 91–112; RESP 18; TEMP 36; O2SAT 96
[2022-11-11] MEDS: CHLORHEXIDINE GLUCONATE 4% SOL 120 ML BTL 1 APPLIC TOPICAL (05:28)
[2022-11-11 06:29] LABS: Hemoglobin 10.7 g/dL (14.0-18.0); Mean Corpuscular HGB Conc 29.7 g/dl (32-36); Mean Corpuscular Hemoglobin 29.9 pg (26-34); Mean Corpuscular Volume 100.6 fl (80-100); Mean Platelet Volume 9.8 fl (7.4-10.4); Platelet Count Result 305 k/mm3 (150-375); Red Blood Count 3.58 M/mm3 (4.6-6.20); White Blood Count 9.9 K/mm3 (4.5-10.0)
[2022-11-11 06:39] LABS: Albumin Level 4.2 g/dL (3.5-5.1); Anion Gap 6 mmol/L (8-16); Blood Urea Nitrogen 12 mg/dL (9-20); Calcium 8.2 mg/dL (8.4-10.2); Carbon Dioxide 27 mmol/L (22-30); Chloride 101 mmol/L (98-107); Estimated CRCL calculation 117 ml/min; Estimated Glomerular Filt Rate > 60; Glucose 95 mg/dL (65-110); Magnesium 2.3 mg/dL (1.6-2.3); Phosphorus 2.5 mg/dL (2.5-4.5); Potassium 4.6 mmol/L (3.4-5.0); Sodium 134 mmol/L (137-145)
[2022-11-11 06:40] LABS: Alanine Aminotransferase 18 U/L (6-50); Albumin Level 4.2 g/dL (3.5-5.1); Alkaline Phosphatase 1380 U/L (38-126); Anion Gap 8 mmol/L (8-16); Aspartate Amino Transferase 20 U/L (17-59); Bilirubin,Total 0.6 mg/dL (0.2-1.3); Blood Urea Nitrogen 12 mg/dL (9-20); Calcium 8.3 mg/dL (8.4-10.2); Carbon Dioxide 27 mmol/L (22-30); Chloride 100 mmol/L (98-107); Estimated CRCL calculation 117 ml/min; Estimated Glomerular Filt Rate > 60; Glucose 96 mg/dL (65-110); Potassium 4.5 mmol/L (3.4-5.0); Sodium 135 mmol/L (137-145)
[2022-11-11] MEDS: oxyCODONE/ACETAMINOPHEN (*CRX) 5-325 MG TABLET 1 TABLET PO (08:15)
[2022-11-11] MEDS: FLUTICASONE/SALMETEROL 230-21 MCG INHALER 1 PUFF 2 PUFF INHALATION (08:35)
[2022-11-11] MEDS: calcitrioL 0.25 MCG CAPSULE 0.5 MCG PO (10:51)
[2022-11-11] MEDS: FERROUS SULFATE 324 MG TABLET PO (10:52)
[2022-11-11] MEDS: ASCORBIC ACID 500 MG TABLET PO ×2 (10:52→17:33)
[2022-11-11] MEDS: CHOLECALCIFEROL 1,000 UNITS TABLET 5000 UNITS PO (10:52)
[2022-11-11] MEDS: CYCLOBENZAPRINE HCL 10 MG TABLET PO ×3 (10:52→17:32)
[2022-11-11] MEDS: GABAPENTIN 400 MG CAPSULE PO ×2 (10:52→20:33)
[2022-11-11] MEDS: HEPARIN SODIUM 5,000 UNITS/ML VIAL 5000 UNITS SUB-Q ×2 (10:52→20:34)
[2022-11-11] MEDS: POTASSIUM PHOS/SODIUM PHOS 250 MG TABLET 500 MG PO ×2 (10:53→17:32)
--- NOTE | 2022-11-11 10:55 | PM.PNNEP ---
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 Pena's notes need to consider substitute medication after discharge this may possibly explain his hypokalemia as well (but not his hypocalcemia) but he has issues with hypokalemia even prior to this admission however, no glucosuria noted on urinalysis check random urine phosphorus -- unable to check urine amino acids aggressively replete phosphorus as tolerated for now on K-Phos tablets added calcitriol as well (to hopefully increase intestinal phosphorus absorption) (2) Hypocalcemia: Code(s): E83.51 - Hypocalcemia Status: Acute Assessment and Plan: presumably thought to be secondary to vitamin D deficiency elevated PTH may be appropriately elevated given his low calcium level on Vitamin D supplementation IV calcium gluconate PRN; calcitriol may help indirectly as well calcium supplementation difficult to use due to interaction with phosphorus supplementation hopefully phosphorus replacement is temporary once off phosphorus supplements, can restart calcium supplements (3) Hypokalemia: Code(s): E87.6 - Hypokalemia Status: Acute Assessment and Plan: doing better follow trend on replacement as tolerated (4) Acute cholecystitis: Code(s): K81.0 - Acute cholecystitis Status: Acute Assessment and Plan: clincally better s/p cholecystostomy tube placement by IR General Surgery following -- surgery today? on antibiotics follow culture data (5) Acute UTI: Code(s): N39.0 - Urinary tract infection, site not specified Status: Acute Assessment and Plan: culture results noted however, no clinical symptoms colonization(?) covered by current antibiotics (6) COPD (chronic obstructive pulmonary disease): Qualifiers: COPD type: unspecified COPD Qualified Code(s): J44.9 - Chronic obstructive pulmonary disease, unspecified Code(s): J44.9 - Chronic obstructive pulmonary disease, unspecified Status: Chronic Assessment and Plan: clinically stable (no evidence of exacerbation) continue supplemental oxygen and inhalers Will continue to follow. Subjective Date/time seen: 11/11/22 10:55 Overall, seems to be doing reasonably well; phosphorus and calcium continue to improve with interventions to date; possible surgery today (?) for his gallbladder; no other issues/events overnight or earlier this morning. Exam Narrative: General: WD/WN male in NAD Heart: normal S1 and S2; no rub Lungs: coarse breath sounds Abdomen: soft, nontender, nondistended, positive bowel sounds Extremities: no cyanosis or clubbing; no edema Skin: warm and dry Objective Data Vital Signs Vital Signs: Vital Signs Temp Pulse Resp BP Pulse Ox O2 Del Method O2 Flow Rate 11/11/22 08:35 18 11/11/22 04:00 110 H 11/10/22 20:00 112 H 18 97 Nasal Cannula 2 11/11/22 00:00 112 H 11/10/22 22:00 97.6 F 113 H 18 113/71 97 11/10/22 20:44 110 H 18 11/10/22 16:00 106 H 11/10/22 12:00 101 H 11/10/22 13:44 97.1 F L 107 H 20 128/84 100 Intake/Output Intake/Output: Intake & Output 11/08/22 11/09/22 11/10/22 11/11/22 23:59 23:59 23:59 23:59 Intake Total 2270 2140 1934 Output Total 2820 1530 2000 1250 Balance -550 329 -96 -1256 Meds/Results Medications: Active Medications Generic Name Dose Route Start Last Admin Trade Name Freq PRN Reason Stop Dose Admin Albuterol 2.5 mg 10/31/22 16:38 Albuterol Sulfate Neb 2.5 Mg/3 Ml Inh INHALATION Q4HRT PRN Shortness Of Breat
--- NOTE | 2022-11-11 10:55 | P.PNNP_ITS ---
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 Pena's notes * need to consider substitute medication after discharge * this may possibly explain his hypokalemia as well (but not his hypocalcemia) * but he has issues with hypokalemia even prior to this admission * however, no glucosuria noted on urinalysis * check random urine phosphorus -- unable to check urine amino acids * aggressively replete phosphorus as tolerated for now * on K-Phos tablets * added calcitriol as well (to hopefully increase intestinal phosphorus absorption) (2) Hypocalcemia: Code(s): E83.51 - Hypocalcemia Status: Acute Assessment and Plan: * presumably thought to be secondary to vitamin D deficiency * elevated PTH may be appropriately elevated given his low calcium level * on Vitamin D supplementation * IV calcium gluconate PRN; calcitriol may help indirectly as well * calcium supplementation difficult to use due to interaction with phosphorus supplementation * hopefully phosphorus replacement is temporary * once off phosphorus supplements, can restart calcium supplements (3) Hypokalemia: Code(s): E87.6 - Hypokalemia Status: Acute Assessment and Plan: * doing better * follow trend * on replacement as tolerated (4) Acute cholecystitis: Code(s): K81.0 - Acute cholecystitis Status: Acute Assessment and Plan: * clincally better * s/p cholecystostomy tube placement by IR * General Surgery following -- surgery today? * on antibiotics * follow culture data (5) Acute UTI: Code(s): N39.0 - Urinary tract infection, site not specified Status: Acute Assessment and Plan: * culture results noted * however, no clinical symptoms * colonization(?) * covered by current antibiotics (6) COPD (chronic obstructive pulmonary disease): Qualifiers: COPD type: unspecified COPD Qualified Code(s): J44.9 - Chronic obstructive pulmonary disease, unspecified Code(s): J44.9 - Chronic obstructive pulmonary disease, unspecified Status: Chronic Assessment and Plan: * clinically stable (no evidence of exacerbation) * continue supplemental oxygen and inhalers Will continue to follow. Subjective Date/time seen: 11/11/22 10:55 Overall, seems to be doing reasonably well; phosphorus and calcium continue to improve with interventions to date; possible surgery today (?) for his gallbladder; no other issues/events overnight or earlier this morning. Exam Narrative: General: WD/WN male in NAD Heart: normal S1 and S2; no rub Lungs: coarse breath sounds Abdomen: soft, nontender, nondistended, positive bowel sounds Extremities: no cyanosis or clubbing; no edema Skin: warm and dry Objective Data Vital Signs Vital Signs: Vital Signs Temp Pulse Resp BP Pulse Ox O2 Del Method O2 Flow Rate 11/11/22 08:35 18 11/11/22 04:00 110 H 11/10/22 20:00 112 H 18 97 Nasal Cannula 2 11/11/22 00:00 112 H 11/10/22 22:00 97.6 F 113 H 18 113
[2022-11-11] MEDS: MAGNESIUM OXIDE 400 MG TABLET PO (12:41)
--- NOTE | 2022-11-11 12:54 | PM.PNGS ---
Progress Note: A&P Assessment and Plan (1) Acute cholecystitis: Code(s): K81.0 - Acute cholecystitis Status: Acute Assessment and Plan: Patient has recovered well after percutaneous cholecystostomy tube placement. Will continue managing drain at this time to allow more time for acute inflammation to resolve. OK to resume anticoagulation and OK to discharge from surgical standpoint. Since cystic duct is patent, could arrange for cholecystotomy tube to be removed in 2-3 more weeks. Will discuss eventual lap álvaro as outpatient if overall medically optimized and patient wanting to proceed with given increased risks. (2) Sepsis: Code(s): A41.9 - Sepsis, unspecified organism Status: Acute (3) Prostate cancer metastatic to bone: Code(s): C61 - Malignant neoplasm of prostate; C79.51 - Secondary malignant neoplasm of bone Status: Chronic (4) Primary prostate cancer with metastasis from prostate to other site: Code(s): C61 - Malignant neoplasm of prostate Status: Chronic Subjective Subjective Date/Time Seen: 11/11/22 12:54 Interval history: Patient is doing well. Tolerating low fat diet. Cholecystostomy tube patent and draining. Exam GI: Inspection: distended and other (Cholecystostomy tube with clear bilious drainage.) GI Palp: Yes Soft to palpation, No Tenderness to palpation present (GI) and No Guarding due to palpation present (GI) Other: Protuberant abdomen, soft without any focal tenderness. Objective Data Vital Signs Vital Signs: Vital Signs - 24 hr 11/10/22 13:44 11/10/22 16:00 11/10/22 20:44 Temperature 36.2 C L Pulse Rate 107 H 106 H 110 H Respiratory Rate 20 18 Blood Pressure 128/84 Pulse Oximetry 100 Oxygen Delivery Oxygen Flow Rate Fraction of Inspired Oxygen 11/10/22 22:00 11/11/22 00:00 11/10/22 20:00 Temperature 36.4 C Pulse Rate 113 H 112 H 112 H Respiratory Rate 18 18 Blood Pressure 113/71 Pulse Oximetry 97 97 Oxygen Delivery Nasal Cannula Oxygen Flow Rate 2 Fraction of Inspired Oxygen 28 11/11/22 04:00 11/11/22 08:35 11/11/22 08:00 Temperature Pulse Rate 110 H 91 Respiratory Rate 18 Blood Pressure Pulse Oximetry Oxygen Delivery Oxygen Flow Rate Fraction of Inspired Oxygen 11/11/22 12:00 Temperature Pulse Rate 91 Respiratory Rate Blood Pressure Pulse Oximetry Oxygen Delivery Oxygen Flow Rate Fraction of Inspired Oxygen Intake/Output Intake/Output: Intake & Output 11/08/22 11/09/22 11/10/22 11/11/22 23:59 23:59 23:59 23:59 Intake Total 2270 2140 1934 Output Total 2820 1530 1999 125 Balance -550 852 -51 -7680 Meds/Results Medications: Active Medications Generic Name Dose Route Start Last Admin Trade Name Jamie PRN Reason Stop Dose Admin Albuterol 2.5 mg 10/31/22 16:38 Albuterol Sulfate Neb 2.5 Mg/3 Ml Inh INHALATION Q4HRT PRN Shortness Of Breath Ascorbic Acid 500 mg 11/01/22 09:40 11/11/22 10:52 Ascorbic Acid 500 Mg Tablet PO 12/01/22 09:39 500 mg BID NAWAF Administration Atorvastatin Calcium 80 mg 11/01/22 21:00 11/10/22 21:13 Atorvastatin 40 Mg Tablet PO 80 mg HS NAWAF Administration Bisacodyl 10 mg 11/03/22 16:05 Bisacodyl 10 Mg Suppository RECTAL DAILY PRN Constipation Calcitriol 0.5 mcg 11/09/22 09:00 11/11/22 10:51 Calcitriol 0.25 Mcg Capsule PO 0.5 mcg QAM NAWAF Administration Cyclobenzaprine HCl 10 mg 11/01/22 13:00 11/11/22 10:52 Cyclobenzaprine Hcl 10 Mg Tablet PO 10 mg TID NAWAF Administration Ferrous Sulfate 324 mg 11/01/22 09:45 11/11/22 10:52 Ferrous Sulfate 324 Mg Tablet PO 324 mg DAILY@0800 NAWAF Administration Gabapentin 400 mg 11/01/22 09:40 11/11/22 10:52 Gabapentin 400 Mg Capsule PO 400 mg Q12HR NAWAF Administration Heparin Sodium (Porcine) 5,000 units 11/04/22 21:00 11/11/22 10:52 Heparin Sodium 5,000 Units/Ml Vial
--- NOTE | 2022-11-11 13:17 | P.DS_ITS ---
DS: Admitting Diagnosis Discharge Date 11/11/22 Admitting Diagnosis Acute cholecystitis DS: Discharge Diagnosis Discharge Diagnosis (1) Acute cholecystitis: Code(s): K81.0 - Acute cholecystitis Status: Acute Assessment and Plan: Patient presented to the emergency department with complaints of abdominal pain, distension, and loose stools for approximately 1 week. WBC was noted to be 25, alkaline phosphatase was elevated, and CT abdomen and pelvis suggested acute cholecystitis. * IR placement of cholecystostomy tube completed on 10/31/22 and management per General surgery * Continue IV Zosyn q.6 hours until patient is significantly tolerating all oral diet and culture results finalized, first dose given 10/31/22. * Transitioned to Augmentin 875/125 mg PO BID x 9 doses to complete 10-day antibiotic course. * Patient is high risk for surgery given his anticoagulation/antiplatelet t herapy, metastatic prostate cancer, chronic respiratory failure with COPD, and multiple other co-morbidities. * Called Dr. Frausto and discussed patient's care. Patient will be kept in the hospital for further evaluation and management until surgery is preformed. * Bile and blood cultures final result, no growth. * Cholecystectomy canceled for 11/11/2022. * New general surgeon taking over patient's case. Patient to be re-evaluated for surgery by the new general surgeon. * After re-evaluation by general surgeon it was decided the patient will not undergo surgery and the patient will follow-up with General surgery in 2-3 weeks for cholecystostomy tube to be removed. (2) Acute UTI: Code(s): N39.0 - Urinary tract infection, site not specified Status: Acute Assessment and Plan: UA with 1+ leukocytes, greater than 75 wbc's, and trace bacteria on admission. * Continue IV Zosyn q.6 hours as above and adjust antibiotics to cover urine organism and acute cholecystitis * He has a chronic Hernandez. Infection likely due to this. * Flush hernandez with NS for clogs, low flow, or lower abdominal pain * Urine cultures shows ampicillin sensitive enterococcus species, which he has had in the past. ?colonization as he currently does not have CVA or suprapubic tenderness. * Leukocytosis resolved. * Unable to determine if this is a true infection versus chronic colonization. If true infection it is likely covered by Zosyn and Augmentin; will receive x 10 day course if true complicated UTI. * Antibiotics completed 11/10/22 (3) COPD (chronic obstructive pulmonary disease): Qualifiers: COPD type: unspecified COPD Qualified Code(s): J44.9 - Chronic obstructive pulmonary disease, unspecified Code(s): J44.9 - Chronic obstructive pulmonary disease, unspecified Status: Chronic Assessment and Plan: chronic, not in acute exacerbation. * baseline home oxygen needs 2-3 L per nasal cannula. * Continue Breo Ellipta maintenance inhaler and PRN albuterol * stable (4) BPH (benign prostatic hyperplasia): Qualifiers: Lower urinary tract symptom presence: unspecified whether lower urinary tract symptoms present Qualified Code(s): N40.0 - Benign prostatic hyperplasia without lower urinary tract symptoms Code(s): N40.0 - Benign prostatic hyperplasia without lower urinary tract symptoms Status: Acute Assessment and Plan: The patient has had a history of prostate cancer with bone metastasis. * continue chronic hernandez (5) CVA (cerebral vascular accident): Qualifiers:
--- NOTE | 2022-11-11 13:17 | PM.DS ---
DS: Admitting Diagnosis Discharge Date 11/11/22 Admitting Diagnosis Acute cholecystitis DS: Discharge Diagnosis Discharge Diagnosis (1) Acute cholecystitis: Code(s): K81.0 - Acute cholecystitis Status: Acute Assessment and Plan: Patient presented to the emergency department with complaints of abdominal pain, distension, and loose stools for approximately 1 week. WBC was noted to be 25, alkaline phosphatase was elevated, and CT abdomen and pelvis suggested acute cholecystitis. IR placement of cholecystostomy tube completed on 10/31/22 and management per General surgery Continue IV Zosyn q.6 hours until patient is significantly tolerating all oral diet and culture results finalized, first dose given 10/31/22. Transitioned to Augmentin 875/125 mg PO BID x 9 doses to complete 10-day antibiotic course. Patient is high risk for surgery given his anticoagulation/antiplatelet therapy, metastatic prostate cancer, chronic respiratory failure with COPD, and multiple other co-morbidities. Called Dr. Frausto and discussed patient's care. Patient will be kept in the hospital for further evaluation and management until surgery is preformed. Bile and blood cultures final result, no growth. Cholecystectomy canceled for 11/11/2022. New general surgeon taking over patient's case. Patient to be re-evaluated for surgery by the new general surgeon. After re-evaluation by general surgeon it was decided the patient will not undergo surgery and the patient will follow-up with General surgery in 2-3 weeks for cholecystostomy tube to be removed. (2) Acute UTI: Code(s): N39.0 - Urinary tract infection, site not specified Status: Acute Assessment and Plan: UA with 1+ leukocytes, greater than 75 wbc's, and trace bacteria on admission. Continue IV Zosyn q.6 hours as above and adjust antibiotics to cover urine organism and acute cholecystitis He has a chronic Hernandez. Infection likely due to this. Flush hernandez with NS for clogs, low flow, or lower abdominal pain Urine cultures shows ampicillin sensitive enterococcus species, which he has had in the past. ?colonization as he currently does not have CVA or suprapubic tenderness. Leukocytosis resolved. Unable to determine if this is a true infection versus chronic colonization. If true infection it is likely covered by Zosyn and Augmentin; will receive x 10 day course if true complicated UTI. Antibiotics completed 11/10/22 (3) COPD (chronic obstructive pulmonary disease): Qualifiers: COPD type: unspecified COPD Qualified Code(s): J44.9 - Chronic obstructive pulmonary disease, unspecified Code(s): J44.9 - Chronic obstructive pulmonary disease, unspecified Status: Chronic Assessment and Plan: chronic, not in acute exacerbation. baseline home oxygen needs 2-3 L per nasal cannula. Continue Breo Ellipta maintenance inhaler and PRN albuterol stable (4) BPH (benign prostatic hyperplasia): Qualifiers: Lower urinary tract symptom presence: unspecified whether lower urinary tract symptoms present Qualified Code(s): N40.0 - Benign prostatic hyperplasia without lower urinary tract symptoms Code(s): N40.0 - Benign prostatic hyperplasia without lower urinary tract symptoms Status: Acute Assessment and Plan: The patient has had a history of prostate cancer with bone metastasis. continue chronic hernandez (5) CVA (cerebral vascular accident): Qualifiers: CVA mechanism: unspecified Qualified Code(s): I63.9 - Cerebral infarction, unspecified Code(s): I63.9 - Cerebral infarction, unspecified Status: Chronic Assessment and Plan: H/o stroke with residual speech is slow. Resume Plavix and Eliquis (6) Hyperlipidemia: Qualifiers: Hyperlipidemia type: mixed hyperlipidemia Qualified Code(s): E78.2 - Mixed hyperlipidemia Code(s
[2022-11-11] MEDS: SENNA/DOCUSATE SODIUM TABLET 1 TAB PO (20:33)
[2022-11-11] MEDS: ATORVASTATIN 40 MG TABLET 80 MG PO (20:33)
[2022-11-11] MEDS: MIRTAZAPINE 15 MG TABLET PO (20:33)
[2022-11-11] MEDS: oxyCODONE HCL (*CRX) 5 MG TAB IR PO (21:09)
[2022-11-12 10:05] LABS: Total Volume 5500 mL; Urine Calcium 1.6 mg/dL
== END 2022-11-11 21:50 | disposition home or self-care (01) | DRG 445 ==
LOC: ANHED 09:42 → ANH3MEDSUR 10:28
PROVIDERS: Internal Medicine Nephrology; Nurse Practitioner; Nurse Practitioner Family; Admitting Provider Internal Medicine; Emergency Provider Emergency Medicine; PCP Family Medicine; Visit Provider Internal Medicine Critical Care Medicine
DX: K81.0 Acute cholecystitis (principal); C79.51 Secondary malignant neoplasm of bone; J96.10 Chronic respiratory failure, unspecified whether with hypoxia or hypercapnia; N39.0 Urinary tract infection, site not specified; J44.9 Chronic obstructive pulmonary disease, unspecified; Z99.81 Dependence on supplemental oxygen; I69.328 Other speech and language deficits following cerebral infarction; N40.0 Benign prostatic hyperplasia without lower urinary tract symptoms; E87.5 Hyperkalemia; E55.9 Vitamin D deficiency, unspecified; D64.9 Anemia, unspecified; C61 Malignant neoplasm of prostate; E78.2 Mixed hyperlipidemia; Z20.822 Contact with and (suspected) exposure to COVID-19; Z88.3 Allergy status to other anti-infective agents; Z79.01 Long term (current) use of anticoagulants; Z79.02 Long term (current) use of antithrombotics/antiplatelets; Z87.891 Personal history of nicotine dependence; Z79.899 Other long term (current) drug therapy; Z79.52 Long term (current) use of systemic steroids; Z79.890 Hormone replacement therapy
CPT/HCPCS: 36415; 36430; 47490; 47531; 74177; 76705; 80053; 80069; 81001; 82306; 82330; 82340; 82728; 82948; 83540; 83550; 83605; 83690; 83735; 83970; 84100; 84105; 84439; 84443; 84480; 85014; 85018; 85025; 85027; 85610; 85730; 86850; 86900; 86901; 86923; 87040; 87070; 87075; 87077; 87086; 87088; 87186; 87205; 87636; 93005; 94640; 96365; 96366; 96375; 96376; 99285; A9270; C1729; G0378; J0131; J0610; J0612; J1170; J1644; J1940; J2270; J2543; J3480; J7030; J7040; J7050; J7060; P9016; Q9967

== ENCOUNTER 2022-12-22 23:16 | Observation (INO) | payer OTHER, SELFPAY ==
--- NOTE | ~2022-12-22 | CT_ITS ---
CT of the Abdomen and Pelvis: Indication: Abdominal pain, gallbladder tube displacement Technique: 2.5 mm axial scans were obtained through the abdomen and pelvis following intravenous adm inistration of 100 cc of Omnipaque 350. Dose reduction technique was used on this scan by utilizing a utomated exposure control and iterative reconstruction technique. The dose-length product (DLP) was 5 81.67 mGy-cm. COMPARISON: 10/31/2022 Findings: Scans through the lung bases dose of bibasilar chronic scarring or chronic interstitial ch rowena. The liver, spleen, pancreas, gallbladder, and adrenal glands are within normal limits. There are area s of apparent renal cortical scarring bilaterally, left kidney worse than right. 3 mm nonobstructing left renal stone present. No hydronephrosis. There is a presumed percutaneous cholecystostomy tube pr esent, with pigtail coil apparently adjacent to the gallbladder, but not within it. No evidence of ao rtic aneurysm. No lymphadenopathy. No bowel obstruction or bowel wall thickening. There is no evidence to suggest acute appendicitis. Images through the pelvis were performed. Urinary bladder collapsed around a Horne catheter. No pelvi c mass evident. No ascites. No ascites. Innumerable subtle sclerotic lesions are present scattered throughout the osseous structures. There i s spinal fixation hardware surrounding an underlying pathologic lesion of the T10 vertebral body. Impression: Percutaneous cholecystostomy tube is adjacent to the gallbladder, but not within it. Extensive osseous metastatic disease. Correlate with relevant clinical/surgical history. Renal cortical scarring bilaterally, left worse than right. 3 mm nonobstructing left renal stone. Reviewed, dictated and finalized at [facility]. Impression: Percutaneous cholecystostomy tube is adjacent to the gallbladder, but not withi n it. Extensive osseous metastatic disease. Correlate with relevant clinical/surgical history. Renal cortical scarring bilaterally, left worse than right. 3 mm nonobstructing left renal stone.
--- NOTE | ~2022-12-22 | XR_ITS ---
EXAMINATION: XR catheter cholangiogram DATE: 12/24/2022 10:17 INDICATION: Myelopathy from a percutaneous cholecystostomy tube which appears dislodged on prior CT s patricia. TECHNIQUE: 155 fluoroscopic images of the right upper quadrant were obtained during injection of 5 mL Omnipaque 240 into patient's existing percutaneous cholecystostomy tube. After the injection at the request of Dr. Frausto, the tube was sterilely removed with fluoroscopic observation over a J wire. Anti biotic ointment and a sterile dressing were placed over the entry site. The amount of fluoroscopy marlena e used during this procedure was 0.4 minutes. Total DAP was 2.714 Gycm^2 COMPARISON: CT dated 12/23/2022 FINDINGS: The uncoiled distal tip of the cholecystostomy tube is dislodged and within the tissues lateral to th e nearly decompressed gallbladder. Contrast extends from the tip of the catheter through a patent tra ct to opacify the gallbladder. With further contrast injection there is passage of contrast through t he normal appearing cystic and common bile ducts empty into the duodenum. No strictures or intralumin al filling defects/gallstones identified. The tube was subsequently removed. IMPRESSION: 1. Successful removal of a dislodged percutaneous cholecystostomy tube following contrast injection c onfirming a patent cystic and common bile duct. Reviewed, dictated and finalized at [facility]. IMPRESSION: 1. Successful removal of a dislodged percutaneous cholecystostomy tube followin g contrast injection confirming a patent cystic and common bile duct.
[2022-12-22 23:15] VITALS: BP 115/72; PULSE 109; RESP 18; TEMP 36.8; O2SAT 100
[2022-12-22 23:26] VITALS: PULSE 106; RESP 17; O2SAT 100
[2022-12-22 23:31] VITALS: BP 126/81; PULSE 101; RESP 14; O2SAT 100
[2022-12-22 23:32] VITALS: PULSE 101; RESP 17; O2SAT 100
--- NOTE | 2022-12-22 23:44 | ED.GENADULT ---
HPI - General Adult General Chief complaint: Unspecified Stated complaint: pain in side Time Seen by Provider: 12/22/22 23:19 History of Present Illness HPI narrative: 52-year-old male with a history of of a cholecystostomy tube presenting ED for abdominal pain. Patient said the pain got worse yesterday while he was watching TV. It is an achy pain that is nonradiating, 6/10 intensity and constant. He has not experienced this pain before. He believes that he took some pain medication but he is unsure. There are no exacerbating symptoms. It is not associated with nausea vomiting fevers chills chest pain difficulty breathing or diarrhea. The patient is unsure if the tube has been pulled or dislodged. Patient follows with Dr. Ayan Frausto. Related Data Home Medications Medication Instructions Recorded Confirmed albuterol sulfate 90 mcg/actuation 2 inh inhalation Q6-8H PRN 03/03/22 12/04/22 aerosol inhaler Shortness Of Breath Or Wheezing apixaban 5 mg tablet (Eliquis) 5 mg PO BID 05/12/22 12/04/22 ascorbate calcium (vitamin C) 500 500 mg PO BID 05/12/22 12/04/22 mg capsule atorvastatin 40 mg tablet 80 mg PO HS 05/12/22 12/04/22 clopidogrel 75 mg tablet (Plavix) 75 mg PO QAM 05/12/22 12/04/22 cyclobenzaprine 10 mg tablet 10 mg PO TID 05/12/22 12/04/22 fluticasone furoate 200 1 inh inhalation QAM 05/12/22 12/04/22 mcg-vilanterol 25 mcg/dose inhalation powder (Breo Ellipta) furosemide 20 mg tablet (Lasix) 20 mg PO QAM 05/12/22 12/04/22 mirtazapine 15 mg tablet (Remeron) 15 mg PO HS 05/12/22 12/04/22 ferrous sulfate 325 mg (65 mg 325 mg PO BID 06/26/22 12/04/22 iron) tablet (Iron (ferrous sulfate)) gabapentin 100 mg tablet 400 mg PO BID 06/26/22 12/04/22 sennosides 8.6 mg-docusate sodium 1 tab-cap PO BID 06/26/22 12/04/22 50 mg capsule (Senna Plus) calcium 500 mg tablet 500 mg PO QID 09/18/22 12/04/22 oxycodone-acetaminophen 5 mg-325 1 tablet PO Q6H PRN Pain (Scale 09/18/22 12/04/22 mg tablet Score 4-6) prednisone 5 mg tablet 5 mg PO BID 10/11/22 12/04/22 Allergies Allergy/AdvReac Type Severity Reaction Status Date / Time No Known Allergies Allergy Verified 12/22/22 23:27 [facility] Past Medical History Medical History Anemia BPH (benign prostatic hyperplasia) Cataract Chronic respiratory failure COPD (chronic obstructive pulmonary disease) CVA (cerebral vascular accident) Hyperlipidemia Hyperlipidemia due to dietary fat intake Prostate cancer metastatic to bone Urinary tract infection Surgical History Surgical History H/O cataract extraction H/O eye surgery History of spinal surgery History of tonsillectomy and adenoidectomy S/P TURP Family History Family History Mother Diabetes mellitus Social History Social History Social History: The patient lives with his cousin and his cousin's . He is and has 2 daughters. He is disabled. He is a former smoker. He does not use any alcohol marijuana or illicit drugs. His cousin is his durable power airport driver for healthcare. he is listed as a full code Code status full code Smoking packs per day: 1 Smoking cigarettes per day: 20.0 Years smoked: 40 Smoking pack-years: 40.00 Smoking status: Former smoker Tobacco type: cigarettes and smokeless tobacco Smokeless tobacco user: chewing tobacco Second hand tobacco smoke exposure: Yes Alcohol intake: never Substance use: never Substance use type: marijuana Other substance usage details: couple of hits once a day Lack of Transportation: No Lack of Food: Never True Current Housing: I Have Housing Concerned About Future Housing: No Difficulty Paying Gas/Electric Bills: No Difficulty Paying for Meds: No Currently Unemployed:
[2022-12-22 23:46] VITALS: PULSE 97; RESP 14; O2SAT 100
[2022-12-23] VITALS (21 sets, daily range): BP systolic 108–139; BP diastolic 62–83; PULSE 93–102; RESP 12–21; TEMP 36.3–36.6; O2SAT 94–100
--- NOTE | 2022-12-23 01:15 | ECG_ITS ---
Measurements Intervals [place] Rate: 92 P: 73 [place]: 131 QRS: -33 QRSD: 105 T: 61 QT: 396 QTc: 492 Interpretive Statements SINUS RHYTHM FREQUENT ATRIAL PREMATURE COMPLEXES LEFT AXIS DEVIATION BORDERLINE ST-T WAVE ABNORMALITY- HIGH LATERAL LEADS BASELINE ARTIFACT- I, III, AVR, AVL, AVF ABNORMAL ECG COMPARED TO ECG 11/08/2022 09:04:19 SIN[address]M NOW PRESENT ST-T WAVE ABNORMALITY NOW PRESENT Electronically Signed On 12-23-2022 6:51:08 CDT by Case Bravo D.O.
[2022-12-23] MEDS: ONDANSETRON INJ 4 MG/2 ML VIAL IV PUSH (01:32)
[2022-12-23] MEDS: SODIUM CHLORIDE 0.9% IV 1,000 ML 999 ML IV CONT (01:32)
[2022-12-23] MEDS: HYDROmorphone HCL INJ (*CRX) 1 MG/ML SYR 0.5 MG IV PUSH (01:33)
[2022-12-23 01:37] LABS: Basophils Absolute Auto 0.1 K/mm3 (0.0-0.1); Basophils Percent Auto 0.6 % (0.2-1.2); Eosinophils Absolute Auto 0.3 K/mm3 (0-0.3); Eosinophils Percent Auto 2.4 % (0-4.4); Hematocrit 40.3 % (42.0-52.0); Hemoglobin 12.4 g/dL (14.0-18.0); Immature Granulocyte Absolute 0.03 K/mm3 (0.00-0.031); Immature Granulocyte Percent A 0.3 % (0-0.5); Lymphocytes Absolute Auto 1.96 K/mm3 (0.9-3.2); Lymphocytes Percent Auto 19.1 % (18.3-44.2); Mean Corpuscular HGB Conc 30.8 g/dl (32-36); Mean Corpuscular Hemoglobin 31.5 pg (26-34); Mean Corpuscular Volume 102.3 fl (80-100); Mean Platelet Volume 10.1 fl (7.4-10.4); Monocytes Absolute Auto 0.5 K/mm3 (0.1-0.6); Monocytes Percent Auto 5.2 % (2.6-8.5); Neutrophils Absolute Auto 7.5 K/mm3 (1.3-6.7); Neutrophils Percent Auto 72.4 % (45.5-73.1); Platelet Count Result 281 k/mm3 (150-375); Red Blood Count 3.94 M/mm3 (4.6-6.20); Red Cell Distribution Width 17.5 % (11.5-14.5); White Blood Count 10.3 K/mm3 (4.5-10.0)
[2022-12-23 01:50] LABS: Alanine Aminotransferase 13 U/L (6-50); Albumin Level 3.8 g/dL (3.5-5.1); Alkaline Phosphatase 544 U/L (38-126); Anion Gap 4 mmol/L (8-16); Aspartate Amino Transferase 14 U/L (17-59); Bilirubin,Total 0.4 mg/dL (0.2-1.3); Blood Urea Nitrogen 12 mg/dL (9-20); Calcium 7.6 mg/dL (8.4-10.2); Carbon Dioxide 28 mmol/L (22-30); Chloride 109 mmol/L (98-107); Estimated CRCL calculation 166 ml/min; Estimated Glomerular Filt Rate > 60; Glucose 100 mg/dL (65-110); Lipase 28 U/L (23-300); Magnesium 1.9 mg/dL (1.6-2.3); Potassium 3.7 mmol/L (3.4-5.0); Sodium 141 mmol/L (137-145)
--- NOTE | 2022-12-23 01:56 | PC.NURSE ---
Patient taken to CT at this time.
--- NOTE | 2022-12-23 05:28 | ADMGEN ---
This patient, [place], was admitted to Medical Room 244-. Patient/family oriented to hospital policies and general routines including ID bracelet, bed and alarms, visiting hours, pain management, procedures, bathroom and other care routines, personal items, smoking policy, room service/diet, and visiting hours. Information on how to activate the Rapid Response Team has been discussed. Patient/Family are encouraged to report perceived risks to care and to ask questions if they do not understand what they are told or what they should do.
[2022-12-23] MEDS: LACTATED RINGERS 1,000 ML 125 ML IV CONT ×2 (08:08→17:11)
--- NOTE | 2022-12-23 10:30 | PM.IMHP ---
H&P: HPI History of Present Illness Date/Time: 12/23/22 1030 Chief Complaint: Abdominal pain Narrative: Patient is a 52 year old male with a past medical history of metastatic prostate cancer with osseous lesions, cholecystitis, anemia, BPH, CVA, HLD, and COPD who presented to the ED with complaints of right sided abdominal pain. Patient stated that he was watch TV as the pain was developing and getting worse. In October, a cholecystectomy tube was placed. patient stated that the pain started the day before yesterday. Patient stated that he has been doing his own care since his cousin has been in the hospital with surgery. He stated that he has been changes own dressing and cleaning up after himself, That he feels like it got stretched. He did state his pain was fluctuating and currently the 12/13. He denies having any pain with eating and stated that he is last meal was yesterday evening. Patient did state that he would for follow-up however was unable to get follow-up imaging as his insurance would not cover. He denies any current urinating issues including urgency, frequency, burning or pain. He does have a chronic indwelling catheter. He also stated that he has not had a bowel movement the last couple days however he does not feel like he has to have a bowel movement this time. He also stated that he usually goes about every other day. He can pivot to wheelchair and states that he tries to get up and moving around weekly. He denies any current chest pain, shortness a breath, nausea, vomiting, sweats, fevers, chills. Patient is being admitted to the hospitalist service under observation at this time Review of Systems Review of Systems: All systems reviewed & are unremarkable except as noted in HPI and below PMFSH Past Medical History Medical History Acute kidney injury Anemia Antiplatelet or antithrombotic long-term use B12 deficiency anemia BPH (benign prostatic hyperplasia) Cataract Cholecystitis, chronic Chronic respiratory failure Colitis COPD (chronic obstructive pulmonary disease) CVA (cerebral vascular accident) Decubitus ulcer of sacral area Fecal impaction History of CVA (cerebrovascular accident) Hydronephrosis Hyperlipidemia Hypocalcemia Hypokalemia Hypokalemia Hypophosphatemia Large bowel obstruction Malignant neoplasm of prostate metastatic to bone UTI (urinary tract infection) due to urinary indwelling Horne catheter Vitamin D deficiency Surgical History Surgical History H/O cataract extraction H/O eye surgery History of spinal surgery History of tonsillectomy and adenoidectomy S/P TURP Family History Family History Mother Diabetes mellitus Social History Social History (Updated 12/23/22 @ 14:12 by SILAS Pino) Social History: The patient lives with his cousin González and his cousin's . He is and has 2 daughters. He is disabled. He is a former smoker. He does not use any alcohol marijuana or illicit drugs. His cousin González is his durable power traffic law attorney for healthcare. he is listed as a full code Code status full code Smoking packs per day: 1 Smoking cigarettes per day: 20.0 Years smoked: 40 Smoking pack-years: 40.00 Smoking status: Former smoker Tobacco type: cigarettes and smokeless tobacco Smokeless tobacco user: chewing tobacco Second hand tobacco smoke exposure: Yes Alcohol intake: never Substance use: never Substance use type: marijuana Other substance usage details: couple of hits once a day Lack of Transportation: No Lack of Food: Never True Current Housing: I Have Housing Concerned About Future Housing: No Difficulty Paying Gas/Electric Bills: No Difficulty Paying for Meds: No Currently Unemployed: No Education: High School Diploma/GED D
[2022-12-23 11:47] LABS: Appearance Urine Clear (Clear); Bacteria Urine None Seen /hpf; Bilirubin Urine Negative (Negative); Blood Urine 1+ (Negative); Color Urine Yellow (Yellow); Glucose Urine UA Negative (Negative); Ketones Urine Negative (Negative); Leukocyte Esterase Ur 1+ LEU/UL (Negative); Nitrate Urine Negative (Negative); Non Pathogenic Casts 0-2; Protein Urine 2+ mg/dL (Negative); Squamous Epithelial Cell Urine None seen /hpf (Few); Urobilinogen Urine 0.2 mg/dL (<2.0); WBC Urine >100 /hpf; pH Urine 5.5 (5.0-9.0)
[2022-12-23 11:52] LABS: Specific Grav Ur 1.057 (1.001-1.035)
[2022-12-23 11:53] LABS: Add Urine Microscopic? YES
--- NOTE | 2022-12-23 13:36 | PM.CNGS ---
Assessment and Plan Assessment and plan (1) Cholecystostomy tube dysfunction: Code(s): T85.518A - Breakdown (mechanical) of other gastrointestinal prosthetic devices, implants and grafts, initial encounter Status: Acute Assessment and Plan: Patient presents back with right upper quadrant abdominal pain and displacement of his cholecystostomy tube. Reviewed the CT with the Radiologist. CT showed the tip of the cholecystostomy tube is just outside of the gallbladder with a small amount of fluid just around the gallbladder where the tip of the tube is located. There is still some bilious-appearing output coming from the cholecystostomy tube overnight and this morning, which could indicate a small hole in the gallbladder that is still leaking bile and draining through the tube. The concern with removing the cholecystostomy tube would be that he could then develop a biloma if there is bile leaking through a hole in the gallbladder. Another option is leaving the tube in place and plan on removing this during surgery. He is on Plavix and Eliquis, which would ideally need to be held for a few days (typically 5 days for the Plavix) prior to proceeding with a cholecystectomy. We will leave the cholecystostomy tube in place for now and monitor the output over the next few days. If the drain output diminishes, then this could potentially be pulled. If he continues to have bile draining, then we may consider proceeding with a cholecystectomy later this week. The patient has multiple co-morbidities listed below that increases his risks for surgery and general anesthesia. Will allow clear liquids now. Continue to monitor the patient with serial abdominal exams and labs. His abdominal pain has already improved significantly since admission. Thank you for allowing us to see the patient in consultation and we will continue to follow along with you. (2) Cholecystitis, chronic: Code(s): K81.1 - Chronic cholecystitis Status: Chronic (3) Malignant neoplasm of prostate metastatic to bone: Code(s): C61 - Malignant neoplasm of prostate; C79.51 - Secondary malignant neoplasm of bone Status: Acute (4) Chronic respiratory failure: Code(s): J96.10 - Chronic respiratory failure, unspecified whether with hypoxia or hypercapnia Status: Acute Assessment and Plan: Chronically on 3 liters oxygen. Increases risks of surgery and anesthesia. (5) COPD (chronic obstructive pulmonary disease): Qualifiers: COPD type: unspecified COPD Qualified Code(s): J44.9 - Chronic obstructive pulmonary disease, unspecified Code(s): J44.9 - Chronic obstructive pulmonary disease, unspecified Status: Chronic (6) Anticoagulant long-term use: Code(s): Z79.01 - USP (current) use of anticoagulants Status: Acute Assessment and Plan: Hold Eliquis for now. Increases surgical risks. (7) Antiplatelet or antithrombotic long-term use: Code(s): Z79.02 - oil heaterman (current) use of antithrombotics/antiplatelets Status: Acute Assessment and Plan: Hold Plavix for now. Increases surgical risks. (8) Wheelchair dependent: Code(s): Z99.3 - Dependence on wheelchair Status: Acute Assessment and Plan: His immobility increases risks of surgery Plan I have discussed the patient's case and plan of care with Dr. Frausto. History of Present Illness Consult details Consult date: 12/23/22 Reason for consult: other (Cholecystitis with dislodged cholecystostomy tube) Requesting physician: Justo Johnson MD Narrative: This is a 52-year-old man known to our service from a previous hospitalization for acute cholecystitis, sepsis, and colitis admitted from 10/31/22 through 11/11/2022. He was treated with IV antibiotics and percutaneous cholecystostomy tube placement on 10/31/2022. He had a cholangiogram on 11/05/2022 that showed a patent cystic duct. His cholecystostomy tube remai
[2022-12-23] MEDS: MORPHINE SULFATE (*CRX) 2 MG/ML INJ 1 MG IV PUSH (19:41)
[2022-12-23] MEDS: FLUTICASONE/SALMETEROL 230-21 MCG INHALER 1 PUFF 2 PUFF INHALATION (20:29)
[2022-12-24] MEDS: LACTATED RINGERS 1,000 ML 125 ML IV CONT ×3 (01:11→22:27)
[2022-12-24] MEDS: MORPHINE SULFATE (*CRX) 2 MG/ML INJ 1 MG IV PUSH ×2 (05:34→21:13)
[2022-12-24 05:50] LABS: Basophils Absolute Auto 0.1 K/mm3 (0.0-0.1); Basophils Percent Auto 0.6 % (0.2-1.2); Eosinophils Absolute Auto 0.3 K/mm3 (0-0.3); Eosinophils Percent Auto 3.2 % (0-4.4); Hematocrit 35.2 % (42.0-52.0); Hemoglobin 10.8 g/dL (14.0-18.0); Immature Granulocyte Absolute 0.03 K/mm3 (0.00-0.031); Immature Granulocyte Percent A 0.4 % (0-0.5); Immature Platelet Fraction Pct 4.3 % (0.9-11.2); Lymphocytes Absolute Auto 1.45 K/mm3 (0.9-3.2); Lymphocytes Percent Auto 17.6 % (18.3-44.2); Mean Corpuscular HGB Conc 30.7 g/dl (32-36); Mean Corpuscular Hemoglobin 30.7 pg (26-34); Mean Platelet Volume 10.9 fl (7.4-10.4); Monocytes Absolute Auto 0.4 K/mm3 (0.1-0.6); Monocytes Percent Auto 4.6 % (2.6-8.5); Neutrophils Absolute Auto 6.1 K/mm3 (1.3-6.7); Neutrophils Percent Auto 73.6 % (45.5-73.1); Platelet Count Result 232 k/mm3 (150-375); Red Blood Count 3.52 M/mm3 (4.6-6.20); Red Cell Distribution Width 16.9 % (11.5-14.5); White Blood Count 8.3 K/mm3 (4.5-10.0)
[2022-12-24 06:00] VITALS: BP 109/81; PULSE 60; RESP 21; TEMP 36.4; O2SAT 100
[2022-12-24 06:14] LABS: Alanine Aminotransferase 12 U/L (6-50); Albumin Level 3.4 g/dL (3.5-5.1); Alkaline Phosphatase 459 U/L (38-126); Anion Gap 2 mmol/L (8-16); Aspartate Amino Transferase 17 U/L (17-59); Bilirubin,Total 0.7 mg/dL (0.2-1.3); Blood Urea Nitrogen 5 mg/dL (9-20); Calcium 7.2 mg/dL (8.4-10.2); Carbon Dioxide 29 mmol/L (22-30); Chloride 109 mmol/L (98-107); Estimated CRCL calculation 211 ml/min; Estimated Glomerular Filt Rate > 60; Glucose 88 mg/dL (65-110); Magnesium 1.8 mg/dL (1.6-2.3); Potassium 3.5 mmol/L (3.4-5.0); Sodium 140 mmol/L (137-145)
[2022-12-24] MEDS: FLUTICASONE/SALMETEROL 230-21 MCG INHALER 1 PUFF 2 PUFF INHALATION ×2 (07:47→21:50)
[2022-12-24 07:49] VITALS: O2SAT 96
[2022-12-24 08:00] VITALS: O2SAT 94
[2022-12-24] MEDS: CALCIUM CARBONATE (OSCAL) 500 MG TABLET PO ×4 (09:02→22:08)
[2022-12-24] MEDS: GABAPENTIN 400 MG CAPSULE PO ×2 (09:02→17:27)
[2022-12-24] MEDS: CYCLOBENZAPRINE HCL 10 MG TABLET PO ×3 (09:02→17:27)
[2022-12-24] MEDS: predniSONE 5 MG TABLET PO ×2 (09:02→17:27)
[2022-12-24] MEDS: FUROSEMIDE 20 MG TABLET PO (09:02)
[2022-12-24] MEDS: SENNA/DOCUSATE SODIUM TABLET 1 TAB PO ×2 (09:03→17:27)
[2022-12-24] MEDS: FERROUS SULFATE 324 MG TABLET PO ×2 (09:03→17:27)
[2022-12-24] MEDS: ASCORBIC ACID 500 MG TABLET PO ×2 (09:03→17:27)
[2022-12-24] MEDS: polyethylene glycoL 3350 17 GM POWD.PACK PO (09:03)
[2022-12-24] MEDS: POTASSIUM/PHOSPHORUS/SODIUM 1.5 GM PACKET 1 PACKET PO ×4 (09:03→22:08)
--- NOTE | 2022-12-24 09:13 | PM.PNGS ---
Progress Note: A&P Assessment and Plan (1) Cholecystostomy tube dysfunction: Code(s): T85.518A - Breakdown (mechanical) of other gastrointestinal prosthetic devices, implants and grafts, initial encounter Status: Acute Assessment and Plan: CT suggests the cholecystostomy tube is no longer within the gallbladder and is just outside the gallbladder wall. This continues to drain bile. Will order a cholangiogram through the cholecystostomy tube to evaluate placement. If the tube is within the gallbladder, then this could be removed. If it is outside of the gallbladder, then we will leave the tube in place while still having bilious drainage. (2) Cholecystitis, chronic: Code(s): K81.1 - Chronic cholecystitis Status: Chronic (3) Malignant neoplasm of prostate metastatic to bone: Code(s): C61 - Malignant neoplasm of prostate; C79.51 - Secondary malignant neoplasm of bone Status: Acute (4) Chronic respiratory failure: Code(s): J96.10 - Chronic respiratory failure, unspecified whether with hypoxia or hypercapnia Status: Acute (5) COPD (chronic obstructive pulmonary disease): Qualifiers: COPD type: unspecified COPD Qualified Code(s): J44.9 - Chronic obstructive pulmonary disease, unspecified Code(s): J44.9 - Chronic obstructive pulmonary disease, unspecified Status: Chronic (6) Anticoagulant long-term use: Code(s): Z79.01 - long-term (current) use of anticoagulants Status: Acute Assessment and Plan: Hold Eliquis (7) Antiplatelet or antithrombotic long-term use: Code(s): Z79.02 - long-term (current) use of antithrombotics/antiplatelets Status: Acute Assessment and Plan: Hold Plavix (8) Wheelchair dependent: Code(s): Z99.3 - Dependence on wheelchair Status: Acute Plan I have discussed the patient's case and plan of care with Dr. Frausto. Subjective Subjective Date/Time Seen: 12/24/22 08:13 Patient reports: no new complaints, feels better, pain is less and afebrile Interval history: Patient doing well today. Still with some RUQ abdominal pain, but this continues to improve daily. Cholecystostomy tube with bile in his tube this morning, recorded 250 cc output overnight. He is eager to eat food and is hungry. No nausea or bloating. No other complaints at this time. Review of Systems Review of Systems: ROS unchanged Exam Const: General: comfortable, no acute distress and awake Orientation/consciousness: patient oriented x3 GI: Inspection: non-distended and other (RUQ cholecystostomy tube with bilious drainage) GI Palp: Yes Soft to palpation, Yes Tenderness to palpation present (GI) (diffusely tender most focally in RUQ), No Guarding due to palpation present (GI) and No Rebound tenderness present Auscultation: normal bowel sounds Extrem: General: no edema Psych: Insight: Good insight present (Psych) Judgement: Good judgement present (Psych) Objective Data Vital Signs Vital Signs: Vital Signs - 24 hr 12/23/22 13:29 12/23/22 20:35 12/23/22 22:00 Temperature 97.9 F 97.3 F L Pulse Rate 95 102 H 99 Respiratory Rate 17 21 H Blood Pressure 108/62 117/78 Pulse Oximetry 99 96 100 Oxygen Delivery Nasal Cannula Oxygen Flow Rate 3 12/24/22 07:49 12/24/22 06:00 Temperature 97.6 F Pulse Rate 60 Respiratory Rate 21 H Blood Pressure 109/81 Pulse Oximetry 96 100 Oxygen Delivery Nasal Cannula Oxygen Flow Rate 3 Intake/Output Intake/Output: Intake & Output 12/21/22 12/22/22 12/23/22 12/24/22 23:59 23:59 23:59 23:59 Intake Total 3050 2600 Output Total 1125 1150 Balance 1925 1450 Meds/Results Medications: Active Medications Generic Name Dose Route Start Last Admin Trade Name Freq PRN Reason Stop Dose Admin Albuterol 2 puff 12/23/22 08:06 Albuterol Sulfate (*Sp) Aerosol 1 Puff INHALATION Q6-8H PRN Shortness Of Breath Or Wheezing
[2022-12-24] MEDS: MAGNESIUM OXIDE 400 MG TABLET PO (12:13)
--- NOTE | 2022-12-24 12:15 | P.PNIM_ITS ---
Progress Note: A&P Assessment and Plan (1) Cholecystitis, chronic: Code(s): K81.1 - Chronic cholecystitis Status: Chronic Assessment and Plan: * Chronic findings * Kaykay tube placed on 10/31/22, removed 12/24/22 * Abd/Pel CT indicate dislodgement of the tube * General surgery consulted thank you for your help * Liver enzymes stable * Alk phos trending down at 459 * Continue to trend labs * Pain medications ordered * Hold plavix and eliquis for now * Cholecystectomy vs monitor and trend (2) Cholecystostomy tube dysfunction: Code(s): T85.518A - Breakdown (mechanical) of other gastrointestinal prosthetic devices, implants and grafts, initial encounter Status: Acute Assessment and Plan: See above (3) Malignant neoplasm of prostate metastatic to bone: Code(s): C61 - Malignant neoplasm of prostate; C79.51 - Secondary malignant neoplasm of bone Status: Acute Assessment and Plan: * History of primary prostate cancer * CT of the abd/pel: Extensive osseous metastatic disease * Chronic urinary catheter * hold home Abriaterone as this is non-formulary * Trend urine output * Continue chronic management and treatment (4) Hyperlipidemia: Qualifiers: Hyperlipidemia type: mixed hyperlipidemia Qualified Code(s): E78.2 - Mixed hyperlipidemia Code(s): E78.5 - Hyperlipidemia, unspecified Status: Chronic Assessment and Plan: * Stable * Restart atorvastatin for now (5) Chronic respiratory failure: Code(s): J96.10 - Chronic respiratory failure, unspecified whether with hypoxia or hypercapnia Status: Acute Assessment and Plan: * Chronic respiratory failure related to COPD * Continue home oxygen at 4LNC * Trend respiratory status * Wean to maintain saturations >90% (6) BPH (benign prostatic hyperplasia): Qualifiers: Lower urinary tract symptom presence: unspecified whether lower urinary tract symptoms present Qualified Code(s): N40.0 - Benign prostatic hyperplasia without lower urinary tract symptoms Code(s): N40.0 - Benign prostatic hyperplasia without lower urinary tract symptoms Status: Acute Assessment and Plan: * Stable * trend urinary output * Urine function stable at 5/0.30 * Trend labs * Adjust therapy as indicated * UA appears to be infectious (7) COPD (chronic obstructive pulmonary disease): Qualifiers: COPD type: unspecified COPD Qualified Code(s): J44.9 - Chronic obstructive pulmonary disease, unspecified Code(s): J44.9 - Chronic obstructive pulmonary disease, unspecified Status: Chronic Assessment and Plan: * Continue home Breo ellipta, and albuterol * Continue home O2 at home settings * Trend respiratory status * Keep saturations >90% * Stable (8) Abnormal urinalysis: Code(s): R82.90 - Unspecified abnormal findings in urine Status: Acute Assessment and Plan: * UA appears infectious with leukocyte esterase, WBC >100 * Urine culture pending * Start ceftriaxone * Trend labs * Adjust therapy to culture results * Most likely related to chronic urinary catheter. Time Spent With Pat
--- NOTE | 2022-12-24 12:15 | PM.IMPN ---
Progress Note: A&P Assessment and Plan (1) Cholecystitis, chronic: Code(s): K81.1 - Chronic cholecystitis Status: Chronic Assessment and Plan: Chronic findings Kaykay tube placed on 10/31/22, removed 12/24/22 Abd/Pel CT indicate dislodgement of the tube General surgery consulted thank you for your help Liver enzymes stable Alk phos trending down at 459 Continue to trend labs Pain medications ordered Hold plavix and eliquis for now Cholecystectomy vs monitor and trend (2) Cholecystostomy tube dysfunction: Code(s): T85.518A - Breakdown (mechanical) of other gastrointestinal prosthetic devices, implants and grafts, initial encounter Status: Acute Assessment and Plan: See above (3) Malignant neoplasm of prostate metastatic to bone: Code(s): C61 - Malignant neoplasm of prostate; C79.51 - Secondary malignant neoplasm of bone Status: Acute Assessment and Plan: History of primary prostate cancer CT of the abd/pel: Extensive osseous metastatic disease Chronic urinary catheter hold home Abriaterone as this is non-formulary Trend urine output Continue chronic management and treatment (4) Hyperlipidemia: Qualifiers: Hyperlipidemia type: mixed hyperlipidemia Qualified Code(s): E78.2 - Mixed hyperlipidemia Code(s): E78.5 - Hyperlipidemia, unspecified Status: Chronic Assessment and Plan: Stable Restart atorvastatin for now (5) Chronic respiratory failure: Code(s): J96.10 - Chronic respiratory failure, unspecified whether with hypoxia or hypercapnia Status: Acute Assessment and Plan: Chronic respiratory failure related to COPD Continue home oxygen at 4LNC Trend respiratory status Wean to maintain saturations >90% (6) BPH (benign prostatic hyperplasia): Qualifiers: Lower urinary tract symptom presence: unspecified whether lower urinary tract symptoms present Qualified Code(s): N40.0 - Benign prostatic hyperplasia without lower urinary tract symptoms Code(s): N40.0 - Benign prostatic hyperplasia without lower urinary tract symptoms Status: Acute Assessment and Plan: Stable trend urinary output Urine function stable at 5/0.30 Trend labs Adjust therapy as indicated UA appears to be infectious (7) COPD (chronic obstructive pulmonary disease): Qualifiers: COPD type: unspecified COPD Qualified Code(s): J44.9 - Chronic obstructive pulmonary disease, unspecified Code(s): J44.9 - Chronic obstructive pulmonary disease, unspecified Status: Chronic Assessment and Plan: Continue home Breo ellipta, and albuterol Continue home O2 at home settings Trend respiratory status Keep saturations >90% Stable (8) Abnormal urinalysis: Code(s): R82.90 - Unspecified abnormal findings in urine Status: Acute Assessment and Plan: UA appears infectious with leukocyte esterase, WBC >100 Urine culture pending Start ceftriaxone Trend labs Adjust therapy to culture results Most likely related to chronic urinary catheter. Time Spent With Patient Time: 51 minutes Subjective Date/time seen: 12/24/22 1215 Interval history: 12/24/22 1215 Patient just returned from getting the drain pulled out of his right upper abdomen. Currently he is stating that he is having some left upper quadrant pain and little bit generalized pain on the right. He is still not had a bowel movement. He denies any current chest pain, shortness a breath, Nausea, vomiting. patient does admit to be comfortable. 12/23/22? 1030 Patient is a 52 year old male with a past medical history of metastatic prostate cancer with osseous lesions, cholecystitis, anemia, BPH, CVA, HLD, and COPD who presented to the ED with complaints of r
[2022-12-24] MEDS: BISACODYL 10 MG SUPPOSITORY RECTAL (14:33)
[2022-12-24 14:35] VITALS: BP 119/66; PULSE 104; RESP 17; TEMP 36.8; O2SAT 98
[2022-12-24] MEDS: oxyCODONE/ACETAMINOPHEN (*CRX) 5-325 MG TABLET 1 TABLET PO (17:32)
[2022-12-24 22:00] VITALS: BP 129/66; PULSE 86; RESP 16; TEMP 36.5; O2SAT 93
[2022-12-24] MEDS: ATORVASTATIN 40 MG TABLET 80 MG PO (22:08)
[2022-12-24] MEDS: MIRTAZAPINE 15 MG TABLET PO (22:08)
[2022-12-25] VITALS (8 sets, daily range): BP systolic 121–127; BP diastolic 68–80; PULSE 95–108; RESP 18–20; TEMP 36.5–37.3; O2SAT 98–100
[2022-12-25 05:50] LABS: Basophils Absolute Auto 0.1 K/mm3 (0.0-0.1); Basophils Percent Auto 0.6 % (0.2-1.2); Eosinophils Absolute Auto 0.3 K/mm3 (0-0.3); Eosinophils Percent Auto 3.3 % (0-4.4); Hematocrit 35.2 % (42.0-52.0); Hemoglobin 10.8 g/dL (14.0-18.0); Immature Granulocyte Absolute 0.02 K/mm3 (0.00-0.031); Immature Granulocyte Percent A 0.3 % (0-0.5); Lymphocytes Absolute Auto 1.49 K/mm3 (0.9-3.2); Lymphocytes Percent Auto 18.9 % (18.3-44.2); Mean Corpuscular HGB Conc 30.7 g/dl (32-36); Mean Corpuscular Hemoglobin 30.6 pg (26-34); Mean Corpuscular Volume 99.7 fl (80-100); Mean Platelet Volume 10.4 fl (7.4-10.4); Monocytes Absolute Auto 0.4 K/mm3 (0.1-0.6); Monocytes Percent Auto 5.1 % (2.6-8.5); Neutrophils Absolute Auto 5.7 K/mm3 (1.3-6.7); Neutrophils Percent Auto 71.8 % (45.5-73.1); Platelet Count Result 240 k/mm3 (150-375); Red Blood Count 3.53 M/mm3 (4.6-6.20); White Blood Count 7.9 K/mm3 (4.5-10.0)
[2022-12-25] MEDS: oxyCODONE/ACETAMINOPHEN (*CRX) 5-325 MG TABLET 1 TABLET PO ×2 (05:50→12:42)
[2022-12-25] MEDS: LACTATED RINGERS 1,000 ML 125 ML IV CONT (05:53)
[2022-12-25 06:04] LABS: Alanine Aminotransferase 12 U/L (6-50); Albumin Level 3.4 g/dL (3.5-5.1); Alkaline Phosphatase 447 U/L (38-126); Anion Gap 5 mmol/L (8-16); Aspartate Amino Transferase 13 U/L (17-59); Bilirubin,Total 0.4 mg/dL (0.2-1.3); Blood Urea Nitrogen 5 mg/dL (9-20); Calcium 7.7 mg/dL (8.4-10.2); Carbon Dioxide 29 mmol/L (22-30); Chloride 110 mmol/L (98-107); Estimated CRCL calculation 166 ml/min; Estimated Glomerular Filt Rate > 60; Glucose 108 mg/dL (65-110); Potassium 3.7 mmol/L (3.4-5.0); Sodium 144 mmol/L (137-145)
[2022-12-25] MEDS: FLUTICASONE/SALMETEROL 230-21 MCG INHALER 1 PUFF 2 PUFF INHALATION ×2 (08:13→20:44)
[2022-12-25] MEDS: CYCLOBENZAPRINE HCL 10 MG TABLET PO ×3 (09:08→17:18)
[2022-12-25] MEDS: CALCIUM CARBONATE (OSCAL) 500 MG TABLET PO ×4 (09:08→21:13)
[2022-12-25] MEDS: SENNA/DOCUSATE SODIUM TABLET 1 TAB PO ×2 (09:08→17:18)
[2022-12-25] MEDS: FERROUS SULFATE 324 MG TABLET PO ×2 (09:08→17:19)
[2022-12-25] MEDS: GABAPENTIN 400 MG CAPSULE PO ×2 (09:08→17:18)
[2022-12-25] MEDS: FUROSEMIDE 20 MG TABLET PO (09:08)
[2022-12-25] MEDS: polyethylene glycoL 3350 17 GM POWD.PACK PO (09:08)
[2022-12-25] MEDS: ASCORBIC ACID 500 MG TABLET PO ×2 (09:08→17:18)
[2022-12-25] MEDS: POTASSIUM/PHOSPHORUS/SODIUM 1.5 GM PACKET 1 PACKET PO ×4 (09:08→21:13)
[2022-12-25] MEDS: predniSONE 5 MG TABLET PO ×2 (09:08→17:18)
[2022-12-25] MEDS: MORPHINE SULFATE (*CRX) 2 MG/ML INJ 1 MG IV PUSH ×2 (09:22→21:05)
--- NOTE | 2022-12-25 10:00 | P.PNIM_ITS ---
Progress Note: A&P Assessment and Plan (1) Cholecystitis, chronic: Code(s): K81.1 - Chronic cholecystitis Status: Chronic Assessment and Plan: * Chronic findings * Kaykay tube placed on 10/31/22, removed 12/24/22 * Abd/Pel CT indicate dislodgement of the tube * General surgery consulted thank you for your help * Liver enzymes stable * Alk phos trending down at 459 * Continue to trend labs * Pain medications ordered * Hold plavix and eliquis for now * Cholecystectomy vs monitor and trend * Cholangiogram showed decompressed gallbladder (2) Cholecystostomy tube dysfunction: Code(s): T85.518A - Breakdown (mechanical) of other gastrointestinal prosthetic devices, implants and grafts, initial encounter Status: Acute Assessment and Plan: * See above * Tube removed (3) Malignant neoplasm of prostate metastatic to bone: Code(s): C61 - Malignant neoplasm of prostate; C79.51 - Secondary malignant neoplasm of bone Status: Acute Assessment and Plan: * History of primary prostate cancer * CT of the abd/pel: Extensive osseous metastatic disease * Chronic urinary catheter * hold home Abriaterone as this is non-formulary * Trend urine output * Continue chronic management and treatment (4) Hyperlipidemia: Qualifiers: Hyperlipidemia type: mixed hyperlipidemia Qualified Code(s): E78.2 - Mixed hyperlipidemia Code(s): E78.5 - Hyperlipidemia, unspecified Status: Chronic Assessment and Plan: * Stable * Restart atorvastatin for now (5) Chronic respiratory failure: Code(s): J96.10 - Chronic respiratory failure, unspecified whether with hypoxia or hypercapnia Status: Acute Assessment and Plan: * Chronic respiratory failure related to COPD * Continue home oxygen at 4LNC * Trend respiratory status * Wean to maintain saturations >90% (6) BPH (benign prostatic hyperplasia): Qualifiers: Lower urinary tract symptom presence: unspecified whether lower urinary tract symptoms present Qualified Code(s): N40.0 - Benign prostatic hyperplasia without lower urinary tract symptoms Code(s): N40.0 - Benign prostatic hyperplasia without lower urinary tract symptoms Status: Acute Assessment and Plan: * Stable * trend urinary output * Urine function stable at 5/0.40 * Trend labs * Adjust therapy as indicated * UA appears to be infectious (7) COPD (chronic obstructive pulmonary disease): Qualifiers: COPD type: unspecified COPD Qualified Code(s): J44.9 - Chronic obstructive pulmonary disease, unspecified Code(s): J44.9 - Chronic obstructive pulmonary disease, unspecified Status: Chronic Assessment and Plan: * Continue home Breo ellipta, and albuterol * Continue home O2 at home settings * Trend respiratory status * Keep saturations >90% * Stable (8) Abnormal urinalysis: Code(s): R82.90 - Unspecified abnormal findings in urine Status: Acute Assessment and Plan: * UA appears infectious with leukocyte esterase, WBC >100 * Urine culture shows contamination * No indication for repeat at this time * Ceftriaxone can most likely be stopped since this could be more of a
--- NOTE | 2022-12-25 10:00 | PM.IMPN ---
Progress Note: A&P Assessment and Plan (1) Cholecystitis, chronic: Code(s): K81.1 - Chronic cholecystitis Status: Chronic Assessment and Plan: Chronic findings Kaykay tube placed on 10/31/22, removed 12/24/22 Abd/Pel CT indicate dislodgement of the tube General surgery consulted thank you for your help Liver enzymes stable Alk phos trending down at 459 Continue to trend labs Pain medications ordered Hold plavix and eliquis for now Cholecystectomy vs monitor and trend Cholangiogram showed decompressed gallbladder (2) Cholecystostomy tube dysfunction: Code(s): T85.518A - Breakdown (mechanical) of other gastrointestinal prosthetic devices, implants and grafts, initial encounter Status: Acute Assessment and Plan: See above Tube removed (3) Malignant neoplasm of prostate metastatic to bone: Code(s): C61 - Malignant neoplasm of prostate; C79.51 - Secondary malignant neoplasm of bone Status: Acute Assessment and Plan: History of primary prostate cancer CT of the abd/pel: Extensive osseous metastatic disease Chronic urinary catheter hold home Abriaterone as this is non-formulary Trend urine output Continue chronic management and treatment (4) Hyperlipidemia: Qualifiers: Hyperlipidemia type: mixed hyperlipidemia Qualified Code(s): E78.2 - Mixed hyperlipidemia Code(s): E78.5 - Hyperlipidemia, unspecified Status: Chronic Assessment and Plan: Stable Restart atorvastatin for now (5) Chronic respiratory failure: Code(s): J96.10 - Chronic respiratory failure, unspecified whether with hypoxia or hypercapnia Status: Acute Assessment and Plan: Chronic respiratory failure related to COPD Continue home oxygen at 4LNC Trend respiratory status Wean to maintain saturations >90% (6) BPH (benign prostatic hyperplasia): Qualifiers: Lower urinary tract symptom presence: unspecified whether lower urinary tract symptoms present Qualified Code(s): N40.0 - Benign prostatic hyperplasia without lower urinary tract symptoms Code(s): N40.0 - Benign prostatic hyperplasia without lower urinary tract symptoms Status: Acute Assessment and Plan: Stable trend urinary output Urine function stable at 5/0.40 Trend labs Adjust therapy as indicated UA appears to be infectious (7) COPD (chronic obstructive pulmonary disease): Qualifiers: COPD type: unspecified COPD Qualified Code(s): J44.9 - Chronic obstructive pulmonary disease, unspecified Code(s): J44.9 - Chronic obstructive pulmonary disease, unspecified Status: Chronic Assessment and Plan: Continue home Breo ellipta, and albuterol Continue home O2 at home settings Trend respiratory status Keep saturations >90% Stable (8) Abnormal urinalysis: Code(s): R82.90 - Unspecified abnormal findings in urine Status: Acute Assessment and Plan: UA appears infectious with leukocyte esterase, WBC >100 Urine culture shows contamination No indication for repeat at this time Ceftriaxone can most likely be stopped since this could be more of a colonization Trend labs Adjust therapy to culture results Most likely related to chronic urinary catheter. Time Spent With Patient Time: 48 minutes Time with patient: Greater than 35 minutes Subjective Date/time seen: 12/25/22 1000 Interval history: 12/25/22999 Patient is doing okay today. He did state that he had some generalized pain. He currently denies any chest pain, shortness a breath, nausea, vomiting abdominal pain, constipation, weakness or fatigue. Patient stated that he feels pretty good at baseline general surgery stated that he can restart his anticoagulants and probably go home tomorro
[2022-12-25] MEDS: MAGNESIUM OXIDE 400 MG TABLET PO (12:43)
--- NOTE | 2022-12-25 14:04 | PM.PNGS ---
Progress Note: A&P Assessment and Plan (1) Cholecystostomy tube dysfunction: Code(s): T85.518A - Breakdown (mechanical) of other gastrointestinal prosthetic devices, implants and grafts, initial encounter Status: Acute Assessment and Plan: Cholecystostomy tube removed in Radiology yesterday as the tip of the catheter was in the gallbladder with no extravasation and a patent cystic duct. He is tolerating a regular diet well. No drainage from where the catheter was removed as of today. Will continue to monitor overnight and he could potentially be discharged tomorrow if he continues to do well. (2) Cholecystitis, chronic: Code(s): K81.1 - Chronic cholecystitis Status: Chronic (3) Malignant neoplasm of prostate metastatic to bone: Code(s): C61 - Malignant neoplasm of prostate; C79.51 - Secondary malignant neoplasm of bone Status: Acute (4) Chronic respiratory failure: Code(s): J96.10 - Chronic respiratory failure, unspecified whether with hypoxia or hypercapnia Status: Acute (5) COPD (chronic obstructive pulmonary disease): Qualifiers: COPD type: unspecified COPD Qualified Code(s): J44.9 - Chronic obstructive pulmonary disease, unspecified Code(s): J44.9 - Chronic obstructive pulmonary disease, unspecified Status: Chronic (6) Anticoagulant long-term use: Code(s): 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 Frausto. Subjective Subjective Date/Time Seen: 12/25/22 14:04 Patient reports: tolerating a regular diet and afebrile Interval history: Patient seen today and doing well. He denies any abdominal pain today. He is chronically tender and has intermittent pain related to his cancer, but no pain after eating. He tolerated a regular diet this morning and for lunch without any issues. Review of Systems Review of Systems: All systems reviewed & are unremarkable except as noted in HPI and below Exam Const: General: comfortable, no acute distress and awake Orientation/consciousness: patient oriented x3 GI: Inspection: non-distended and other (RUQ dressing dry and intact) GI Palp: Yes Soft to palpation, Yes Tenderness to palpation present (GI) (mild lower abdominal tenderness, reportedly chronic with his cancer) and No Guarding due to palpation present (GI) Auscultation: normal bowel sounds Objective Data Vital Signs Vital Signs: Vital Signs - 24 hr 12/24/22 14:35 12/24/22 21:15 12/24/22 22:00 Temperature 98.3 F 97.7 F Pulse Rate 104 H 86 Respiratory Rate 17 16 Blood Pressure 119/66 129/66 Pulse Oximetry 98 93 Oxygen Delivery Nasal Cannula Oxygen Flow Rate 3 Fraction of Inspired Oxygen 12/25/22 06:00 12/25/22 08:13 12/25/22 08:13 Temperature 97.7 F Pulse Rate 108 H 96 96 Respiratory Rate 20 18 18 Blood Pressure 122/80 Pulse Oximetry 99 99 Oxygen Delivery Nasal Cannula Oxygen Flow Rate 3 Fraction of Inspired Oxygen 32 12/25/22 08:00 Temperature Pulse Rate Respiratory Rate Blood Pressure Pulse Oximetry 99 Oxygen Delivery Nasal Cannula Oxygen Flow Rate 3 Fraction of Inspired Oxygen Intake/Output Intake/Output: Intake & Output 12/22/22 12/23/22 12/24/22 12/25/22 23:59 23:59 23:59 23:59 Intake Total 3050 6040 2060 Output Total 1125 3450 1400 Balance 1925 2590 660 Meds/Results Medications: Active Medications Generic Name Dose Route Start Last Admin Trade Name Freq PRN Reason Stop Dose Admin Albuterol 2 puff 12/23/22 08
[2022-12-25] MEDS: APIXABAN 5 MG TABLET PO (17:18)
[2022-12-25] MEDS: CLOPIDOGREL BISULFATE 75 MG TABLET PO (17:18)
[2022-12-25] MEDS: MIRTAZAPINE 15 MG TABLET PO (21:13)
[2022-12-25] MEDS: ATORVASTATIN 40 MG TABLET 80 MG PO (21:13)
[2022-12-26] MEDS: rOPINIRole HCL 0.25 MG TABLET PO (01:39)
[2022-12-26 04:51] VITALS: BP 133/82; PULSE 106; RESP 18; TEMP 36.4; O2SAT 100
[2022-12-26 05:56] LABS: Basophils Absolute Auto 0.1 K/mm3 (0.0-0.1); Basophils Percent Auto 0.8 % (0.2-1.2); Eosinophils Absolute Auto 0.3 K/mm3 (0-0.3); Hematocrit 37.1 % (42.0-52.0); Hemoglobin 11.6 g/dL (14.0-18.0); Immature Granulocyte Absolute 0.04 K/mm3 (0.00-0.031); Immature Granulocyte Percent A 0.5 % (0-0.5); Lymphocytes Absolute Auto 1.36 K/mm3 (0.9-3.2); Lymphocytes Percent Auto 15.8 % (18.3-44.2); Mean Corpuscular HGB Conc 31.3 g/dl (32-36); Mean Corpuscular Hemoglobin 31.1 pg (26-34); Mean Corpuscular Volume 99.5 fl (80-100); Mean Platelet Volume 10.6 fl (7.4-10.4); Monocytes Absolute Auto 0.5 K/mm3 (0.1-0.6); Monocytes Percent Auto 5.2 % (2.6-8.5); Neutrophils Absolute Auto 6.4 K/mm3 (1.3-6.7); Neutrophils Percent Auto 74.7 % (45.5-73.1); Platelet Count Result 248 k/mm3 (150-375); Red Blood Count 3.73 M/mm3 (4.6-6.20); Red Cell Distribution Width 16.8 % (11.5-14.5); White Blood Count 8.6 K/mm3 (4.5-10.0)
[2022-12-26 06:15] LABS: Alanine Aminotransferase 14 U/L (6-50); Albumin Level 3.9 g/dL (3.5-5.1); Alkaline Phosphatase 463 U/L (38-126); Anion Gap 4 mmol/L (8-16); Aspartate Amino Transferase 17 U/L (17-59); Bilirubin,Total 0.5 mg/dL (0.2-1.3); Blood Urea Nitrogen 8 mg/dL (9-20); Calcium 9.2 mg/dL (8.4-10.2); Carbon Dioxide 31 mmol/L (22-30); Chloride 108 mmol/L (98-107); Estimated CRCL calculation 116 ml/min; Estimated Glomerular Filt Rate > 60; Glucose 109 mg/dL (65-110); Potassium 4.6 mmol/L (3.4-5.0); Sodium 143 mmol/L (137-145)
[2022-12-26 08:20] VITALS: O2SAT 98
[2022-12-26] MEDS: APIXABAN 5 MG TABLET PO ×2 (08:21→16:53)
[2022-12-26] MEDS: ASCORBIC ACID 500 MG TABLET PO ×2 (08:21→16:53)
[2022-12-26] MEDS: CLOPIDOGREL BISULFATE 75 MG TABLET PO (08:22)
[2022-12-26] MEDS: CALCIUM CARBONATE (OSCAL) 500 MG TABLET PO ×3 (08:22→16:53)
[2022-12-26] MEDS: SENNA/DOCUSATE SODIUM TABLET 1 TAB PO ×2 (08:23→16:55)
[2022-12-26] MEDS: FERROUS SULFATE 324 MG TABLET PO ×2 (08:23→16:55)
[2022-12-26] MEDS: FUROSEMIDE 20 MG TABLET PO (08:23)
[2022-12-26] MEDS: CYCLOBENZAPRINE HCL 10 MG TABLET PO ×3 (08:23→16:54)
[2022-12-26] MEDS: GABAPENTIN 400 MG CAPSULE PO ×2 (08:24→16:55)
[2022-12-26] MEDS: polyethylene glycoL 3350 17 GM POWD.PACK PO (08:24)
[2022-12-26] MEDS: predniSONE 5 MG TABLET PO ×2 (08:25→16:56)
[2022-12-26 08:33] VITALS: PULSE 105; RESP 18; O2SAT 98
[2022-12-26] MEDS: FLUTICASONE/SALMETEROL 230-21 MCG INHALER 1 PUFF 2 PUFF INHALATION (08:33)
--- NOTE | 2022-12-26 09:00 | PM.DS ---
DS: Admitting Diagnosis Discharge Date 12/26/22 0900 Admitting Diagnosis Perc drain dysfunction, abdominal pain, chronic cholecystitis DS: Discharge Diagnosis Discharge Diagnosis (1) Cholecystitis, chronic: Code(s): K81.1 - Chronic cholecystitis Status: Chronic Assessment and Plan: Chronic findings Kaykay tube placed on 10/31/22, removed 12/24/22 Abd/Pel CT indicate dislodgement of the tube General surgery consulted thank you for your help Liver enzymes stable Alk phos trending down at 459 Continue to trend labs Pain medications ordered Hold plavix and eliquis for now Cholecystectomy vs monitor and trend Cholangiogram showed decompressed gallbladder (2) Cholecystostomy tube dysfunction: Code(s): T85.518A - Breakdown (mechanical) of other gastrointestinal prosthetic devices, implants and grafts, initial encounter Status: Acute Assessment and Plan: See above Tube removed (3) Malignant neoplasm of prostate metastatic to bone: Code(s): C61 - Malignant neoplasm of prostate; C79.51 - Secondary malignant neoplasm of bone Status: Acute Assessment and Plan: History of primary prostate cancer CT of the abd/pel: Extensive osseous metastatic disease Chronic urinary catheter hold home Abriaterone as this is non-formulary Trend urine output Continue chronic management and treatment (4) Hyperlipidemia: Qualifiers: Hyperlipidemia type: mixed hyperlipidemia Qualified Code(s): E78.2 - Mixed hyperlipidemia Code(s): E78.5 - Hyperlipidemia, unspecified Status: Chronic Assessment and Plan: Stable Restart atorvastatin for now (5) Chronic respiratory failure: Code(s): J96.10 - Chronic respiratory failure, unspecified whether with hypoxia or hypercapnia Status: Acute Assessment and Plan: Chronic respiratory failure related to COPD Continue home oxygen at 4LNC Trend respiratory status Wean to maintain saturations >90% (6) BPH (benign prostatic hyperplasia): Qualifiers: Lower urinary tract symptom presence: unspecified whether lower urinary tract symptoms present Qualified Code(s): N40.0 - Benign prostatic hyperplasia without lower urinary tract symptoms Code(s): N40.0 - Benign prostatic hyperplasia without lower urinary tract symptoms Status: Acute Assessment and Plan: Stable trend urinary output Urine function stable at 5/0.40 Trend labs Adjust therapy as indicated UA appears to be infectious (7) COPD (chronic obstructive pulmonary disease): Qualifiers: COPD type: unspecified COPD Qualified Code(s): J44.9 - Chronic obstructive pulmonary disease, unspecified Code(s): J44.9 - Chronic obstructive pulmonary disease, unspecified Status: Chronic Assessment and Plan: Continue home Breo ellipta, and albuterol Continue home O2 at home settings Trend respiratory status Keep saturations >90% Stable (8) Abnormal urinalysis: Code(s): R82.90 - Unspecified abnormal findings in urine Status: Acute Assessment and Plan: UA appears infectious with leukocyte esterase, WBC >100 Urine culture shows contamination No indication for repeat at this time Ceftriaxone can most likely be stopped since this could be more of a colonization Trend labs Adjust therapy to culture results Most likely related to chronic urinary catheter. DS: Summary Hospital Course Hospital Course: patient is a 52-year-old male with a past medical history of metastatic prostate cancer with osseous lesions, cholecystitis, anemia, BPH, CVA, hyperlipidemia, COPD who presented the ED with complaints of right-sided abdominal pain. Upon arrival CT of the abdomen and pelvis was performed and did show dislodgement of the perc
--- NOTE | 2022-12-26 09:00 | P.DS_ITS ---
DS: Admitting Diagnosis Discharge Date 12/26/22 0900 Admitting Diagnosis Perc drain dysfunction, abdominal pain, chronic cholecystitis DS: Discharge Diagnosis Discharge Diagnosis (1) Cholecystitis, chronic: Code(s): K81.1 - Chronic cholecystitis Status: Chronic Assessment and Plan: * Chronic findings * Kaykay tube placed on 10/31/22, removed 12/24/22 * Abd/Pel CT indicate dislodgement of the tube * General surgery consulted thank you for your help * Liver enzymes stable * Alk phos trending down at 459 * Continue to trend labs * Pain medications ordered * Hold plavix and eliquis for now * Cholecystectomy vs monitor and trend * Cholangiogram showed decompressed gallbladder (2) Cholecystostomy tube dysfunction: Code(s): T85.518A - Breakdown (mechanical) of other gastrointestinal prosthetic devices, implants and grafts, initial encounter Status: Acute Assessment and Plan: * See above * Tube removed (3) Malignant neoplasm of prostate metastatic to bone: Code(s): C61 - Malignant neoplasm of prostate; C79.51 - Secondary malignant neoplasm of bone Status: Acute Assessment and Plan: * History of primary prostate cancer * CT of the abd/pel: Extensive osseous metastatic disease * Chronic urinary catheter * hold home Abriaterone as this is non-formulary * Trend urine output * Continue chronic management and treatment (4) Hyperlipidemia: Qualifiers: Hyperlipidemia type: mixed hyperlipidemia Qualified Code(s): E78.2 - Mixed hyperlipidemia Code(s): E78.5 - Hyperlipidemia, unspecified Status: Chronic Assessment and Plan: * Stable * Restart atorvastatin for now (5) Chronic respiratory failure: Code(s): J96.10 - Chronic respiratory failure, unspecified whether with hypoxia or hypercapnia Status: Acute Assessment and Plan: * Chronic respiratory failure related to COPD * Continue home oxygen at 4LNC * Trend respiratory status * Wean to maintain saturations >90% (6) BPH (benign prostatic hyperplasia): Qualifiers: Lower urinary tract symptom presence: unspecified whether lower urinary tract symptoms present Qualified Code(s): N40.0 - Benign prostatic hyperplasia without lower urinary tract symptoms Code(s): N40.0 - Benign prostatic hyperplasia without lower urinary tract symptoms Status: Acute Assessment and Plan: * Stable * trend urinary output * Urine function stable at 5/0.40 * Trend labs * Adjust therapy as indicated * UA appears to be infectious (7) COPD (chronic obstructive pulmonary disease): Qualifiers: COPD type: unspecified COPD Qualified Code(s): J44.9 - Chronic obstructive pulmonary disease, unspecified Code(s): J44.9 - Chronic obstructive pulmonary disease, unspecified Status: Chronic Assessment and Plan: * Continue home Breo ellipta, and albuterol * Continue home O2 at home settings * Trend respiratory status * Keep saturations >90% * Stable (8) Abnormal urinalysis: Code(s): R82.90 - Unspecified abnormal findings in urine Status: Acute Assessment and Plan: * UA appears infectious with leukocyte esterase, WBC
[2022-12-26] MEDS: CEFDINIR 300 MG CAPSULE PO (09:35)
--- NOTE | 2022-12-26 11:05 | PM.PNGS ---
Progress Note: A&P Assessment and Plan (1) Cholecystostomy tube dysfunction: Code(s): T85.518A - Breakdown (mechanical) of other gastrointestinal prosthetic devices, implants and grafts, initial encounter Status: Acute Assessment and Plan: Cholecystostomy tube removed in Radiology. He is tolerating a regular diet well. Still no drainage from where the catheter was removed as of today and no RUQ abdominal pain or tenderness. Okay from a surgical standpoint to discharge the patient today. Follow up only as needed. (2) Cholecystitis, chronic: Code(s): K81.1 - Chronic cholecystitis Status: Chronic (3) Malignant neoplasm of prostate metastatic to bone: Code(s): C61 - Malignant neoplasm of prostate; C79.51 - Secondary malignant neoplasm of bone Status: Acute (4) Chronic respiratory failure: Code(s): J96.10 - Chronic respiratory failure, unspecified whether with hypoxia or hypercapnia Status: Acute (5) COPD (chronic obstructive pulmonary disease): Qualifiers: COPD type: unspecified COPD Qualified Code(s): J44.9 - Chronic obstructive pulmonary disease, unspecified Code(s): J44.9 - Chronic obstructive pulmonary disease, unspecified Status: Chronic (6) Anticoagulant long-term use: Code(s): 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 Frausto. Subjective Subjective Date/Time Seen: 12/26/22 09:05 Patient reports: no new complaints, tolerating a regular diet and afebrile Interval history: Patient feeling well today. No acute changes overnight. Still tolerating his diet. No right upper quadrant abdominal pain. Dressing dry and intact and has not been changed since cholecystostomy tube was removed. Review of Systems Review of Systems: ROS unchanged Exam Const: General: comfortable and no acute distress Orientation/consciousness: patient oriented x3 GI: Inspection: non-distended and other (RUQ dressing dry and intact) GI Palp: Yes Soft to palpation, Yes Tenderness to palpation present (GI) (very mild TTP in lower abdomen reportedly chronic with cancer), No Guarding due to palpation present (GI) and No Rebound tenderness present Auscultation: normal bowel sounds Psych: Mental Status: mental status grossly normal Insight: Good insight present (Psych) Objective Data Vital Signs Vital Signs: Vital Signs - 24 hr 12/25/22 17:34 12/25/22 20:42 12/25/22 20:46 Temperature 97.7 F 99.1 F Pulse Rate 102 H 95 Respiratory Rate 20 18 Blood Pressure 127/71 121/68 Pulse Oximetry 99 100 98 Oxygen Delivery Nasal Cannula Oxygen Flow Rate 3 Fraction of Inspired Oxygen 12/25/22 21:56 12/25/22 20:45 12/26/22 04:51 Temperature 98.8 F 97.6 F Pulse Rate 106 H Respiratory Rate 18 Blood Pressure 133/82 Pulse Oximetry 98 100 Oxygen Delivery Nasal Cannula Oxygen Flow Rate 3 Fraction of Inspired Oxygen 12/26/22 08:33 12/26/22 08:33 Temperature Pulse Rate 105 H 105 H Respiratory Rate 18 18 Blood Pressure Pulse Oximetry 98 Oxygen Delivery Nasal Cannula Oxygen Flow Rate 3 Fraction of Inspired Oxygen 32 Intake/Output Intake/Output: Intake & Output 12/23/22 12/24/22 12/25/22 12/26/22 23:59 23:59 23:59 23:59 Intake Total 3050 6040 3720 370 Output Total 1125 3450 3300 2800 Balance 1925 7710 321 -5030 Meds/Results Medications: Active Medications Generic Name Dose Route Start Last Admin Trade Name Freq PRN Reason Stop Dose Admin Albuterol 2 puff 12/23/22 08:06 Albuterol Sulfate (*Sp) Aerosol 1 Puff INHALATION Q6-8H PRN Shortness Of [place]
[2022-12-26] MEDS: MAGNESIUM OXIDE 400 MG TABLET PO (12:40)
[2022-12-26] MEDS: oxyCODONE/ACETAMINOPHEN (*CRX) 5-325 MG TABLET 1 TABLET PO (12:43)
[2022-12-26 13:25] VITALS: BP 122/79; PULSE 114; RESP 18; TEMP 36.6; O2SAT 98
--- NOTE | 2022-12-26 14:16 | PC.NURSE ---
On 12/26/22, the student, [Talha Figueroa], provided care and completed [facility] documentation on this patient. I have reviewed the student's documentation and agree with the findings.
== END 2022-12-26 17:59 | disposition home or self-care (01) ==
LOC: ANHED 12-23 04:23 → ANH2MED 12-23 05:08
PROVIDERS: Nurse Practitioner; Admitting Provider Internal Medicine; Emergency Provider Emergency Medicine; PCP Family Medicine; Visit Provider Chiropractor
DX: T85.518A Breakdown (mechanical) of other gastrointestinal prosthetic devices, implants and grafts, initial encounter (principal); K81.1 Chronic cholecystitis; C61 Malignant neoplasm of prostate; C79.51 Secondary malignant neoplasm of bone; J96.10 Chronic respiratory failure, unspecified whether with hypoxia or hypercapnia; N40.0 Benign prostatic hyperplasia without lower urinary tract symptoms; Z99.3 Dependence on wheelchair; J44.9 Chronic obstructive pulmonary disease, unspecified; E78.2 Mixed hyperlipidemia; Z96.0 Presence of urogenital implants; R10.9 Unspecified abdominal pain; D64.9 Anemia, unspecified; N20.0 Calculus of kidney; R94.31 Abnormal electrocardiogram [ECG] [EKG]; F12.90 Cannabis use, unspecified, uncomplicated; Z87.891 Personal history of nicotine dependence; Z86.73 Personal history of transient ischemic attack (TIA), and cerebral infarction without residual deficits; Z79.51 Long term (current) use of inhaled steroids; Z79.01 Long term (current) use of anticoagulants; Z79.02 Long term (current) use of antithrombotics/antiplatelets; Z79.891 Long term (current) use of opiate analgesic; Z79.52 Long term (current) use of systemic steroids; Z79.899 Other long term (current) drug therapy
CPT/HCPCS: 36415; 47531; 74177; 80053; 81001; 83690; 83735; 85025; 85055; 87086; 87088; 93005; 94640; 96361; 96365; 96366; 96374; 96375; 96376; 99285; A9270; C1769; G0378; G0379; J0131; J0696; J1170; J2270; J2405; J7030; J7120; J7512; Q9966; Q9967

== ENCOUNTER 2023-02-01 21:59 | Emergency (ER) | payer OTHER, SELFPAY ==
[2023-02-01] VITALS (16 sets, daily range): BP systolic 72–172; BP diastolic 54–159; PULSE 0–141; RESP 0–25; TEMP 35.6–35.9; O2SAT 100
--- NOTE | ~2023-02-01 | XR_ITS ---
EXAMINATION: XR chest ET placement DATE: 02/01/2023 22:41 INDICATION: Status post intubation TECHNIQUE: frontal view of the chest was obtained. COMPARISON: Chest radiograph dated 02/26/[address] dated 10/21/2022 and 12/23/2022 FINDINGS: Endotracheal tube tip 6.0 cm above the sulema. Emphysema with increased lucency and architectural dis tortion in the bilateral upper lung zones. Chronic airspace and coarse interstitial opacities in the right mid to lower and left lower lung zones with appearance on CT favoring chronic atelectasis/scarr ing. Difficult to exclude superimposed mild pulmonary edema or pneumonia. No pleural effusion or pneu mothorax. Mild cardiomegaly. Partially visualized bilateral vertical steven and pedicle screw fixation f or T8-T12 posterior spinal fusion. IMPRESSION: 1. Endotracheal tube tip 6 cm above the sulema. Consider advancement by 4 cm. 2. Emphysema with stable appearance of chronic interstitial and airspace opacities in the right mid t o lower and left lower lung zones consistent with chronic atelectasis/scarring. Difficult to exclude mild superimposed pulmonary edema or pneumonia. Reviewed, dictated and finalized at location A. IMPRESSION: 1. Endotracheal tube tip 6 cm above the sulema. Consider advancement by 4 cm. 2. Emphysema with stable appearance of chronic interstitial and airspace opacit ies in the right mid to lower and left lower lung zones consistent with chronic atelectasis/scarring. Difficult to exclude mild superimposed pulmonary edema o r pneumonia.
--- NOTE | 2023-02-01 22:00 | PC.NURSE ---
220 20 mg etomidate given IVP VORB ERP 220 100 mg Rocuronium given IVP VORB ERP 2206 PT. intubated w/ 7.5 ET tube measuring 21 @ the lip. positive color change noted, bilat breath sounds auscultated, and chest rise and fall noted. 2226 ET tube moved to 22 @ the lip.
[2023-02-01 22:09] LABS: Glucose Point of Care 194 mg/dl (65-105)
--- NOTE | 2023-02-01 22:22 | ED.CPR ---
HPI - CPR General Chief Complaint: Cardiac Arrest/CPR Stated Complaint: cardiac arrest Time Seen by Provider: 02/01/23 22:18 History of Present Illness HPI narrative: Patient is a 52-year-old male presenting with cardiac arrest. Patient was reportedly with his cousin when he began vomiting and then became unresponsive. EMS was called and found him to be pulseless with agonal respirations. States he was initially in asystole. He received 5 rounds of epi with them. States that he was briefly in PEA and then he did briefly regain a pulse before losing it during transport. On arrival, patient is pulseless with CPR ongoing. I-gel is in place. Further history limited at this time. Related Data Home Medications Medication Instructions Recorded Confirmed albuterol sulfate 90 mcg/actuation 2 inh inhalation Q6-8H PRN 03/03/22 12/23/22 aerosol inhaler Shortness Of Breath Or Wheezing apixaban 5 mg tablet (Eliquis) 5 mg PO BID 05/12/22 12/23/22 ascorbate calcium (vitamin C) 500 500 mg PO BID 05/12/22 12/23/22 mg capsule atorvastatin 40 mg tablet 80 mg PO HS 05/12/22 12/23/22 clopidogrel 75 mg tablet (Plavix) 75 mg PO QAM 05/12/22 12/23/22 cyclobenzaprine 10 mg tablet 10 mg PO TID 05/12/22 12/23/22 fluticasone furoate 200 1 inh inhalation QAM 05/12/22 12/23/22 mcg-vilanterol 25 mcg/dose inhalation powder (Breo Ellipta) furosemide 20 mg tablet (Lasix) 20 mg PO QAM 05/12/22 12/23/22 mirtazapine 15 mg tablet (Remeron) 15 mg PO HS 05/12/22 12/23/22 ferrous sulfate 325 mg (65 mg 325 mg PO BID 06/26/22 12/23/22 iron) tablet (Iron (ferrous sulfate)) gabapentin 100 mg tablet 400 mg PO BID 06/26/22 12/23/22 sennosides 8.6 mg-docusate sodium 1 tab-cap PO BID 06/26/22 12/23/22 50 mg capsule (Senna Plus) calcium 500 mg tablet 500 mg PO QID 09/18/22 12/23/22 oxycodone-acetaminophen 5 mg-325 1 tablet PO Q6H PRN Pain (Scale 09/18/22 12/23/22 mg tablet Score 4-6) prednisone 5 mg tablet 5 mg PO BID 10/11/22 12/23/22 abiraterone 250 mg tablet 250 mg PO DAILY 12/23/22 12/23/22 Allergies Allergy/AdvReac Type Severity Reaction Status Date / Time No Known Allergies Allergy Verified 12/22/22 23:27 Review of Systems Review of Systems: ROS unobtainable: Yes unobtainable due to endotracheal tube, unobtainable due to medical condition and unobtainable due to mental status [facility] Past Medical History Medical History Acute kidney injury Anemia Antiplatelet or antithrombotic long-term use B12 deficiency anemia BPH (benign prostatic hyperplasia) Cataract Cholecystitis, chronic Chronic respiratory failure Colitis COPD (chronic obstructive pulmonary disease) CVA (cerebral vascular accident) Decubitus ulcer of sacral area Fecal impaction History of CVA (cerebrovascular accident) Hydronephrosis Hyperlipidemia Hypocalcemia Hypokalemia Hypokalemia Hypophosphatemia Large bowel obstruction Malignant neoplasm of prostate metastatic to bone UTI (urinary tract infection) due to urinary indwelling Horne catheter Vitamin D deficiency Surgical History Surgical History H/O cataract extraction H/O eye surgery History of spinal surgery History of tonsillectomy and adenoidectomy S/P TURP Family History Family History Mother Diabetes mellitus Social History Social History Social History: The patient lives with his cousin González and his cousin's . He is and has 2 daughters. He is disabled. He is a former smoker. He does not use any alcohol marijuana or illicit drugs. His cousin González is his durable power explosives worker for healthcare. he is listed as a full code Code status full code Smoking packs per day: 1 Smoking cigarettes per day: 20.0 Years smoked: 40 Smoking pack-years: 40.00 Smoking
--- NOTE | 2023-02-01 22:27 | ECG_ITS ---
Measurements Intervals [place] Rate: 121 P: 28 NM: 156 QRS: -69 QRSD: 134 T: 92 QT: 366 QTc: 520 Interpretive Statements SINUS TACHYCARDIA INTRAVENTRICULAR CONDUCTION DELAY [130+ ms QRS DURATION] COMPARED TO ECG 12/23/2022 01:26:39 SINUS TACHYCARDIA NOW PRESENT Electronically Signed On 02-02-2023 13:41:33 CDT by Wu Theodore M.D.
--- NOTE | 2023-02-01 22:45 | PC.NURSE ---
224 pt. has no pulse. cpr started 2243 epi given 2244 pulse check sinus tach 133
[2023-02-01 22:54] LABS: Hemoglobin 10.4 g/dL (14.0-18.0); Mean Corpuscular HGB Conc 31.5 g/dl (32-36); Mean Corpuscular Hemoglobin 32.7 pg (26-34); Mean Corpuscular Volume 103.8 fl (80-100); Mean Platelet Volume 12.3 fl (7.4-10.4); Platelet Count Result 378 k/mm3 (150-375); Red Blood Count 3.18 M/mm3 (4.6-6.20); Red Cell Distribution Width 15.4 % (11.5-14.5); White Blood Count 6.7 K/mm3 (4.5-10.0)
[2023-02-01 23:06] LABS: Alanine Aminotransferase 297 U/L (6-50); Albumin Level 3.5 g/dL (3.5-5.1); Alkaline Phosphatase 232 U/L (38-126); Anion Gap 22 mmol/L (8-16); Aspartate Amino Transferase 731 U/L (17-59); Bilirubin,Total 1.4 mg/dL (0.2-1.3); Blood Urea Nitrogen 25 mg/dL (9-20); Calcium 8.2 mg/dL (8.4-10.2); Carbon Dioxide 18 mmol/L (22-30); Chloride 92 mmol/L (98-107); Estimated CRCL calculation 26 ml/min; Estimated Glomerular Filt Rate 20; Glucose 169 mg/dL (65-110); Lipase 20 U/L (23-300); Magnesium 2.9 mg/dL (1.6-2.3); Potassium 4.7 mmol/L (3.4-5.0); Sodium 132 mmol/L (137-145)
--- NOTE | 2023-02-01 23:08 | PC.NURSE ---
2304 no pulse felt. cpr initiated epi given 2306 no pule, PEA, epi given 2308 pulse sinus, tach.
[2023-02-01 23:13] LABS: INR 2.9; Prothrombin Time 32.7 Seconds (11.1-14.7)
[2023-02-01 23:14] LABS: Partial Thromboplastin Time 68.8 SECONDS (22.3-36.8)
[2023-02-01] MEDS: EPINEPHrine INJ 1 MG in DEXTROSE 5% IN WATER 250 ML 15.06 MG IV CONT (23:30)
[2023-02-01 23:39] LABS: NT Pro B Type Natriuretic Pept 5590 pg/mL (19.9-100); Troponin I 0.043 ng/mL (0.000-0.034)
[2023-02-01] MEDS: SODIUM BICARBONATE 8.4% 150 MEQ in DEXTROSE 5% 1,000 ML 950 ML 50 MEQ IV CONT (23:42)
[2023-02-01] MEDS: FENTANYL 2,500MCG/NS250ML(*CRX 2,500 MCG/250 ML BAG IV CONT (23:48)
[2023-02-01 23:55] LABS: Blastocytes 4 %; Large Platelets Present; Lymphocytes Absolute Manual 5.49 K/mm3 (1.1-4.5); Monocytes Absolute Manual 0.46 K/mm3 (0.1-0.90); Monocytes Percent Manual 7 % (3-9); Neutrophils Percent Manual 2 % (46-73); Nucleated Red Blood Cells 29 %; Platelet Clumps Present; Platelet Estimate Adequate (Adequate); Promyelocytes Percent 5 %; Total Cells Counted 100
[2023-02-01 23:56] LABS: Anisocytosis 2+ (NORMAL)
[2023-02-01 23:57] LABS: Atypical Lymphocytes Present; Microcytosis 2+ (NORMAL); Poikilocytosis 3+ (NORMAL); Schistocytes 1+ (NORMAL); Smudge Cells MANY
--- NOTE | 2023-02-01 23:57 | PC.NURSE ---
2356 cpr started 2356 epi given 2353 Time of called by ERP
--- NOTE | 2023-02-01 23:57 | PC.NURSE ---
4251 cpr started 538 epi given TOD called 7205
== END 2023-02-02 02:00 | disposition expired ==
PROVIDERS: Emergency Provider Emergency Medicine; PCP Family Medicine
DX: I46.9 Cardiac arrest, cause unspecified (principal); C61 Malignant neoplasm of prostate; C79.51 Secondary malignant neoplasm of bone; J96.10 Chronic respiratory failure, unspecified whether with hypoxia or hypercapnia; J44.9 Chronic obstructive pulmonary disease, unspecified; E78.5 Hyperlipidemia, unspecified; E87.6 Hypokalemia; E55.9 Vitamin D deficiency, unspecified; N40.0 Benign prostatic hyperplasia without lower urinary tract symptoms; Z87.442 Personal history of urinary calculi; D51.9 Vitamin B12 deficiency anemia, unspecified; Z86.73 Personal history of transient ischemic attack (TIA), and cerebral infarction without residual deficits; Z87.891 Personal history of nicotine dependence; Z79.01 Long term (current) use of anticoagulants; Z79.02 Long term (current) use of antithrombotics/antiplatelets; Z98.49 Cataract extraction status, unspecified eye; R00.0 Tachycardia, unspecified; I45.9 Conduction disorder, unspecified
CPT/HCPCS: 31500; 36415; 80053; 82948; 83690; 83735; 83880; 84484; 85025; 85610; 85730; 92950; 93005; 96365; 96367; 96375; 99291; J0171; J3010; J7060; J7070